=== PATIENT | male | born 1950 | race Caucasian/White ===

== ENCOUNTER → 2017-11-19 | Outpatient (CLI) | payer MEDICARE, OTHER ==
--- NOTE | 2017-11-19 08:34 | US ---
EXAMINATION TYPE: US thyroid st tissue head/neck DATE OF EXAM: 11/19/2017 COMPARISON: nuclear medicine 2013 CLINICAL HISTORY: E05 Hyperthyroidism, R94.6 Abnormal Thyroid Labs. GLAND SIZE: Right Lobe: 4.7 x 1.9 x 1.5 cm Overall Parenchyma: heterogenous Left Lobe: 5.0 x 2.3 x 2.8 cm Overall Parenchyma: heterogeneous Isthmus Thickness: 0.3 cm NODULES RIGHT: # of nodules measured on right: 1 1. 1.2 X 1.3 x 1.4 cm echogenic solid nodule at the lower pole with well-defined margins; . This n odule is round and shows no intranodular vascularity. Prior size: no prior . LEFT: # of nodules measured on left: 1 1. 2.5 X 1.8 x 2.0 cm echogenic mixed nodule at the mid pole with well-defined margins; . This nod ule is round and shows intranodular vascularity. Prior size: no prior ISTHMUS: # of nodules measured in the isthmus: 0 Bilateral neck scanned, no evidence of lymphadenopathy. IMPRESSION: Nonspecific thyroid nodularity. The need to biopsy should be made on a clinical basis.
== END | disposition home or self-care (01) ==
LOC: RADUSWWP 07:58
PROVIDERS: ATTEND Internal Medicine
DX: E04.2 Nontoxic multinodular goiter (principal)
CPT/HCPCS: 76536

== ENCOUNTER 2018-09-11 13:50 | Emergency (ER) | payer MEDICARE, OTHER ==
[2018-09-11 14:00] VITALS: TEMP 97.4
[2018-09-11 14:45] LABS: Basophils % (A) 0 %; Eosinophils # (A) 0.2 k/uL (0-0.7); Eosinophils % (A) 4 %; HCT 38.4 % (39.0-53.0); HGB 13.2 gm/dL (13.0-17.5); Lymphocytes # (A) 1.9 k/uL (1.0-4.8); Lymphocytes % (A) 31 %; MCH 30.5 pg (25.0-35.0); MCHC 34.4 g/dL (31.0-37.0); MCV 88.6 fL (80.0-100.0); Mean Platelet Volume 6.9; Monocytes # (A) 0.3 k/uL (0-1.0); Monocytes % (A) 5 %; Neutrophils # (A) 3.6 k/uL (1.3-7.7); Neutrophils % (A) 58 %; Platelet Count 167 k/uL (150-450); RBC 4.33 m/uL (4.30-5.90); RDW 14.5 % (11.5-15.5); WBC 6.2 k/uL (3.8-10.6)
[2018-09-11 15:04] LABS: INR 2.1 (<1.2); Prothrombin Time 20.2 sec (9.0-12.0)
--- NOTE | 2018-09-11 15:04 | XR ---
EXAMINATION TYPE: XR Hip RT and AP Pelvis, XR femur RT DATE OF EXAM: 09/11/2018 COMPARISON: CT abdomen pelvis 08/29/2012 HISTORY: Trauma one week prior, ecchymosis and pain TECHNIQUE: A single AP view of the pelvis is obtained. Two views of the right hip are obtained. 2 vie ws of the right femur on 4 images. FINDINGS: There is no acute fracture/dislocation evident in the pelvis. The hip and sacroiliac join ts appear symmetric and unremarkable. The overlying soft tissue appears unremarkable. Two views of right hip show no acute fracture or dislocation. No focal lytic or sclerotic lesion see n in the right femur. The overlying soft tissue is unremarkable. Degenerative disc changes noted in cidentally within the lumbar spine. There are vascular calcifications present. Arthropathy noted in t he right knee. IMPRESSION: There is no acute fracture or dislocation in the pelvis or right hip or femur.
--- NOTE | 2018-09-11 15:31 | ED ---
General Adult HPI - General Chief complaint: Extremity Injury, Lower Stated complaint: Leg pain Time Seen by Provider: 09/11/18 14:13 Source: patient, RN notes reviewed Mode of arrival: ambulatory Limitations: no limitations - History of Present Illness Initial comments: Patient 67-year-old male presented to the emergency room today with a chief complaint of a fall that occurred 1 week ago. He does admit that he was outside. He states it was dark he tripped on a tree root causing him to fall down onto the right hip. He states he had a flashlight in his pocket. Patient does admit that he's had some bruising around the right hip area. He states he was concerned as the bruising still present week later. States he wanted to make sure that it was checked. He denies any head injury or loss conscious. Patient does admit that he's been ambulating. He states that he only has pain if he palpates the area where the bruises. Patient also does admit that he is on Coumadin. He states that his Coumadin was increased recently. Patient denies any other complaints. Patient denies any recent fever, chills, shortness of breath, chest pain, back pain, numbness or tingling, headaches or visual changes, or any other complaints. - Related Data Allergies Allergy/AdvReac Type Severity Reaction Status Date / Time No Known Allergies Allergy Verified 09/11/18 14:01 Review of Systems ROS Statement: Those systems with pertinent positive or pertinent negative responses have been documented in the HPI. ROS Other: All systems not noted in ROS Statement are negative. Past Medical History Past Medical History: Atrial Fibrillation Additional Past Medical History / Comment(s): states he has been watching his blood sugar lately History of Any Multi-Drug Resistant Organisms: None Reported Past Surgical History: Joint Replacement, Orthopedic Surgery Additional Past Surgical History / Comment(s): right foot/leg surgery and madalyn placement related to crushing injury. Past Psychological History: Depression Smoking Status: Former smoker Past Alcohol Use History: None Reported Past Drug Use History: None Reported General Exam - General Exam Comments Initial Comments: General: The patient is awake and alert, in no distress, and does not appear acutely ill. Eye: There is normal conjunctiva bilaterally. No signs of icterus. Ears, nose, mouth and throat: There are moist mucous membranes and no oral lesions. Neck: The neck is supple, there is no tenderness or JVD. Cardiovascular: There is a regular rate and rhythm. No murmur, rub or gallop is appreciated. Respiratory: Lungs are clear to auscultation, respirations are non-labored, breath sounds are equal. No wheezes, stridor, rales, or rhonchi. Musculoskeletal: Normal ROM. Patient does have some bruising to the lateral aspect of the proximal femur also some bruising behind the left knee. Patient tender in these areas. Shows good range of motion. Sensations intact. Strength 5/5. Neurological: A&O x 3. CN II-XII intact, There are no obvious motor or sensory deficits. Coordination appears grossly intact. Speech is normal. Skin: Skin is warm and dry and no rashes or lesions are noted. Psychiatric: Cooperative, appropriate mood & affect, normal judgment. Limitations: no limitations Course Vital Signs 09/11/18 13:54 Temperature 97.4 F L Pulse Rate 54 L Respiratory 18 Rate Blood Pressure 173/73 O2 Sat by Pulse 98 Oximetry Medical Decision Making - Medical Decision Making X-rays reviewed are negative for any acute abnormality. Results were discussed with the patient. Patient's INR is 2.1. Patient will be discharged home. - Lab Data Result diagrams: 09/11/18 14:36 Lab Results 09/11/18 09/11/18 Range/Units 14:36 14:36 WBC 6.2 (3.8-10.6) k/uL RBC 4.33 (4.30-5.90) m/uL Hgb 13.2 (13.0-17.5) gm/dL Hct 38.4 L (39.0-53.0) % MCV 88.6 (80.0-100.0) fL MCH 30.5 (25.0-35.0) pg MCHC 34.4 (31.0-37.0) g/dL RDW 14.5 (11.5-15.5) % Plt Count 167 (150-450) k/uL Neutrophils % 58 % Lymphocytes % 31 % Monocytes % 5 % Eosinophils % 4 % Basophils % 0 % Neutrophils # 3.6 (1.3-7.7) k/uL Lymphocytes # 1.9 (1.0-4.8) k/uL Monocytes # 0.3 (0-1.0) k/uL Eosinophils # 0.2 (0-0.7) k/uL Basophils # 0.0 (0-0.2) k/uL PT 20.2 H (9.0-12.0) sec INR 2.1 H (<1.2) Disposition Clinical Impression: Contusion, hip Disposition: HOME SELF-CARE Condition: Good Instructions: Contusion in Adults (ED) Additional Instructions: Please follow up with family physician as discussed. Return to emergency room for new concerns. Is patient prescribed a controlled substance at d/c from ED?: No Referrals: Mati Gomez MD [Primary Care Provider] - 1-2 days Time of Disposition: 15:31
[2018-09-11 15:42] VITALS: BP 153/75; PULSE 67; RESP 16
== END 2018-09-11 15:41 | disposition home or self-care (01) ==
LOC: EC 13:50
DX: S70.01XA Contusion of right hip, initial encounter (principal); S80.02XA Contusion of left knee, initial encounter; I48.91 Unspecified atrial fibrillation; Z87.891 Personal history of nicotine dependence; Z79.01 Long term (current) use of anticoagulants; Z98.890 Other specified postprocedural states; W01.0XXA Fall on same level from slipping, tripping and stumbling without subsequent striking against object, initial encounter; Y93.K1 Activity, walking an animal
CPT/HCPCS: 36415; 73502; 85025; 85610; 99283

== ENCOUNTER 2019-06-30 18:41 | Emergency (ER) | payer MEDICARE, OTHER ==
[2019-06-30 18:46] VITALS: BP 161/73
--- NOTE | 2019-06-30 19:18 | ED ---
Extremity Problem HPI - General Chief complaint: Extremity Problem,Nontraumatic Stated complaint: shoulder pain with rash Time Seen by Provider: 06/30/19 18:46 Source: patient Mode of arrival: ambulatory Limitations: no limitations - History of Present Illness Initial comments: Patient is 68-year-old male presenting to emergency prompt with a chief comp laint of left shoulder pain. Patient reports he has been ongoing for about 1-2 weeks and seems to be exacerbated today. 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 Patient reports the pain is exacerbated with motion above 90. Patient reports the pain is alleviated at rest. Patient denies any trauma to the region. Patient is also concerned for a lesion in the axilla that he noticed today. His also reports that she felt a "lump" in the region with no drainage. Patient denies taking medication to alleviate the symptoms. - Related Data Home Medications Medication Instructions Recorded Confirmed Allopurinol [Zyloprim] 300 mg PO DAILY 06/30/19 06/30/19 Digoxin [Lanoxin] 125 mcg PO DAILY 06/30/19 06/30/19 HYDROcodone/APAP 10-325MG [[place] 1 tab PO QID 06/30/19 06/30/19 10-325] Lisinopril-Hctz 20-12.5 mg 1 tab PO DAILY 06/30/19 06/30/19 [Zestoretic 20-12.5] Warfarin [Coumadin] 10 mg PO HS 06/30/19 06/30/19 amLODIPine BESYLATE [Norvasc] 5 mg PO DAILY 06/30/19 06/30/19 glipiZIDE [Glucotrol] 5 mg PO AC-SUPPER 06/30/19 06/30/19 Previous Rx's Medication Instructions Recorded Triamcinolone 0.5% Cream [Kenalog 1 applic TOPICAL BID #1 bottle 06/30/19 0.5% Cream] Allergies Allergy/AdvReac Type Severity Reaction Status Date / Time No Known Allergies Allergy Verified 06/30/19 19:29 Review of Systems ROS Statement: Those systems with pertinent positive or pertinent negative responses have been documented in the HPI. ROS Other: All systems not noted in ROS Statement are negative. Past Medical History Past Medical History: Atrial Fibrillation Additional Past Medical History / Comment(s): states he has been watching his blood sugar lately History of Any Multi-Drug Resistant Organisms: None Reported Past Surgical History: Joint Replacement, Orthopedic Surgery Additional Past Surgical History / Comment(s): right foot/leg surgery and madalyn placement related to crushing injury. Past Psychological History: Depression Smoking Status: Former smoker Past Alcohol Use History: None Reported Past Drug Use History: None Reported General Exam Limitations: no limitations General appearance: alert, in no apparent distress Head exam: Present: atraumatic, normocephalic, normal inspection Eye exam: Present: normal appearance Pupils: Present: normal accommodation ENT exam: Present: normal exam, mucous membranes moist, normal external ear exam Neck exam: Present: normal inspection, full ROM Respiratory exam: Present: normal lung sounds bilaterally Cardiovascular Exam: Present: regular rate, normal rhythm, normal heart sounds Extremities exam: Present: normal inspection (No reported deformities in the left shoulder. No palpable masses appreciated in the axilla.), tenderness (Very mild tenderness along the anterior deltoid. Positive [place]. Positive empty can test.), normal capillary refill, other (+2 ulnar and radial pulses bilaterally.). Absent: full ROM (Limited range of motion with abduction above 90.), pedal edema, joint swelling Back exam: Present: normal inspection, full ROM Neurological exam: Present: alert, oriented X3 Psychiatric exam: Present: normal affect, normal mood Skin exam: Present: warm, intact, normal color, rash (Macular over lesion with excoriations noted in the left axilla with no discharge or erythema.) Course Vital Signs 06/30/19 18:44 Temperature 97.3 F L Pulse Rate 60 Respiratory 20 Rate Blood Pressure 161/73 O2 Sat by Pulse 97 Oximetry Medical Decision Making - Medical Decision Making Patient is 68-year-old male presenting to the emergency department with chief complaint of left shoulder pain. Patient only appears to have pain with abduction above 90. Physical examination does have positive empty can test and positive [place] test. There is no trauma to the region. X-rays negative. I suspect the patient to have a tendinopathy of the rotator cuff. Patient advised to alternate between Tylenol and ibuprofen for pain control. Patient advised to follow-up with orthopedics for further management. Also physical examination an macular lesion with excoriations was noted on the axilla which was non-tender. No any masses were detected. I suspect this to be dermatitis . Patient will be discharged with a steroid cream. Patient advised to follow-up with primary care regarding the lesion and if does not improve. Strict return parameters were thoroughly discussed with patient is understanding and agreeable. Case discussed with physician. Disposition Clinical Impression: Left shoulder pain, Tendinopathy of left rotator cuff Disposition: HOME SELF-CARE Condition: Stable Instructions (If sedation given, give patient instructions): Rotator Cuff Injury (ED) Additional Instructions: Please take prescribed medication as directed. Please follow up with orthopedics. Please return to emergency department if symptoms worsen. Prescriptions: Triamcinolone 0.5% Cream [Kenalog 0.5% Cream] 1 applic TOPICAL BID #1 bottle Is patient prescribed a controlled substance at d/c from ED?: No Referrals: Mati Gomez MD [Primary Care Provider] - 1-2 days Trae Reveles DO [Medical Doctor] - 1-2 days Time of Disposition: 20:37
--- NOTE | 2019-06-30 19:55 | XR ---
EXAMINATION TYPE: XR shoulder complete LT DATE OF EXAM: 06/30/2019 COMPARISON: NONE HISTORY: Shoulder pain TECHNIQUE: 3 views FINDINGS: I see no fracture nor dislocation. There is spurring at the AC joint. There are no patholog ic calcifications at the greater tuberosity. IMPRESSION: No acute abnormality of the left shoulder.
[2019-06-30 21:00] VITALS: PULSE 57; RESP 18; TEMP 98.1
== END 2019-06-30 20:55 | disposition home or self-care (01) ==
LOC: EC 18:41
DX: M67.912 Unspecified disorder of synovium and tendon, left shoulder (principal); I48.91 Unspecified atrial fibrillation; Z79.01 Long term (current) use of anticoagulants; Z79.84 Long term (current) use of oral hypoglycemic drugs; Z79.899 Other long term (current) drug therapy; Z87.891 Personal history of nicotine dependence
CPT/HCPCS: 99283

== ENCOUNTER 2021-03-05 | Day surgery (SDC) | payer MEDICARE, OTHER | END 2021-03-05 13:53 | disposition home or self-care (01) | DX: Z12.11 Encounter for screening for malignant neoplasm of colon (principal); I48.91 Unspecified atrial fibrillation; Z79.01 Long term (current) use of anticoagulants; E11.9 Type 2 diabetes mellitus without complications; M10.9 Gout, unspecified; I10 Essential (primary) hypertension; Z79.899 Other long term (current) drug therapy; Z79.84 Long term (current) use of oral hypoglycemic drugs; D12.4 Benign neoplasm of descending colon; D12.5 Benign neoplasm of sigmoid colon; D12.3 Benign neoplasm of transverse colon; Z86.010 Personal history of colon polyps; K57.90 Diverticulosis of intestine, part unspecified, without perforation or abscess without bleeding | CPT/HCPCS: 88305; 45380; 45385; J2704 ==

== ENCOUNTER → 2021-05-22 | Outpatient (CLI) | payer MEDICARE, OTHER ==
--- NOTE | 2021-05-22 19:47 | US ---
EXAM: LOWER EXTREMITY VENOUS INSUFFICIENCY DATE: 05/22/2021 CLINICAL HISTORY: E11.621 Type 2 diabetes mellitus with foot ulcer. SIDE PERFORMED: Bilateral FINDINGS: 1) Color flow is present and patency is documented in the following vessels. No DVT or SVT is noted . Common Femoral Vein Deep Femoral Vein Femoral Vein Popliteal Vein Proximal Calf Veins Greater Saph Vein Upper Small Saph Vein 2) There is venous reflux noted at the following venous levels: right mid FV, right distal popliteal vein, left EIV, left GSV, left mid FV IMPRESSION: 1. No evidence for DVT within the bilateral lower extremities imaged from the groin to the knees. 2. Bilateral lower extremity venous reflux as outlined above.
== END | disposition home or self-care (01) ==
LOC: RADUSWWP 13:45
PROVIDERS: ATTEND Thoracic Surgery (Cardiothoracic Vascular Surgery)
DX: I87.2 Venous insufficiency (chronic) (peripheral) (principal)
CPT/HCPCS: 93923; 93970

== ENCOUNTER 2022-05-23 19:03 | Inpatient (IN) | payer MEDICARE, OTHER ==
--- NOTE | 2022-05-23 20:27 | XR ---
EXAMINATION TYPE: XR foot complete RT, XR toes RT DATE OF EXAM: 05/23/2022 CLINICAL HISTORY: pain TECHNIQUE: Frontal, lateral and oblique images of the right foot are obtained. 3 views of the right s econd toe are also submitted. COMPARISON: None. FINDINGS: Tissue swelling right second toe. I do not see evidence for bony destructive process. No ev idence for fracture or dislocation. Moderate degenerative change first metatarsal phalangeal joint an d subchondral cyst formation and mild hallux valgus formation. IMPRESSION: There is no acute fracture or dislocation. Soft tissue swelling right second toe without osteomyeliti s at this time. ICD 10 NO FRACTURE, INITIAL EVALUATION
[2022-05-23 21:12] LABS: Basophils % (A) 0 %; Eosinophils # (A) 0.4 k/uL (0-0.7); Eosinophils % (A) 4 %; HCT 33.1 % (39.0-53.0); HGB 11.2 gm/dL (13.0-17.5); Lymphocytes # (A) 1.8 k/uL (1.0-4.8); Lymphocytes % (A) 20 %; MCH 31.4 pg (25.0-35.0); MCHC 33.9 g/dL (31.0-37.0); MCV 92.7 fL (80.0-100.0); Mean Platelet Volume 7.8; Monocytes # (A) 0.5 k/uL (0-1.0); Monocytes % (A) 6 %; Neutrophils # (A) 6.2 k/uL (1.3-7.7); Neutrophils % (A) 67 %; Platelet Count 174 k/uL (150-450); RBC 3.57 m/uL (4.30-5.90); RDW 13.6 % (11.5-15.5); WBC 9.2 k/uL (3.8-10.6)
[2022-05-23] MEDS ORDERED: VANCOMYCIN IV PER PHARMACY 1 EACH MISC MISCELLANE PRN (21:39)
[2022-05-23] MEDS ORDERED: VANCOMYCIN 1,750 MG in SODIUM CHLORIDE 0.9% 500 ML 500 ML IVPB STA (21:47)
[2022-05-23] MEDS ORDERED: PIPERACILLIN-TAZOBACTAM 3.375 GM in SODIUM CHLORIDE 0.9% 100 ML IVPB ONE (22:00)
--- NOTE | 2022-05-23 22:20 | ED ---
Skin/Abscess/FB HPI - General Chief complaint: Skin/Abscess/Foreign Body Stated complaint: Toe/foot problems Time Seen by Provider: 05/23/22 19:34 Source: patient Mode of arrival: ambulatory Limitations: no limitations - History of Present Illness Initial comments: Patient is a 71-year-old male presenting with chief complaint of right sided toe pain. Patient states that about a week ago he was tearing off his toenails instead of trimming them. Patient is now complaining of pain, redness, discharge from the second toe of the right foot. There is redness going up the foot and leg. Patient is noticing skin changes near the end of the toe. Patient has history of diabetes. Denies chest pain, shortness of breath, fever, chills, nausea, vomiting, abdominal pain, headache, vision or hearing changes, neck pain or stiffness. - Related Data Home Medications Medication Instructions Recorded Confirmed Digoxin [Lanoxin] 125 mcg PO DAILY 06/30/19 03/05/21 HYDROcodone/APAP 10-325MG [[place] 1 tab PO QID 06/30/19 03/05/21 10-325] Lisinopril-Hctz 20-12.5 mg 1 tab PO DAILY 06/30/19 03/05/21 [Zestoretic 20-12.5] Warfarin [Coumadin] 10 mg PO HS 06/30/19 03/05/21 allopurinoL [Zyloprim] 300 mg PO DAILY 06/30/19 03/05/21 amLODIPine BESYLATE [Norvasc] 5 mg PO DAILY 06/30/19 03/05/21 glipiZIDE [Glucotrol] 5 mg PO AC-SUPPER 06/30/19 03/05/21 Previous Rx's Medication Instructions Recorded Triamcinolone 0.5% Cream [Kenalog 1 applic TOPICAL BID #1 bottle 06/30/19 0.5% Cream] Allergies Allergy/AdvReac Type Severity Reaction Status Date / Time No Known Allergies Allergy Verified 05/23/22 19:34 Review of Systems ROS Statement: Those systems with pertinent positive or pertinent negative responses have been documented in the HPI. ROS Other: All systems not noted in ROS Statement are negative. Past Medical History Past Medical History: Atrial Fibrillation Additional Past Medical History / Comment(s): states he has been watching his blood sugar lately History of Any Multi-Drug Resistant Organisms: MRSA Date of last positivie culture/infection: 05/08/21 MDRO Source:: Right Heel Past Surgical History: Joint Replacement, Orthopedic Surgery Additional Past Surgical History / Comment(s): right foot/leg surgery and madalyn placement related to crushing injury. Past Psychological History: Depression Past Alcohol Use History: None Reported Past Drug Use History: None Reported General Exam Limitations: no limitations General appearance: alert, in no apparent distress Head exam: Present: atraumatic, normocephalic, normal inspection Eye exam: Present: normal appearance, EOMI. Absent: scleral icterus, periorbital swelling Neck exam: Present: normal inspection Respiratory exam: Present: normal lung sounds bilaterally. Absent: respiratory distress, wheezes, rales, rhonchi, stridor Cardiovascular Exam: Present: regular rate, normal rhythm, normal heart sounds. Absent: systolic murmur, diastolic murmur, rubs, gallop, clicks Right Foot/Toe exam: Present: tenderness, swelling, erythema, nail avulsion. Absent: normal inspection Neurological exam: Present: alert, oriented X3, CN II-XII intact Psychiatric exam: Present: normal affect, normal mood Skin exam: Present: other (Right foot second toe is erythematous, there is streaking up the foot and lower leg, there is pus from where the nail previously was, it is warm to the touch, distal end is concerning for some necrosis) Course Vital Signs 05/23/22 19:32 Temperature 98.5 F Pulse Rate 98 Respiratory 18 Rate Blood Pressure 102/58 O2 Sat by Pulse 96 Oximetry - Reevaluation(s) Reevaluation #1: To the waiting room to date the patient on his results, patient left AMA. I called the patient, his answered and I explained to her that he needs to return for further care. conveyed verbal understanding and stated that she would be bring him back. 05/23/22 22:33 Medical Decision Making - Medical Decision Making Patient is a 71-year-old male presenting with chief complaint of right-sided toe pain. Over the last week patient has had increasing pain, redness, discharge to the right foot second toe. Patient states he has been changing the dressings at home, today when his saw that she was concerned that the tip of the toe appeared to be darker. I brought the patient into the [facility] room for evaluation, right second toe is erythematous with red streaking up the foot and lower leg, the foot is warm, tender to the touch, discharge noted from the toe. I explained to him that he would require IV antibiotics and would be staying here in the hospital. X-ray showed no evidence of osteomyelitis. Lab work shows no leukocytosis, WBC 9.2. Evidence for acute renal failure with creatinine of 4.14 and BUN of 96. Glucose is 174. CRP 5.5. Order was placed for IV antibiotics and fluids. When staff went to retrieve patient from the waiting room, patient had left. Called the patient's and explained to her that the patient left and needed to return for IV antibiotics and further management. Patient reported back to the ER accompanied by his , IV ant ibiotics and fluids were started. Tetanus is updated. I spoke with Dr. Quezada from [facility] who agreed to admit the patient. I discussed this case with my attending Dr. Cox. - Lab Data Result diagrams: 05/23/22 20:51 05/23/22 20:51 Lab Results 05/23/22 05/23/22 Range/Units 20:51 20:51 WBC 9.2 (3.8-10.6) k/uL RBC 3.57 L (4.30-5.90) m/uL Hgb 11.2 L (13.0-17.5) gm/dL Hct 33.1 L (39.0-53.0) % MCV 92.7 (80.0-100.0) fL MCH 31.4 (25.0-35.0) pg MCHC 33.9 (31.0-37.0) g/dL RDW 13.6 (11.5-15.5) % Plt Count 174 (150-450) k/uL MPV 7.8 Neutrophils % 67 % Lymphocytes % 20 % Monocytes % 6 % Eosinophils % 4 % Basophils % 0 % Neutrophils # 6.2 (1.3-7.7) k/uL Lymphocytes # 1.8 (1.0-4.8) k/uL Monocytes # 0.5 (0-1.0) k/uL Eosinophils # 0.4 (0-0.7) k/uL Basophils # 0.0 (0-0.2) k/uL ESR Cancelled Sodium 137 (137-145) mmol/L Potassium 4.1 (3.5-5.1) mmol/L Chloride 97 L (98-107) mmol/L Carbon Dioxide 20 L (22-30) mmol/L Anion Gap 20 mmol/L BUN 96 H (9-20) mg/dL Creatinine 4.14 H (0.66-1.25) mg/dL Est GFR (CKD-EPI)AfAm 16 (>60 ml/min/1.73 sqM) Est GFR (CKD-EPI)NonAf 13 (>60 ml/min/1.73 sqM) Glucose 174 H (74-99) mg/dL Calcium 8.6 (8.4-10.2) mg/dL Total Bilirubin 1.4 H (0.2-1.3) mg/dL AST 29 (17-59) U/L ALT 17 (4-49) U/L Alkaline Phosphatase 86 (38-126) U/L C-Reactive Protein 5.5 H (<1.0) mg/dL Total Protein 6.8 (6.3-8.2) g/dL Albumin 4.3 (3.5-5.0) g/dL Disposition Clinical Impression: Diabetic foot infection, Acute renal failure Disposition: ADMITTED IP TO THIS [facility] Condition: Serious Time of Disposition: 22:20 Decision to Admit Reason: Admit from EC Decision Date: 05/23/22 Decision Time: 22:20
[2022-05-23 22:40] LABS: Albumin 4.3 g/dL (3.5-5.0); C Reactive Protein 5.5 mg/dL (<1.0); Calcium 8.6 mg/dL (8.4-10.2); Potassium 4.1 mmol/L (3.5-5.1); Total Bilirubin 1.4 mg/dL (0.2-1.3); Total Protein 6.8 g/dL (6.3-8.2)
[2022-05-23] MEDS ORDERED: SODIUM CHLORIDE 0.9% 2,000 ML IV ONE (22:54)
[2022-05-23] MEDS ORDERED: ACETAMINOPHEN TAB 325 MG TAB PO PRN (23:05)
[2022-05-23] MEDS ORDERED: NALOXONE 0.4 MG/ML 1 ML VIAL IV PRN (23:05)
[2022-05-24] MEDS ORDERED: DIPH,PERTUS(ACELL)TETVAC-LF 0.5 ML VIAL IM ONE (02:04)
[2022-05-24] MEDS: SODIUM CHLORIDE 0.9% 1,000 ML IV SCH ×4 (04:03→22:22)
[2022-05-24 10:57] LABS: Basophils % (A) 0 %; Eosinophils # (A) 0.4 k/uL (0-0.7); Eosinophils % (A) 6 %; HCT 30.7 % (39.0-53.0); HGB 10.3 gm/dL (13.0-17.5); Lymphocytes # (A) 1.5 k/uL (1.0-4.8); Lymphocytes % (A) 25 %; MCH 30.1 pg (25.0-35.0); MCHC 33.6 g/dL (31.0-37.0); MCV 89.8 fL (80.0-100.0); Mean Platelet Volume 8.1; Monocytes # (A) 0.4 k/uL (0-1.0); Monocytes % (A) 6 %; Neutrophils # (A) 3.6 k/uL (1.3-7.7); Neutrophils % (A) 60 %; Platelet Count 143 k/uL (150-450); RBC 3.42 m/uL (4.30-5.90); RDW 13.8 % (11.5-15.5); WBC 6.1 k/uL (3.8-10.6)
[2022-05-24 11:52] LABS: Albumin 4.2 g/dL (3.5-5.0); Calcium 8.2 mg/dL (8.4-10.2); Total Bilirubin 1.2 mg/dL (0.2-1.3); Total Protein 6.3 g/dL (6.3-8.2)
[2022-05-24] MEDS ORDERED: LISINOPRIL-HCTZ 20-12.5 MG 1 EACH TAB PO SCH (14:30)
--- NOTE | 2022-05-24 14:44 | P.HPIM ---
History of Present Illness H&P Date: 05/24/22 Pepe Waters, is a 71-year-old male who presented to [facility] emergency room with a chief complaint of right second toe pain and swelling and erythema, patient stated that he was trimming his toenails few days ago he has severe onychomycosis in all his toenails, he ended up tearing off the second right toenail, he developed some pain and bleeding at the time, however he started having worsening pain and erythema extending down his foot over the next few days and he decided to come to emergency room for further evaluation and treatment. He was evaluated in the emergency room vital examination on presentation revealed a temperature of 98.5 pulse 98 respiration 18 blood pressure 102/58 pulse ox 96% on room air Laboratory data revealed a white blood count of 9.2 hemoglobin 11.2 platelet count 174 BUN 96 creatinine 4.14 glucose level 174 his creatinine was normal at 1.0 one months ago Testing in the emergency room revealed right foot x-ray done in the emergency room revealed no evidence of fracture or osteomyelitis Patient was admitted to medical floor for further evaluation and treatment, he was started on IV antibiotics, infectious disease consultation and nephrology consultation were requested. Past medical history is significant for history of hypertension well-controlled on medications, history of diabetes mellitus type 2, history of chronic atrial fibrillation maintained on Coumadin, INR was elevated recently and Coumadin is on hold at this time, underlying history of gout, history of colon polyps. Past Medical History Past Medical History: Atrial Fibrillation, Diabetes Mellitus Additional Past Medical History / Comment(s): . History of Any Multi-Drug Resistant Organisms: MRSA Date of last positivie culture/infection: 05/08/21 MDRO Source:: Right Heel Past Surgical History: Joint Replacement, Orthopedic Surgery Additional Past Surgical History / Comment(s): right foot/leg surgery and madalyn placement related to crushing injury. Past Anesthesia/Blood Transfusion Reactions: No Reported Reaction Past Psychological History: Depression Smoking Status: Former smoker Past Alcohol Use History: None Reported Past Drug Use History: None Reported Medications and Allergies Home Medications Medication Instructions Recorded Confirmed Type HYDROcodone/APAP 10-325MG [[place] 1 tab PO TID PRN 06/30/19 05/24/22 History 10-325] Lisinopril-Hctz 20-12.5 mg 1 tab PO DAILY 06/30/19 05/24/22 History [Zestoretic 20-12.5] allopurinoL [Zyloprim] 300 mg PO DAILY 06/30/19 05/24/22 History amLODIPine BESYLATE [Norvasc] 5 mg PO DAILY 06/30/19 05/24/22 History Warfarin Sodium [Jantoven] 5 mg PO MO@189905/24/22 05/24/22 History Warfarin Sodium [Jantoven] 10 mg PO SUTUWETHFRSA@1900 05/24/22 05/24/22 History Allergies Allergy/AdvReac Type Severity Reaction Status Date / Time No Known Allergies Allergy Verified 05/24/22 11:31 Physical Exam Vitals: Vital Signs Temp Pulse Pulse Resp BP BP Pulse Ox 05/24/22 08:30 97.7 F 85 18 128/73 98 05/24/22 03:46 87 16 104/62 96 05/23/22 19:32 98.5 F 98 18 102/58 96 Intake and Output 05/23/22 05/24/22 05/24/22 22:59 06:59 14:59 Other: # Voids 1 Weight 113.398 kg 113.398 kg In general patient is alert and oriented ?-3 in no distress HEENT head normocephalic and atraumatic Neck is supple no JVD no goiter no lymphadenopathy no carotid bruit Chest examination is clear to auscultation no crackles no wheezing Cardiac exam reveals regular heart sounds S1 and S2 no gallops no murmurs Abdomen is soft nontender no organomegaly with normal bowel sounds Extremity exam reveals no edema no cyanosis or clubbing, the right second toe is without toenail, there is erythema and swelling in the right second 2 with extension of the erythema down the foot all the way to the ankle area, there is onychomycosis 10 Neurological examination reveals no gross focal deficits Results CBC & Chem 7: 05/24/22 08:20 05/24/22 08:20 Labs: Abnormal Lab Results - Last 24 Hours (Table) 05/23/22 05/23/22 05/24/22 Range/Units 20:51 20:51 08:20 RBC 3.57 L 3.42 L (4.30-5.90) m/uL Hgb 11.2 L 10.3 L (13.0-17.5) gm/dL Hct 33.1 L 30.7 L (39.0-53.0) % Plt Count 143 L (150-450) k/uL Chloride 97 L (98-107) mmol/L Carbon Dioxide 20 L (22-30) mmol/L BUN 96 H (9-20) mg/dL Creatinine 4.14 H (0.66-1.25) mg/dL Glucose 174 H (74-99) mg/dL Total Bilirubin 1.4 H (0.2-1.3) mg/dL C-Reactive Protein 5.5 H (<1.0) mg/dL Thrombosis Risk Factor Assmnt - Choose All That Apply Any of the Below Risk Factors Present?: Yes Each Factor Represents 1 point: Obesity (BMI >25) Other Risk Factors: Yes Each Risk Factor Represents 2 Points: Age 61-74 years Thrombosis Risk Factor Assessment Total Risk Factor Score: 3 Thrombosis Risk Factor Assessment Level: Moderate Risk Assessment and Plan Plan: Cellulitis of the right foot with ulcer on the second toe was loss of the second toenail Acute kidney injury, cause is unclear, at this time will hold lisinopril hold allopurinol, give IV fluid and monitor kidney function closely Underlying history of hypertension Underlying history of hyperlipidemia Underlying history of diabetes mellitus type 2 Underlying history of chronic atrial fibrillation maintained on Coumadin Recent coagulopathy was elevated INR patient is off his Coumadin for the last 2 days with check INR Underlying history of gout At this time patient will be admitted to medical floor Started on IV fluid and IV antibiotics Infectious disease consultation and nephrology consultations requested Will follow closely
[2022-05-24] MEDS: allopurinoL 300 MG TAB PO SCH (15:16)
[2022-05-24] MEDS: amLODIPine 5 MG TAB PO SCH (15:16)
[2022-05-24 15:24] LABS: Prothrombin Time 69.4 sec (9.0-12.0)
[2022-05-24 15:27] LABS: INR 6.8 (<1.2)
[2022-05-24] MEDS: AMPICILLIN-SULBACTAM 3 GM in SODIUM CHLORIDE 0.9% 100 ML IVPB SCH (16:56)
[2022-05-24] MEDS ORDERED: PIPERACILLIN-TAZOBACTAM 3.375 GM in SODIUM CHLORIDE 0.9% 100 ML IVPB SCH (17:00)
[2022-05-24] MEDS: HYDROcodone/APAP 10-325MG 1 EACH TAB PO PRN (17:41)
[2022-05-24] MEDS ORDERED: WARFARIN 10 MG TAB PO SCH (19:00)
[2022-05-24] MEDS ORDERED: VANCOMYCIN 1,750 MG in SODIUM CHLORIDE 0.9% 500 ML 500 ML IVPB ONE (22:00)
[2022-05-25] MEDS: AMPICILLIN-SULBACTAM 3 GM in SODIUM CHLORIDE 0.9% 100 ML IVPB SCH ×2 (04:56→16:22)
[2022-05-25 07:03] LABS: ALT 15 U/L (4-49); AST 27 U/L (17-59); African American GFR (CKD) 24 (>60 ml/min/1.73 sqM); Albumin 3.9 g/dL (3.5-5.0); Albumin/Globulin Ratio 1.8; Alkaline Phosphatase 75 U/L (38-126); Anion Gap 16 mmol/L; Blood Urea Nitrogen 77 mg/dL (9-20); Calcium 8.2 mg/dL (8.4-10.2); Carbon Dioxide 24 mmol/L (22-30); Chloride 101 mmol/L (98-107); Globulin 2.2 g/dL; Glucose 108 mg/dL (74-99); Non-African American GFR(CKD) 21 (>60 ml/min/1.73 sqM); Potassium 4.2 mmol/L (3.5-5.1); Sodium 141 mmol/L (137-145); Total Bilirubin 1.1 mg/dL (0.2-1.3); Total Protein 6.1 g/dL (6.3-8.2)
[2022-05-25 07:08] LABS: Vancomycin,Random 24.6 ug/mL
[2022-05-25] MEDS: HYDROcodone/APAP 10-325MG 1 EACH TAB PO PRN (07:17)
[2022-05-25] MEDS: amLODIPine 5 MG TAB PO SCH (08:23)
[2022-05-25] MEDS: allopurinoL 300 MG TAB PO SCH (08:23)
[2022-05-25] MEDS: SODIUM CHLORIDE 0.9% 1,000 ML IV SCH ×2 (08:24→19:23)
[2022-05-25 10:18] LABS: Basophils # (A) 0.03 X 10*3/uL (0.00-0.10); Basophils % (A) 0.5 %; Eosinophils # (A) 0.37 X 10*3/uL (0.04-0.35); Eosinophils % (A) 6.7 %; HCT 28.7 % (39.6-50.0); HGB 9.7 g/dL (13.0-17.0); Immature Grans, Automated 0.4 %; Lymphocytes # (A) 1.48 X 10*3/uL (0.90-5.00); Lymphocytes % (A) 26.6 %; MCH 30.5 pg (27.0-32.0); MCHC 33.8 g/dL (32.0-37.0); MCV 90.3 fL (80.0-97.0); Mean Platelet Volume 9.5 fL (9.5-12.2); Monocytes # (A) 0.43 X 10*3/uL (0.20-1.00); Monocytes % (A) 7.7 %; NRBC Per 100 WBC 0 /100 WBCS (0.0-0.0); Neutrophils # (A) 3.23 X 10*3/uL (1.80-7.70); Neutrophils % (A) 58.1 %; Platelet Count 133 X 10*3/uL (140-440); RBC 3.18 X 10*6/uL (4.40-5.60); RDW 13.1 % (11.5-14.5); WBC 5.56 X 10*3/uL (4.50-10.00)
--- NOTE | 2022-05-25 10:42 | P.NPCON ---
History of Present Illness - Reason for Consult acute renal failure - History of Present Illness Reason for consultation: Acute kidney injury History of present illness: Patient is a 71-year-old male seen in renal consultation for acute kidney injury. Patient's creatinine on admission was 4.14 and is down to 2.92 today. Patient presented to the hospital due to injury to his right toe. Patient states he had long toenails which then ripped off. He noticed black discoloration on his right second toe and came to the hospital. Patient has a history of diabetes. He denies chest pain or shortness of breath. Has been voiding. No hematuria or dysuria. Denies regular use of nonsteroidals. No history of coronary artery disease. He is currently receiving IV fluids. Denies vomiting or diarrhea. Oral intake has been fair. He denies family history of renal disease. He was taking lisinopril as well as thiazide diuretic at home which are currently held. Blood pressure stable. No fever or chills. Vital signs are stable. General: Awake. No acute distress. HEENT: Head exam is unremarkable. LUNGS: Breath sounds decreased. HEART: Rate and Rhythm are regular. ABDOMEN: Soft, no distention. EXTREMITITES: No edema. Right foot second toe black discoloration noted. No drainage. Past Medical History Past Medical History: Atrial Fibrillation, Diabetes Mellitus Additional Past Medical History / Comment(s): . History of Any Multi-Drug Resistant Organisms: MRSA Date of last positivie culture/infection: 05/08/21 MDRO Source:: Right Heel Past Surgical History: Joint Replacement, Orthopedic Surgery Additional Past Surgical History / Comment(s): right foot/leg surgery and madalyn placement related to crushing injury. Past Anesthesia/Blood Transfusion Reactions: No Reported Reaction Past Psychological History: Depression Smoking Status: Former smoker Past Alcohol Use History: None Reported Past Drug Use History: None Reported Medications and Allergies Home Medications Medication Instructions Recorded Confirmed Type HYDROcodone/APAP 10-325MG [[place] 1 tab PO TID PRN 06/30/19 05/24/22 History 10-325] Lisinopril-Hctz 20-12.5 mg 1 tab PO DAILY 06/30/19 05/24/22 History [Zestoretic 20-12.5] allopurinoL [Zyloprim] 300 mg PO DAILY 06/30/19 05/24/22 History amLODIPine BESYLATE [Norvasc] 5 mg PO DAILY 06/30/19 05/24/22 History Warfarin Sodium [Jantoven] 5 mg PO MO@189905/24/22 05/24/22 History Warfarin Sodium [Jantoven] 10 mg PO SUTUWETHFRSA@189905/24/22 05/24/22 History Allergies Allergy/AdvReac Type Severity Reaction Status Date / Time No Known Allergies Allergy Verified 05/24/22 11:31 Physical Exam Vitals: Vital Signs Temp Pulse Pulse Resp BP BP Pulse Ox 05/25/22 08:25 110/69 05/25/22 04:44 98.2 F 75 16 121/68 96 05/24/22 20:00 98.4 F 72 18 117/70 95 05/24/22 17:39 97.5 F L 77 18 103/63 97 05/24/22 17:04 97.6 F 95 18 109/74 98 05/24/22 15:20 75 18 121/75 99 Intake and Output 05/24/22 05/25/22 05/25/22 22:59 06:59 14:59 Intake Total 130 500 Balance 130 500 Intake: Intake, IV Titration 130 Amount Sodium Chloride 0.9% 1, 130 000 ml @ 130 mls/hr IV . Q7H42M [facility] Rx#:[id number] Oral 500 Other: Voiding Method Toilet # Voids 2 Results - Lab Results Most recent lab results Calcium 8.2 mg/dL (8.4-10.2) L 05/25/22 06:15 Magnesium 1.0 mg/dL (1.6-2.3) L 05/25/22 06:15 05/25/22 06:15 05/25/22 06:15 Assessment and Plan Plan: Assessment: 1. Acute kidney injury mostly prerenal improving with IV hydration. Creatinine 4.14 on admission and is 2.92 today. Baseline creatinine near 1. 2. Right foot cellulitis on antibiotics. ID following. 3. Benign hypertension. Controlled. 4. A. fib. 5. Diabetes mellitus. 6. Anemia. Rule out iron deficiency. 7. Hypomagnesemia from poor intake and diuretics. Plan: Maintain IV fluids. Decrease rate of normal saline to 75 mL an hour. Continue to hold lisinopril and diuretics. Hold amlodipine for systolic blood pressure less than 125. Check bladder scan to make sure no urinary retention. Check iron studies. Avoid nephrotoxins. Check renal ultrasound. Check UA. Replace magnesium. Thank you for the consultation. I will continue to follow the patient with you during his hospital stay.
--- NOTE | 2022-05-25 11:05 | P.PN ---
Subjective Progress Note Date: 05/25/22 Pepe Waters, is a 71-year-old male who presented to [facility] emergency room with a chief complaint of right second toe pain and swelling and erythema, patient stated that he was trimming his toenails few days ago he has severe onychomycosis in all his toenails, he ended up tearing off the second right toenail, he developed some pain and bleeding at the time, however he started having worsening pain and erythema extending down his foot over the next few days and he decided to come to emergency room for further evaluation and treatment. He was evaluated in the emergency room vital examination on presentation revealed a temperature of 98.5 pulse 98 respiration 18 blood pressure 102/58 pulse ox 96% on room air Laboratory data revealed a white blood count of 9.2 hemoglobin 11.2 platelet count 174 BUN 96 creatinine 4.14 glucose level 174 his creatinine was normal at 1.0 one months ago Testing in the emergency room revealed right foot x-ray done in the emergency room revealed no evidence of fracture or osteomyelitis Patient was admitted to medical floor for further evaluation and treatment, he was started on IV antibiotics, infectious disease consultation and nephrology consultation were requested. Past medical history is significant for history of hypertension well-controlled on medications, history of diabetes mellitus type 2, history of chronic atrial fibrillation maintained on Coumadin, INR was elevated recently and Coumadin is on hold at this time, underlying history of gout, history of colon polyps. On 05/25/2022 patient is alert and oriented 3. Creatinine improving to 2.92 and bun 77. Awaiting INR result. Patient remains on IV Unasyn. Infectious disease and nephrology services are following. Vital signs temp 98.2, heart rate 75, respiratory rate 16 blood pressure 121/60 with a pulse ox of 96% on room air. Patient denies chest pain or shortness breath. Patient denies nausea vomiting or diarrhea. Patient denies any urinary burning or frequency Objective - Vital Signs Vital signs: Vital Signs Temp 98.2 F 05/25/22 04:44 Pulse 75 05/25/22 04:44 Resp 16 05/25/22 04:44 BP 110/69 05/25/22 08:25 Pulse Ox 96 05/25/22 04:44 FiO2 Intake & Output 05/24/22 05/25/22 05/25/22 18:59 06:59 18:59 Intake Total 130 500 Balance 130 500 Intake: Intake, IV Titration 130 Amount Sodium Chloride 0.9% 1, 130 000 ml @ 130 mls/hr IV . Q7H42M [facility] Rx#:[id number] Oral 500 Other: Voiding Method Toilet # Voids 2 - Exam In general patient is alert and oriented ?-3 in no distress HEENT head normocephalic and atraumatic Neck is supple no JVD no goiter no lymphadenopathy no carotid bruit Chest examination is clear to auscultation no crackles no wheezing Cardiac exam reveals regular heart sounds S1 and S2 no gallops no murmurs Abdomen is soft nontender no organomegaly with normal bowel sounds Extremity exam reveals no edema no cyanosis or clubbing, the right second toe is without toenail, there is erythema and swelling in the right second 2 with ex tension of the erythema down the foot all the way to the ankle area, there is onychomycosis 10 Neurological examination reveals no gross focal deficits - Labs CBC & Chem 7: 05/25/22 06:15 05/25/22 06:15 Labs: Abnormal Lab Results - Last 24 Hours (Table) 05/24/22 05/24/22 05/25/22 Range/Units 08:20 14:28 06:15 RBC (4.40-5.60) X 10*6/uL Hgb (13.0-17.0) g/dL Hct (39.6-50.0) % Plt Count (140-440) X 10*3/uL Eosinophils # (0.04-0.35) X 10*3/uL PT 69.4 H (9.0-12.0) sec INR 6.8 H* (<1.2) Chloride 97 L (98-107) mmol/L BUN 86 H 77 H (9-20) mg/dL Creatinine 3.66 H 2.92 H (0.66-1.25) mg/dL Glucose 102 H 108 H (74-99) mg/dL Calcium 8.2 L 8.2 L (8.4-10.2) mg/dL Magnesium 1.0 L (1.6-2.3) mg/dL Total Protein 6.1 L (6.3-8.2) g/dL 05/25/22 Range/Units 06:15 RBC 3.18 L (4.40-5.60) X 10*6/uL Hgb 9.7 L (13.0-17.0) g/dL Hct 28.7 L (39.6-50.0) % Plt Count 133 L (140-440) X 10*3/uL Eosinophils # 0.37 H (0.04-0.35) X 10*3/uL PT (9.0-12.0) sec INR (<1.2) Chloride (98-107) mmol/L BUN (9-20) mg/dL Creatinine (0.66-1.25) mg/dL Glucose (74-99) mg/dL Calcium (8.4-10.2) mg/dL Magnesium (1.6-2.3) mg/dL Total Protein (6.3-8.2) g/dL Microbiology - Last 24 Hours (Table) 05/23/22 20:51 Blood Culture - Preliminary Blood No Growth after 24 hours Assessment and Plan Plan: Cellulitis of the right foot with ulcer on the second toe was loss of the second toenail Acute kidney injury, cause is unclear, at this time will hold lisinopril hold allopurinol, give IV fluid and monitor kidney function closely Underlying history of hypertension Underlying history of hyperlipidemia Underlying history of diabetes mellitus type 2 Underlying history of chronic atrial fibrillation maintained on Coumadin Recent coagulopathy was elevated INR patient is off his Coumadin for the last 2 days with check INR Underlying history of gout At this time patient will be admitted to medical floor Started on IV fluid and IV antibiotics Infectious disease consultation and nephrology consultations requested Will follow closely
[2022-05-25] MEDS: MAGNESIUM SULFATE-D5W PMX 1 GM in DEXTROSE/WATER 1 100ML.BAG IVPB SCH ×3 (11:35→13:46)
--- NOTE | 2022-05-25 12:26 | US ---
EXAMINATION TYPE: US kidneys/renal and bladder DATE OF EXAM: 05/25/2022 COMPARISON: NONE CLINICAL HISTORY: rosey. EXAM MEASUREMENTS: Right Kidney: 12.4 x 5.8 x 5.2 cm Left Kidney: 12.0 x 5.1 x 6.2 cm Right Kidney: mild hydronephrosis, Left Kidney: No hydronephrosis or masses seen Bladder: wnl No nephrolithiasis is seen. No masses are identified. The urinary bladder is anechoic. Bilateral ureteral jets are seen. IMPRESSION: Mild right-sided hydronephrosis.
[2022-05-25 12:42] LABS: INR 4.01 (0.90-1.11); Prothrombin Time 42.4 sec (9.9-11.9)
[2022-05-25 13:08] LABS: Amorphous Sediment,Urine Rare /hpf; Appearance,Urine Clear (Clear); Bacteria,Urine Occasional /hpf; Bilirubin,Urine Negative (Negative); Blood,Urine Trace (Negative); Color,Urine Colorless; Glucose,Urine (UA) Negative (Negative); Ketones,Urine Negative (Negative); Leukocyte Esterase,Urine Negative (Negative); Nitrite,Urine Negative (Negative); PH, Urine 5.5 (5.0-8.0); Protein,Urine 1+ (Negative); RBC,Urine <1 /hpf (0-5); Specific Gravity,Urine 1.009 (1.001-1.035); Urobilinogen,Urine <2.0 mg/dL (<2.0); WBC,Urine 1 /hpf (0-5)
--- NOTE | 2022-05-25 23:33 | P.CONS ---
History of Present Illness - Reason for Consult Consult date: 05/24/22 diabetic foot infection Requesting physician: Mati Gomez - Chief Complaint right 2nd toe redness and discomfort x few days - History of Present Illness History of Present Illness : Patient is 71-year male with a past medical history significant for diabetes mellitus and diabetic foot infection in this patient mention that his right second toe nail was almost coming off so he pulled it out over last Thursday into the patient noticed to have increasing swelling redness to the right second toe which has been spreading to the dorsal aspect of the right foot patient be complaining of pain to the right second toe and foot area more of a dull aching at times sharp about 6 out of 10 and no radiation with associated swelling redness but no foul-smelling drainage patient denies high-grade fever with the symptom the patient was evaluated by the ER physician on arrival to the ER the patient was afebrile patient did have x-ray of the foot which did show soft tissue swelling right second toe without osteomyelitis at this point patient did have a normal white count did have elevated BUN and creatinine patient was started on vancomycin infectious disease was consulted for further management of antibiotic therapy Review of system: CONSTITUTIONAL: Positive for weakness denies high-grade fever. EYES: No complaint. ENT: No complaint. RESPIRATORY: No complaint. CARDIOVASCULAR: No complaint. GENITOURINARY: No complaint. GASTROINTESTINAL: No complaint. MUSCULOSKELETAL: As per history of present illness. INTEGUMENTARY : As per history of present illness. PSYCHOLOGIC: No complaint. ENDOCRINE: No complaint. NEUROLOGIC: No complaint. Past medical history : Reviewed, documented below Past surgical history : Reviewed, documented below Social history: Reviewed, documented below Medications: Reviewed, as documented below EXAMINATION: Vital sigans= Reviewed and documented below GENERAL DESCRIPTION: Elderly male lying in bed, no distress. No tachypnea or accessory muscle of respiration use. HEENT: Shows Pallor , no scleral icterus. Oral mucous membrane is dry. NECK: Trachea central, no thyromegaly. LUNGS: Unlabored breathing. Clear to auscultation anteriorly. No wheeze or crackle. HEART: S1, S2, regular rate and rhythm. ABDOMEN: Soft, no tenderness , guarding or rigidity EXTREMITIES: Right second toe tip and did have some necrotic changes with swelling and redness to the right second toe and the dorsal aspect of the right foot no open wound or any drainage SKIN: No rash, no masses palpable. NEUROLOGICAL: The patient is awake, alert, oriented x3, mood and affect normal. LABS AND RADIOLOGY: Reviewed results see below Assessment : 1patient with right second toe diabetic foot infection in this patient with a necrotic right second toe tip and cellulitis involving the right second toe and the dorsal aspect of the right foot likely from gram-positive skin [place] 2renal insufficiency and high risk of nephrotoxicity from vancomycin Plan: 1-discontinue vancomycin 2-Trae area of the redness 3-Unasyn 3 g every 12 hours We will follow on clinical condition and cultures to further adjust medication if needed Thank you for this consultation we will follow the patient along with you Past Medical History Past Medical History: Atrial Fibrillation, Diabetes Mellitus Additional Past Medical History / Comment(s): . History of Any Multi-Drug Resistant Organisms: MRSA Year Discovered:: 05/08/21 MDRO Source:: Right Heel Past Surgical History: Joint Replacement, Orthopedic Surgery Additional Past Surgical History / Comment(s): right foot/leg surgery and madalyn placement related to crushing injury. Past Anesthesia/Blood Transfusion Reactions: No Reported Reaction Past Psychological History: Depression Smoking Status: Former smoker Past Alcohol Use History: None Reported Past Drug Use History: None Reported Medications and Allergies Home Medications Medication Instructions Recorded Confirmed Type HYDROcodone/APAP 10-325MG [[place] 1 tab PO TID PRN 06/30/19 05/24/22 History 10-325] Lisinopril-Hctz 20-12.5 mg 1 tab PO DAILY 06/30/19 05/24/22 History [Zestoretic 20-12.5] allopurinoL [Zyloprim] 300 mg PO DAILY 06/30/19 05/24/22 History amLODIPine BESYLATE [Norvasc] 5 mg PO DAILY 06/30/19 05/24/22 History Warfarin Sodium [Jantoven] 5 mg PO MO@189905/24/22 05/24/22 History Warfarin Sodium [Jantoven] 10 mg PO SUTUWETHFRSA@189905/24/22 05/24/22 History Allergies Allergy/AdvReac Type Severity Reaction Status Date / Time No Known Allergies Allergy Verified 05/24/22 11:31 Physical Exam Vitals: Vital Signs Temp Pulse Pulse Resp BP BP Pulse Ox 05/24/22 08:30 97.7 F 85 18 128/73 98 09/24/22 03:46 87 16 104/62 96 05/23/22 19:32 98.5 F 98 18 102/58 96 Intake and Output 05/23/22 05/24/22 05/24/22 22:59 06:59 14:59 Other: # Voids 1 Weight 113.398 kg 113.398 kg Results CBC & Chem 7: 05/25/22 06:15 05/25/22 06:15 Labs: Abnormal Lab Results - Last 24 Hours (Table) 05/23/22 05/23/22 05/24/22 Range/Units 20:51 20:51 08:20 RBC 3.57 L 3.42 L (4.30-5.90) m/uL Hgb 11.2 L 10.3 L (13.0-17.5) gm/dL Hct 33.1 L 30.7 L (39.0-53.0) % Plt Count 143 L (150-450) k/uL Chloride 97 L (98-107) mmol/L Carbon Dioxide 20 L (22-30) mmol/L BUN 96 H (9-20) mg/dL Creatinine 4.14 H (0.66-1.25) mg/dL Glucose 174 H (74-99) mg/dL Total Bilirubin 1.4 H (0.2-1.3) mg/dL C-Reactive Protein 5.5 H (<1.0) mg/dL
--- NOTE | 2022-05-25 23:36 | P.PN ---
Subjective Progress Note Date: 05/25/22 Principal diagnosis: Cellulitis Patient is a 71-year old male with a past medical he significant for diabetes mellitus in this patient with presentation to hospital with right second toe swelling redness and discomfort after the patient pulled out his toenail x-rays were negative for any bony changes On today's evaluation that is 05/25/2022, the patient denies having any fever or any chills, patient right second toe and right foot dorsum swelling redness slightly decreased currently with no drainage no chest pain shortness of breath or cough no abdominal pain no diarrhea Objective - Vital Signs Vital signs: Vital Signs Temp 97.5 F L 05/25/22 11:37 Pulse 69 05/25/22 11:37 Resp 16 05/25/22 11:37 BP 108/66 05/25/22 11:37 Pulse Ox 96 05/25/22 11:37 FiO2 Intake & Output 05/24/22 05/25/22 05/25/22 18:59 06:59 18:59 Intake Total 130 500 900 Balance 130 500 900 Intake: Intake, IV Titration 130 900 Amount Sodium Chloride 0.9% 1, 130 900 000 ml @ 75 mls/hr IV . [id number] [facility] Rx#:[id number] Oral 500 Other: Voiding Method Toilet # Voids 2 2 - Exam GENERAL DESCRIPTION: Elderly male lying in bed, no distress. No tachypnea or accessory muscle of respiration use. LUNGS: Unlabored breathing. Clear to auscultation anteriorly. No wheeze or crackle. HEART: S1, S2, regular rate and rhythm. No loud murmur ABDOMEN: Soft, no tenderness , guarding or rigidity, no organomegaly EXTREMITIES: Right second toe and dorsum of the right foot redness has decreased. Have a black eschar on the tip of second toe - Labs CBC & Chem 7: 05/25/22 06:15 05/25/22 06:15 Labs: Abnormal Lab Results - Last 24 Hours (Table) 05/25/22 05/25/22 05/25/22 Range/Units 06:15 06:15 06:15 RBC 3.18 L (4.40-5.60) X 10*6/uL Hgb 9.7 L (13.0-17.0) g/dL Hct 28.7 L (39.6-50.0) % Plt Count 133 L (140-440) X 10*3/uL Eosinophils # 0.37 H (0.04-0.35) X 10*3/uL PT 42.4 H (9.9-11.9) sec INR 4.01 H (0.90-1.11) BUN 77 H (9-20) mg/dL Creatinine 2.92 H (0.66-1.25) mg/dL Glucose 108 H (74-99) mg/dL Calcium 8.2 L (8.4-10.2) mg/dL Magnesium 1.0 L (1.6-2.3) mg/dL Total Protein 6.1 L (6.3-8.2) g/dL Urine Protein (Negative) Urine Blood (Negative) Amorphous Sediment (None) /hpf Urine Bacteria (None) /hpf 05/25/22 05/25/22 Range/Units 11:42 12:45 RBC (4.40-5.60) X 10*6/uL Hgb (13.0-17.0) g/dL Hct (39.6-50.0) % Plt Count (140-440) X 10*3/uL Eosinophils # (0.04-0.35) X 10*3/uL PT (9.9-11.9) sec INR (0.90-1.11) BUN (9-20) mg/dL Creatinine (0.66-1.25) mg/dL Glucose (74-99) mg/dL Calcium (8.4-10.2) mg/dL Magnesium 1.0 L (1.6-2.3) mg/dL Total Protein (6.3-8.2) g/dL Urine Protein 1+ H (Negative) Urine Blood Trace H (Negative) Amorphous Sediment Rare H (None) /hpf Urine Bacteria Occasional H (None) /hpf Microbiology - Last 24 Hours (Table) 05/23/22 20:51 Blood Culture - Preliminary Blood No Growth after 24 hours Assessment and Plan (1) Diabetic foot infection Current Visit: Yes Status: Acute Code(s): E11.628 - TYPE 2 DIABETES MELLITUS WITH OTHER SKIN COMPLICATIONS; L08.9 - LOCAL INFECTION OF THE SKIN AND SUBCUTANEOUS TISSUE, UNSP SNOMED Code(s): 191317310 Plan: patient with right second toe diabetic foot infection with cellulitis x-rays were negative for any bony changes patient has shown clinical improvement as far as cellulitis is concerned and will continue with Unasyn patient did have a black eschar on the tip of his right second toe and may benefit from surgical debridement.
[2022-05-26] MEDS: AMPICILLIN-SULBACTAM 3 GM in SODIUM CHLORIDE 0.9% 100 ML IVPB SCH ×3 (03:32→21:04)
[2022-05-26] MEDS: SODIUM CHLORIDE 0.9% 1,000 ML IV SCH ×2 (05:48→21:07)
[2022-05-26] MEDS: allopurinoL 300 MG TAB PO SCH (07:54)
[2022-05-26] MEDS: amLODIPine 5 MG TAB PO SCH (07:54)
[2022-05-26] MEDS: HYDROcodone/APAP 10-325MG 1 EACH TAB PO PRN ×2 (07:55→21:06)
[2022-05-26 08:39] LABS: Basophils # (A) 0.02 X 10*3/uL (0.00-0.10); Basophils % (A) 0.3 %; Eosinophils # (A) 0.35 X 10*3/uL (0.04-0.35); Eosinophils % (A) 5.9 %; HCT 30.9 % (39.6-50.0); HGB 10.4 g/dL (13.0-17.0); Immature Grans, Automated 0.2 %; Lymphocytes # (A) 1.58 X 10*3/uL (0.90-5.00); Lymphocytes % (A) 26.6 %; MCH 30.8 pg (27.0-32.0); MCHC 33.7 g/dL (32.0-37.0); MCV 91.4 fL (80.0-97.0); Mean Platelet Volume 9.6 fL (9.5-12.2); Monocytes # (A) 0.44 X 10*3/uL (0.20-1.00); Monocytes % (A) 7.4 %; NRBC Per 100 WBC 0 /100 WBCS (0.0-0.0); Neutrophils # (A) 3.53 X 10*3/uL (1.80-7.70); Neutrophils % (A) 59.6 %; Platelet Count 158 X 10*3/uL (140-440); RBC 3.38 X 10*6/uL (4.40-5.60); RDW 13.2 % (11.5-14.5); WBC 5.93 X 10*3/uL (4.50-10.00)
[2022-05-26 08:59] LABS: African American GFR (CKD) 30.1 (60.0-200.0); Albumin 4.3 g/dL (3.8-4.9); Albumin/Globulin Ratio 1.95 (1.60-3.17); Anion Gap 15.6 mmol/L (10.00-18.00); BUN/Creat Ratio 21.63 Ratio (12.00-20.00); Blood Urea Nitrogen 51.9 mg/dL (9.0-27.0); Carbon Dioxide 26.4 mmol/L (20.0-27.5); Globulin 2.2 g/dL (1.6-3.3); Total Protein 6.5 g/dL (6.2-8.2)
--- NOTE | 2022-05-26 10:07 | P.PN ---
Subjective Patient is seen in follow-up for acute kidney injury. Renal function improving with IV hydration. Blood pressure stable. Good urine output. No vomiting or diarrhea. Oral intake is good. Vital signs are stable. General: Awake. No acute distress. HEENT: Head exam is unremarkable. LUNGS: Breath sounds decreased. HEART: Rate and Rhythm are regular. ABDOMEN: Soft, no distention. EXTREMITITES: No edema. Right foot wrapped. No drainage. Objective - Vital Signs Vital signs: Vital Signs Temp 98.3 F 05/26/22 04:20 Pulse 79 05/26/22 04:20 Resp 16 05/26/22 04:20 BP 116/57 05/26/22 04:20 Pulse Ox 96 05/26/22 04:20 FiO2 Intake & Output 05/25/22 05/26/22 05/26/22 18:59 06:59 18:59 Intake Total 900 1500 Balance 900 1500 Intake: Intake, IV Titration 900 1000 Amount Ampicillin-Sulbactam 3 gm 100 In Sodium Chloride 0.9% 100 ml @ 200 mls/hr IVPB Q12H [facility] Rx#:[id number] Sodium Chloride 0.9% 1, 900 900 000 ml @ 75 mls/hr IV . [id number] [facility] Rx#:[id number] Oral 500 Other: Voiding Method Toilet Toilet # Voids 2 3 - Labs CBC & Chem 7: 05/26/22 05:36 05/26/22 05:36 Labs: Abnormal Lab Results - Last 24 Hours (Table) 05/25/22 05/25/22 05/25/22 Range/Units 06:15 06:15 11:42 RBC 3.18 L (4.40-5.60) X 10*6/uL Hgb 9.7 L (13.0-17.0) g/dL Hct 28.7 L (39.6-50.0) % Plt Count 133 L (140-440) X 10*3/uL Eosinophils # 0.37 H (0.04-0.35) X 10*3/uL PT 42.4 H (9.9-11.9) sec INR 4.01 H (0.90-1.11) BUN (9.0-27.0) mg/dL Creatinine (0.6-1.5) mg/dL Est GFR (CKD-EPI)AfAm (60.0-200.0) Est GFR (CKD-EPI)NonAf (60.0-200.0) BUN/Creatinine Ratio (12.00-20.00) Ratio Magnesium (1.6-2.3) mg/dL Transferrin 198.0 L (204.0-354.0) mg/dL Ferritin 1422.0 H (22.0-322.0) ng/mL Urine Protein (Negative) Urine Blood (Negative) Amorphous Sediment (None) /hpf Urine Bacteria (None) /hpf 05/25/22 05/25/22 05/26/22 Range/Units 11:42 12:45 05:36 RBC 3.38 L (4.40-5.60) X 10*6/uL Hgb 10.4 L (13.0-17.0) g/dL Hct 30.9 L (39.6-50.0) % Plt Count (140-440) X 10*3/uL Eosinophils # (0.04-0.35) X 10*3/uL PT (9.9-11.9) sec INR (0.90-1.11) BUN (9.0-27.0) mg/dL Creatinine (0.6-1.5) mg/dL Est GFR (CKD-EPI)AfAm (60.0-200.0) Est GFR (CKD-EPI)NonAf (60.0-200.0) BUN/Creatinine Ratio (12.00-20.00) Ratio Magnesium 1.0 L (1.6-2.3) mg/dL Transferrin (204.0-354.0) mg/dL Ferritin (22.0-322.0) ng/mL Urine Protein 1+ H (Negative) Urine Blood Trace H (Negative) Amorphous Sediment Rare H (None) /hpf Urine Bacteria Occasional H (None) /hpf 05/26/22 Range/Units 05:36 RBC (4.40-5.60) X 10*6/uL Hgb (13.0-17.0) g/dL Hct (39.6-50.0) % Plt Count (140-440) X 10*3/uL Eosinophils # (0.04-0.35) X 10*3/uL PT (9.9-11.9) sec INR (0.90-1.11) BUN 51.9 H (9.0-27.0) mg/dL Creatinine 2.4 H (0.6-1.5) mg/dL Est GFR (CKD-EPI)AfAm 30.1 L (60.0-200.0) Est GFR (CKD-EPI)NonAf 26.0 L (60.0-200.0) BUN/Creatinine Ratio 21.63 H (12.00-20.00) Ratio Magnesium (1.6-2.3) mg/dL Transferrin (204.0-354.0) mg/dL Ferritin (22.0-322.0) ng/mL Urine Protein (Negative) Urine Blood (Negative) Amorphous Sediment (None) /hpf Urine Bacteria (None) /hpf Microbiology - Last 24 Hours (Table) 05/23/22 20:51 Blood Culture - Preliminary Blood No Growth after 48 hours Assessment and Plan Plan: Assessment: 1. Acute kidney injury mostly prerenal improving with IV hydration. Creatinine 4.14 on admission and is 2.4 today. Baseline creatinine near 1. Mild right-sided hydronephrosis noted on kidney ultrasound. 2. Right foot cellulitis on antibiotics. ID following. 3. Benign hypertension. Controlled. 4. A. fib. 5. Diabetes mellitus. 6. Anemia. High ferritin noted. 7. Hypomagnesemia from poor intake and diuretics. Replace. Plan: Maintain IV fluids. Continue to hold lisinopril and diuretics. Hold amlodipine for systolic blood pressure less than 125. Avoid nephrotoxins. Check magnesium level today.
[2022-05-26 12:02] LABS: African American GFR (CKD) 34 (>60 ml/min/1.73 sqM); Anion Gap 13 mmol/L; Blood Urea Nitrogen 52 mg/dL (9-20); Calcium 8.3 mg/dL (8.4-10.2); Carbon Dioxide 27 mmol/L (22-30); Chloride 100 mmol/L (98-107); Glucose 178 mg/dL (74-99); Magnesium 1.3 mg/dL (1.6-2.3); Non-African American GFR(CKD) 29 (>60 ml/min/1.73 sqM); Potassium 3.8 mmol/L (3.5-5.1); Sodium 140 mmol/L (137-145)
--- NOTE | 2022-05-26 17:08 | P.PN ---
Subjective Progress Note Date: 05/26/22 Pepe Waters, is a 71-year-old male who presented to [facility] emergency room with a chief complaint of right second toe pain and swelling and erythema, patient stated that he was trimming his toenails few days ago he has severe onychomycosis in all his toenails, he ended up tearing off the second right toenail, he developed some pain and bleeding at the time, however he started having worsening pain and erythema extending down his foot over the next few days and he decided to come to emergency room for further evaluation and treatment. He was evaluated in the emergency room vital examination on presentation revealed a temperature of 98.5 pulse 98 respiration 18 blood pressure 102/58 pulse ox 96% on room air Laboratory data revealed a white blood count of 9.2 hemoglobin 11.2 platelet count 174 BUN 96 creatinine 4.14 glucose level 174 his creatinine was normal at 1.0 one months ago Testing in the emergency room revealed right foot x-ray done in the emergency room revealed no evidence of fracture or osteomyelitis Patient was admitted to medical floor for further evaluation and treatment, he was started on IV antibiotics, infectious disease consultation and nephrology consultation were requested. Past medical history is significant for history of hypertension well-controlled on medications, history of diabetes mellitus type 2, history of chronic atrial fibrillation maintained on Coumadin, INR was elevated recently and Coumadin is on hold at this time, underlying history of gout, history of colon polyps. On 05/25/2022 patient is alert and oriented 3. Creatinine improving to 2.92 and bun 77. Awaiting INR result. Patient remains on IV Unasyn. Infectious disease and nephrology services are following. Vital signs temp 98.2, heart rate 75, respiratory rate 16 blood pressure 121/60 with a pulse ox of 96% on room air. Patient denies chest pain or shortness breath. Patient denies nausea vomiting or diarrhea. Patient denies any urinary burning or frequency On 05/26/2022 patient was seen and examined on the medical floor he is alert and oriented 3 in no apparent distress there is improvement in his lower extremity erythema and swelling, there is improvement in his kidney function, he is followed by infectious disease and nephrology will continue with IV fluid and IV antibiotic possible discharge to home in the next 1-2 drinks Objective - Vital Signs Vital signs: Vital Signs Temp 98.0 F 05/26/22 11:53 Pulse 62 05/26/22 11:53 Resp 17 05/26/22 11:53 BP 107/63 05/26/22 11:53 Pulse Ox 96 05/26/22 11:53 FiO2 Intake & Output 05/25/22 05/26/22 05/26/22 18:59 06:59 18:59 Intake Total 900 1500 Balance 900 1500 Intake: Intake, IV Titration 900 1000 Amount Ampicillin-Sulbactam 3 gm 100 In Sodium Chloride 0.9% 100 ml @ 200 mls/hr IVPB Q12H [facility] Rx#:[id number] Sodium Chloride 0.9% 1, 900 900 000 ml @ 75 mls/hr IV . [id number] [facility] Rx#:[id number] Oral 500 Other: Voiding Method Toilet Toilet Toilet # Voids 2 3 - Exam In general patient is alert and oriented ?-3 in no distress HEENT head normocephalic and atraumatic Neck is supple no JVD no goiter no lymphadenopathy no carotid bruit Chest examination is clear to auscultation no crackles no wheezing Cardiac exam reveals regular heart sounds S1 and S2 no gallops no murmurs Abdomen is soft nontender no organomegaly with normal bowel sounds Extremity exam reveals no edema no cyanosis or clubbing, the right second toe is without toenail, there is erythema and swelling in the right second 2 with extension of the erythema down the foot all the way to the ankle area, there is onychomycosis 10 Neurological examination reveals no gross focal deficits - Labs CBC & Chem 7: 05/26/22 05:36 05/26/22 11:03 Labs: Abnormal Lab Results - Last 24 Hours (Table) 05/25/22 05/26/22 05/26/22 Range/Units 11:42 05:36 05:36 RBC 3.38 L (4.40-5.60) X 10*6/uL Hgb 10.4 L (13.0-17.0) g/dL Hct 30.9 L (39.6-50.0) % BUN 51.9 H (9.0-27.0) mg/dL Creatinine 2.4 H (0.6-1.5) mg/dL Est GFR (CKD-EPI)AfAm 30.1 L (60.0-200.0) Est GFR (CKD-EPI)NonAf 26.0 L (60.0-200.0) BUN/Creatinine Ratio 21.63 H (12.00-20.00) Ratio Glucose (74-99) mg/dL Calcium (8.4-10.2) mg/dL Magnesium (1.6-2.3) mg/dL Transferrin 198.0 L (204.0-354.0) mg/dL Ferritin 1422.0 H (22.0-322.0) ng/mL 05/26/22 Range/Units 11:03 RBC (4.40-5.60) X 10*6/uL Hgb (13.0-17.0) g/dL Hct (39.6-50.0) % BUN 52 H (9.0-27.0) mg/dL Creatinine 2.19 H (0.6-1.5) mg/dL Est GFR (CKD-EPI)AfAm (60.0-200.0) Est GFR (CKD-EPI)NonAf (60.0-200.0) BUN/Creatinine Ratio (12.00-20.00) Ratio Glucose 178 H (74-99) mg/dL Calcium 8.3 L (8.4-10.2) mg/dL Magnesium 1.3 L (1.6-2.3) mg/dL Transferrin (204.0-354.0) mg/dL Ferritin (22.0-322.0) ng/mL Microbiology - Last 24 Hours (Table) 05/23/22 20:51 Blood Culture - Preliminary Blood No Growth after 48 hours Assessment and Plan Plan: Cellulitis of the right foot with ulcer on the second toe was loss of the second toenail Acute kidney injury, cause is unclear, at this time will hold lisinopril hold allopurinol, give IV fluid and monitor kidney function closely Underlying history of hypertension Underlying history of hyperlipidemia Underlying history of diabetes mellitus type 2 Underlying history of chronic atrial fibrillation maintained on Coumadin Recent coagulopathy was elevated INR patient is off his Coumadin for the last 2 days with check INR Underlying history of gout At this time patient will be admitted to medical floor Started on IV fluid and IV antibiotics Infectious disease consultation and nephrology consultations requested Will follow closely
[2022-05-26 18:01] LABS: INR 2.1 (<1.2); Prothrombin Time 20.8 sec (9.0-12.0)
[2022-05-26] MEDS ORDERED: WARFARIN 10 MG TAB PO SCH (19:00)
--- NOTE | 2022-05-26 23:30 | P.PN ---
Subjective Progress Note Date: 05/26/22 Principal diagnosis: Cellulitis Patient is a 71-year old male with a past medical he significant for diabetes mellitus in this patient with presentation to hospital with right second toe swelling redness and discomfort after the patient pulled out his toenail x-rays were negative for any bony changes On today's evaluation that is 05/26/2022, the patient remains to be afebrile, patient right second toe and right foot dorsum swelling redness has decreased in intensity, no drainage no chest pain shortness of breath or cough no abdominal pain no diarrhea Objective - Vital Signs Vital signs: Vital Signs Temp 98.0 F 05/26/22 11:53 Pulse 62 05/26/22 11:53 Resp 17 05/26/22 11:53 BP 107/63 05/26/22 11:53 Pulse Ox 96 05/26/22 11:53 FiO2 Intake & Output 05/25/22 05/26/22 05/26/22 18:59 06:59 18:59 Intake Total 900 1500 Balance 900 1500 Intake: Intake, IV Titration 900 1000 Amount Ampicillin-Sulbactam 3 gm 100 In Sodium Chloride 0.9% 100 ml @ 200 mls/hr IVPB Q12H [facility] Rx#:[id number] Sodium Chloride 0.9% 1, 900 900 000 ml @ 75 mls/hr IV . [id number] [facility] Rx#:[id number] Oral 500 Other: Voiding Method Toilet Toilet Toilet # Voids 2 3 - Exam GENERAL DESCRIPTION: Elderly male lying in bed, no distress. No tachypnea or accessory muscle of respiration use. LUNGS: Unlabored breathing. Clear to auscultation anteriorly. No wheeze or crackle. HEART: S1, S2, regular rate and rhythm. No loud murmur ABDOMEN: Soft, no tenderness , guarding or rigidity, no organomegaly EXTREMITIES: Right second toe and dorsum of the right foot redness has d ecreased. Have a black eschar on the tip of second toe - Labs CBC & Chem 7: 05/26/22 05:36 05/26/22 11:03 Labs: Abnormal Lab Results - Last 24 Hours (Table) 05/25/22 05/25/22 05/26/22 Range/Units 11:42 12:45 05:36 RBC 3.38 L (4.40-5.60) X 10*6/uL Hgb 10.4 L (13.0-17.0) g/dL Hct 30.9 L (39.6-50.0) % BUN (9.0-27.0) mg/dL Creatinine (0.6-1.5) mg/dL Est GFR (CKD-EPI)AfAm (60.0-200.0) Est GFR (CKD-EPI)NonAf (60.0-200.0) BUN/Creatinine Ratio (12.00-20.00) Ratio Glucose (74-99) mg/dL Calcium (8.4-10.2) mg/dL Magnesium (1.6-2.3) mg/dL Transferrin 198.0 L (204.0-354.0) mg/dL Ferritin 1422.0 H (22.0-322.0) ng/mL Urine Protein 1+ H (Negative) Urine Blood Trace H (Negative) Amorphous Sediment Rare H (None) /hpf Urine Bacteria Occasional H (None) /hpf 05/26/22 05/26/22 Range/Units 05:36 11:03 RBC (4.40-5.60) X 10*6/uL Hgb (13.0-17.0) g/dL Hct (39.6-50.0) % BUN 51.9 H 52 H (9.0-27.0) mg/dL Creatinine 2.4 H 2.19 H (0.6-1.5) mg/dL Est GFR (CKD-EPI)AfAm 30.1 L (60.0-200.0) Est GFR (CKD-EPI)NonAf 26.0 L (60.0-200.0) BUN/Creatinine Ratio 21.63 H (12.00-20.00) Ratio Glucose 178 H (74-99) mg/dL Calcium 8.3 L (8.4-10.2) mg/dL Magnesium 1.3 L (1.6-2.3) mg/dL Transferrin (204.0-354.0) mg/dL Ferritin (22.0-322.0) ng/mL Urine Protein (Negative) Urine Blood (Negative) Amorphous Sediment (None) /hpf Urine Bacteria (None) /hpf Microbiology - Last 24 Hours (Table) 05/23/22 20:51 Blood Culture - Preliminary Blood No Growth after 48 hours Assessment and Plan (1) Diabetic foot infection Current Visit: Yes Status: Acute Code(s): E11.628 - TYPE 2 DIABETES MELLITUS WITH OTHER SKIN COMPLICATIONS; L08.9 - LOCAL INFECTION OF THE SKIN AND S UBCUTANEOUS TISSUE, UNSP SNOMED Code(s): 803389740 Plan: patient with right second toe diabetic foot infection with cellulitis x-rays were negative for any bony changes patient has shown clinical improvement as far as cellulitis is concerned and will continue with Unasyn patient did have a black eschar on the tip of his right second toe and may benefit from surgical debridement versus outpatient follow-up in the wound care center and plan to finish therapy with oral Augmentin. Time with Patient: Less than 30
[2022-05-27] MEDS: SODIUM CHLORIDE 0.9% 1,000 ML IV SCH (04:19)
[2022-05-27] MEDS: AMPICILLIN-SULBACTAM 3 GM in SODIUM CHLORIDE 0.9% 100 ML IVPB SCH ×2 (05:22→15:18)
[2022-05-27] MEDS: HYDROcodone/APAP 10-325MG 1 EACH TAB PO PRN (07:24)
[2022-05-27] MEDS: allopurinoL 300 MG TAB PO SCH (08:45)
[2022-05-27] MEDS: amLODIPine 5 MG TAB PO SCH (08:45)
[2022-05-27 09:33] LABS: Basophils # (A) 0.02 X 10*3/uL (0.00-0.10); Basophils % (A) 0.5 %; Eosinophils # (A) 0.27 X 10*3/uL (0.04-0.35); Eosinophils % (A) 6.5 %; HCT 28.1 % (39.6-50.0); HGB 9.6 g/dL (13.0-17.0); Immature Grans, Automated 0.2 %; Lymphocytes # (A) 1.44 X 10*3/uL (0.90-5.00); Lymphocytes % (A) 34.5 %; MCH 31.4 pg (27.0-32.0); MCHC 34.2 g/dL (32.0-37.0); MCV 91.8 fL (80.0-97.0); Mean Platelet Volume 9.8 fL (9.5-12.2); Monocytes # (A) 0.36 X 10*3/uL (0.20-1.00); Monocytes % (A) 8.6 %; NRBC Per 100 WBC 0 /100 WBCS (0.0-0.0); Neutrophils # (A) 2.07 X 10*3/uL (1.80-7.70); Neutrophils % (A) 49.7 %; Platelet Count 119 X 10*3/uL (140-440); RBC 3.06 X 10*6/uL (4.40-5.60); RDW 13.3 % (11.5-14.5); WBC 4.17 X 10*3/uL (4.50-10.00)
[2022-05-27 09:59] LABS: African American GFR (CKD) 37.5 (60.0-200.0); Albumin 3.9 g/dL (3.8-4.9); Albumin/Globulin Ratio 1.95 (1.60-3.17); Anion Gap 13.2 mmol/L (10.00-18.00); BUN/Creat Ratio 18.5 Ratio (12.00-20.00); Calcium 8.7 mg/dL (8.7-10.3); Carbon Dioxide 27.8 mmol/L (20.0-27.5); Non-African American GFR(CKD) 32.4 (60.0-200.0); Potassium 3.8 mmol/L (3.5-5.5); Total Bilirubin 0.8 mg/dL (0.30-1.20); Total Protein 5.9 g/dL (6.2-8.2)
--- NOTE | 2022-05-27 10:25 | P.PN ---
Subjective Patient is seen in follow-up for acute kidney injury. Renal function better. Blood pressure stable. Good urine output. No vomiting or diarrhea. Oral intake is good. No active complaints. Vital signs are stable. General: Awake. No acute distress. HEENT: Head exam is unremarkable. LUNGS: Breath sounds decreased. HEART: Rate and Rhythm are regular. ABDOMEN: Soft, no distention. EXTREMITITES: No edema. Right foot wrapped. No drainage. Objective - Vital Signs Vital signs: Vital Signs Temp 98.1 F 05/27/22 07:11 Pulse 75 05/27/22 07:11 Resp 16 05/27/22 07:11 BP 113/66 05/27/22 07:11 Pulse Ox 95 05/27/22 04:17 FiO2 Intake & Output 05/26/22 05/27/22 05/27/22 18:59 06:59 18:59 Intake Total 900 1540 Balance 900 1540 Intake: Intake, IV Titration 900 1000 Amount Ampicillin-Sulbactam 3 gm 100 In Sodium Chloride 0.9% 100 ml @ 200 mls/hr IVPB Q12H [facility] Rx#:[id number] Sodium Chloride 0.9% 1, 900 900 000 ml @ 75 mls/hr IV . [id number] [facility] Rx#:[id number] Oral 540 Other: Voiding Method Toilet Toilet # Voids 3 - Labs CBC & Chem 7: 05/27/22 06:07 05/27/22 06:07 Labs: Abnormal Lab Results - Last 24 Hours (Table) 05/26/22 05/26/22 05/27/22 Range/Units 11:03 17:23 06:07 WBC (4.50-10.00) X 10*3/uL RBC (4.40-5.60) X 10*6/uL Hgb (13.0-17.0) g/dL Hct (39.6-50.0) % Plt Count (140-440) X 10*3/uL PT 20.8 H (9.0-12.0) sec INR 2.1 H (<1.2) Carbon Dioxide (20.0-27.5) mmol/L BUN 52 H (9-20) mg/dL Creatinine 2.19 H (0.66-1.25) mg/dL Est GFR (CKD-EPI)AfAm (60.0-200.0) Est GFR (CKD-EPI)NonAf (60.0-200.0) Glucose 178 H (74-99) mg/dL Calcium 8.3 L (8.4-10.2) mg/dL Magnesium 1.3 L 1.0 L (1.6-2.3) mg/dL Total Protein (6.2-8.2) g/dL 05/27/22 05/27/22 Range/Units 06:07 06:07 WBC 4.17 L (4.50-10.00) X 10*3/uL RBC 3.06 L (4.40-5.60) X 10*6/uL Hgb 9.6 L (13.0-17.0) g/dL Hct 28.1 L (39.6-50.0) % Plt Count 119 L (140-440) X 10*3/uL PT (9.0-12.0) sec INR (<1.2) Carbon Dioxide 27.8 H (20.0-27.5) mmol/L BUN 37.0 H (9-20) mg/dL Creatinine 2.0 H (0.66-1.25) mg/dL Est GFR (CKD-EPI)AfAm 37.5 L (60.0-200.0) Est GFR (CKD-EPI)NonAf 32.4 L (60.0-200.0) Glucose (74-99) mg/dL Calcium (8.4-10.2) mg/dL Magnesium (1.6-2.3) mg/dL Total Protein 5.9 L (6.2-8.2) g/dL Microbiology - Last 24 Hours (Table) 05/23/22 20:51 Blood Culture - Preliminary Blood No Growth after 72 hours Assessment and Plan Plan: Assessment: 1. Acute kidney injury mostly prerenal improving with IV hydration. Creatinine 4.14 on admission and is 2.0 today. Baseline creatinine near 1. Mild right- sided hydronephrosis noted on kidney ultrasound. 2. Right foot cellulitis on antibiotics. ID following. 3. Benign hypertension. Controlled. 4. A. fib. 5. Diabetes mellitus. 6. Anemia. High ferritin noted. 7. Hypomagnesemia from poor intake and diuretics. Plan: Maintain IV fluids - decrease rate to 50 mL an hour. Continue to hold lisinopril and diuretics. Hold amlodipine for systolic blood pressure less than 125. Avoid nephrotoxins. Replace magnesium.
[2022-05-27 10:47] LABS: INR 1.96 (0.90-1.11); Prothrombin Time 20.9 sec (9.9-11.9)
[2022-05-27] MEDS: MAGNESIUM SULFATE-D5W PMX 1 GM in DEXTROSE/WATER 1 100ML.BAG IVPB SCH ×3 (10:51→12:53)
[2022-05-27 12:11] VITALS: BP 110/69; PULSE 78; RESP 17; TEMP 97.6
--- NOTE | 2022-05-27 17:48 | P.DS ---
Providers Date of admission: 05/24/22 00:53 Expected date of discharge: 05/27/22 Attending physician: Mati Gomez Consults: 05/24/22 07:31 Consult Physician Routine Consulting Provider: Emily Lawler Consult Reason/Comments: Cullulitis Do you want consulting provider notified?: Yes, Notify in am 05/24/22 14:12 Consult Physician Routine Consulting Provider: Rama West Consult Reason/Comments: acute renal failure Do you want consulting provider notified?: Yes Primary care physician: Mati Gomez [place] [facility] Course: Diagnosis on discharge: Cellulitis of the right foot with ulcer on the second toe was loss of the second toenail Acute kidney injury, cause is unclear, at this time will hold lisinopril hold allopurinol, give IV fluid and monitor kidney function closely Underlying history of hypertension Underlying history of hyperlipidemia Underlying history of diabetes mellitus type 2 Underlying history of chronic atrial fibrillation maintained on Coumadin Recent coagulopathy was elevated INR patient is off his Coumadin for the last 2 days with check INR Underlying history of gout Hospital course: Pepe Waters, is a 71-year-old male who presented to [facility] emergency room with a chief complaint of right second toe pain and swelling and erythema, patient stated that he was trimming his toenails few days ago he has severe onychomycosis in all his toenails, he ended up tearing off the second right toenail, he developed some pain and bleeding at the time, however he star gerardo having worsening pain and erythema extending down his foot over the next few days and he decided to come to emergency room for further evaluation and treatment. He was evaluated in the emergency room vital examination on presentation revealed a temperature of 98.5 pulse 98 respiration 18 blood pressure 102/58 pulse ox 96% on room air Laboratory data revealed a white blood count of 9.2 hemoglobin 11.2 platelet count 174 BUN 96 creatinine 4.14 glucose level 174 his creatinine was normal at 1.0 one months ago Testing in the emergency room revealed right foot x-ray done in the emergency room revealed no evidence of fracture or osteomyelitis Patient was admitted to medical floor for further evaluation and treatment, he was started on IV antibiotics, infectious disease consultation and nephrology consultation were requested. Past medical history is significant for history of hypertension well-controlled on medications, history of diabetes mellitus type 2, history of chronic atrial fibrillation maintained on Coumadin, INR was elevated recently and Coumadin is on hold at this time, underlying history of gout, history of colon polyps. On 05/25/2022 patient is alert and oriented 3. Creatinine improving to 2.92 and bun 77. Awaiting INR result. Patient remains on IV Unasyn. Infectious disease and nephrology services are following. Vital signs temp 98.2, heart rate 75, respiratory rate 16 blood pressure 121/60 with a pulse ox of 96% on room air. Patient denies chest pain or shortness breath. Patient denies nausea vomiting or diarrhea. Patient denies any urinary burning or frequency On 05/26/2022 patient was seen and examined on the medical floor he is alert and oriented 3 in no apparent distress there is improvement in his lower extremity erythema and swelling, there is improvement in his kidney function, he is followed by infectious disease and nephrology will continue with IV fluid and IV antibiotic possible discharge to home in the next 1-2 drinks On 05/27/2022 patient was seen and examined on the medical floor he is alert and oriented 3 in no apparent distress there is no fever or chills no headache or dizziness no chest pain no shortness of breath no cough no nausea or vomiting no abdominal pain no diarrhea and no urinary symptoms there is significant improvement in foot cellulitis, patient was evaluated by Dr. Lawler infectious disease, he was switched to oral Augmentin, he can be discharged to home today and will be followed by Dr. Lawler at the wound care center, coagulopathy improved INR is below 2 today he will be restarted on Coumadin 7.5 mg once daily he was given prescription for Coumadin. Kidney function has improved but is not back to baseline yet, patient will be discharged home today he was told not to take lisinopril with hydrochlorothiazide, will monitor blood pressure as outpatient, was also told to avoid NSAIDs, follow-up in our office on Thursday Patient Condition at Discharge: Serious Plan - Discharge Summary Discharge Rx Participant: No New Discharge Prescriptions: New Warfarin [Coumadin] 7.5 mg PO DAILY 30 Days #30 tab Amoxic-Pot Clav 875-125Mg [Augmentin 875-125] 1 tab PO BID 10 Days #20 tab Continue amLODIPine BESYLATE [Norvasc] 5 mg PO DAILY HYDROcodone/APAP 10-325MG [[place] 10-325] 1 tab PO TID PRN PRN Reason: Pain allopurinoL [Zyloprim] 300 mg PO DAILY Discontinued Lisinopril-Hctz 20-12.5 mg [Zestoretic 20-12.5] 1 tab PO DAILY Warfarin Sodium [Jantoven] 5 mg PO MO@1900 Warfarin Sodium [Jantoven] 10 mg PO SUTUWETHFRSA@1900 Discharge Medication List HYDROcodone/APAP 10-325MG [[place] 10-325] 1 tab PO TID PRN 06/30/19 [History] allopurinoL [Zyloprim] 300 mg PO DAILY 06/30/19 [History] amLODIPine BESYLATE [Norvasc] 5 mg PO DAILY 06/30/19 [History] Amoxic-Pot Clav 875-125Mg [Augmentin 875-125] 1 tab PO BID 10 Days #20 tab 05/27/22 [Rx] Warfarin [Coumadin] 7.5 mg PO DAILY 30 Days #30 tab 05/27/22 [Rx] Follow up Appointment(s)/Referral(s): Mati Gomez MD [Primary Care Provider] - 06/02/22 1:30 pm Patient Instructions/Handouts: Amoxicillin/Clavulanate Potassium (By mouth) Activity/Diet/Wound Care/Special Instructions: Keep the left second toe dry and no need for any moisturizing cream Follow-up with Dr. Lawler in the wound care center next week, call [phone] to make an appointment
== END 2022-05-27 18:15 | disposition home or self-care (01) | DRG 638 ==
LOC: EC 19:03 → 4SSUR 05-24 00:53 → 5NMEDONC 05-24 15:52
PROVIDERS: ADMIT Internal Medicine; ATTEND Internal Medicine
DX: E11.628 Type 2 diabetes mellitus with other skin complications (principal); E11.52 Type 2 diabetes mellitus with diabetic peripheral angiopathy with gangrene; L03.115 Cellulitis of right lower limb; I48.20 Chronic atrial fibrillation, unspecified; N13.30 Unspecified hydronephrosis; I96 Gangrene, not elsewhere classified; N17.9 Acute kidney failure, unspecified; E11.621 Type 2 diabetes mellitus with foot ulcer; L97.519 Non-pressure chronic ulcer of other part of right foot with unspecified severity; T45.515A Adverse effect of anticoagulants, initial encounter; R79.1 Abnormal coagulation profile; I10 Essential (primary) hypertension; E78.5 Hyperlipidemia, unspecified; B96.89 Other specified bacterial agents as the cause of diseases classified elsewhere; E83.42 Hypomagnesemia; D64.9 Anemia, unspecified; B35.1 Tinea unguium; M10.9 Gout, unspecified; F32.A Depression, unspecified; Z96.60 Presence of unspecified orthopedic joint implant; Z79.84 Long term (current) use of oral hypoglycemic drugs; Z79.01 Long term (current) use of anticoagulants; Z87.891 Personal history of nicotine dependence; Z79.899 Other long term (current) drug therapy; Z86.14 Personal history of Methicillin resistant Staphylococcus aureus infection
CPT/HCPCS: 36415; 76770; 80048; 80053; 80202; 81001; 82728; 83540; 83550; 83735; 85025; 85610; 86140; 87040; 96365; 96366; 99285

== ENCOUNTER → 2022-06-20 | Outpatient (CLI) | payer MEDICARE, OTHER ==
--- NOTE | 2022-06-20 17:34 | XR ---
EXAMINATION TYPE: XR foot complete RT DATE OF EXAM: 06/20/2022 COMPARISON: 05/23/2022 HISTORY: 71-year-old male right toe wounds, R42, H93.3X9, H93.19, H91.90 TECHNIQUE: 3 views FINDINGS: Interval osseous destruction involving most of the second distal phalanx. Severe degenerative change first MTP joint with bunion. Scattered osteoarthritic changes present throughout the midfoot. There i s plate and screw fixation of the distal tibia. Vascular calcifications suggest underlying diabetes a nd/or chronic kidney disease. Small plantar heel spur. IMPRESSION: Interval destruction of most of the second distal phalanx in keeping with osteomyelitis. Moderate to advanced osteoarthritic change throughout.
== END | disposition home or self-care (01) ==
LOC: RADXRMAIN 15:32
PROVIDERS: ATTEND Podiatrist
DX: Z00.01 Encounter for general adult medical examination with abnormal findings (principal); M19.071 Primary osteoarthritis, right ankle and foot; M86.8X7 Other osteomyelitis, ankle and foot

== ENCOUNTER → 2022-06-21 | Outpatient (CLI) | payer MEDICARE, OTHER ==
[2022-06-21 12:53] LABS: Basophils # (A) 0.02 X 10*3/uL (0.00-0.10); Basophils % (A) 0.3 %; Eosinophils # (A) 0.18 X 10*3/uL (0.04-0.35); HCT 26.7 % (39.6-50.0); HGB 8.7 g/dL (13.0-17.0); Immature Grans, Automated 0.3 %; Lymphocytes # (A) 1.98 X 10*3/uL (0.90-5.00); Lymphocytes % (A) 33.2 %; MCHC 32.6 g/dL (32.0-37.0); Mean Platelet Volume 9.5 fL (9.5-12.2); Monocytes # (A) 0.39 X 10*3/uL (0.20-1.00); Monocytes % (A) 6.5 %; NRBC Per 100 WBC 0 /100 WBCS (0.0-0.0); Neutrophils # (A) 3.37 X 10*3/uL (1.80-7.70); Neutrophils % (A) 56.7 %; Platelet Count 134 X 10*3/uL (140-440); RBC 2.81 X 10*6/uL (4.40-5.60); RDW 16.9 % (11.5-14.5); WBC 5.96 X 10*3/uL (4.50-10.00)
[2022-06-21 13:51] LABS: African American GFR (CKD) 49.2 (60.0-200.0); Albumin 4.5 g/dL (3.8-4.9); Albumin/Globulin Ratio 2.5 (1.60-3.17); Anion Gap 13.6 mmol/L (10.00-18.00); BUN/Creat Ratio 8.38 Ratio (12.00-20.00); Blood Urea Nitrogen 13.4 mg/dL (9.0-27.0); Calcium 8.3 mg/dL (8.7-10.3); Carbon Dioxide 24.4 mmol/L (20.0-27.5); Globulin 1.8 g/dL (1.6-3.3); Non-African American GFR(CKD) 42.4 (60.0-200.0); Potassium 3.5 mmol/L (3.5-5.5); Prealbumin 17.7 mg/dL (18.0-42.0); Total Bilirubin 0.9 mg/dL (0.30-1.20); Total Protein 6.3 g/dL (6.2-8.2)
== END | disposition home or self-care (01) ==
LOC: LABWHC1 08:02
PROVIDERS: ATTEND Podiatrist
DX: E11.622 Type 2 diabetes mellitus with other skin ulcer (principal)
CPT/HCPCS: 36415; 80053; 83036; 84134; 85025

== ENCOUNTER 2022-06-26 14:33 | Inpatient (IN) | payer MEDICARE, OTHER ==
[2022-06-26] MEDS ORDERED: VANCOMYCIN IV PER PHARMACY 1 EACH MISC MISCELLANE PRN (15:30)
--- NOTE | 2022-06-26 15:42 | ED ---
Extremity Problem HPI - General Chief complaint: Extremity Problem,Nontraumatic Stated complaint: R foot issue Time Seen by Provider: 06/26/22 14:58 Source: patient Mode of arrival: ambulatory Limitations: no limitations - History of Present Illness Initial comments: 's patient is a 71-year-old man who was sent here from the podiatry clinic. He had been seen area related to right second toe infection. The patient currently being treated for that. He had follow-up today and was noted to be worse. Patient was directed here to have admission to treat the toe ulcer with vancomycin and also to have infectious disease consultation. Patient denies s ystemic symptoms he has not noted fever or chills, palpitations or tachycardia, chest pain, dyspnea or other symptoms. MD Complaint: other -: days(s) Location: right (Second toe), toe Quality: dull Consistency: constant Improves with: nothing Worsens with: nothing - Related Data Home Medications Medication Instructions Recorded Confirmed HYDROcodone/APAP 10-325MG [[place] 1 tab PO TID PRN 06/30/19 06/26/22 10-325] allopurinoL [Zyloprim] 300 mg PO DAILY 06/30/19 06/26/22 amLODIPine BESYLATE [Norvasc] 5 mg PO DAILY 06/30/19 06/26/22 Warfarin [Coumadin] 7.5 mg PO DAILY@1900 06/26/22 06/26/22 Allergies Allergy/AdvReac Type Severity Reaction Status Date / Time No Known Allergies Allergy Verified 06/26/22 16:36 Review of Systems ROS Statement: Those systems with pertinent positive or pertinent negative responses have been documented in the HPI. ROS Other: All systems not noted in ROS Statement are negative. Constitutional: Denies: fever, chills Respiratory: Denies: cough, dyspnea Cardiovascular: Reports: edema. Denies: chest pain, palpitations Gastrointestinal: Denies: abdominal pain, vomiting, diarrhea Genitourinary: Denies: dysuria Skin: Denies: rash Neurological: Denies: headache, weakness, numbness Past Medical History Past Medical History: Atrial Fibrillation, Diabetes Mellitus Additional Past Medical History / Comment(s): . History of Any Multi-Drug Resistant Organisms: MRSA Date of last positivie culture/infection: 05/08/21 MDRO Source:: Right Heel Past Surgical History: Joint Replacement, Orthopedic Surgery Additional Past Surgical History / Comment(s): right foot/leg surgery and madalyn placement related to crushing injury. Past Anesthesia/Blood Transfusion Reactions: No Reported Reaction Past Psychological History: Depression Smoking Status: Former smoker Past Alcohol Use History: None Reported Past Drug Use History: None Reported General Exam Limitations: no limitations General appearance: alert, in no apparent distress Head exam: Present: atraumatic, normocephalic Eye exam: Present: normal appearance. Absent: scleral icterus, conjunctival injection ENT exam: Present: normal oropharynx Neck exam: Present: normal inspection Respiratory exam: Present: normal lung sounds bilaterally. Absent: respiratory distress, wheezes, rales, rhonchi, stridor Cardiovascular Exam: Present: regular rate, normal rhythm, normal heart sounds. Absent: systolic murmur, diastolic murmur, rubs, gallop GI/Abdominal exam: Present: soft. Absent: tenderness Extremities exam: Present: normal capillary refill, other (The right second toe has ulceration to the distal tip. There is purulent drainage and surrounding erythema.). Absent: pedal edema Neurological exam: Present: alert Skin exam: Present: warm, dry, normal color, erythema, other (Toe ulceration, see above.) Course Vital Signs 06/26/22 06/26/22 14:45 19:00 Temperature 98 F 98.4 F Pulse Rate 107 H 83 Respiratory 20 17 Rate Blood Pressure 140/63 145/98 O2 Sat by Pulse 97 98 Oximetry Medical Decision Making - Lab Data Result diagrams: 06/27/22 10:42 06/27/22 10:42 Lab Results 06/26/22 06/26/22 Range/Units 15:36 15:36 WBC 4.2 (3.8-10.6) k/uL RBC 2.62 L (4.30-5.90) m/uL Hgb 8.5 L D (13.0-17.5) gm/dL Hct 24.3 L (39.0-53.0) % MCV 92.9 (80.0-100.0) fL MCH 32.6 (25.0-35.0) pg MCHC 35.1 (31.0-37.0) g/dL RDW 17.0 H (11.5-15.5) % Plt Count 133 L (150-450) k/uL MPV 9.0 Neutrophils % 66 % Lymphocytes % 23 % Monocytes % 6 % Eosinophils % 3 % Basophils % 1 % Neutrophils # 2.8 (1.3-7.7) k/uL Lymphocytes # 1.0 (1.0-4.8) k/uL Monocytes # 0.2 (0-1.0) k/uL Eosinophils # 0.1 (0-0.7) k/uL Basophils # 0.0 (0-0.2) k/uL Poikilocytosis Slight Anisocytosis Slight Sodium 142 (137-145) mmol/L Potassium 3.5 (3.5-5.1) mmol/L Chloride 103 (98-107) mmol/L Carbon Dioxide 26 (22-30) mmol/L Anion Gap 13 mmol/L BUN 17 (9-20) mg/dL Creatinine 1.84 H (0.66-1.25) mg/dL Est GFR (CKD-EPI)AfAm 42 (>60 ml/min/1.73 sqM) Est GFR (CKD-EPI)NonAf 36 (>60 ml/min/1.73 sqM) Glucose 130 H (74-99) mg/dL Calcium 8.1 L (8.4-10.2) mg/dL Disposition Clinical Impression: Diabetic foot infection Disposition: ADMITTED IP TO THIS HOSP Condition: Stable Is patient prescribed a controlled substance at d/c from ED?: No
[2022-06-26] MEDS ORDERED: VANCOMYCIN 2,000 MG in SODIUM CHLORIDE 0.9% 500 ML 500 ML IVPB ONE (16:00)
[2022-06-26 16:02] LABS: Anisocytosis Slight; Basophils % (A) 1 %; Eosinophils # (A) 0.1 k/uL (0-0.7); Eosinophils % (A) 3 %; HCT 24.3 % (39.0-53.0); Lymphocytes % (A) 23 %; MCH 32.6 pg (25.0-35.0); MCHC 35.1 g/dL (31.0-37.0); MCV 92.9 fL (80.0-100.0); Monocytes # (A) 0.2 k/uL (0-1.0); Monocytes % (A) 6 %; Neutrophils # (A) 2.8 k/uL (1.3-7.7); Neutrophils % (A) 66 %; Platelet Count 133 k/uL (150-450); Poikilocytosis Slight; RBC 2.62 m/uL (4.30-5.90); WBC 4.2 k/uL (3.8-10.6)
[2022-06-26 16:21] LABS: Calcium 8.1 mg/dL (8.4-10.2); Potassium 3.5 mmol/L (3.5-5.1)
[2022-06-26 16:23] LABS: HGB 8.5 gm/dL (13.0-17.5)
[2022-06-26] MEDS ORDERED: SODIUM CHLORIDE 0.9% 1,000 ML IV ONE (16:26)
--- NOTE | 2022-06-26 18:02 | P.HPIM ---
History of Present Illness H&P Date: 06/26/22 Pepe Waters, is a 71-year-old male who presented to [facility] emergency room with a chief complaint of He was evaluated in the emergency room vital examination on presentation revea led Laboratory data reveals Testing in the emergency room revealed Patient was admitted to medical floor for further evaluation and treatment Past medical history is significant for On review of systems Past Medical History Past Medical History: Atrial Fibrillation, Diabetes Mellitus Additional Past Medical History / Comment(s): . History of Any Multi-Drug Resistant Organisms: MRSA Date of last positivie culture/infection: 05/08/21 MDRO Source:: Right Heel Past Surgical History: Joint Replacement, Orthopedic Surgery Additional Past Surgical History / Comment(s): right foot/leg surgery and madalyn placement related to crushing injury. Past Anesthesia/Blood Transfusion Reactions: No Reported Reaction Past Psychological History: Depression Smoking Status: Former smoker Past Alcohol Use History: None Reported Past Drug Use History: None Reported Medications and Allergies Home Medications Medication Instructions Recorded Confirmed Type HYDROcodone/APAP 10-325MG [[place] 1 tab PO TID PRN 06/30/19 06/26/22 History 10-325] allopurinoL [Zyloprim] 300 mg PO DAILY 06/30/19 06/26/22 History amLODIPine BESYLATE [Norvasc] 5 mg PO DAILY 06/30/19 06/26/22 History Warfarin [Coumadin] 7.5 mg PO DAILY@1900 06/26/22 06/26/22 History Allergies Allergy/AdvReac Type Severity Reaction Status Date / Time No Known Allergies Allergy Verified 06/26/22 16:36 Physical Exam Vitals: Vital Signs Temp Pulse Resp BP Pulse Ox 06/26/22 14:45 98 F 107 H 20 140/63 97 Intake and Output 06/26/22 06/26/22 06/26/22 06:59 14:59 22:59 Other: Weight 111.13 kg In general patient is alert and oriented x 3 in no distress HEENT head normocephalic and atraumatic Neck is supple no JVD no goiter no lymphadenopathy no carotid bruit Chest examination is clear to auscultation no crackles no wheezing Cardiac exam reveals regular heart sounds S1 and S2 no gallops no murmurs Abdomen is soft nontender no organomegaly with normal bowel sounds Extremity exam reveals no edema no cyanosis or clubbing, pulses are palpable in the dorsalis pedis and posterior tibialis bilaterally, there is onychomycosis x 9, on the right the second 2 has no toe nail, there is a large ulcer with purulent discharge on the top of the second right toe, there is swelling and erythema in the right second toe. Neurological examination reveals no gross focal deficits Results CBC & Chem 7: 06/26/22 15:36 06/26/22 15:36 Labs: Abnormal Lab Results - Last 24 Hours (Table) 06/26/22 06/26/22 Range/Units 15:36 15:36 RBC 2.62 L (4.30-5.90) m/uL Hgb 8.5 L D (13.0-17.5) gm/dL Hct 24.3 L (39.0-53.0) % RDW 17.0 H (11.5-15.5) % Plt Count 133 L (150-450) k/uL Creatinine 1.84 H (0.66-1.25) mg/dL Glucose 130 H (74-99) mg/dL Calcium 8.1 L (8.4-10.2) mg/dL Assessment and Plan Plan: Right second toe infection, worsening despite outpatient treatment with oral antibiotic and podiatry care, patient sent in from the podiatry office to emergency room for admission and infectious disease consultation Underlying history of diabetes mellitus Underlying history of atrial fibrillation Underlying history of hypertension Underlying history of gout Underlying history of chronic back pain At this time patient is admitted to medical floor He was started on IV vancomycin in the emergency room Infectious disease consultation was requested Home medications reviewed and reordered For DVT prophylaxis patient is on Coumadin Will recheck labs and follow-up in a.m.
[2022-06-26 19:28] LABS: INR 1.9 (<1.2); Prothrombin Time 18.9 sec (9.0-12.0)
[2022-06-26] MEDS: WARFARIN 7.5 MG TAB PO SCH (20:38)
[2022-06-26] MEDS: HYDROcodone/APAP 10-325MG 1 EACH TAB PO PRN (22:19)
[2022-06-27] MEDS: HYDROcodone/APAP 10-325MG 1 EACH TAB PO PRN ×2 (08:29→18:47)
[2022-06-27] MEDS: amLODIPine 5 MG TAB PO SCH (08:29)
[2022-06-27] MEDS: allopurinoL 300 MG TAB PO SCH (08:29)
--- NOTE | 2022-06-27 09:12 | P.CONS ---
History of Present Illness - Reason for Consult Consult date: 06/26/22 Right second toe infection Requesting physician: Adam Alvarez - Chief Complaint Right second toe nonhealing wound x weeks - History of Present Illness Patient is a 71-year-old male with a past medical he significant for diabetes mellitus atrial fibrillation patient apparently did have a problem with his right second toe with ulcer after treatment of his nail and has been treated by his vitritis in the outpatient setting apparently patient was seen in the pod iatry clinic this morning patient was seen by the nurse pictures were sent to the industrial mechanic who recommended the patient to go to the ER patient be complaining of some pain to the right second toe which is more of a dull aching at times sharp 5-6 or 10 no radiation patient did have swelling redness and some necrotic changes to the tip of his right second toe and drainage culture has been obtained by the ER physician patient on presentation to the hospital was afebrile and no fever have been recorded subsequently patient did have a normal white count creatinine is mildly elevated patient was started on vancomycin infectious disease was consulted for further management of antibiotic therapy Review of Systems Positive point has been mentioned in the HPI rest of the systems are negative Past Medical History Past Medical History: Atrial Fibrillation, Diabetes Mellitus Additional Past Medical History / Comment(s): . History of Any Multi-Drug Resistant Organisms: MRSA Year Discovered:: 05/08/21 MDRO Source:: Right Heel Past Surgical History: Joint Replacement, Orthopedic Surgery Additional Past Surgical History / Comment(s): right foot/leg surgery and madalyn placement related to crushing injury. Past Anesthesia/Blood Transfusion Reactions: No Reported Reaction Past Psychological History: Depression Smoking Status: Former smoker Past Alcohol Use History: None Reported Past Drug Use History: None Reported Medications and Allergies Home Medications Medication Instructions Recorded Confirmed Type HYDROcodone/APAP 10-325MG [[place] 1 tab PO TID PRN 06/30/19 06/26/22 History 10-325] allopurinoL [Zyloprim] 300 mg PO DAILY 06/30/19 06/26/22 History amLODIPine BESYLATE [Norvasc] 5 mg PO DAILY 06/30/19 06/26/22 History Warfarin [Coumadin] 7.5 mg PO DAILY@1900 06/26/22 06/26/22 History Allergies Allergy/AdvReac Type Severity Reaction Status Date / Time No Known Allergies Allergy Verified 06/26/22 16:36 Physical Exam Vitals: Vital Signs Temp Pulse Resp BP Pulse Ox 06/26/22 14:45 98 F 107 H 20 140/63 97 Intake and Output 06/26/22 06/26/22 06/26/22 06:59 14:59 22:59 Other: Weight 111.13 kg GENERAL DESCRIPTION: Elderly male lying in bed, no distress. No tachypnea or accessory muscle of respiration use. HEENT: Shows Pallor , no scleral icterus. Oral mucous membrane is dry. No pharyngeal erythema or thrush NECK: Trachea central, no thyromegaly. LUNGS: Unlabored breathing. Clear to auscultation anteriorly. No wheeze or crackle. HEART: S1, S2, regular rate and rhythm. No loud murmur ABDOMEN: Soft, no tenderness , guarding or rigidity, no organomegaly EXTREMITIES: Right second toe with swelling and redness did have wound on the tip of the right second toe with some black esher SKIN: No rash, no masses palpable. NEUROLOGICAL: The patient is awake, alert, oriented x3, mood and affect normal. Results CBC & Chem 7: 06/27/22 10:42 06/27/22 10:42 Labs: Abnormal Lab Results - Last 24 Hours (Table) 06/26/22 06/26/22 Range/Units 15:36 15:36 RBC 2.62 L (4.30-5.90) m/uL Hgb 8.5 L D (13.0-17.5) gm/dL Hct 24.3 L (39.0-53.0) % RDW 17.0 H (11.5-15.5) % Plt Count 133 L (150-450) k/uL Creatinine 1.84 H (0.66-1.25) mg/dL Glucose 130 H (74-99) mg/dL Calcium 8.1 L (8.4-10.2) mg/dL Assessment and Plan (1) Diabetic foot infection Current Visit: Yes Status: Acute Code(s): E11.628 - TYPE 2 DIABETES MELLITUS WITH OTHER SKIN COMPLICATIONS; L08.9 - LOCAL INFECTION OF THE SKIN AND SUBCUTANEOUS TISSUE, UNSP SNOMED Code(s): 013913735 Plan: 1patient with right diabetic foot infection involving his second toe tip started after nail trimming and concerning for possible underlying osteomyelitis as the patient has been dealing with for more than a month and the wound looks deep with some necrotic changes. 2we will obtain x-rays of the right foot between evidence of any osteomyelitis. 3we will obtain inflammatory markers and wait for the culture to be finalized. 4patient benefit from surgical debridement and deep cultures. 5vancomycin pharmacy to dose target trough of 15 while watching kidney function and vancomycin trough closely. We will follow on clinical condition and cultures to further adjust medication if needed Thank you for this consultation will follow this patient along with you Time with Patient: Greater than 30
--- NOTE | 2022-06-27 09:57 | P.PN ---
Subjective Progress Note Date: 06/27/22 Pepe Waters, is a 71-year-old male who presented to [facility] emergency room with a chief complaint of nonhealing ulcer right foot. Patient was sent to ER from his podiatry office. Patient had in getting treated outpatient with minimum improvement. Patient has has medical history of diabetes mellitus atrial fibrillation and depression. Patient is maintained on Coumadin for atrial fibrillation. Current vital signs temp 98.4, pulse rate 83, respiratory rate 17 with blood pressure of 09/24/1997 with a pulse ox 98% on room air at this time patient will be admitted infectious disease service is consulted patient started on IV vancomycin cultures obtained On 06/27/2022 patient is alert and oriented 3. Patient maintained on IV vancomycin. Lab work currently pending. X-ray of foot has been ordered per infectious disease. At this time patient denies chest pain or shortness breath. Patient denies nausea vomiting or diarrhea. Patient denies any urinary burning or frequency Objective - Vital Signs Vital signs: Vital Signs Temp 98.3 F 06/27/22 05:00 Pulse 79 06/27/22 05:00 Resp 16 06/27/22 05:00 BP 156/71 06/27/22 05:00 Pulse Ox 95 06/27/22 05:00 FiO2 Intake & Output 06/26/22 06/27/22 06/27/22 18:59 06:59 18:59 Intake Total 590 Balance 590 Weight 111.13 kg 111.13 kg Intake: Oral 590 Other: Voiding Method Toilet # Voids 2 - Exam In general patient is alert and oriented x 3 in no distress HEENT head normocephalic and atraumatic Neck is supple no JVD no goiter no lymphadenopathy no carotid bruit Chest examination is clear to auscultation no crackles no wheezing Cardiac exam reveals regular heart sounds S1 and S2 no gallops no murmurs Abdomen is soft nontender no organomegaly with normal bowel sounds Extremity exam reveals no edema no cyanosis or clubbing, pulses are palpable in the dorsalis pedis and posterior tibialis bilaterally, there is onychomycosis x 9, on the right the second 2 has no toe nail, there is a large ulcer with purulent discharge on the top of the second right toe, there is swelling and erythema in the right second toe. Neurological examination reveals no gross focal deficits - Labs CBC & Chem 7: 06/26/22 15:36 06/26/22 15:36 Labs: Abnormal Lab Results - Last 24 Hours (Table) 06/26/22 06/26/22 06/26/22 Range/Units 15:36 15:36 18:49 RBC 2.62 L (4.30-5.90) m/uL Hgb 8.5 L D (13.0-17.5) gm/dL Hct 24.3 L (39.0-53.0) % RDW 17.0 H (11.5-15.5) % Plt Count 133 L (150-450) k/uL PT 18.9 H (9.0-12.0) sec INR 1.9 H (<1.2) Creatinine 1.84 H (0.66-1.25) mg/dL Glucose 130 H (74-99) mg/dL Calcium 8.1 L (8.4-10.2) mg/dL 06/27/22 Range/Units 06:24 RBC (4.30-5.90) m/uL Hgb (13.0-17.5) gm/dL Hct (39.0-53.0) % RDW (11.5-15.5) % Plt Count (150-450) k/uL PT 20.0 H (9.0-12.0) sec INR 2.0 H (<1.2) Creatinine (0.66-1.25) mg/dL Glucose (74-99) mg/dL Calcium (8.4-10.2) mg/dL Microbiology - Last 24 Hours (Table) 06/26/22 15:20 Gram Stain - Preliminary Toe - Right Second Wound Culture - Preliminary Assessment and Plan Plan: Right second toe infection, worsening despite outpatient treatment with oral antibiotic and podiatry care, patient sent in from the podiatry office to emergency room for admission and infectious disease consultation Underlying history of diabetes mellitus Underlying history of atrial fibrillation Underlying history of hypertension Underlying history of gout Underlying history of chronic back pain At this time patient is admitted to medical floor He was started on IV vancomycin in the emergency room Infectious disease consultation was requested Home medications reviewed and reordered For DVT prophylaxis patient is on Coumadin Will recheck labs and follow-up in a.m.
--- NOTE | 2022-06-27 10:28 | XR ---
EXAMINATION TYPE: XR foot limited RT DATE OF EXAM: 06/27/2022 10:05 AM INDICATION: Patient age:Male; 71 years old; Reason for study: R 2nd toe tip ulcer r/o osteo; PHH. COMPARISON: 05/20/2022. 06/20/2022 TECHNIQUE: The right foot was examined in the AP, oblique, and lateral projections. FINDINGS: Skin defect involving the second digit distal aspect with nonvisualization of the distal phalanx. Ban dage is present. No evidence of osseous erosion of the distal aspect of the second digit middle phala nx. The distal phalanx of the second digit seen on 06/20/2022 is not visualized. No evidence for acut e fracture. There is moderate to severe degeneration changes throughout the joints of the foot most p ronounced in the first digit metatarsophalangeal joint. Fixation hardware seen in distal leg. IMPRESSION: Skin defect involving the distal aspect of the second digit without visualization of the distal phala nx of the second digit. The cortex of the second digit middle phalanx appears intact. Consider MRI if there remains concern.
[2022-06-27 10:56] LABS: Anisocytosis Slight; Basophils % (A) 0 %; Eosinophils # (A) 0.1 k/uL (0-0.7); Eosinophils % (A) 3 %; HCT 24.5 % (39.0-53.0); HGB 8.3 gm/dL (13.0-17.5); Lymphocytes % (A) 21 %; MCH 30.9 pg (25.0-35.0); MCHC 33.7 g/dL (31.0-37.0); MCV 91.7 fL (80.0-100.0); Mean Platelet Volume 9.5; Monocytes # (A) 0.3 k/uL (0-1.0); Monocytes % (A) 6 %; Neutrophils # (A) 3.4 k/uL (1.3-7.7); Neutrophils % (A) 68 %; Platelet Count 117 k/uL (150-450); Poikilocytosis Slight; RBC 2.67 m/uL (4.30-5.90); RDW 17.1 % (11.5-15.5)
[2022-06-27 11:20] LABS: ALT 15 U/L (4-49); AST 24 U/L (17-59); African American GFR (CKD) 49 (>60 ml/min/1.73 sqM); Alkaline Phosphatase 86 U/L (38-126); Anion Gap 12 mmol/L; Blood Urea Nitrogen 15 mg/dL (9-20); Carbon Dioxide 28 mmol/L (22-30); Chloride 99 mmol/L (98-107); Glucose 133 mg/dL (74-99); Non-African American GFR(CKD) 43 (>60 ml/min/1.73 sqM); Potassium 3.4 mmol/L (3.5-5.1); Sodium 139 mmol/L (137-145); Total Bilirubin 1.8 mg/dL (0.2-1.3)
[2022-06-27] MEDS: VANCOMYCIN 2,000 MG in SODIUM CHLORIDE 0.9% 500 ML 500 ML IVPB SCH (12:52)
[2022-06-27] MEDS ORDERED: MIDAZOLAM 2 MG/2 ML VIAL ONE (14:56)
[2022-06-27] MEDS ORDERED: PROPOFOL 10 MG/ML 20 ML VIAL IV ONE (14:56)
[2022-06-27] MEDS ORDERED: KETAMINE 10 MG/ML 20 ML VIAL ONE (14:56)
[2022-06-27] MEDS ORDERED: fentaNYL (PF) 50 MCG/ML 2 ML AMP ONE (14:56)
--- NOTE | 2022-06-27 15:57 | P.PN ---
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 On today's evaluation that is 06/27/2022, the patient denies having any fever or any chills the patient is breathing comfortably, the patient denies having any chest pain or shortness of breath or cough no abdominal pain or any w orsening pain to his right second toe Objective - Vital Signs Vital signs: Vital Signs Temp 98.3 F 06/27/22 05:00 Pulse 79 06/27/22 05:00 Resp 16 06/27/22 05:00 BP 156/71 06/27/22 05:00 Pulse Ox 95 06/27/22 05:00 FiO2 Intake & Output 06/26/22 06/27/22 06/27/22 18:59 06:59 18:59 Intake Total 590 Balance 590 Weight 111.13 kg 111.13 kg Intake: Oral 590 Other: Voiding Method Toilet # Voids 2 - Exam GENERAL DESCRIPTION: An elderly male lying in bed in no distress RESPIRATORY SYSTEM: Unlabored breathing , decreased breath sounds at bases HEART: S1 S2 regular rate and rhythm , ABDOMEN: Soft , no tenderness EXTREMITIES: Right second toe is currently dressed no drainage of the dressing - Labs CBC & Chem 7: 06/27/22 10:42 06/27/22 10:42 Labs: Abnormal Lab Results - Last 24 Hours (Table) 06/26/22 06/26/22 06/26/22 Range/Units 15:36 15:36 18:49 RBC 2.62 L (4.30-5.90) m/uL Hgb 8.5 L D (13.0-17.5) gm/dL Hct 24.3 L (39.0-53.0) % RDW 17.0 H (11.5-15.5) % Plt Count 133 L (150-450) k/uL PT 18.9 H (9.0-12.0) sec INR 1.9 H (<1.2) Potassium (3.5-5.1) mmol/L Creatinine 1.84 H (0.66-1.25) mg/dL Glucose 130 H (74-99) mg/dL Calcium 8.1 L (8.4-10.2) mg/dL Total Bilirubin (0.2-1.3) mg/dL Total Protein (6.3-8.2) g/dL 06/27/22 06/27/22 06/27/22 Range/Units 06:24 10:42 10:42 RBC 2.67 L (4.30-5.90) m/uL Hgb 8.3 L (13.0-17.5) gm/dL Hct 24.5 L (39.0-53.0) % RDW 17.1 H (11.5-15.5) % Plt Count 117 L (150-450) k/uL PT 20.0 H (9.0-12.0) sec INR 2.0 H (<1.2) Potassium 3.4 L (3.5-5.1) mmol/L Creatinine 1.60 H (0.66-1.25) mg/dL Glucose 133 H (74-99) mg/dL Calcium 8.0 L (8.4-10.2) mg/dL Total Bilirubin 1.8 H (0.2-1.3) mg/dL Total Protein 6.0 L (6.3-8.2) g/dL Microbiology - Last 24 Hours (Table) 06/26/22 15:15 Blood Culture Gram Stain - Preliminary Blood 06/26/22 15:20 Gram Stain - Preliminary Toe - Right Second Wound Culture - Preliminary 06/26/22 15:30 Blood Culture - Final Blood Assessment and Plan (1) Bacteremia Current Visit: Yes Status: Acute Code(s): R78.81 - BACTEREMIA SNOMED Code(s): 5917263 (2) Diabetic foot infection Current Visit: Yes Status: Acute Code(s): E11.628 - TYPE 2 DIABETES MELLITUS WITH OTHER SKIN COMPLICATIONS; L08.9 - LOCAL INFECTION OF THE SKIN AND SUBCUTANEOUS TISSUE, UNSP SNOMED Code(s): 926899190 Plan: 1patient with right diabetic foot infection involving his second toe tip sta rted after nail trimming and concerning for possible underlying osteomyelitis as the patient has been dealing with for more than a month and the wound looks deep with some necrotic changes. 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
[2022-06-27] MEDS ORDERED: Potassium Replacement Protocol 1 EACH MISC MISCELLANE PRN (16:58)
[2022-06-27] MEDS: POTASSIUM CHLORIDE ER 20 MEQ TAB.ER PO SCH ×2 (17:23→18:31)
[2022-06-27] MEDS: WARFARIN 7.5 MG TAB PO SCH (18:46)
[2022-06-28 06:19] LABS: Anisocytosis Slight; Basophils % (A) 0 %; Eosinophils # (A) 0.1 k/uL (0-0.7); Eosinophils % (A) 3 %; HCT 24.4 % (39.0-53.0); HGB 8.4 gm/dL (13.0-17.5); Lymphocytes # (A) 1.1 k/uL (1.0-4.8); Lymphocytes % (A) 31 %; MCHC 34.6 g/dL (31.0-37.0); MCV 92.5 fL (80.0-100.0); Mean Platelet Volume 8.3; Monocytes # (A) 0.2 k/uL (0-1.0); Monocytes % (A) 6 %; Neutrophils # (A) 2.1 k/uL (1.3-7.7); Neutrophils % (A) 57 %; Platelet Count 138 k/uL (150-450); Poikilocytosis Slight; RBC 2.64 m/uL (4.30-5.90); RDW 17.1 % (11.5-15.5); WBC 3.7 k/uL (3.8-10.6)
[2022-06-28 06:22] LABS: INR 2.1 (<1.2); Prothrombin Time 20.9 sec (9.0-12.0)
[2022-06-28 06:42] LABS: ALT 13 U/L (4-49); AST 23 U/L (17-59); African American GFR (CKD) 47 (>60 ml/min/1.73 sqM); Albumin 3.9 g/dL (3.5-5.0); Alkaline Phosphatase 86 U/L (38-126); Anion Gap 11 mmol/L; Blood Urea Nitrogen 16 mg/dL (9-20); C Reactive Protein 5.2 mg/dL (<1.0); Calcium 8.2 mg/dL (8.4-10.2); Carbon Dioxide 28 mmol/L (22-30); Chloride 99 mmol/L (98-107); Glucose 87 mg/dL (74-99); Non-African American GFR(CKD) 41 (>60 ml/min/1.73 sqM); Potassium 3.3 mmol/L (3.5-5.1); Sodium 138 mmol/L (137-145); Total Bilirubin 1.5 mg/dL (0.2-1.3); Total Protein 5.9 g/dL (6.3-8.2)
[2022-06-28] MEDS: HYDROcodone/APAP 10-325MG 1 EACH TAB PO PRN ×2 (08:48→17:17)
[2022-06-28] MEDS: amLODIPine 5 MG TAB PO SCH (08:48)
[2022-06-28] MEDS: allopurinoL 300 MG TAB PO SCH (08:48)
[2022-06-28] MEDS ORDERED: PHYTONADIONE ORAL 5 MG/5 ML ORAL.SYRG PO STA (09:26)
[2022-06-28] MEDS: WARFARIN 7.5 MG TAB PO SCH (09:27)
--- NOTE | 2022-06-28 10:00 | P.GSHP ---
History of Present Illness 71-year-old gentleman today I was consulted for right foot big toe chronic wound for the past 1 month under care of Dr. Lieberman the bone is exposed of the distal phalanx with marked redness of the second toe. Patient has a x-ray of the foot there is some destructive changes noted of the distal phalanx with exposed bone patient has history of at fibrillation on Coumadin PT is 20.9 INR is 2.1 patient is an IV antibiotic. Blood cultures came positive for gram-positive "cocci Neck examination neck is supple no bruit appreciated Chest is clear good entry both lungs Abdomen is soft nontender femoral are 1+ second toe distal phalanx bone is exposed plan is Eschen will need second toe ray amputation to give vitamin K 10 By mouth today we'll repeat the PT INR for second toe ray amputation risk and complication discussed Past Medical History Past Medical History: Atrial Fibrillation, Diabetes Mellitus Additional Past Medical History / Comment(s): . History of Any Multi-Drug Resistant Organisms: MRSA Date of last positivie culture/infection: 05/08/21 MDRO Source:: Right Heel Past Surgical History: Joint Replacement, Orthopedic Surgery Additional Past Surgical History / Comment(s): right foot/leg surgery and madalyn placement related to crushing injury. Past Anesthesia/Blood Transfusion Reactions: No Reported Reaction Past Psychological History: Depression Smoking Status: Former smoker Past Alcohol Use History: None Reported Past Drug Use History: None Reported Medications and Allergies Home Medications Medication Instructions Recorded Confirmed Type HYDROcodone/APAP 10-325MG [[place] 1 tab PO TID PRN 06/30/19 06/26/22 History 10-325] allopurinoL [Zyloprim] 300 mg PO DAILY 06/30/19 06/26/22 History amLODIPine BESYLATE [Norvasc] 5 mg PO DAILY 06/30/19 06/26/22 History Warfarin [Coumadin] 7.5 mg PO DAILY@1900 06/26/22 06/26/22 History Allergies Allergy/AdvReac Type Severity Reaction Status Date / Time No Known Allergies Allergy Verified 06/26/22 16:36 Surgical - Exam Vital Signs Temp Pulse Resp BP Pulse Ox 98 F 107 H 20 140/63 97 06/26/22 14:45 06/26/22 14:45 06/26/22 14:45 06/26/22 14:45 06/26/22 14:45 Results - Labs 06/28/22 05:41 06/28/22 05:41 Abnormal Lab Results - Last 24 Hours (Table) 06/27/22 06/27/22 06/28/22 Range/Units 10:42 10:42 05:41 WBC (3.8-10.6) k/uL RBC 2.67 L (4.30-5.90) m/uL Hgb 8.3 L (13.0-17.5) gm/dL Hct 24.5 L (39.0-53.0) % RDW 17.1 H (11.5-15.5) % Plt Count 117 L (150-450) k/uL PT (9.0-12.0) sec INR (<1.2) Potassium 3.4 L 3.3 L (3.5-5.1) mmol/L Creatinine 1.60 H 1.66 H (0.66-1.25) mg/dL Glucose 133 H (74-99) mg/dL Calcium 8.0 L 8.2 L (8.4-10.2) mg/dL Total Bilirubin 1.8 H 1.5 H (0.2-1.3) mg/dL C-Reactive Protein 5.2 H (<1.0) mg/dL Total Protein 6.0 L 5.9 L (6.3-8.2) g/dL 06/28/22 06/28/22 Range/Units 05:41 05:41 WBC 3.7 L (3.8-10.6) k/uL RBC 2.64 L (4.30-5.90) m/uL Hgb 8.4 L (13.0-17.5) gm/dL Hct 24.4 L (39.0-53.0) % RDW 17.1 H (11.5-15.5) % Plt Count 138 L (150-450) k/uL PT 20.9 H (9.0-12.0) sec INR 2.1 H (<1.2) Potassium (3.5-5.1) mmol/L Creatinine (0.66-1.25) mg/dL Glucose (74-99) mg/dL Calcium (8.4-10.2) mg/dL Total Bilirubin (0.2-1.3) mg/dL C-Reactive Protein (<1.0) mg/dL Total Protein (6.3-8.2) g/dL Microbiology - Last 24 Hours (Table) 06/26/22 15:20 Gram Stain - Preliminary Toe - Right Second Wound Culture - Preliminary Strep agalactiae - (group b) Presumptive MRSA 06/26/22 15:15 Blood Culture Gram Stain - Preliminary Blood Blood Culture - Preliminary Staphylococcus epidermidis 06/26/22 15:45 Blood Culture - Preliminary Blood No Growth after 24 hours 06/26/22 15:30 Blood Culture - Final Blood Diabetes panel 06/27/22 06/28/22 Range/Units 10:42 05:41 Sodium 139 138 (137-145) mmol/L Potassium 3.4 L 3.3 L (3.5-5.1) mmol/L Chloride 99 99 (98-107) mmol/L Carbon Dioxide 28 28 (22-30) mmol/L BUN 15 16 (9-20) mg/dL Creatinine 1.60 H 1.66 H (0.66-1.25) mg/dL Glucose 133 H 87 (74-99) mg/dL Calcium 8.0 L 8.2 L (8.4-10.2) mg/dL AST 24 23 (17-59) U/L ALT 15 13 (4-49) U/L Alkaline Phosphatase 86 86 (38-126) U/L Total Protein 6.0 L 5.9 L (6.3-8.2) g/dL Albumin 4.0 3.9 (3.5-5.0) g/dL Calcium panel 06/27/22 06/28/22 Range/Units 10:42 05:41 Calcium 8.0 L 8.2 L (8.4-10.2) mg/dL Albumin 4.0 3.9 (3.5-5.0) g/dL Pituitary panel 06/27/22 06/28/22 Range/Units 10:42 05:41 Sodium 139 138 (137-145) mmol/L Potassium 3.4 L 3.3 L (3.5-5.1) mmol/L Chloride 99 99 (98-107) mmol/L Carbon Dioxide 28 28 (22-30) mmol/L BUN 15 16 (9-20) mg/dL Creatinine 1.60 H 1.66 H (0.66-1.25) mg/dL Glucose 133 H 87 (74-99) mg/dL Calcium 8.0 L 8.2 L (8.4-10.2) mg/dL Adrenal panel 06/27/22 06/28/22 Range/Units 10:42 05:41 Sodium 139 138 (137-145) mmol/L Potassium 3.4 L 3.3 L (3.5-5.1) mmol/L Chloride 99 99 (98-107) mmol/L Carbon Dioxide 28 28 (22-30) mmol/L BUN 15 16 (9-20) mg/dL Creatinine 1.60 H 1.66 H (0.66-1.25) mg/dL Glucose 133 H 87 (74-99) mg/dL Calcium 8.0 L 8.2 L (8.4-10.2) mg/dL Total Bilirubin 1.8 H 1.5 H (0.2-1.3) mg/dL AST 24 23 (17-59) U/L ALT 15 13 (4-49) U/L Alkaline Phosphatase 86 86 (38-126) U/L Total Protein 6.0 L 5.9 L (6.3-8.2) g/dL Albumin 4.0 3.9 (3.5-5.0) g/dL
[2022-06-28 10:40] LABS: Erythrocyte Sedimentation Rate 92 mm/hr (0-15)
[2022-06-28] MEDS: VANCOMYCIN 2,000 MG in SODIUM CHLORIDE 0.9% 500 ML 500 ML IVPB SCH (12:17)
--- NOTE | 2022-06-28 14:37 | P.PN ---
Subjective Progress Note Date: 06/28/22 Pepe Waters, is a 71-year-old male who presented to [facility] emergency room with a chief complaint of nonhealing ulcer right foot. Patient was sent to ER from his podiatry office. Patient had in getting treated outpatient with minimum improvement. Patient has has medical history of diabetes mellitus atrial fibrillation and depression. Patient is maintained on Coumadin for atrial fibrillation. Current vital signs temp 98.4, pulse rate 83, respiratory rate 17 with blood pressure of 09/24/1997 with a pulse ox 98% on room air at this time patient will be admitted infectious disease service is consulted patient started on IV vancomycin cultures obtained On 06/27/2022 patient is alert and oriented 3. Patient maintained on IV vancomycin. Lab work currently pending. X-ray of foot has been ordered per infectious disease. At this time patient denies chest pain or shortness breath. Patient denies nausea vomiting or diarrhea. Patient denies any urinary burning or frequency. On 06/28/2022 patient was seen and examined on the medical floor, he is alert and oriented in no distress, he is complaining of mild pain otherwise he denies any complaints there is no fever or chills no headache or dizziness no chest pain no shortness of breath no cough no nausea or vomiting no abdominal pain no diarrhea no blood in the stools no burning with urination no frequency or urgenc y and no hematuria. Patient is maintained on IV antibiotics, he was seen by Dr Bey and decision was made to proceed with second toe amputation in am. Objective - Vital Signs Vital signs: Vital Signs Temp 98.4 F 06/28/22 12:08 Pulse 69 06/28/22 12:08 Resp 18 06/28/22 12:08 BP 136/68 06/28/22 12:08 Pulse Ox 95 06/28/22 12:08 FiO2 Intake & Output 06/27/22 06/28/22 06/28/22 18:59 06:59 18:59 Intake Total 590 Balance 590 Intake: Oral 590 Other: Voiding Method Toilet Toilet # Voids 3 2 - Exam In general patient is alert and oriented x 3 in no distress HEENT head normocephalic and atraumatic Neck is supple no JVD no goiter no lymphadenopathy no carotid bruit Chest examination is clear to auscultation no crackles no wheezing Cardiac exam reveals regular heart sounds S1 and S2 no gallops no murmurs Abdomen is soft nontender no organomegaly with normal bowel sounds Extremity exam reveals no edema no cyanosis or clubbing, pulses are palpable in the dorsalis pedis and posterior tibialis bilaterally, there is onychomycosis x 9, on the right the second 2 has no toe nail, there is a large ulcer with purulent discharge on the top of the second right toe, there is swelling and erythema in the right second toe. Neurological examination reveals no gross focal deficits - Labs CBC & Chem 7: 06/28/22 05:41 06/28/22 05:41 Labs: Abnormal Lab Results - Last 24 Hours (Table) 06/28/22 06/28/22 06/28/22 Range/Units 05:41 05:41 05:41 WBC 3.7 L (3.8-10.6) k/uL RBC 2.64 L (4.30-5.90) m/uL Hgb 8.4 L (13.0-17.5) gm/dL Hct 24.4 L (39.0-53.0) % RDW 17.1 H (11.5-15.5) % Plt Count 138 L (150-450) k/uL ESR 92 H (0-15) mm/hr PT 20.9 H (9.0-12.0) sec INR 2.1 H (<1.2) Potassium 3.3 L (3.5-5.1) mmol/L Creatinine 1.66 H (0.66-1.25) mg/dL Calcium 8.2 L (8.4-10.2) mg/dL Total Bilirubin 1.5 H (0.2-1.3) mg/dL C-Reactive Protein 5.2 H (<1.0) mg/dL Total Protein 5.9 L (6.3-8.2) g/dL Microbiology - Last 24 Hours (Table) 06/26/22 15:20 Gram Stain - Preliminary Toe - Right Second Wound Culture - Preliminary Strep agalactiae - (group b) Presumptive MRSA 06/26/22 15:15 Blood Culture Gram Stain - Preliminary Blood Blood Culture - Preliminary Staphylococcus epidermidis 06/26/22 15:45 Blood Culture - Preliminary Blood No Growth after 24 hours 06/26/22 15:30 Blood Culture - Final Blood Assessment and Plan Plan: Right second toe infection, worsening despite outpatient treatment with oral antibiotic and podiatry care, patient sent in from the podiatry office to emergency room for admission and infectious disease consultation Underlying history of diabetes mellitus Underlying history of atrial fibrillation Underlying history of hypertension Underlying history of gout Underlying history of chronic back pain At this time patient is admitted to medical floor He was started on IV vancomycin in the emergency room Infectious disease consultation was requested Home medications reviewed and reordered For DVT prophylaxis patient is on Coumadin Will recheck labs and follow-up in a.m.
[2022-06-28] MEDS: POTASSIUM CHLORIDE ER 20 MEQ TAB.ER PO SCH (17:14)
[2022-06-29 07:41] LABS: INR 1.3 (<1.2); Prothrombin Time 13.6 sec (9.0-12.0)
[2022-06-29 07:47] LABS: Magnesium 1.2 mg/dL (1.6-2.3); Potassium 3.5 mmol/L (3.5-5.1)
[2022-06-29] MEDS: HYDROcodone/APAP 10-325MG 1 EACH TAB PO PRN ×2 (08:26→20:50)
[2022-06-29] MEDS: allopurinoL 300 MG TAB PO SCH (08:26)
[2022-06-29] MEDS: amLODIPine 5 MG TAB PO SCH (08:26)
[2022-06-29] MEDS ORDERED: Magnesium Replacement Protocol 1 EACH MISC MISCELLANE PRN (09:10)
[2022-06-29] MEDS: MAGNESIUM SULFATE-D5W PMX 1 GM in DEXTROSE/WATER 1 100ML.BAG IVPB SCH ×3 (09:21→11:42)
[2022-06-29] MEDS: POTASSIUM CHLORIDE 10 MEQ in WATER FOR INJECTION 1 100ML.BAG IVPB SCH ×4 (09:21→12:43)
--- NOTE | 2022-06-29 09:38 | P.PN ---
Subjective Progress Note Date: 06/29/22 Pepe Waters, is a 71-year-old male who presented to [facility] emergency room with a chief complaint of nonhealing ulcer right foot. Patient was sent to ER from his podiatry office. Patient had in getting treated outpatient with minimum improvement. Patient has has medical history of diabetes mellitus atrial fibrillation and depression. Patient is maintained on Coumadin for atrial fibrillation. Current vital signs temp 98.4, pulse rate 83, respiratory rate 17 with blood pressure of 09/24/1997 with a pulse ox 98% on room air at this time patient will be admitted infectious disease service is consulted patient started on IV vancomycin cultures obtained On 06/27/2022 patient is alert and oriented 3. Patient maintained on IV vancomycin. Lab work currently pending. X-ray of foot has been ordered per infectious disease. At this time patient denies chest pain or shortness breath. Patient denies nausea vomiting or diarrhea. Patient denies any urinary burning or frequency. On 06/28/2022 patient was seen and examined on the medical floor, he is alert and oriented in no distress, he is complaining of mild pain otherwise he denies any complaints there is no fever or chills no headache or dizziness no chest pain no shortness of breath no cough no nausea or vomiting no abdominal pain no diarrhea no blood in the stools no burning with urination no frequency or urgenc y and no hematuria. Patient is maintained on IV antibiotics, he was seen by Dr Bey and decision was made to proceed with second toe amputation in am. On 06/29/2022 patient alert and oriented to 3. Plans for toe amputation today per nursing staff. INR 1.3. Magnesium and potassium. Replace per protocol. Patient remains on IV vancomycin. At this time patient denies chest pain or shortness breath. Patient denies nausea vomiting or diarrhea. Patient denies any Objective - Vital Signs Vital signs: Vital Signs Temp 97.4 F L 06/29/22 04:44 Pulse 93 06/29/22 04:44 Resp 16 06/29/22 04:44 BP 154/72 06/29/22 04:44 Pulse Ox 95 06/29/22 04:44 FiO2 Intake & Output 06/28/22 06/29/22 06/29/22 18:59 06:59 18:59 Intake Total 1350 360 Balance 1350 360 Intake: Oral 1350 360 Other: Voiding Method Toilet Toilet Toilet # Voids 2 - Exam In general patient is alert and oriented x 3 in no distress HEENT head normocephalic and atraumatic Neck is supple no JVD no goiter no lymphadenopathy no carotid bruit Chest examination is clear to auscultation no crackles no wheezing Cardiac exam reveals regular heart sounds S1 and S2 no gallops no murmurs Abdomen is soft nontender no organomegaly with normal bowel sounds Extremity exam reveals no edema no cyanosis or clubbing, pulses are palpable in the dorsalis pedis and posterior tibialis bilaterally, there is onychomycosis x 9, on the right the second 2 has no toe nail, there is a large ulcer with purulent discharge on the top of the second right toe, there is swelling and e rythema in the right second toe. Neurological examination reveals no gross focal deficits - Labs CBC & Chem 7: 06/28/22 05:41 06/29/22 07:19 Labs: Abnormal Lab Results - Last 24 Hours (Table) 06/28/22 06/29/22 06/29/22 Range/Units 05:41 07:19 07:19 ESR 92 H (0-15) mm/hr PT 13.6 H (9.0-12.0) sec INR 1.3 H (<1.2) Creatinine 1.66 H (0.66-1.25) mg/dL Magnesium 1.2 L (1.6-2.3) mg/dL Microbiology - Last 24 Hours (Table) 06/28/22 05:41 Blood Culture - Preliminary Blood No Growth after 24 hours 06/26/22 15:20 Gram Stain - Final Toe - Right Second Wound Culture - Final Strep agalactiae - (group b) Methicillin resist S. aureus 06/26/22 15:45 Blood Culture - Preliminary Blood No Growth after 48 hours Assessment and Plan Plan: Right second toe infection, worsening despite outpatient treatment with oral antibiotic and podiatry care, patient sent in from the podiatry office to e mergency room for admission and infectious disease consultation Underlying history of diabetes mellitus Underlying history of atrial fibrillation Underlying history of hypertension Underlying history of gout Underlying history of chronic back pain Positive blood culture. At this time patient is admitted to medical floor Patient remains on vancomycin Plans for surgical amputation on 06/29/2022 Dr. Barton Repeat labs ordered for a.m.
[2022-06-29] MEDS: VANCOMYCIN 2,000 MG in SODIUM CHLORIDE 0.9% 500 ML 500 ML IVPB SCH (12:43)
[2022-06-29] MEDS ORDERED: SODIUM CHLORIDE 0.9% 1,000 ML IV ONE (13:10)
[2022-06-29 14:29] LABS: Glucose,Whole Blood 95 mg/dL (70-110)
[2022-06-29] MEDS ORDERED: BUPIVACAINE (PF) 0.25% 30 ML VIAL INTRAARTIC ONE (15:06)
[2022-06-30] MEDS: HYDROmorphone 0.5 MG/0.5 ML SYRINGE IVP PRN ×3 (00:26→12:28)
[2022-06-30] MEDS: HYDROcodone/APAP 10-325MG 1 EACH TAB PO PRN ×3 (04:00→20:16)
--- NOTE | 2022-06-30 04:32 | OP ---
OPERATIVE REPORT PREOPERATIVE DIAGNOSIS: Chronic wound, right foot big toe with exposed bone under local IV sedation. PROCEDURE: Amputation of the right foot second toe. DESCRIPTION OF PROCEDURE: This patient was brought to the operating room. Right foot was prepped and draped in appropriate sterile manner. Under local IV sedation, incision was made on the dorsal aspect of the foot, went circumferentially around the second toe. Incision was extended to the plantar aspect, deepened through skin fat and fascia. Tendons were divided on the dorsal aspect of the foot until we reached the metatarsophalangeal joint. Ligaments were divided, and then the tendon on the dorsum and plantar aspect were divided. There were some bleeding points, which were electrocoagulated and suture ligated. Specimen was removed, sent for deep culture. Wound was irrigated with hydrogen peroxide and saline. Hemostasis was well controlled. Incision was closed in 2 layers using 2-0 Vicryl, and skin was closed with 3-0 nylon with interrupted sutures. Dressing applied. The patient tolerated the procedure well, transferred to the recovery room in satisfactory condition. MMODL / IJN: [id number] /
[2022-06-30 06:47] LABS: INR 1.1 (<1.2)
[2022-06-30 06:48] LABS: Prothrombin Time 11.7 sec (9.0-12.0)
[2022-06-30 06:57] LABS: ALT 15 U/L (4-49); AST 26 U/L (17-59); African American GFR (CKD) 44 (>60 ml/min/1.73 sqM); Albumin 4.3 g/dL (3.5-5.0); Albumin/Globulin Ratio 1.9; Alkaline Phosphatase 91 U/L (38-126); Anion Gap 10 mmol/L; Blood Urea Nitrogen 16 mg/dL (9-20); Calcium 8.9 mg/dL (8.4-10.2); Carbon Dioxide 29 mmol/L (22-30); Chloride 98 mmol/L (98-107); Globulin 2.3 g/dL; Glucose 90 mg/dL (74-99); Magnesium 1.6 mg/dL (1.6-2.3); Non-African American GFR(CKD) 38 (>60 ml/min/1.73 sqM); Potassium 3.8 mmol/L (3.5-5.1); Sodium 137 mmol/L (137-145); Total Bilirubin 1.7 mg/dL (0.2-1.3); Total Protein 6.6 g/dL (6.3-8.2)
[2022-06-30] MEDS: allopurinoL 300 MG TAB PO SCH (08:10)
[2022-06-30] MEDS: amLODIPine 5 MG TAB PO SCH (08:10)
[2022-06-30 09:38] LABS: Basophils # (A) 0.02 X 10*3/uL (0.00-0.10); Basophils % (A) 0.4 %; Eosinophils # (A) 0.18 X 10*3/uL (0.04-0.35); Eosinophils % (A) 3.5 %; HCT 26.6 % (39.6-50.0); HGB 8.9 g/dL (13.0-17.0); Immature Grans, Automated 0.4 %; Lymphocytes # (A) 1.81 X 10*3/uL (0.90-5.00); Lymphocytes % (A) 35.3 %; MCH 31.6 pg (27.0-32.0); MCHC 33.5 g/dL (32.0-37.0); MCV 94.3 fL (80.0-97.0); Mean Platelet Volume 9.3 fL (9.5-12.2); Monocytes # (A) 0.44 X 10*3/uL (0.20-1.00); Monocytes % (A) 8.6 %; NRBC Per 100 WBC 0 /100 WBCS (0.0-0.0); Neutrophils # (A) 2.66 X 10*3/uL (1.80-7.70); Neutrophils % (A) 51.8 %; Platelet Count 153 X 10*3/uL (140-440); RBC 2.82 X 10*6/uL (4.40-5.60); RDW 17.1 % (11.5-14.5); WBC 5.13 X 10*3/uL (4.50-10.00)
--- NOTE | 2022-06-30 12:42 | P.PN ---
Subjective Progress Note Date: 06/30/22 Pepe Waters, is a 71-year-old male who presented to [facility] emergency room with a chief complaint of nonhealing ulcer right foot. Patient was sent to ER from his podiatry office. Patient had in getting treated outpatient with minimum improvement. Patient has has medical history of diabetes mellitus atrial fibrillation and depression. Patient is maintained on Coumadin for atrial fibrillation. Current vital signs temp 98.4, pulse rate 83, respiratory rate 17 with blood pressure of 09/24/1997 with a pulse ox 98% on room air at this time patient will be admitted infectious disease service is consulted patient started on IV vancomycin cultures obtained On 06/27/2022 patient is alert and oriented 3. Patient maintained on IV vancomycin. Lab work currently pending. X-ray of foot has been ordered per infectious disease. At this time patient denies chest pain or shortness breath. Patient denies nausea vomiting or diarrhea. Patient denies any urinary burning or frequency. On 06/28/2022 patient was seen and examined on the medical floor, he is alert and oriented in no distress, he is complaining of mild pain otherwise he denies any complaints there is no fever or chills no headache or dizziness no chest pain no shortness of breath no cough no nausea or vomiting no abdominal pain no diarrhea no blood in the stools no burning with urination no frequency or urgenc y and no hematuria. Patient is maintained on IV antibiotics, he was seen by Dr Bey and decision was made to proceed with second toe amputation in am. On 06/29/2022 patient alert and oriented to 3. Plans for toe amputation today per nursing staff. INR 1.3. Magnesium and potassium. Replace per protocol. Patient remains on IV vancomycin. At this time patient denies chest pain or shortness breath. Patient denies nausea vomiting or diarrhea. On 06/30/2022 patient was seen and examined on the medical floor he is alert and oriented 3 in no apparent distress there is no fever or chills no headache or dizziness no chest pain no shortness of breath no cough no nausea or vomiting no abdominal pain no diarrhea and no urinary symptoms. Patient underwent amputation of the right second toe yesterday. He was complaining of severe pain last night and Dilaudid 0.5 mg IV every 3 hours was added to his regimen. Patient is still having severe pain and dose of Dilaudid will be increased to 1 mg every 4 hours when necessary There is slight worsening in kidney function and worsening in anemia, will check iron, vitamin B12 and folate level, will consult nephrology Objective - Vital Signs Vital signs: Vital Signs Temp 97.7 F 06/30/22 11:42 Pulse 72 06/30/22 11:42 Resp 17 06/30/22 11:42 BP 136/68 06/30/22 11:42 Pulse Ox 97 06/30/22 11:42 FiO2 Intake & Output 06/29/22 06/30/22 06/30/22 18:59 06:59 18:59 Intake Total 200 590 Output Total 10 Balance 190 590 Intake: IV 200 Oral 590 Output: Estimated Blood Loss 10 Other: Voiding Method Toilet Toilet # Voids 1 2 - Exam In general patient is alert and oriented x 3 in no distress HEENT head normocephalic and atraumatic Neck is supple no JVD no goiter no lymphadenopathy no carotid bruit Chest examination is clear to auscultation no crackles no wheezing Cardiac exam reveals regular heart sounds S1 and S2 no gallops no murmurs Abdomen is soft nontender no organomegaly with normal bowel sounds Extremity exam reveals no edema no cyanosis or clubbing, pulses are palpable in the dorsalis pedis and posterior tibialis bilaterally, there is onychomycosis x 9, on the right the second 2 has no toe nail, there is a large ulcer with purulent discharge on the top of the second right toe, there is swelling and erythema in the right second toe. Neurological examination reveals no gross focal deficits - Labs CBC & Chem 7: 06/30/22 06:20 06/30/22 06:20 Labs: Abnormal Lab Results - Last 24 Hours (Table) 06/30/22 06/30/22 Range/Units 06:20 06:20 RBC 2.82 L (4.40-5.60) X 10*6/uL Hgb 8.9 L (13.0-17.0) g/dL Hct 26.6 L (39.6-50.0) % RDW 17.1 H (11.5-14.5) % MPV 9.3 L (9.5-12.2) fL Creatinine 1.76 H (0.66-1.25) mg/dL Total Bilirubin 1.7 H (0.2-1.3) mg/dL Microbiology - Last 24 Hours (Table) 06/28/22 05:41 Blood Culture - Preliminary Blood No Growth after 48 hours 06/29/22 15:15 Gram Stain - Preliminary Toe - Right Second Tissue Culture - Preliminary 06/29/22 15:15 Anaerobic Culture - Preliminary Toe - Right Second 06/26/22 15:45 Blood Culture - Preliminary Blood No Growth after 72 hours 06/26/22 15:15 Blood Culture Gram Stain - Final Blood Blood Culture - Final Staphylococcus epidermidis Assessment and Plan Plan: Right second toe infection, worsening despite outpatient treatment with oral antibiotic and podiatry care, patient sent in from the podiatry office to emergency room for admission and infectious disease consultation Underlying history of diabetes mellitus Underlying history of atrial fibrillation Underlying history of hypertension Underlying history of gout Underlying history of chronic back pain Positive blood culture. At this time patient is admitted to medical floor Patient remains on vancomycin Plans for surgical amputation on 06/29/2022 Dr. Barton Repeat labs ordered for a.m.
[2022-06-30] MEDS: VANCOMYCIN 2,000 MG in SODIUM CHLORIDE 0.9% 500 ML 500 ML IVPB SCH (13:46)
[2022-06-30] MEDS: HYDROmorphone 1 MG/ML 1 ML SYRINGE IVP PRN (16:12)
[2022-06-30 19:43] LABS: % Iron Saturation 22.41 (15.00-50.00)
[2022-06-30] MEDS: WARFARIN 7.5 MG TAB PO SCH (20:18)
--- NOTE | 2022-07-01 02:37 | PN ---
PROGRESS NOTE SUBJECTIVE: This is a 71-year-old gentleman who came with open wound right foot 2nd toe, patient went for amputation of the right foot 2nd toe. Today we have changed the dressing. Slight redness noted. Stitches are intact. No drainage noted. Continue with IV antibiotic, nonweightbearing. MMODL / IJN: [id number] /
--- NOTE | 2022-07-01 07:49 | P.PN ---
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 On today's evaluation that is 06/28/2022 the patient remains to be afebrile the patient denies having any chest pain or shortness with or cough no nausea vomiting no abdominal pain pain to the right second toe is currently controlled Objective - Vital Signs Vital signs: Vital Signs Temp 98.4 F 06/28/22 12:08 Pulse 69 06/28/22 12:08 Resp 18 06/28/22 12:08 BP 136/68 06/28/22 12:08 Pulse Ox 95 06/28/22 12:08 FiO2 Intake & Output 06/27/22 06/28/22 06/28/22 18:59 06:59 18:59 Intake Total 590 Balance 590 Intake: Oral 590 Other: Voiding Method Toilet Toilet # Voids 3 2 - Exam GENERAL DESCRIPTION: An elderly male lying in bed in no distress RESPIRATORY SYSTEM: Unlabored breathing , decreased breath sounds at bases HEART: S1 S2 regular rate and rhythm , ABDOMEN: Soft , no tenderness EXTREMITIES: Right second toe is currently dressed no drainage of the dressing - Labs CBC & Chem 7: 06/30/22 06:20 06/30/22 06:20 Labs: Abnormal Lab Results - Last 24 Hours (Table) 06/28/22 06/28/22 06/28/22 Range/Units 05:41 05:41 05:41 WBC 3.7 L (3.8-10.6) k/uL RBC 2.64 L (4.30-5.90) m/uL Hgb 8.4 L (13.0-17.5) gm/dL Hct 24.4 L (39.0-53.0) % RDW 17.1 H (11.5-15.5) % Plt Count 138 L (150-450) k/uL ESR 92 H (0-15) mm/hr PT 20.9 H (9.0-12.0) sec INR 2.1 H (<1.2) Potassium 3.3 L (3.5-5.1) mmol/L Creatinine 1.66 H (0.66-1.25) mg/dL Calcium 8.2 L (8.4-10.2) mg/dL Total Bilirubin 1.5 H (0.2-1.3) mg/dL C-Reactive Protein 5.2 H (<1.0) mg/dL Total Protein 5.9 L (6.3-8.2) g/dL Microbiology - Last 24 Hours (Table) 06/26/22 15:20 Gram Stain - Preliminary Toe - Right Second Wound Culture - Preliminary Strep agalactiae - (group b) Presumptive MRSA 06/26/22 15:15 Blood Culture Gram Stain - Preliminary Blood Blood Culture - Preliminary Staphylococcus epidermidis 06/26/22 15:45 Blood Culture - Preliminary Blood No Growth after 24 hours 06/26/22 15:30 Blood Culture - Final Blood Assessment and Plan (1) Bacteremia Current Visit: Yes Status: Acute Code(s): R78.81 - BACTEREMIA SNOMED Code( s): 4350301 (2) Diabetic foot infection Current Visit: Yes Status: Acute Code(s): E11.628 - TYPE 2 DIABETES MELLITUS WITH OTHER SKIN COMPLICATIONS; L08.9 - LOCAL INFECTION OF THE SKIN AND SUB CUTANEOUS TISSUE, UNSP SNOMED Code(s): 656129392 Plan: 1patient with right diabetic foot infection involving his second toe tip started after nail trimming and concerning for possible underlying osteomyelitis as the patient has been dealing with for more than a month and the wound looks deep with some necrotic changes. 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 4blood culture repeat so far pending. 5patient to continue vancomycin waiting for possible surgical debridement versus amputation of the right second toe per vascular surgery
--- NOTE | 2022-07-01 07:52 | P.PN ---
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 On today's evaluation that is 06/29/2022 the patient denies having any fever or any chills the patient pain to the right second amputation and is currently controlled no chest pain shortness of breath or cough no abdominal pain no diarrhea Objective - Vital Signs Vital signs: Vital Signs Temp 97.4 F L 06/29/22 18:01 Pulse 78 06/29/22 18:01 Resp 16 06/29/22 18:01 BP 163/77 06/29/22 18:01 Pulse Ox 96 06/29/22 18:01 FiO2 Intake & Output 06/29/22 06/29/22 06/30/22 06:59 18:59 06:59 Intake Total 360 200 Output Total 10 Balance 360 190 Intake: IV 200 Oral 360 Output: Estimated Blood Loss 10 Other: Voiding Method Toilet Toilet # Voids 1 - Exam GENERAL DESCRIPTION: An elderly male lying in bed in no distress RESPIRATORY SYSTEM: Unlabored breathing , decreased breath sounds at bases HEART: S1 S2 regular rate and rhythm , ABDOMEN: Soft , no tenderness EXTREMITIES: Right second toe amputation site is currently dressed no drainage on the dressing - Labs CBC & Chem 7: 06/30/22 06:20 06/30/22 06:20 Labs: Abnormal Lab Results - Last 24 Hours (Table) 06/29/22 06/29/22 Range/Units 07:19 07:19 PT 13.6 H (9.0-12.0) sec INR 1.3 H (<1.2) Creatinine 1.66 H (0.66-1.25) mg/dL Magnesium 1.2 L (1.6-2.3) mg/dL Microbiology - Last 24 Hours (Table) 06/26/22 15:45 Blood Culture - Preliminary Blood No Growth after 72 hours 06/26/22 15:15 Blood Culture Gram Stain - Final Blood Blood Culture - Final Staphylococcus epidermidis 06/28/22 05:41 Blood Culture - Preliminary Blood No Growth after 24 hours 06/26/22 15:20 Gram Stain - Final Toe - Right Second Wound Culture - Final Strep agalactiae - (group b) Methicillin resist S. aureus Assessment and Plan (1) Bacteremia Current Visit: Yes Status: Acute Code(s): R78.81 - BACTEREMIA SNOMED Code(s): 0848334 (2) Diabetic foot infection Current Visit: Yes Status: Acute Code(s): E11.628 - TYPE 2 DIABETES MELLITUS WITH OTHER SKIN COMPLICATIONS; L08.9 - LOCAL INFECTION OF THE SKIN AND SUBCUTANEOUS TISSUE, UNSP SNOMED Code(s): 164869088 Plan: 1patient with right diabetic foot infection involving his second toe tip started after nail trimming and concerning for possible underlying osteomyelitis as the patient has been dealing with for more than a month and the wound looks deep with some necrotic changes. 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 4blood culture repeat so far pending. 5Patient is status post amputation of the right second toe we will continue vancomycin perioperatively while watching his kidney function closely discharge antibiotic on the basis of his clinical response post amputation Time with Patient: Less than 30
--- NOTE | 2022-07-01 07:54 | P.PN ---
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 On today's evaluation that is 06/30/2022 the patient remains to be afebrile, the patient is feeling better breathing comfortably patient denies having any chest pain shortness of the cough no nausea vomiting no abdominal pain pain to the right second diabetes that is currently controlled Objective - Vital Signs Vital signs: Vital Signs Temp 97.7 F 06/30/22 11:42 Pulse 72 06/30/22 11:42 Resp 17 06/30/22 11:42 BP 136/68 06/30/22 11:42 Pulse Ox 97 06/30/22 11:42 FiO2 Intake & Output 06/29/22 06/30/22 06/30/22 18:59 06:59 18:59 Intake Total 200 590 Output Total 10 Balance 190 590 Intake: IV 200 Oral 590 Output: Estimated Blood Loss 10 Other: Voiding Method Toilet Toilet # Voids 1 2 - Exam GENERAL DESCRIPTION: An elderly male lying in bed in no distress RESPIRATORY SYSTEM: Unlabored breathing , decreased breath sounds at bases HEART: S1 S2 regular rate and rhythm , ABDOMEN: Soft , no tenderness EXTREMITIES: Right second toe amputation site wound base looks clean no significant swelling or foul-smelling drainage - Labs CBC & Chem 7: 06/30/22 06:20 06/30/22 06:20 Labs: Abnormal Lab Results - Last 24 Hours (Table) 06/30/22 06/30/22 Range/Units 06:20 06:20 RBC 2.82 L (4.40-5.60) X 10*6/uL Hgb 8.9 L (13.0-17.0) g/dL Hct 26.6 L (39.6-50.0) % RDW 17.1 H (11.5-14.5) % MPV 9.3 L (9.5-12.2) fL Creatinine 1.76 H (0.66-1.25) mg/dL Total Bilirubin 1.7 H (0.2-1.3) mg/dL Microbiology - Last 24 Hours (Table) 06/28/22 05:41 Blood Culture - Preliminary Blood No Growth after 48 hours 06/29/22 15:15 Gram Stain - Preliminary Toe - Right Second Tissue Culture - Preliminary 06/29/22 15:15 Anaerobic Culture - Preliminary Toe - Right Second 06/26/22 15:45 Blood Culture - Preliminary Blood No Growth after 72 hours 06/26/22 15:15 Blood Culture Gram Stain - Final Blood Blood Culture - Final Staphylococcus epidermidis Assessment and Plan (1) Bacteremia Current Visit: Yes Status: Acute Code(s): R78.81 - BACTEREMIA SNOMED Code(s): 5613398 (2) Diabetic foot infection Current Visit: Yes Status: Acute Code(s): E11.628 - TYPE 2 DIABETES MELLITUS WITH OTHER SKIN COMPLICATIONS; L08.9 - LOCAL INFECTION OF THE SKIN AND SUBCUTANEOUS TISSUE, UNSP SNOMED Code(s): 316152570 Plan: 1patient with right diabetic foot infection involving his second toe tip started after nail trimming and concerning for possible underlying osteomyelitis as the patient has been dealing with for more than a month and the wound looks deep with some necrotic changes. 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 4Repeat blood cultures has been negative so far. 5the patient is status post amputation of the infected part and not bacteremic, patient right second amputation site wound base looks clean, we recommend oral biotic on discharge keeping in mind his renal insufficiency and high risk of nephrotoxicity from Bactrim DS we will suggest doxycycline on discharge and close outpatient follow-up Time with Patient: Less than 30
[2022-07-01] MEDS: HYDROcodone/APAP 10-325MG 1 EACH TAB PO PRN ×2 (09:39→16:44)
[2022-07-01] MEDS: amLODIPine 5 MG TAB PO SCH (10:22)
[2022-07-01] MEDS: allopurinoL 300 MG TAB PO SCH (10:23)
[2022-07-01] MEDS ORDERED: VANCOMYCIN TROUGH DUE 1 EACH MISC MISCELLANE ONE (11:00)
[2022-07-01 12:24] LABS: INR 1.1 (<1.2); Prothrombin Time 11.6 sec (9.0-12.0)
--- NOTE | 2022-07-01 12:49 | P.NPCON ---
History of Present Illness - Reason for Consult acute renal failure - History of Present Illness Patient is a 71-year-old male with history of type 2 diabetes and chronic A. fib. He was admitted to the hospital with history of nonhealing ulcer on the right foot. This has progressively worsened. Patient needed IV antibiotics and eventually had amputation of the second toe on the right foot. Serum creatinine was 1.8 on admission and decreased to 1.6. Currently at 1.76 mg/dL. History of acute kidney injury in May with serum creatinine peaking at 4.1 on 05/23/2022 and decreased to 2.0 on 05/27/2022. Currently maintained on vancomycin. Level was 18.7 today. Patient states she has had good urine output. Blood pressure has not been low. No other nephrotoxic agents noted. Review of Systems As per HPI, other systems negative Past Medical History Past Medical History: Atrial Fibrillation, Diabetes Mellitus Additional Past Medical History / Comment(s): . History of Any Multi-Drug Resistant Organisms: MRSA Date of last positivie culture/infection: 06/26/22 MDRO Source:: Toe Right Second Past Surgical History: Joint Replacement, Orthopedic Surgery Additional Past Surgical History / Comment(s): right foot/leg surgery and madalyn placement related to crushing injury. Past Anesthesia/Blood Transfusion Reactions: No Reported Reaction Past Psychological History: Depression Smoking Status: Former smoker Past Alcohol Use History: None Reported Past Drug Use History: None Reported Medications and Allergies Home Medications Medication Instructions Recorded Confirmed Type HYDROcodone/APAP 10-325MG [[place] 1 tab PO TID PRN 06/30/19 06/26/22 History 10-325] allopurinoL [Zyloprim] 300 mg PO DAILY 06/30/19 06/26/22 History amLODIPine BESYLATE [Norvasc] 5 mg PO DAILY 06/30/19 06/26/22 History Warfarin [Coumadin] 7.5 mg PO DAILY@1900 06/26/22 06/26/22 History Doxycycline Hyclate 100 mg PO BID 10 Days #20 tab 07/01/22 Rx Allergies Allergy/AdvReac Type Severity Reaction Status Date / Time No Known Allergies Allergy Verified 06/26/22 16:36 Physical Exam Vitals: Vital Signs Temp Pulse Pulse Pulse Resp BP Pulse Ox 07/01/22 09:46 98.6 F 83 18 158/72 95 07/01/22 05:00 98.1 F 76 16 145/79 96 06/30/22 20:00 78 71 64 16 06/30/22 19:17 98.3 F 64 16 157/73 97 Intake and Output 06/30/22 07/01/22 07/01/22 22:59 06:59 14:59 Intake Total 1500 Balance 1500 Intake: IV 500 Vancomycin 2,000 mg In 500 Sodium Chloride 0.9% 500 ml 500 ml @ 167 mls/hr IVPB Q24H [facility] Rx#: [id number] Oral 1000 Other: Voiding Method Toilet Toilet # Voids 4 2 Awake, comfortable, no acute distress Alert oriented 3 Examination of the heart S1 and S2 Examination of the lungs bilateral breath sounds are heard abdomen is soft nontender Examination of the lower extremities shows right foot is currently wrapped Results - Lab Results Most recent lab results Calcium 8.9 mg/dL (8.4-10.2) 06/30/22 06:20 Magnesium 1.6 mg/dL (1.6-2.3) 06/30/22 06:20 06/30/22 06:20 06/30/22 06:20 Assessment and Plan Assessment: 1. Acute kidney injury last month most likely ATN which had improved with creatinine down from around 4 mg/dL to 2.0 on 05/27/2022. Serum creatinine currently staying at 1.6-1.7 mg/dL. Patient is nonoliguric. Ultrasound last admission shows mild right hydronephrosis. Check bladder scan and rule out urine retention 2. Right second toe infection/gangrene status post amputation 3. Chronic A. fib, rate is controlled 4. Type 2 diabetes 5. Hypokalemia status post replacement 6. Anemia, iron replete. No active bleeding noted. Add Aranesp for anemia of chronic disease Plan: Add Aranesp monitor vancomycin levels closely Repeat labs in a.m. Avoid hypotension Repeat bladder scan postvoid. Thank you for the consultation. We'll continue to follow the patient with you during his hospitalization.
[2022-07-01] MEDS: VANCOMYCIN 2,000 MG in SODIUM CHLORIDE 0.9% 500 ML 500 ML IVPB SCH (13:12)
--- NOTE | 2022-07-01 13:17 | P.PN ---
Progress Note - Text 71-year-old gentleman patient had a right foot second toe amputation today we've changed the dressing stitches are intact mild redness noted no drainage noted patient is an IV antibiotic continue with IV antibiotic nonweightbearing patient goes home follow-up office on
[2022-07-01] MEDS: HYDROmorphone 1 MG/ML 1 ML SYRINGE IVP PRN (14:07)
[2022-07-01 15:27] VITALS: BP 124/60; PULSE 64; RESP 17; TEMP 97.3
--- NOTE | 2022-07-01 15:43 | P.DS ---
Providers Date of admission: 06/26/22 16:26 Expected date of discharge: 07/01/22 Attending physician: Mati Gomez Consults: 06/26/22 16:26 Consult Physician Routine Consulting Provider: Emily Lawler Consult Reason/Comments: Right second toe infection Do you want consulting provider notified?: Yes 06/28/22 09:23 Consult Physician Routine Consulting Provider: Haroldo Barton Consult Reason/Comments: infected right second toe Do you want consulting provider notified?: Already Contacted 06/30/22 12:28 Consult Physician Routine Consulting Provider: Rama West Consult Reason/Comments: CKD, anemia Do you want consulting provider notified?: Yes Primary care physician: Maticlement Gomez [facility] Course: Diagnosis on discharge: Right second toe infection, worsening despite outpatient treatment with oral antibiotic and podiatry care, patient sent in from the podiatry office to emergency room for admission and infectious disease consultation. Patient was maintained on IV vancomycin throughout this admission, he was seen by vascular surgery and underwent amputation of the right second toe Underlying history of diabetes mellitus Underlying history of atrial fibrillation Underlying history of hypertension Underlying history of gout Underlying history of chronic back pain Positive blood culture. Hospital course: Pepe Waters, is a 71-year-old male who presented to [facility] emergency room with a chief complaint of nonhealing ulcer right foot. Patient was sent to ER from his podiatry office. Patient had in getting treated outpatient with minimum improvement. Patient has has medical history of diabetes mellitus atrial fibrillation and depression. Patient is maintained on Coumadin for atrial fibrillation. Current vital signs temp 98.4, pulse rate 83, respiratory rate 17 with blood pressure of 09/24/1997 with a pulse ox 98% on room air at this time patient will be admitted infectious disease service is consulted patient started on IV vancomycin cultures obtained On 06/27/2022 patient is alert and oriented 3. Patient maintained on IV vancomycin. Lab work currently pending. X-ray of foot has been ordered per infectious disease. At this time patient denies chest pain or shortness breath. Patient denies nausea vomiting or diarrhea. Patient denies any urinary burning or frequency. On 06/28/2022 patient was seen and examined on the medical floor, he is alert and oriented in no distress, he is complaining of mild pain otherwise he denies any complaints there is no fever or chills no headache or dizziness no chest pain no shortness of breath no cough no nausea or vomiting no abdominal pain no diarrhea no blood in the stools no burning with urination no frequency or urgency and no hematuria. Patient is maintained on IV antibiotics, he was seen by Dr Bey and decision was made to proceed with second toe amputation in am. On 06/29/2022 patient alert and oriented to 3. Plans for toe amputation today per nursing staff. INR 1.3. Magnesium and potassium. Replace per protocol. Patient remains on IV vancomycin. At this time patient denies chest pain or shortness breath. Patient denies nausea vomiting or diarrhea. On 06/30/2022 patient was seen and examined on the medical floor he is alert and oriented 3 in no apparent distress there is no fever or chills no headache or dizziness no chest pain no shortness of breath no cough no nausea or vomiting no abdominal pain no diarrhea and no urinary symptoms. Patient underwent amputation of the right second toe yesterday. He was complaining of severe pain last night and Dilaudid 0.5 mg IV every 3 hours was added to his regimen. Patient is still having severe pain and dose of Dilaudid will be increased to 1 mg every 4 hours when necessary There is slight worsening in kidney function and worsening in anemia, will check iron, vitamin B12 and folate level, will consult nephrology On 07/01/2022 patient was seen and examined on the medical floor he is alert and oriented 3 in no apparent distress there is no fever or chills no headache or dizziness no chest pain no shortness of breath no cough no nausea or vomiting no abdominal pain no diarrhea and no urinary symptoms. He was cleared by vascular surgery and infectious disease to go home on oral course of doxycycline. Patient is still complaining of severe pain in his right foot however he wanted to go home he will be followed in our office within 1 week, a prescription for doxycycline was given to the patient Patient Condition at Discharge: Stable Plan - Discharge Summary Discharge Rx Participant: Yes New Discharge Prescriptions: New Doxycycline Hyclate 100 mg PO BID 10 Days #20 tab Continue amLODIPine BESYLATE [Norvasc] 5 mg PO DAILY HYDROcodone/APAP 10-325MG [[place] 10-325] 1 tab PO TID PRN PRN Reason: Pain allopurinoL [Zyloprim] 300 mg PO DAILY Warfarin [Coumadin] 7.5 mg PO DAILY@1900 Discharge Medication List HYDROcodone/APAP 10-325MG [[place] 10-325] 1 tab PO TID PRN 06/30/19 [History] allopurinoL [Zyloprim] 300 mg PO DAILY 06/30/19 [History] amLODIPine BESYLATE [Norvasc] 5 mg PO DAILY 06/30/19 [History] Warfarin [Coumadin] 7.5 mg PO DAILY@1900 06/26/22 [History] Doxycycline Hyclate 100 mg PO BID 10 Days #20 tab 07/01/22 [Rx] Follow up Appointment(s)/Referral(s): Mati Gomez MD [Primary Care Provider] - 1-2 days Emily Lawler MD [STAFF PHYSICIAN] - 1 Week
[2022-07-01 18:20] LABS: Basophils # (A) 0.01 X 10*3/uL (0.00-0.10); Basophils % (A) 0.2 %; Eosinophils % (A) 3.4 %; HCT 24.6 % (39.6-50.0); HGB 8.2 g/dL (13.0-17.0); Immature Grans, Automated 0.5 %; Lymphocytes # (A) 1.62 X 10*3/uL (0.90-5.00); Lymphocytes % (A) 27.2 %; MCH 31.7 pg (27.0-32.0); MCHC 33.3 g/dL (32.0-37.0); Mean Platelet Volume 9.7 fL (9.5-12.2); Monocytes # (A) 0.43 X 10*3/uL (0.20-1.00); Monocytes % (A) 7.2 %; NRBC Per 100 WBC 0 /100 WBCS (0.0-0.0); Neutrophils # (A) 3.67 X 10*3/uL (1.80-7.70); Neutrophils % (A) 61.5 %; Platelet Count 149 X 10*3/uL (140-440); RBC 2.59 X 10*6/uL (4.40-5.60); RDW 17.2 % (11.5-14.5); WBC 5.96 X 10*3/uL (4.50-10.00)
[2022-07-01 23:48] LABS: African American GFR (CKD) 49.2 (60.0-200.0); Albumin 4.1 g/dL (3.8-4.9); Albumin/Globulin Ratio 2.17 (1.60-3.17); Anion Gap 11.5 mmol/L (10.00-18.00); BUN/Creat Ratio 9.94 Ratio (12.00-20.00); Blood Urea Nitrogen 15.9 mg/dL (9.0-27.0); Calcium 8.8 mg/dL (8.7-10.3); Carbon Dioxide 26.5 mmol/L (20.0-27.5); Globulin 1.9 g/dL (1.6-3.3); Non-African American GFR(CKD) 42.4 (60.0-200.0); Potassium 4.1 mmol/L (3.5-5.5); Total Bilirubin 1.4 mg/dL (0.30-1.20)
== END 2022-07-01 17:19 | disposition home or self-care (01) | DRG 617 ==
LOC: EC 14:33 → 5NMEDONC 16:26
PROVIDERS: ADMIT Internal Medicine; ATTEND Internal Medicine
PROC: 0Y6R0Z0 Detachment at Right 2nd Toe, Complete, Open Approach (ICD-10-PCS; principal; 2022-06-29 14:56)
DX: E11.69 Type 2 diabetes mellitus with other specified complication (principal); E11.52 Type 2 diabetes mellitus with diabetic peripheral angiopathy with gangrene; R78.81 Bacteremia; I48.20 Chronic atrial fibrillation, unspecified; N13.30 Unspecified hydronephrosis; M86.8X7 Other osteomyelitis, ankle and foot; M06.9 Rheumatoid arthritis, unspecified; E11.621 Type 2 diabetes mellitus with foot ulcer; L08.9 Local infection of the skin and subcutaneous tissue, unspecified; E11.628 Type 2 diabetes mellitus with other skin complications; L97.519 Non-pressure chronic ulcer of other part of right foot with unspecified severity; I48.91 Unspecified atrial fibrillation; B95.62 Methicillin resistant Staphylococcus aureus infection as the cause of diseases classified elsewhere; B95.1 Streptococcus, group B, as the cause of diseases classified elsewhere; M10.9 Gout, unspecified; G89.29 Other chronic pain; M54.9 Dorsalgia, unspecified; D63.8 Anemia in other chronic diseases classified elsewhere; E11.22 Type 2 diabetes mellitus with diabetic chronic kidney disease; E87.6 Hypokalemia; I12.9 Hypertensive chronic kidney disease with stage 1 through stage 4 chronic kidney disease, or unspecified chronic kidney disease; N17.9 Acute kidney failure, unspecified; N18.9 Chronic kidney disease, unspecified; I10 Essential (primary) hypertension; F32.A Depression, unspecified; Z79.899 Other long term (current) drug therapy; Z79.01 Long term (current) use of anticoagulants; Z87.891 Personal history of nicotine dependence; Z86.14 Personal history of Methicillin resistant Staphylococcus aureus infection
CPT/HCPCS: 36415; 80048; 80053; 80202; 82043; 82565; 82570; 82607; 82746; 83540; 83550; 83735; 84132; 85025; 85610; 85652; 86140; 87040; 87070; 87075; 87077; 87186; 87205; 96365; 99284

== ENCOUNTER 2022-08-12 15:43 | Inpatient (IN) | payer MEDICARE, OTHER ==
[2022-08-12] MEDS ORDERED: CLINDAMYCIN 600 MG in DEXTROSE 5% IN WATER 50 ML IVPB STA ×2 (18:47)
[2022-08-12 19:11] LABS: Basophils % (A) 0 %; Eosinophils # (A) 0.2 k/uL (0-0.7); Eosinophils % (A) 3 %; HCT 21.4 % (39.0-53.0); HGB 7.2 gm/dL (13.0-17.5); Lymphocytes % (A) 14 %; MCH 33.3 pg (25.0-35.0); MCHC 33.7 g/dL (31.0-37.0); Mean Platelet Volume 8.8; Monocytes # (A) 0.5 k/uL (0-1.0); Monocytes % (A) 7 %; Neutrophils # (A) 5.4 k/uL (1.3-7.7); Neutrophils % (A) 74 %; Platelet Count 151 k/uL (150-450); RBC 2.17 m/uL (4.30-5.90); RDW 14.8 % (11.5-15.5); WBC 7.3 k/uL (3.8-10.6)
[2022-08-12 19:16] LABS: MCV 98.7 fL (80.0-100.0)
[2022-08-12 19:34] LABS: Appearance,Urine Clear (Clear); Bacteria,Urine Rare /hpf; Bilirubin,Urine Negative (Negative); Blood,Urine Small (Negative); Color,Urine Light Yellow; Glucose,Urine (UA) Negative (Negative); Ketones,Urine Negative (Negative); Leukocyte Esterase,Urine Negative (Negative); Nitrite,Urine Negative (Negative); Protein,Urine 2+ (Negative); RBC,Urine 1 /hpf (0-5); Specific Gravity,Urine 1.013 (1.001-1.035); Urobilinogen,Urine <2.0 mg/dL (<2.0); WBC,Urine 2 /hpf (0-5)
[2022-08-12 19:53] LABS: Calcium 8.4 mg/dL (8.4-10.2); Potassium 4.5 mmol/L (3.5-5.1); Total Bilirubin 1.2 mg/dL (0.2-1.3); Total Protein 6.7 g/dL (6.3-8.2)
[2022-08-12] MEDS ORDERED: SODIUM CHLORIDE 0.9% 1,000 ML IV STA (21:15)
--- NOTE | 2022-08-12 21:49 | CT ---
EXAMINATION TYPE: CT abdomen pelvis wo con CT DLP: 1056.4 mGycm, Automated exposure control for dose reduction was used. DATE OF EXAM: 08/12/2022 8:57 PM COMPARISON: CT abdomen pelvis most recent from 08/29/2012 CLINICAL INDICATION:Male, 71 years old with history of renal failure; Renal Failure TECHNIQUE: Axial CT of the abdomen and pelvis. Sagittal and coronal reformats were created on a [employer] workstation. Contrast used: none Oral contrast used: without Oral Contrast FINDINGS: LOWER CHEST: Trace bilateral pleural effusions. Coronary artery atherosclerosis and aortic valve calc ifications. Calcifications are seen in the left lower lobe which are new from 2012. Mild intralobular septal thickening. ABDOMEN LIVER: Somewhat nodular contour to liver. GALLBLADDER AND BILE DUCTS: Gallstone in the gallbladder neck.. PANCREAS: Unremarkable. SPLEEN: Unremarkable. ADRENAL GLANDS: Unremarkable. KIDNEYS AND URETERS: Bilateral nonobstructing renal calculi versus medullary calcifications. Left ind eterminate renal lesion measuring up to 4.5 cm. Bilateral renal peripheral fat stranding changes. PELVIS BLADDER: Nondistended with Graham catheter in place. REPRODUCTIVE: Unremarkable. ABDOMEN & PELVIS STOMACH AND BOWEL: No evidence of bowel obstruction. Second portion duodenal diverticulum. PERITONEUM: No evidence of pneumoperitoneum or free fluid. No specific fat stranding changes are seen within the fe hepatis. VASCULATURE: No evidence of aortic aneurysm. Atherosclerosis of the arterial vasculature. MUSCULOSKELETAL: No acute osseous abnormalities, multilevel disc degeneration changes throughout the spine. LYMPH NODES: No gross evidence for lymphadenopathy. SOFT TISSUE/ABDOMINAL WALL: Unremarkable IMPRESSION: 1. No evidence of obstructive uropathy. There our bilateral nonobstructing renal calculi versus medul kenneth calcifications present. 2. Graham catheter in appropriate position. 3. Indeterminate left renal lesion. 4. Nodular contour to liver correlate for cirrhosis. 5. Cholelithiasis. 6. Cardiomegaly with bilateral trace pleural effusions and interlobular septal thickening. Correlate for volume overload with serum BNP.
[2022-08-12] MEDS ORDERED: NALOXONE 0.4 MG/ML 1 ML VIAL IV PRN (22:16)
[2022-08-12] MEDS ORDERED: HYDROcodone/APAP 7.5-325MG 1 EACH TAB PO STA (22:33)
--- NOTE | 2022-08-12 22:36 | ED ---
Recheck HPI - General Chief Complaint: Recheck/Abnormal Lab/Rx Stated Complaint: Dr scherer blood test Time Seen by Provider: 08/12/22 18:07 Source: patient Mode of arrival: wheelchair Limitations: no limitations - History of Present Illness Initial Comments: Patient is a 71-year-old who presents to the emergency department valuation of renal failure. Patient was sent by his primary care provider Dr. Gomez who according to patient maria l routine labs yesterday. Patient is a poor historian. He does not have any concerns currently. He does mention right second toe amputation 6 weeks ago which he sees wound care for. Patient is diabetic. He denies fever, chills, nausea, vomiting. Denies chest pain, shortness of breath, abdominal pain, constipation, diarrhea, burning with urination, blood in the urine, trouble urinating. - Related Data Home Medications Medication Instructions Recorded Confirmed HYDROcodone/APAP 10-325MG [[place] 1 tab PO Q6H PRN 06/30/19 08/12/22 10-325] allopurinoL [Zyloprim] 300 mg PO DAILY 06/30/19 08/12/22 amLODIPine BESYLATE [Norvasc] 5 mg PO DAILY 06/30/19 08/12/22 Warfarin [Coumadin] 7.5 mg PO DAILY 06/26/22 08/12/22 Collagenase [Santyl Ointment] 1 applic TOPICAL DAILY 08/12/22 08/12/22 Allergies Allergy/AdvReac Type Severity Reaction Status Date / Time No Known Allergies Allergy Verified 08/12/22 21:40 Review of Systems ROS Statement: Those systems with pertinent positive or pertinent negative responses have been documented in the HPI. ROS Other: All systems not noted in ROS Statement are negative. Past Medical History Past Medical History: Atrial Fibrillation, Diabetes Mellitus Additional Past Medical History / Comment(s): . History of Any Multi-Drug Resistant Organisms: MRSA Date of last positivie culture/infection: 06/29/22 MDRO Source:: Toe Right Second Past Surgical History: Joint Replacement, Orthopedic Surgery Additional Past Surgical History / Comment(s): right foot/leg surgery and madalyn placement related to crushing injury. Past Anesthesia/Blood Transfusion Reactions: No Reported Reaction Past Psychological History: Depression Smoking Status: Former smoker Past Alcohol Use History: None Reported Past Drug Use History: None Reported General Exam Limitations: no limitations General appearance: alert, in no apparent distress Head exam: Present: atraumatic, normocephalic, normal inspection Eye exam: Present: normal appearance, PERRL, EOMI. Absent: scleral icterus, conjunctival injection, periorbital swelling Respiratory exam: Present: normal lung sounds bilaterally. Absent: respiratory distress, wheezes, rales, rhonchi, stridor Cardiovascular Exam: Present: regular rate, normal rhythm, normal heart sounds. Absent: systolic murmur, diastolic murmur, rubs, gallop, clicks GI/Abdominal exam: Present: soft, normal bowel sounds. Absent: distended, tenderness, guarding, rebound, rigid Extremities exam: Present: other (amputation of right great toe. Infected wound with erythema and warmth of the dorsal foot) Neurological exam: Present: alert, oriented X3, CN II-XII intact Psychiatric exam: Present: normal affect, normal mood Skin exam: Present: warm, dry, intact, normal color. Absent: rash Course Vital Signs 08/12/22 08/12/22 17:04 22:00 Temperature 97.7 F Pulse Rate 100 95 Respiratory 20 18 Rate Blood Pressure 123/72 144/74 O2 Sat by Pulse 98 98 Oximetry Medical Decision Making - Medical Decision Making This is a 71-year-old male presenting from his primary care office for acute renal failure. Laboratory studies obtained. Hemoglobin is 7.2, trending downward consistently since May, likely related to kidney injury. Creatinine minimally elevated at 7.55, BUN elevated at 73. This is a drastic change from 1.6 and 15.9 on 07/01. Other laboratory studies were relatively unremarkable. Graham catheter placed with 800 mL of urine output. CT of abdomen and pelvis without contrast was obtained which shows no evidence of obstructive uropathy. Right foot wound infection is noted on physical exam. Culture reviewed and clindamycin given. Patient received fluid bolus. Case discussed with Dr. Gomez. Patient will be admitted for acute on chronic renal failure. Nephrology on consult. Dr. Brantley is my attending. - Lab Data Result diagrams: 08/12/22 18:31 08/12/22 18:31 Lab Results 08/12/22 08/12/22 08/12/22 Range/Units 18:31 18:31 18:31 WBC 7.3 (3.8-10.6) k/uL RBC 2.17 L (4.30-5.90) m/uL Hgb 7.2 L (13.0-17.5) gm/dL Hct 21.4 L (39.0-53.0) % MCV 98.7 D (80.0-100.0) fL MCH 33.3 (25.0-35.0) pg MCHC 33.7 (31.0-37.0) g/dL RDW 14.8 (11.5-15.5) % Plt Count 151 (150-450) k/uL MPV 8.8 Neutrophils % 74 % Lymphocytes % 14 % Monocytes % 7 % Eosinophils % 3 % Basophils % 0 % Neutrophils # 5.4 (1.3-7.7) k/uL Lymphocytes # 1.0 (1.0-4.8) k/uL Monocytes # 0.5 (0-1.0) k/uL Eosinophils # 0.2 (0-0.7) k/uL Basophils # 0.0 (0-0.2) k/uL Sodium 137 (137-145) mmol/L Potassium 4.5 (3.5-5.1) mmol/L Chloride 103 (98-107) mmol/L Carbon Dioxide 22 (22-30) mmol/L Anion Gap 12 mmol/L BUN 73 H (9-20) mg/dL Creatinine 7.55 H* (0.66-1.25) mg/dL Est GFR (CKD-EPI)AfAm 8 (>60 ml/min/1.73 sqM) Est GFR (CKD-EPI)NonAf 7 (>60 ml/min/1.73 sqM) Glucose 115 H (74-99) mg/dL Plasma Lactic Acid Saeid (0.7-2.0) mmol/L Calcium 8.4 (8.4-10.2) mg/dL Total Bilirubin 1.2 (0.2-1.3) mg/dL AST 34 (17-59) U/L ALT 19 (4-49) U/L Alkaline Phosphatase 138 H (38-126) U/L Total Protein 6.7 (6.3-8.2) g/dL Albumin 4.0 (3.5-5.0) g/dL Urine Color Light Yellow Urine Appearance Clear (Clear) Urine pH 6.0 (5.0-8.0) Ur Specific [place] 1.013 (1.001-1.035) Urine Protein 2+ H (Negative) Urine Glucose (UA) Negative (Negative) Urine Ketones Negative (Negative) Urine Blood Small H (Negative) Urine Nitrite Negative (Negative) Urine Bilirubin Negative (Negative) Urine Urobilinogen <2.0 (<2.0) mg/dL Ur Leukocyte Esterase Negative (Negative) Urine RBC 1 (0-5) /hpf Urine WBC 2 (0-5) /hpf Urine Bacteria Rare H (None) /hpf 08/12/22 Range/Units 18:31 WBC (3.8-10.6) k/uL RBC (4.30-5.90) m/uL Hgb (13.0-17.5) gm/dL Hct (39.0-53.0) % MCV (80.0-100.0) fL MCH (25.0-35.0) pg MCHC (31.0-37.0) g/dL RDW (11.5-15.5) % Plt Count (150-450) k/uL MPV Neutrophils % % Lymphocytes % % Monocytes % % Eosinophils % % Basophils % % Neutrophils # (1.3-7.7) k/uL Lymphocytes # (1.0-4.8) k/uL Monocytes # (0-1.0) k/uL Eosinophils # (0-0.7) k/uL Basophils # (0-0.2) k/uL Sodium (137-145) mmol/L Potassium (3.5-5.1) mmol/L Chloride (98-107) mmol/L Carbon Dioxide (22-30) mmol/L Anion Gap mmol/L BUN (9-20) mg/dL Creatinine (0.66-1.25) mg/dL Est GFR (CKD-EPI)AfAm (>60 ml/min/1.73 sqM) Est GFR (CKD-EPI)NonAf (>60 ml/min/1.73 sqM) Glucose (74-99) mg/dL Plasma Lactic Acid Saeid 0.8 (0.7-2.0) mmol/L Calcium (8.4-10.2) mg/dL Total Bilirubin (0.2-1.3) mg/dL AST (17-59) U/L ALT (4-49) U/L Alkaline Phosphatase (38-126) U/L Total Protein (6.3-8.2) g/dL Albumin (3.5-5.0) g/dL Urine Color Urine Appearance (Clear) Urine pH (5.0-8.0) Ur Specific [place] (1.001-1.035) Urine Protein (Negative) Urine Glucose (UA) (Negative) Urine Ketones (Negative) Urine Blood (Negative) Urine Nitrite (Negative) Urine Bilirubin (Negative) Urine Urobilinogen (<2.0) mg/dL Ur Leukocyte Esterase (Negative) Urine RBC (0-5) /hpf Urine WBC (0-5) /hpf Urine Bacteria (None) /hpf Disposition Clinical Impression: Diabetic foot infection, Acute on chronic kidney failure Disposition: ADMITTED IP TO THIS HOSP Condition: Fair Referrals: Mati Gomez MD [Primary Care Provider] - 1-2 days
[2022-08-12 23:24] LABS: Calcium 8.4 mg/dL (8.4-10.2); Potassium 4.4 mmol/L (3.5-5.1)
[2022-08-12] MEDS: SODIUM CHLORIDE 0.9% 1,000 ML IV SCH (23:50)
--- NOTE | 2022-08-13 11:52 | P.NPCON ---
History of Present Illness - Reason for Consult acute renal failure - History of Present Illness Patient is a 71-year-old male with history of type 2 diabetes and chronic A. fib. Patient had a nonhealing ulcer of the right foot and is currently status post amputation of the second toe on the right foot. Patient has had episodes of acute kidney injury in May 2022 as well as May. Serum creatinine had improved and was at 1.6 mg/dL on 07/01/2022. Previous creatinine 0.9 on 01/13/2022 and 1.0 on 04/15/2022. Patient is admitted to the hospital with complaints of increased weakness and abnormal labs done as outpatient. He is noted to have a serum creatinine of 7.9 mg/dL. A Graham catheter was placed in the ER and 800 mL of urine was obtained. CAT scan of the abdomen does not show gross hydronephrosis. Patient is currently maintained on IV fluids. Blood pressure is not low Patient has had urine output of 1300 mL so far. No new medications per patient. No history of use of NSAIDs recently. Review of Systems As per HPI Past Medical History Past Medical History: Atrial Fibrillation, Diabetes Mellitus Additional Past Medical History / Comment(s): . History of Any Multi-Drug Resistant Organisms: MRSA Date of last positivie culture/infection: 06/29/22 MDRO Source:: Toe Right Second Past Surgical History: Joint Replacement, Orthopedic Surgery Additional Past Surgical History / Comment(s): right foot/leg surgery and madalyn placement related to crushing injury. Past Anesthesia/Blood Transfusion Reactions: No Reported Reaction Past Psychological History: Depression Smoking Status: Former smoker Past Alcohol Use History: None Reported Past Drug Use History: None Reported Medications and Allergies Home Medications Medication Instructions Recorded Confirmed Type HYDROcodone/APAP 10-325MG [[place] 1 tab PO Q6H PRN 06/30/19 08/12/22 History 10-325] allopurinoL [Zyloprim] 300 mg PO DAILY 06/30/19 08/12/22 History amLODIPine BESYLATE [Norvasc] 5 mg PO DAILY 06/30/19 08/12/22 History Warfarin [Coumadin] 7.5 mg PO DAILY 06/26/22 08/12/22 History Collagenase [Santyl Ointment] 1 applic TOPICAL DAILY 08/12/22 08/12/22 History Allergies Allergy/AdvReac Type Severity Reaction Status Date / Time No Known Allergies Allergy Verified 08/12/22 21:40 Physical Exam Vitals: Vital Signs Temp Pulse Resp BP Pulse Ox 08/13/22 06:55 89 16 146/77 98 08/13/22 04:15 86 16 134/50 98 08/12/22 23:56 98 F 88 16 107/64 97 08/12/22 22:00 95 18 144/74 98 08/12/22 17:04 97.7 F 100 20 123/72 98 Intake and Output 08/12/22 08/13/22 08/13/22 22:59 06:59 14:59 Output Total 1300 Balance -1300 Output: Urine 1300 Other: Weight 105.233 kg Patient is awake, comfortable, in no acute distress Examination of the heart S1 and S2 Examination of the lungs bilateral breath sounds are heard Abdomen is soft nontender Examination of lower extremities shows 1+ edema bilaterally [employer]IENT [employer] exam grossly intact Results - Lab Results Most recent lab results Calcium 8.4 mg/dL (8.4-10.2) 08/12/22 22:26 08/12/22 18:31 08/12/22 22:26 Assessment and Plan Assessment: 1. Acute kidney injury obstructive uropathy and possible component of ATN as well. Currently nonoliguric and with indwelling Graham catheter. 800 mL of urine was obtained when Graham catheter was first placed. CT of the abdomen and pelvis does not show gross hydronephrosis. UA shows 2+ protein and small blood 2. Chronic kidney disease with serum creatinine staying at about 1.6 mg/dL since the episode of acute kidney injury in May 2022. At that time serum creatinine had peaked at 4.1 mg/dL. Patient had been on vancomycin at that time. 3. Metabolic acidosis secondary to acute kidney injury and obstructive uropathy 4. Anemia rule out iron deficiency 5. Chronic A. fib with controlled ventricular response Plan: Continue with Graham catheter Repeat labs in a.m. Continue with IV fluids Check iron profile Avoid any nephrotoxic agents. Next Thank you for the consultation. We will continue to follow the patient with you during his hospitalization.
[2022-08-13] MEDS ORDERED: DEXTROSE 50% SYRINGE 50 ML IVP PRN ×2 (12:03)
--- NOTE | 2022-08-13 12:05 | P.HPIM ---
History of Present Illness H&P Date: 08/13/22 Chief Complaint: Acute on chronic kidney disease This is a 71-year-old male patient who presented he ER with concerns of acute on kidney disease with worsening kidney status. Patient has a history of recent second toe amputation approximately 6 weeks ago. Additional medical history includes atrial fibrillation, diabetes mellitus, MRSA, depression and joint replacement. CT of abdomen and pelvis completed showing no evidence of obstructive uropathy there are bilateral nonobstructing renal calculi versus medullary calcifications present. And determinate left renal lesion, not nodule contour to liver correlate for cirrhosis, correlate lithiasis, cardiomegaly with bilateral trace pleural effusions correlate for volume overload with serum BNP. Creatinine elevated at 7.50 and bun 72. Hemoglobin is low at 7.2. At this time nephrology and urology service is consulted. Dr. Dia consulted for infectious disease chronic lower extremity wound. Iron studies ordered. Home meds resumed pharmacy to dose Coumadin for atrial fibrillation. Graham catheter remains in pl [place]. This time patient denies chest pain or shortness breath. Patient denies nausea vomiting or diarrhea. Patient denies any urinary burning or frequency. Review of Systems Please refer to HPI otherwise unremarkable Past Medical History Past Medical History: Atrial Fibrillation, Diabetes Mellitus Additional Past Medical History / Comment(s): . History of Any Multi-Drug Resistant Organisms: MRSA Date of last positivie culture/infection: 06/29/22 MDRO Source:: Toe Right Second Past Surgical History: Joint Replacement, Orthopedic Surgery Additional Past Surgical History / Comment(s): right foot/leg surgery and madalyn placement related to crushing injury. Past Anesthesia/Blood Transfusion Reactions: No Reported Reaction Past Psychological History: Depression Smoking Status: Former smoker Past Alcohol Use History: None Reported Past Drug Use History: None Reported Medications and Allergies Home Medications Medication Instructions Recorded Confirmed Type HYDROcodone/APAP 10-325MG [[place] 1 tab PO Q6H PRN 06/30/19 08/12/22 History 10-325] allopurinoL [Zyloprim] 300 mg PO DAILY 06/30/19 08/12/22 History amLODIPine BESYLATE [Norvasc] 5 mg PO DAILY 06/30/19 08/12/22 History Warfarin [Coumadin] 7.5 mg PO DAILY 06/26/22 08/12/22 History Collagenase [Santyl Ointment] 1 applic TOPICAL DAILY 08/12/22 08/12/22 History Allergies Allergy/AdvReac Type Severity Reaction Status Date / Time No Known Allergies Allergy Verified 08/12/22 21:40 Physical Exam Vitals: Vital Signs Temp Pulse Resp BP Pulse Ox 08/13/22 11:50 80 16 127/74 92 L 08/13/22 06:55 89 16 146/77 98 08/13/22 04:15 86 16 134/50 98 08/12/22 23:56 98 F 88 16 107/64 97 08/12/22 22:00 95 18 144/74 98 08/12/22 17:04 97.7 F 100 20 123/72 98 Intake and Output 08/12/22 08/13/22 08/13/22 22:59 06:59 14:59 Output Total 1300 Balance -1300 Output: Urine 1300 Other: Weight 105.233 kg Head normocephalic Neck supple Lungs clear to auscultation bilaterally no wheezing or crackles Heart regular rate and rhythm S1-S2, no rub or gallop Abdomen is soft nontender nondistended positive bowel sounds no hepatosplenomegaly Extremities no edema Neuro alert and orientated to 3 Results CBC & Chem 7: 08/12/22 18:31 08/12/22 22:26 Labs: Abnormal Lab Results - Last 24 Hours (Table) 08/12/22 08/12/22 08/12/22 Range/Units 18:31 18:31 18:31 RBC 2.17 L (4.30-5.90) m/uL Hgb 7.2 L (13.0-17.5) gm/dL Hct 21.4 L (39.0-53.0) % Carbon Dioxide (22-30) mmol/L BUN 73 H (9-20) mg/dL Creatinine 7.55 H* (0.66-1.25) mg/dL Glucose 115 H (74-99) mg/dL Alkaline Phosphatase 138 H (38-126) U/L Urine Protein 2+ H (Negative) Urine Blood Small H (Negative) Urine Bacteria Rare H (None) /hpf 08/12/22 Range/Units 22:26 RBC (4.30-5.90) m/uL Hgb (13.0-17.5) gm/dL Hct (39.0-53.0) % Carbon Dioxide 20 L (22-30) mmol/L BUN 72 H (9-20) mg/dL Creatinine 7.50 H* (0.66-1.25) mg/dL Glucose 109 H (74-99) mg/dL Alkaline Phosphatase (38-126) U/L Urine Protein (Negative) Urine Blood (Negative) Urine Bacteria (None) /hpf Microbiology - Last 24 Hours (Table) 08/12/22 18:31 Wound Culture - Preliminary Foot - Right Assessment and Plan Assessment: 1. Acute on chronic kidney disease. Nephrology services consulted 2. Recent right toe amputation 3. History of diabetes mellitus 4. History of atrial fibrillation maintained on Coumadin 5. History of essential hypertension 6. History of gout 7. History of chronic back pain 8. Anemia iron studies ordered DVT prophylaxis Coumadin. GI prophylaxis Protonix Nephrology, urology and infectious disease service consulted Repeat labs ordered Time with Patient: Greater than 30 (Greater than 60% of the total time spent in counseling and coordination of care)
[2022-08-13 14:03] LABS: Prothrombin Time 99.8 sec (9.0-12.0)
[2022-08-13 14:07] LABS: INR 9.7 (<1.2)
[2022-08-13] MEDS: INSULIN ASPART (NovoLOG) 100 UNIT/ML VIAL SQ SCH ×3 (15:00→20:50)
[2022-08-13] MEDS: SODIUM CHLORIDE 0.9% 1,000 ML IV SCH (15:14)
[2022-08-13 15:20] LABS: Glucose,Whole Blood 296 mg/dL (70-110)
[2022-08-13 17:09] LABS: Glucose,Whole Blood 120 mg/dL (70-110)
[2022-08-13] MEDS ORDERED: WARFARIN 0.5 MG TAB PO ONE (18:00)
[2022-08-13 20:51] LABS: Glucose,Whole Blood 170 mg/dL (70-110)
[2022-08-13] MEDS: HYDROcodone/APAP 10-325MG 1 EACH TAB PO PRN (22:06)
[2022-08-13] MEDS ORDERED: CEFEPIME 2 GM in SODIUM CHLORIDE 0.9% 100 ML IVPB STA (23:49)
--- NOTE | 2022-08-13 23:49 | P.CONS ---
History of Present Illness - Reason for Consult Consult date: 08/13/22 Right second toe amputation site Requesting physician: Mati Gomez - Chief Complaint Worsening kidney function x few days - History of Present Illness Patient is a 71-year-old male was recently admitted to this facility and the patient did have a right second toe diabetic foot infection in this patient was status post amputation of his right second toe on 06/29/2022 and cultures are positive for MRSA patient was treated with IV antibiotic therapy and subsequently charged home on doxycycline and apparently the patient has been following with Dr. Barton in the wound care center patient is now presenting to the hospital last night from the PCP office after apparently the patient was noticed to have a renal failure patient denies having any fever or any chills patient denies having any chest pain or shortness of breath or cough no abdominal pain has been complaining of some pain to the right second toe amputation site which seem to be more of a dull aching especially with touching patient did have a CT abdominal pelvis on admission no evidence of obstructive uropathy cholelithiasis cardiomegaly patient was admitted to the hospital infectious was consulted for further management of antibiotic therapy patient noticed to be in acute renal failure he did have a creatinine of 7.5 potassium is normal though the INR is 9.7 Review of Systems Positive point has been mentioned in the HPI rest of the systems are negative Past Medical History Past Medical History: Atrial Fibrillation, Diabetes Mellitus Additional Past Medical History / Comment(s): . History of Any Multi-Drug Resistant Organisms: MRSA Year Discovered:: 06/29/22 MDRO Source:: Toe Right Second Past Surgical History: Joint Replacement, Orthopedic Surgery Additional Past Surgical History / Comment(s): right foot/leg surgery and madalyn placement related to crushing injury. Past Anesthesia/Blood Transfusion Reactions: No Reported Reaction Past Psychological History: Depression Smoking Status: Former smoker Past Alcohol Use History: None Reported Past Drug Use History: None Reported Medications and Allergies Home Medications Medication Instructions Recorded Confirmed Type HYDROcodone/APAP 10-325MG [[facility] 1 tab PO Q6H PRN 06/30/19 08/12/22 History 10-325] allopurinoL [Zyloprim] 300 mg PO DAILY 06/30/19 08/12/22 History amLODIPine BESYLATE [Norvasc] 5 mg PO DAILY 06/30/19 08/12/22 History Warfarin [Coumadin] 7.5 mg PO DAILY 06/26/22 08/12/22 History Collagenase [Santyl Ointment] 1 applic TOPICAL DAILY 08/12/22 08/12/22 History Allergies Allergy/AdvReac Type Severity Reaction Status Date / Time No Known Allergies Allergy Verified 08/26/22 14:03 Physical Exam Vitals: Vital Signs Temp Pulse Resp BP Pulse Ox 08/13/22 11:50 80 16 127/74 92 L 08/13/22 06:55 89 16 146/77 98 08/13/22 04:15 86 16 134/50 98 08/12/22 23:56 98 F 88 16 107/64 97 08/12/22 22:00 95 18 144/74 98 08/12/22 17:04 97.7 F 100 20 123/72 98 Intake and Output 08/12/22 08/13/22 08/13/22 22:59 06:59 14:59 Output Total 1300 Balance -1300 Output: Urine 1300 Other: Weight 105.233 kg GENERAL DESCRIPTION: Elderly male lying in bed, no distress. No tachypnea or accessory muscle of respiration use. HEENT: Shows Pallor , no scleral icterus. Oral mucous membrane is dry. No pharyngeal erythema or thrush NECK: Trachea central, no thyromegaly. LUNGS: Unlabored breathing. Clear to auscultation anteriorly. No wheeze or crackle. HEART: S1, S2, regular rate and rhythm. No loud murmur ABDOMEN: Soft, no tenderness , guarding or rigidity, no organomegaly EXTREMITIES: Right second toe amputation site wound did have some purulent drainage was cultured SKIN: No rash, no masses palpable. NEUROLOGICAL: The patient is awake, alert, oriented x3, mood and affect normal. Results CBC & Chem 7: 08/29/22 07:05 08/29/22 07:05 Labs: Abnormal Lab Results - Last 24 Hours (Table) 08/12/22 08/12/22 08/12/22 Range/Units 18:31 18:31 18:31 RBC 2.17 L (4.30-5.90) m/uL Hgb 7.2 L (13.0-17.5) gm/dL Hct 21.4 L (39.0-53.0) % PT (9.0-12.0) sec INR (<1.2) Carbon Dioxide (22-30) mmol/L BUN 73 H (9-20) mg/dL Creatinine 7.55 H* (0.66-1.25) mg/dL Glucose 115 H (74-99) mg/dL Alkaline Phosphatase 138 H (38-126) U/L Urine Protein 2+ H (Negative) Urine Blood Small H (Negative) Urine Bacteria Rare H (None) /hpf 08/12/22 08/13/22 Range/Units 22:26 12:10 RBC (4.30-5.90) m/uL Hgb (13.0-17.5) gm/dL Hct (39.0-53.0) % PT 99.8 H (9.0-12.0) sec INR 9.7 H* (<1.2) Carbon Dioxide 20 L (22-30) mmol/L BUN 72 H (9-20) mg/dL Creatinine 7.50 H* (0.66-1.25) mg/dL Glucose 109 H (74-99) mg/dL Alkaline Phosphatase (38-126) U/L Urine Protein (Negative) Urine Blood (Negative) Urine Bacteria (None) /hpf Microbiology - Last 24 Hours (Table) 08/12/22 18:31 Wound Culture - Preliminary Foot - Right Assessment and Plan (1) Diabetic foot infection Current Visit: Yes Status: Acute Code(s): E11.628 - TYPE 2 DIABETES MELLITUS WITH OTHER SKIN COMPLICATIONS; L08.9 - LOCAL INFECTION OF THE SKIN AND SUBCUTANEOUS TISSUE, UNSP SNOMED Code(s): 416561977 Plan: 1patient with right second toe diabetic foot infection in this patient who is status post amputation of the right second toe culture that time was positive for MRSA patient did present to the hospital with acute renal failure patient did have purulent drainage to the right second toe amputation site and some surrounding cellulitis. 2local culture has been obtained to guide further antibiotic therapy however patient recently did have a cultures obtained which is growing gram-negative bacilli as group B strep. 3patient with renal insufficiency and there would limit the number of antibiotics safe to use. 4we will start the patient on cefepime and Flagyl. 5local wound care with a dry Aquacel silver dressing change daily. we will follow on clinical condition and cultures to further adjust medication if needed Thank you for this consultation will follow this patient along with you Time with Patient: Greater than 30
[2022-08-14] MEDS: metroNIDAZOLE 500 MG TAB PO SCH ×4 (00:56→23:10)
[2022-08-14] MEDS: SODIUM CHLORIDE 0.9% 1,000 ML IV SCH ×2 (00:57→20:09)
[2022-08-14 06:18] LABS: Glucose,Whole Blood 103 mg/dL (70-110)
[2022-08-14] MEDS: INSULIN ASPART (NovoLOG) 100 UNIT/ML VIAL SQ SCH ×4 (06:23→20:37)
[2022-08-14] MEDS: PANTOPRAZOLE 40 MG TABLET PO SCH (06:24)
[2022-08-14] MEDS: allopurinoL 300 MG TAB PO SCH (08:50)
[2022-08-14] MEDS: amLODIPine 5 MG TAB PO SCH (08:51)
[2022-08-14] MEDS: HYDROcodone/APAP 10-325MG 1 EACH TAB PO PRN ×2 (08:51→16:36)
[2022-08-14] MEDS: COLLAGENASE 250 UNIT/GM OINTMENT 30 GM TUBE TOPICAL SCH (08:54)
[2022-08-14 08:55] LABS: Basophils % (A) 0 %; Eosinophils # (A) 0.2 k/uL (0-0.7); Eosinophils % (A) 3 %; HCT 20.3 % (39.0-53.0); Hypochromasia Slight; Lymphocytes % (A) 12 %; MCH 33.3 pg (25.0-35.0); MCHC 33.3 g/dL (31.0-37.0); MCV 99.8 fL (80.0-100.0); Macrocytosis Slight; Mean Platelet Volume 8.2; Monocytes # (A) 0.4 k/uL (0-1.0); Monocytes % (A) 5 %; Neutrophils # (A) 6.2 k/uL (1.3-7.7); Neutrophils % (A) 78 %; Platelet Count 162 k/uL (150-450); RBC 2.04 m/uL (4.30-5.90)
--- NOTE | 2022-08-14 08:55 | XR ---
EXAMINATION TYPE: XR foot complete RT DATE OF EXAM: 08/14/2022 8:38 AM INDICATION: Patient age:Male; 71 years old; Reason for study: r 2nd toe amputation site wound; [facility]. COMPARISON: 06/27/2022 TECHNIQUE: The right foot was examined in the AP, oblique, and lateral projections. FINDINGS: Degeneration changes most pronounced at the first digit metatarsal phalangeal joint. There is second digit amputation at the metatarsophalangeal joint. No evidence of osseous erosion. There is subcutaneous gas between the first and second digit. No evidence of osseous erosion. No evidence of any acute osseous pathology. IMPRESSION: 1. Subcutaneous gas between the first second digit. Correlate with recent surgery. No obvious osteom alacia changes at this time. 2. Severe degeneration changes of the first digit metatarsophalangeal joint.
[2022-08-14 09:04] LABS: Prothrombin Time 103.8 sec (9.0-12.0)
[2022-08-14 09:08] LABS: INR >10.0 (<1.2)
[2022-08-14 09:10] LABS: HGB 6.8 gm/dL (13.0-17.5)
[2022-08-14 09:22] LABS: Albumin 3.5 g/dL (3.5-5.0); Calcium 8.3 mg/dL (8.4-10.2); Potassium 4.3 mmol/L (3.5-5.1); Total Bilirubin 0.9 mg/dL (0.2-1.3); Total Protein 5.9 g/dL (6.3-8.2)
[2022-08-14] MEDS ORDERED: PHYTONADIONE ORAL 5 MG/5 ML ORAL.SYRG PO STA (09:34)
[2022-08-14 09:35] LABS: C Reactive Protein 13.5 mg/dL (<1.0)
[2022-08-14 10:38] LABS: Erythrocyte Sedimentation Rate >140 mm/hr (0-15)
[2022-08-14 11:46] LABS: Glucose,Whole Blood 164 mg/dL (70-110)
--- NOTE | 2022-08-14 11:50 | P.PN ---
Subjective Patient is seen for follow-up for acute kidney injury mostly obstructive uropathy. He is maintained on IV fluids and has an indwelling Graham catheter. Serum creatinine has improved to 6.9 from 7.5 on initial admission. One would have expected much more improvement with relief of obstruction and Graham catheter placement. Patient's hemoglobin dropped to 6.8 g/dL and he is receiving packed RBCs. This has definitely contribute to to the acute kidney injury as well. No significant complaints today. Good urine output and Graham bag Objective - Vital Signs Vital signs: Vital Signs Temp 98.1 F 08/14/22 11:42 Pulse 94 08/14/22 11:42 Resp 16 08/14/22 11:42 BP 120/64 08/14/22 11:42 Pulse Ox 91 L 08/14/22 11:42 FiO2 Intake & Output 08/13/22 08/14/22 08/14/22 18:59 06:59 18:59 Intake Total 585 222 Output Total 2500 175 Balance -2500 410 222 Weight 105.233 kg Intake: Intake, IV Titration 100 Amount Cefepime 2 gm In Sodium 100 Chloride 0.9% 100 ml @ 200 mls/hr IVPB ONCE STA Rx#:[id number] Oral 485 222 Output: Urine 2500 175 Other: Voiding Method Indwelling Catheter Indwelling Catheter - Exam Patient is awake, comfortable, no acute distress Examination of the heart S1 and S2 Examination of the lungs bilateral breath sounds are heard Abdomen is soft nontender Examination of lower extremities shows no significant edema [employer] exam grossly intact - Labs CBC & Chem 7: 08/14/22 07:56 08/14/22 07:56 Labs: Abnormal Lab Results - Last 24 Hours (Table) 08/13/22 08/13/22 08/13/22 Range/Units 12:10 12:10 12:10 RBC (4.30-5.90) m/uL Hgb (13.0-17.5) gm/dL Hct (39.0-53.0) % ESR (0-15) mm/hr PT 99.8 H (9.0-12.0) sec INR 9.7 H* (<1.2) Carbon Dioxide (22-30) mmol/L BUN (9-20) mg/dL Creatinine (0.66-1.25) mg/dL Glucose (74-99) mg/dL POC Glucose (mg/dL) (70-110) mg/dL Hemoglobin A1c 6.2 H (0.0-6.0) % Calcium (8.4-10.2) mg/dL Iron 28 L (65-175) ug/dL Transferrin 155.0 L (204.0-354.0) mg/dL C-Reactive Protein (<1.0) mg/dL Total Protein (6.3-8.2) g/dL Crossmatch 08/13/22 08/13/22 08/13/22 Range/Units 15:18 17:07 20:49 RBC (4.30-5.90) m/uL Hgb (13.0-17.5) gm/dL Hct (39.0-53.0) % ESR (0-15) mm/hr PT (9.0-12.0) sec INR (<1.2) Carbon Dioxide (22-30) mmol/L BUN (9-20) mg/dL Creatinine (0.66-1.25) mg/dL Glucose (74-99) mg/dL POC Glucose (mg/dL) 296 H 120 H 170 H (70-110) mg/dL Hemoglobin A1c (0.0-6.0) % Calcium (8.4-10.2) mg/dL Iron (65-175) ug/dL Transferrin (204.0-354.0) mg/dL C-Reactive Protein (<1.0) mg/dL Total Protein (6.3-8.2) g/dL Crossmatch 08/14/22 08/14/22 08/14/22 Range/Units 07:56 07:56 07:56 RBC 2.04 L (4.30-5.90) m/uL Hgb 6.8 L* (13.0-17.5) gm/dL Hct 20.3 L (39.0-53.0) % ESR >140 H (0-15) mm/hr PT 103.8 H (9.0-12.0) sec INR >10.0 H* (<1.2) Carbon Dioxide 20 L (22-30) mmol/L BUN 69 H (9-20) mg/dL Creatinine 6.99 H (0.66-1.25) mg/dL Glucose 114 H (74-99) mg/dL POC Glucose (mg/dL) (70-110) mg/dL Hemoglobin A1c (0.0-6.0) % Calcium 8.3 L (8.4-10.2) mg/dL Iron (65-175) ug/dL Transferrin (204.0-354.0) mg/dL C-Reactive Protein 13.5 H (<1.0) mg/dL Total Protein 5.9 L (6.3-8.2) g/dL Crossmatch 08/14/22 Range/Units 10:33 RBC (4.30-5.90) m/uL Hgb (13.0-17.5) gm/dL Hct (39.0-53.0) % ESR (0-15) mm/hr PT (9.0-12.0) sec INR (<1.2) Carbon Dioxide (22-30) mmol/L BUN (9-20) mg/dL Creatinine (0.66-1.25) mg/dL Glucose (74-99) mg/dL POC Glucose (mg/dL) (70-110) mg/dL Hemoglobin A1c (0.0-6.0) % Calcium (8.4-10.2) mg/dL Iron (65-175) ug/dL Transferrin (204.0-354.0) mg/dL C-Reactive Protein (<1.0) mg/dL Total Protein (6.3-8.2) g/dL Crossmatch See Detail Microbiology - Last 24 Hours (Table) 08/13/22 15:00 Gram Stain - Preliminary Foot - Right Wound Culture - Preliminary 08/12/22 18:31 Gram Stain - Preliminary Foot - Right Wound Culture - Preliminary Gram Neg Bacilli Strep agalactiae - (group b) 08/12/22 18:35 Blood Culture - Preliminary Blood No Growth after 24 hours 08/12/22 18:50 Blood Culture - Preliminary Blood No Growth after 24 hours Assessment and Plan Assessment: 1. Acute kidney injury obstructive uropathy and possible component of ATN as well. Currently nonoliguric and with indwelling Graham catheter. 800 mL of urine was obtained when Graham catheter was first placed. CT of the abdomen and pelvis does not show gross hydronephrosis. UA shows 2+ protein and small blood 2. Chronic kidney disease with serum creatinine staying at about 1.6 mg/dL since the episode of acute kidney injury in May 2022. At that time serum creatinine had peaked at 4.1 mg/dL. Patient had been on vancomycin at that time. 3. Metabolic acidosis secondary to acute kidney injury and obstructive uropathy 4. Anemia rule out iron deficiency 5. Chronic A. fib with controlled ventricular response Plan: Continue with Graham catheter Repeat labs in a.m. Continue with IV fluids IV iron Avoid any nephrotoxic agents.
--- NOTE | 2022-08-14 15:00 | P.PN ---
Subjective Progress Note Date: 08/14/22 Pepe Waters, is a 71-year-old male patient who presented he ER with concerns of acute on kidney disease with worsening kidney status. Patient has a history of recent second toe amputation approximately 6 weeks ago. Additional medical history includes atrial fibrillation, diabetes mellitus, MRSA, depression and joint replacement. CT of abdomen and pelvis completed showing no evidence of obstructive uropathy there are bilateral nonobstructing renal calculi versus medullary calcifications present. And determinate left renal lesion, not nodule contour to liver correlate for cirrhosis, correlate lithiasis, cardiomegaly with bilateral trace pleural effusions correlate for volume overload with serum BNP. Creatinine elevated at 7.50 and bun 72. Hemoglobin is low at 7.2. At this time nephrology and urology service is consulted. Dr. Dia consulted for infectious disease chronic lower extremity wound. Iron studies ordered. Home meds resumed pharmacy to dose Coumadin for atrial fibrillation. Graham catheter remains in place. This time patient denies chest pain or shortness breath. Patient denies nausea vomiting or diarrhea. Patient denies any urinary burning or frequency. On 08/14/2022 patient was seen and examined on the medical floor he is alert and oriented 3 in no apparent distress he is complaining of pain in his right foot otherwise he denies any complaints there is no fever or chills no headache or dizziness no chest pain no shortness of breath no cough no nausea or vomiting no abdominal pain no diarrhea and no urinary symptoms. At this time patient is maintained on IV antibiotics, infectious disease are following, nephrology are following in regard to acute renal failure, today's INR was more than 10, patient received vitamin K 5 mg by mouth, his hemoglobin was down to 6.4 he is receiving 1 unit of red blood cell transfusion, will continue to follow closely. Objective - Vital Signs Vital signs: Vital Signs Temp 98.1 F 08/14/22 08:15 Pulse 96 08/14/22 08:15 Resp 14 08/14/22 08:15 BP 108/53 08/14/22 08:15 Pulse Ox 92 L 08/14/22 08:15 FiO2 Intake & Output 08/13/22 08/14/22 08/14/22 18:59 06:59 18:59 Intake Total 585 222 Output Total 2500 175 Balance -2500 410 222 Weight 105.233 kg Intake: Intake, IV Titration 100 Amount Cefepime 2 gm In Sodium 100 Chloride 0.9% 100 ml @ 200 mls/hr IVPB ONCE STA Rx#:[id number] Oral 485 222 Output: Urine 2500 175 Other: Voiding Method Indwelling Catheter - Exam Head normocephalic Neck supple Lungs clear to auscultation bilaterally no wheezing or crackles Heart regular rate and rhythm S1-S2, no rub or gallop Abdomen is soft nontender nondistended positive bowel sounds no hepatosplenomegaly Extremities no edema Neuro alert and orientated to 3 - Labs CBC & Chem 7: 08/14/22 07:56 08/14/22 07:56 Labs: Abnormal Lab Results - Last 24 Hours (Table) 08/13/22 08/13/22 08/13/22 Range/Units 12:10 12:10 12:10 RBC (4.30-5.90) m/uL Hgb (13.0-17.5) gm/dL Hct (39.0-53.0) % PT 99.8 H (9.0-12.0) sec INR 9.7 H* (<1.2) Carbon Dioxide (22-30) mmol/L BUN (9-20) mg/dL Creatinine (0.66-1.25) mg/dL Glucose (74-99) mg/dL POC Glucose (mg/dL) (70-110) mg/dL Hemoglobin A1c 6.2 H (0.0-6.0) % Calcium (8.4-10.2) mg/dL Iron 28 L (65-175) ug/dL Transferrin 155.0 L (204.0-354.0) mg/dL C-Reactive Protein (<1.0) mg/dL Total Protein (6.3-8.2) g/dL 08/13/22 08/13/22 08/13/22 Range/Units 15:18 17:07 20:49 RBC (4.30-5.90) m/uL Hgb (13.0-17.5) gm/dL Hct (39.0-53.0) % PT (9.0-12.0) sec INR (<1.2) Carbon Dioxide (22-30) mmol/L BUN (9-20) mg/dL Creatinine (0.66-1.25) mg/dL Glucose (74-99) mg/dL POC Glucose (mg/dL) 296 H 120 H 170 H (70-110) mg/dL Hemoglobin A1c (0.0-6.0) % Calcium (8.4-10.2) mg/dL Iron (65-175) ug/dL Transferrin (204.0-354.0) mg/dL C-Reactive Protein (<1.0) mg/dL Total Protein (6.3-8.2) g/dL 08/14/22 08/14/22 08/14/22 Range/Units 07:56 07:56 07:56 RBC 2.04 L (4.30-5.90) m/uL Hgb 6.8 L* (13.0-17.5) gm/dL Hct 20.3 L (39.0-53.0) % PT 103.8 H (9.0-12.0) sec INR >10.0 H* (<1.2) Carbon Dioxide 20 L (22-30) mmol/L BUN 69 H (9-20) mg/dL Creatinine 6.99 H (0.66-1.25) mg/dL Glucose 114 H (74-99) mg/dL POC Glucose (mg/dL) (70-110) mg/dL Hemoglobin A1c (0.0-6.0) % Calcium 8.3 L (8.4-10.2) mg/dL Iron (65-175) ug/dL Transferrin (204.0-354.0) mg/dL C-Reactive Protein 13.5 H (<1.0) mg/dL Total Protein 5.9 L (6.3-8.2) g/dL Microbiology - Last 24 Hours (Table) 08/13/22 15:00 Gram Stain - Preliminary Foot - Right Wound Culture - Preliminary 08/12/22 18:31 Gram Stain - Preliminary Foot - Right Wound Culture - Preliminary Gram Neg Bacilli Strep agalactiae - (group b) 08/12/22 18:35 Blood Culture - Preliminary Blood No Growth after 24 hours 08/12/22 18:50 Blood Culture - Preliminary Blood No Growth after 24 hours Assessment and Plan Assessment: 1. Acute on chronic kidney disease. Nephrology services consulted 2. Recent right toe amputation 3. History of diabetes mellitus 4. History of atrial fibrillation maintained on Coumadin 5. History of essential hypertension 6. History of gout 7. History of chronic back pain 8. Anemia iron studies ordered DVT prophylaxis Coumadin. GI prophylaxis Protonix Nephrology, urology and infectious disease service consulted Repeat labs ordered
--- NOTE | 2022-08-14 16:19 | P.PN ---
Subjective Progress Note Date: 08/14/22 Principal diagnosis: Right second toe amputation site wound infection Patient is a 71-year-old male was recently admitted to this facility and the patient did have a right second toe diabetic foot infection in this patient was status post amputation of his right second toe on 06/29/2022 , patient presented to the hospital with worsening renal failure and the patient w as noticed to have some purulent drainage from his right second toe amputation site wound which is currently not healed On today's evaluation that is 08/14/2022, the patient denies having any fever or any chills, the patient is breathing comfortably no chest pain shortness of breath or cough no abdominal pain or any worsening pain to the right second toe amputation site wound Objective - Vital Signs Vital signs: Vital Signs Temp 98.1 F 08/14/22 08:15 Pulse 96 08/14/22 08:15 Resp 14 08/14/22 08:15 BP 108/53 08/14/22 08:15 Pulse Ox 92 L 08/14/22 08:15 FiO2 Intake & Output 08/13/22 08/14/22 08/14/22 18:59 06:59 18:59 Intake Total 585 222 Output Total 2500 175 Balance -2500 410 222 Weight 105.233 kg Intake: Intake, IV Titration 100 Amount Cefepime 2 gm In Sodium 100 Chloride 0.9% 100 ml @ 200 mls/hr IVPB ONCE STA Rx#:[id number] Oral 485 222 Output: Urine 2500 175 Other: Voiding Method Indwelling Catheter - Exam GENERAL DESCRIPTION: An elderly male lying in bed in no distress RESPIRATORY SYSTEM: Unlabored breathing , decreased breath sounds at bases HEART: S1 S2 regular rate and rhythm , ABDOMEN: Soft , no tenderness EXTREMITIES: Right foot wound is currently dressed no drainage on the dressing - Labs CBC & Chem 7: 08/14/22 07:56 08/14/22 07:56 Labs: Abnormal Lab Results - Last 24 Hours (Table) 08/13/22 08/13/22 08/13/22 Range/Units 12:10 12:10 12:10 RBC (4.30-5.90) m/uL Hgb (13.0-17.5) gm/dL Hct (39.0-53.0) % PT 99.8 H (9.0-12.0) sec INR 9.7 H* (<1.2) Carbon Dioxide (22-30) mmol/L BUN (9-20) mg/dL Creatinine (0.66-1.25) mg/dL Glucose (74-99) mg/dL POC Glucose (mg/dL) (70-110) mg/dL Hemoglobin A1c 6.2 H (0.0-6.0) % Calcium (8.4-10.2) mg/dL Iron 28 L (65-175) ug/dL Transferrin 155.0 L (204.0-354.0) mg/dL C-Reactive Protein (<1.0) mg/dL Total Protein (6.3-8.2) g/dL 08/13/22 08/13/22 08/13/22 Range/Units 15:18 17:07 20:49 RBC (4.30-5.90) m/uL Hgb (13.0-17.5) gm/dL Hct (39.0-53.0) % PT (9.0-12.0) sec INR (<1.2) Carbon Dioxide (22-30) mmol/L BUN (9-20) mg/dL Creatinine (0.66-1.25) mg/dL Glucose (74-99) mg/dL POC Glucose (mg/dL) 296 H 120 H 170 H (70-110) mg/dL Hemoglobin A1c (0.0-6.0) % Calcium (8.4-10.2) mg/dL Iron (65-175) ug/dL Transferrin (204.0-354.0) mg/dL C-Reactive Protein (<1.0) mg/dL Total Protein (6.3-8.2) g/dL 08/14/22 08/14/22 08/14/22 Range/Units 07:56 07:56 07:56 RBC 2.04 L (4.30-5.90) m/uL Hgb 6.8 L* (13.0-17.5) gm/dL Hct 20.3 L (39.0-53.0) % PT 103.8 H (9.0-12.0) sec INR >10.0 H* (<1.2) Carbon Dioxide 20 L (22-30) mmol/L BUN 69 H (9-20) mg/dL Creatinine 6.99 H (0.66-1.25) mg/dL Glucose 114 H (74-99) mg/dL POC Glucose (mg/dL) (70-110) mg/dL Hemoglobin A1c (0.0-6.0) % Calcium 8.3 L (8.4-10.2) mg/dL Iron (65-175) ug/dL Transferrin (204.0-354.0) mg/dL C-Reactive Protein 13.5 H (<1.0) mg/dL Total Protein 5.9 L (6.3-8.2) g/dL Microbiology - Last 24 Hours (Table) 08/13/22 15:00 Gram Stain - Preliminary Foot - Right Wound Culture - Preliminary 08/12/22 18:31 Gram Stain - Preliminary Foot - Right Wound Culture - Preliminary Gram Neg Bacilli Strep agalactiae - (group b) 08/12/22 18:35 Blood Culture - Preliminary Blood No Growth after 24 hours 08/12/22 18:50 Blood Culture - Preliminary Blood No Growth after 24 hours Assessment and Plan (1) Diabetic foot infection Current Visit: Yes Status: Acute Code(s): E11.628 - TYPE 2 DIABETES MELLITUS WITH OTHER SKIN COMPLICATIONS; L08.9 - LOCAL INFECTION OF THE SKIN AND SUBCUTANEOUS TISSUE, UNSP SNOMED Code(s): 448498325 Plan: 1patient with right second toe diabetic foot infection in this patient who is status post amputation of the right second toe culture that time was positive for MRSA patient did present to the hospital with acute renal failure patient did have purulent drainage to the right second toe amputation site and some surrounding cellulitis. 2local culture growing gram-negative bacilli as group B strep. 3patient with renal insufficiency and there would limit the number of antib iotics safe to use. 4patient to continue with cefepime and Flagyl. 5local wound care with a dry Aquacel silver dressing change daily. This was discussed with the RN on the floor Time with Patient: Less than 30
[2022-08-14] MEDS: SODIUM FERRIC GLUCONAT-SUCROSE 125 MG in SODIUM CHLORIDE 0.9% 100 ML IVPB SCH (16:36)
[2022-08-14 17:00] LABS: Glucose,Whole Blood 125 mg/dL (70-110)
[2022-08-14 20:30] LABS: Glucose,Whole Blood 141 mg/dL (70-110)
[2022-08-14] MEDS: CEFEPIME 1 GM in SODIUM CHLORIDE 0.9% 50 ML IVPB SCH (23:10)
[2022-08-14] MEDS: HYDROmorphone 0.5 MG/0.5 ML SYRINGE IVP PRN (23:13)
[2022-08-15] MEDS: SODIUM CHLORIDE 0.9% 1,000 ML IV SCH ×2 (05:10→17:17)
[2022-08-15 05:52] LABS: Glucose,Whole Blood 116 mg/dL (70-110)
[2022-08-15] MEDS: INSULIN ASPART (NovoLOG) 100 UNIT/ML VIAL SQ SCH ×4 (06:15→21:27)
[2022-08-15] MEDS: HYDROmorphone 0.5 MG/0.5 ML SYRINGE IVP PRN ×3 (06:45→17:15)
[2022-08-15] MEDS: PANTOPRAZOLE 40 MG TABLET PO SCH (06:45)
[2022-08-15 08:47] LABS: INR 1.8 (<1.2); Prothrombin Time 17.7 sec (9.0-12.0)
[2022-08-15 08:52] LABS: Albumin 3.4 g/dL (3.5-5.0); Anisocytosis Slight; Basophils % (A) 0 %; Eosinophils # (A) 0.3 k/uL (0-0.7); Eosinophils % (A) 3 %; HCT 21.8 % (39.0-53.0); Lymphocytes % (A) 13 %; MCH 31.3 pg (25.0-35.0); MCHC 32.3 g/dL (31.0-37.0); MCV 97.1 fL (80.0-100.0); Macrocytosis Slight; Mean Platelet Volume 8.7; Monocytes # (A) 0.4 k/uL (0-1.0); Monocytes % (A) 5 %; Neutrophils # (A) 5.7 k/uL (1.3-7.7); Neutrophils % (A) 76 %; Platelet Count 160 k/uL (150-450); Potassium 4.1 mmol/L (3.5-5.1); RBC 2.25 m/uL (4.30-5.90); RDW 16.9 % (11.5-15.5); Total Bilirubin 1.3 mg/dL (0.2-1.3); Total Protein 5.8 g/dL (6.3-8.2); WBC 7.5 k/uL (3.8-10.6)
[2022-08-15] MEDS: SODIUM FERRIC GLUCONAT-SUCROSE 125 MG in SODIUM CHLORIDE 0.9% 100 ML IVPB SCH (10:05)
[2022-08-15] MEDS: HYDROcodone/APAP 10-325MG 1 EACH TAB PO PRN ×2 (10:05→15:45)
[2022-08-15] MEDS: metroNIDAZOLE 500 MG TAB PO SCH ×3 (10:05→21:31)
[2022-08-15] MEDS: allopurinoL 300 MG TAB PO SCH (10:05)
[2022-08-15] MEDS: amLODIPine 5 MG TAB PO SCH (10:05)
--- NOTE | 2022-08-15 10:54 | P.PN ---
Subjective Progress Note Date: 08/15/22 Pepe Waters, is a 71-year-old male patient who presented he ER with concerns of acute on kidney disease with worsening kidney status. Patient has a history of recent second toe amputation approximately 6 weeks ago. Additional medical history includes atrial fibrillation, diabetes mellitus, MRSA, depression and joint replacement. CT of abdomen and pelvis completed showing no evidence of obstructive uropathy there are bilateral nonobstructing renal calculi versus medullary calcifications present. And determinate left renal lesion, not nodule contour to liver correlate for cirrhosis, correlate lithiasis, cardiomegaly with bilateral trace pleural effusions correlate for volume overload with serum BNP. Creatinine elevated at 7.50 and bun 72. Hemoglobin is low at 7.2. At this time nephrology and urology service is consulted. Dr. Dia consulted for infectious disease chronic lower extremity wound. Iron studies ordered. Home meds resumed pharmacy to dose Coumadin for atrial fibrillation. Graham catheter remains in place. This time patient denies chest pain or shortness breath. Patient denies nausea vomiting or diarrhea. Patient denies any urinary burning or frequency. On 08/14/2022 patient was seen and examined on the medical floor he is alert and oriented 3 in no apparent distress he is complaining of pain in his right foot otherwise he denies any complaints there is no fever or chills no headache or dizziness no chest pain no shortness of breath no cough no nausea or vomiting no abdominal pain no diarrhea and no urinary symptoms. At this time patient is maintained on IV antibiotics, infectious disease are following, nephrology are following in regard to acute renal failure, today's INR was more than 10, patient received vitamin K 5 mg by mouth, his hemoglobin was down to 6.4 he is receiving 1 unit of red blood cell transfusion, will continue to follow closely. On 08/15/2022 patient is alert and oriented 3. INR today 1.8. Creatinine 6.7 and bun 65. Pharmacy to dose Coumadin. Patient remains on IV antibiotics per ID. Nephrology services are following. Patient still producing urine. Patient denies chest pain or shortness of breath. Patient denies nausea vomiting or diarrhea. Patient denies any urinary burning or frequency Objective - Vital Signs Vital signs: Vital Signs Temp 98.5 F 08/15/22 08:00 Pulse 96 08/15/22 08:00 Resp 18 08/15/22 08:00 BP 119/59 12/16/22 08:00 Pulse Ox 92 L 08/15/22 08:00 FiO2 Intake & Output 08/14/22 08/15/22 08/15/22 18:59 06:59 18:59 Intake Total 1462 444 Output Total 1200 1550 Balance 262 -1550 444 Intake: Intake, IV Titration 450 Amount Sodium Chloride 0.9% 1, 450 000 ml @ 75 mls/hr IV . [id number] [facility] Rx#:[id number] Oral 702 444 Blood Product 310 Rc As-1 Unit 310 [id number] Output: Urine 1200 1550 Other: Voiding Method Indwelling Catheter Indwelling Catheter # Voids 1 - Exam Head normocephalic Neck supple Lungs clear to auscultation bilaterally no wheezing or crackles Heart regular rate and rhythm S1-S2, no rub or gallop Abdomen is soft nontender nondistended positive bowel sounds no hepatosplenomegaly Extremities no edema Neuro alert and orientated to 3 - Labs CBC & Chem 7: 08/15/22 07:30 08/15/22 07:30 Labs: Abnormal Lab Results - Last 24 Hours (Table) 08/14/22 08/14/22 08/14/22 Range/Units 10:33 11:38 16:52 RBC (4.30-5.90) m/uL Hgb (13.0-17.5) gm/dL Hct (39.0-53.0) % RDW (11.5-15.5) % PT (9.0-12.0) sec INR (<1.2) Sodium (137-145) mmol/L Carbon Dioxide (22-30) mmol/L BUN (9-20) mg/dL Creatinine (0.66-1.25) mg/dL POC Glucose (mg/dL) 164 H 125 H (70-110) mg/dL Calcium (8.4-10.2) mg/dL Total Protein (6.3-8.2) g/dL Albumin (3.5-5.0) g/dL Crossmatch See Detail 08/14/22 08/15/22 08/15/22 Range/Units 20:28 05:50 07:30 RBC (4.30-5.90) m/uL Hgb (13.0-17.5) gm/dL Hct (39.0-53.0) % RDW (11.5-15.5) % PT 17.7 H (9.0-12.0) sec INR 1.8 H (<1.2) Sodium (137-145) mmol/L Carbon Dioxide (22-30) mmol/L BUN (9-20) mg/dL Creatinine (0.66-1.25) mg/dL POC Glucose (mg/dL) 141 H 116 H (70-110) mg/dL Calcium (8.4-10.2) mg/dL Total Protein (6.3-8.2) g/dL Albumin (3.5-5.0) g/dL Crossmatch 08/15/22 08/15/22 Range/Units 07:30 07:30 RBC 2.25 L (4.30-5.90) m/uL Hgb 7.0 L (13.0-17.5) gm/dL Hct 21.8 L (39.0-53.0) % RDW 16.9 H (11.5-15.5) % PT (9.0-12.0) sec INR (<1.2) Sodium 135 L (137-145) mmol/L Carbon Dioxide 18 L (22-30) mmol/L BUN 65 H (9-20) mg/dL Creatinine 6.87 H (0.66-1.25) mg/dL POC Glucose (mg/dL) (70-110) mg/dL Calcium 8.0 L (8.4-10.2) mg/dL Total Protein 5.8 L (6.3-8.2) g/dL Albumin 3.4 L (3.5-5.0) g/dL Crossmatch Microbiology - Last 24 Hours (Table) 08/13/22 15:00 Gram Stain - Preliminary Foot - Right Wound Culture - Preliminary Gram Neg Bacilli Strep agalactiae - (group b) 08/12/22 18:35 Blood Culture - Preliminary Blood No Growth after 48 hours 08/12/22 18:50 Blood Culture - Preliminary Blood No Growth after 48 hours 08/12/22 18:31 Gram Stain - Final Foot - Right Wound Culture - Final Proteus vulgaris Strep agalactiae - (group b) Assessment and Plan Assessment: 1. Acute on chronic kidney disease. Nephrology services consulted 2. Recent right toe amputation 3. History of diabetes mellitus 4. History of atrial fibrillation maintained on Coumadin 5. History of essential hypertension 6. History of gout 7. History of chronic back pain 8. Anemia iron studies ordered 9. Subtherapeutic INR. Corrected. Pharmacy to dose Coumadin 10. Cellulitis. Infectious disease service is following DVT prophylaxis Coumadin. GI prophylaxis Protonix Nephrology, urology and infectious disease service consulted Repeat labs ordered
--- NOTE | 2022-08-15 10:57 | P.PN ---
Subjective Patient is seen for follow-up for acute kidney injury mostly obstructive uropathy. He is maintained on IV fluids and has an indwelling Graham catheter. Serum creatinine has improved to 6.9 from 7.5 on initial admission. One would have expected much more improvement with relief of obstruction and Graham catheter placement. Patient's hemoglobin dropped to 6.8 g/dL and he is receiving packed RBCs. This has definitely contributed to to the acute kidney injury as well. No significant complaints today. Good urine output and Graham bag No new complaints today Creatinine down to 6.87 today which is not much different from yesterday at 6.9 No active bleeding noted Objective - Vital Signs Vital signs: Vital Signs Temp 98.5 F 08/15/22 08:00 Pulse 96 08/15/22 08:00 Resp 18 08/15/22 08:00 BP 119/59 08/15/22 08:00 Pulse Ox 92 L 08/15/22 08:00 FiO2 Intake & Output 08/14/22 08/15/22 08/15/22 18:59 06:59 18:59 Intake Total 1462 444 Output Total 1200 1550 Balance 262 -1550 444 Intake: Intake, IV Titration 450 Amount Sodium Chloride 0.9% 1, 450 000 ml @ 75 mls/hr IV . [id number] [facility] Rx#:[id number] Oral 702 444 Blood Product 310 Rc As-1 Unit 310 [id number] Output: Urine 1200 1550 Other: Voiding Method Indwelling Catheter Indwelling Catheter # Voids 1 - Exam Patient is awake, comfortable, no acute distress Examination of the heart S1 and S2 Examination of the lungs bilateral breath sounds are heard Abdomen is soft nontender Examination of lower extremities shows no significant edema [employer] exam grossly intact - Labs CBC & Chem 7: 08/15/22 07:30 08/15/22 07:30 Labs: Abnormal Lab Results - Last 24 Hours (Table) 08/14/22 08/14/22 08/14/22 Range/Units 10:33 11:38 16:52 RBC (4.30-5.90) m/uL Hgb (13.0-17.5) gm/dL Hct (39.0-53.0) % RDW (11.5-15.5) % PT (9.0-12.0) sec INR (<1.2) Sodium (137-145) mmol/L Carbon Dioxide (22-30) mmol/L BUN (9-20) mg/dL Creatinine (0.66-1.25) mg/dL POC Glucose (mg/dL) 164 H 125 H (70-110) mg/dL Calcium (8.4-10.2) mg/dL Total Protein (6.3-8.2) g/dL Albumin (3.5-5.0) g/dL Crossmatch See Detail 08/14/22 08/15/22 08/15/22 Range/Units 20:28 05:50 07:30 RBC (4.30-5.90) m/uL Hgb (13.0-17.5) gm/dL Hct (39.0-53.0) % RDW (11.5-15.5) % PT 17.7 H (9.0-12.0) sec INR 1.8 H (<1.2) Sodium (137-145) mmol/L Carbon Dioxide (22-30) mmol/L BUN (9-20) mg/dL Creatinine (0.66-1.25) mg/dL POC Glucose (mg/dL) 141 H 116 H (70-110) mg/dL Calcium (8.4-10.2) mg/dL Total Protein (6.3-8.2) g/dL Albumin (3.5-5.0) g/dL Crossmatch 08/15/22 08/15/22 Range/Units 07:30 07:30 RBC 2.25 L (4.30-5.90) m/uL Hgb 7.0 L (13.0-17.5) gm/dL Hct 21.8 L (39.0-53.0) % RDW 16.9 H (11.5-15.5) % PT (9.0-12.0) sec INR (<1.2) Sodium 135 L (137-145) mmol/L Carbon Dioxide 18 L (22-30) mmol/L BUN 65 H (9-20) mg/dL Creatinine 6.87 H (0.66-1.25) mg/dL POC Glucose (mg/dL) (70-110) mg/dL Calcium 8.0 L (8.4-10.2) mg/dL Total Protein 5.8 L (6.3-8.2) g/dL Albumin 3.4 L (3.5-5.0) g/dL Crossmatch Microbiology - Last 24 Hours (Table) 08/13/22 15:00 Gram Stain - Preliminary Foot - Right Wound Culture - Preliminary Gram Neg Bacilli Strep agalactiae - (group b) 08/12/22 18:35 Blood Culture - Preliminary Blood No Growth after 48 hours 08/12/22 18:50 Blood Culture - Preliminary Blood No Growth after 48 hours 08/12/22 18:31 Gram Stain - Final Foot - Right Wound Culture - Final Proteus vulgaris Strep agalactiae - (group b) Assessment and Plan Assessment: 1. Acute kidney injury obstructive uropathy and possible component of ATN as well. Currently nonoliguric and with indwelling Graham catheter. 800 mL of urine was obtained when Graham catheter was first placed. CT of the abdomen and pelvis does not show gross hydronephrosis. UA shows 2+ protein and small blood. Check all serologies for completion of workup. Renal function not improving much. 2. Chronic kidney disease with serum creatinine staying at about 1.6 mg/dL since the episode of acute kidney injury in May 2022. At that time serum creatinine had peaked at 4.1 mg/dL. Patient had been on vancomycin at that time. 3. Metabolic acidosis secondary to acute kidney injury and obstructive uropathy 4. Anemia rule out iron deficiency 5. Chronic A. fib with controlled ventricular response Plan: Continue with Graham catheter Repeat labs in a.m. Continue with IV fluids IV iron Avoid any nephrotoxic agents. Check serologies to complete workup for acute kidney injury as renal function has not improved as expected if due to obstructive uropathy
[2022-08-15 11:50] LABS: Glucose,Whole Blood 110 mg/dL (70-110)
[2022-08-15] MEDS: COLLAGENASE 250 UNIT/GM OINTMENT 30 GM TUBE TOPICAL SCH (14:32)
[2022-08-15 15:30] LABS: Hepatitis B Surface AB- Quant 3.5 mIU/mL; Hepatitis B Surface Antibody Nonreactive (Nonreactive); Hepatitis B Surface Antigen Nonreactive (Nonreactive); Hepatitis C IgG Antibody Nonreactive (Nonreactive)
[2022-08-15 16:55] LABS: Glucose,Whole Blood 126 mg/dL (70-110)
[2022-08-15 17:08] LABS: Anti-DNA, DS unit <1.0 IU/mL; DNA Double-Stranded NEGATIVE (NEGATIVE)
[2022-08-15] MEDS ORDERED: WARFARIN 5 MG TAB PO ONE (18:00)
--- NOTE | 2022-08-15 19:11 | P.GSCN ---
History of Present Illness Consult date: 08/15/22 Reason for Consult: Left renal lesion Requesting physician: Mati Gomez History of present illness: The patient is a 71-year-old male patient who underwent right second toe amputation approximately 6 weeks ago. His medical history is significant for atrial fibrillation, diabetes mellitus, MRSA, and depression. He has developed acute on chronic renal failure. CT scan of the abdomen and pelvis showed no evidence of hydronephrosis. However, medullary renal calcifications were seen, though it is unclear whether these represent calculi. The CT scan also revealed a 2.7 cm left renal mid pole lesion, measuring 10-30 Hounsfield units. He has been found to be in urinary retention, and a Graham catheter was placed in the ER with return of 800 mL. His serum creatinine level has improved only slightly since the Graham catheter was placed. The patient has an unremarkable urologic history. He states that he was not experiencing voiding difficulties prior to admission. He denies any prior history of UTIs or urolithiasis. Review of Systems - Cardiovascular Denies chest pain - Respiratory Denies dyspnea - Gastrointestinal Denies nausea, Denies vomiting - Genitourinary Denies dysuria, Denies hematuria Past Medical History Past Medical History: Atrial Fibrillation, Diabetes Mellitus Additional Past Medical History / Comment(s): . History of Any Multi-Drug Resistant Organisms: MRSA Year Discovered:: 06/29/22 MDRO Source:: Toe Right Second Past Surgical History: Joint Replacement, Orthopedic Surgery Additional Past Surgical History / Comment(s): right foot/leg surgery and madalyn placement related to crushing injury. Past Anesthesia/Blood Transfusion Reactions: No Reported Reaction Past Psychological History: Depression Smoking Status: Former smoker Past Alcohol Use History: None Reported Past Drug Use History: None Reported Medications and Allergies Home Medications Medication Instructions Recorded Confirmed Type HYDROcodone/APAP 10-325MG [Kopperl 1 tab PO Q6H PRN 06/30/19 08/12/22 History 10-325] allopurinoL [Zyloprim] 300 mg PO DAILY 06/30/19 08/12/22 History amLODIPine BESYLATE [Norvasc] 5 mg PO DAILY 06/30/19 08/12/22 History Warfarin [Coumadin] 7.5 mg PO DAILY 06/26/22 08/12/22 History Collagenase [Santyl Ointment] 1 applic TOPICAL DAILY 08/12/22 08/12/22 History Allergies Allergy/AdvReac Type Severity Reaction Status Date / Time No Known Allergies Allergy Verified 08/12/22 21:40 Surgical - Exam Vital Signs Temp Pulse Resp BP Pulse Ox 97.7 F 100 20 123/72 98 08/12/22 17:04 08/12/22 17:04 08/12/22 17:04 08/12/22 17:04 08/12/22 17:04 - General well developed, well nourished, no distress - Neck no masses, trachea midline - Respiratory normal respiratory effort - Abdomen Abdomen: soft, non tender, no guarding, no rigid, no rebound - Genitourinary normal penis with no external lesions, testicles non-tender - Rectum Rectum: normal sphincter tone, no masses, other (Prostate moderately enlarged but smooth) - Psychiatric oriented to time, oriented to person, oriented to place, speech is normal, memory intact Results - Labs 08/15/22 07:30 08/15/22 07:30 Abnormal Lab Results - Last 24 Hours (Table) 08/13/22 08/13/22 08/13/22 Range/Units 12:10 12:10 12:10 PT 99.8 H (9.0-12.0) sec INR 9.7 H* (<1.2) POC Glucose (mg/dL) (70-110) mg/dL Hemoglobin A1c 6.2 H (0.0-6.0) % Iron 28 L (65-175) ug/dL Transferrin 155.0 L (204.0-354.0) mg/dL 08/13/22 08/13/22 08/13/22 Range/Units 15:18 17:07 20:49 PT (9.0-12.0) sec INR (<1.2) POC Glucose (mg/dL) 296 H 120 H 170 H (70-110) mg/dL Hemoglobin A1c (0.0-6.0) % Iron (65-175) ug/dL Transferrin (204.0-354.0) mg/dL Microbiology - Last 24 Hours (Table) 08/13/22 15:00 Wound Culture - Preliminary Foot - Right 08/12/22 18:31 Gram Stain - Preliminary Foot - Right Wound Culture - Preliminary Gram Neg Bacilli Strep agalactiae - (group b) 08/12/22 18:35 Blood Culture - Preliminary Blood No Growth after 24 hours 08/12/22 18:50 Blood Culture - Preliminary Blood No Growth after 24 hours Diabetes panel 08/13/22 Range/Units 12:10 Hemoglobin A1c 6.2 H (0.0-6.0) % - Imaging CT scan - abdomen: report reviewed, image reviewed Assessment and Plan (1) Neoplasm of uncertain behavior of left kidney Current Visit: Yes Status: Acute Code(s): D41.02 - NEOPLASM OF UNCERTAIN BEHAVIOR OF LEFT KIDNEY SNOMED Code(s): 056059462941577 (2) Retention of urine, unspecified Current Visit: Yes Status: Acute Code(s): R33.9 - RETENTION OF URINE, UNSPECIFIED SNOMED Code(s): 016410083 Plan: I would suggested the Graham catheter remain in place, and that the patient's renal function continued to be monitored. I explained to the patient that evaluation of the left renal lesion is incomplete. Unfortunately, a contrast-enhanced study would be optimal but this is contraindicated in the face of renal failure. A renal ultrasound will be obtained to determine whether the lesion is cystic or solid. However, ultrasound earlier this year failed to demonstrate the lesion. Thank you for allowing me to participate in Mr. Waters's care. I will continue to follow him with you. Time with Patient: Greater than 30
--- NOTE | 2022-08-15 19:54 | P.PN ---
Subjective Progress Note Date: 08/15/22 Principal diagnosis: Right second toe amputation site wound infection Patient is a 71-year-old male was recently admitted to this facility and the patient did have a right second toe diabetic foot infection in this patient was status post amputation of his right second toe on 06/29/2022 , patient presented to the hospital with worsening renal failure and the patient w as noticed to have some purulent drainage from his right second toe amputation site wound which is currently not healed On today's evaluation that is 08/15/2022, the patient remains to be afebrile, th e patient is breathing comfortably on room air, the patient denies chest pain shortness of breath or cough no abdominal pain or any worsening pain to the right second toe amputation site wound Objective - Vital Signs Vital signs: Vital Signs Temp 98.5 F 08/15/22 08:00 Pulse 96 08/15/22 08:00 Resp 18 08/15/22 08:00 BP 119/59 08/15/22 08:00 Pulse Ox 92 L 08/15/22 08:00 FiO2 Intake & Output 08/14/22 08/15/22 08/15/22 18:59 06:59 18:59 Intake Total 1462 444 Output Total 1200 1550 Balance 262 -1550 444 Intake: Intake, IV Titration 450 Amount Sodium Chloride 0.9% 1, 450 000 ml @ 75 mls/hr IV . [id number] [facility] Rx#:[id number] Oral 702 444 Blood Product 310 Rc As-1 Unit 310 [id number] Output: Urine 1200 1550 Other: Voiding Method Indwelling Catheter Indwelling Catheter # Voids 1 - Exam GENERAL DESCRIPTION: An elderly male lying in bed in no distress RESPIRATORY SYSTEM: Unlabored breathing , decreased breath sounds at bases HEART: S1 S2 regular rate and rhythm , ABDOMEN: Soft , no tenderness EXTREMITIES: Right foot wound is currently dressed no drainage on the dressing - Labs CBC & Chem 7: 08/15/22 07:30 08/15/22 07:30 Labs: Abnormal Lab Results - Last 24 Hours (Table) 08/14/22 08/14/22 08/14/22 Range/Units 10:33 11:38 16:52 RBC (4.30-5.90) m/uL Hgb (13.0-17.5) gm/dL Hct (39.0-53.0) % RDW (11.5-15.5) % PT (9.0-12.0) sec INR (<1.2) Sodium (137-145) mmol/L Carbon Dioxide (22-30) mmol/L BUN (9-20) mg/dL Creatinine (0.66-1.25) mg/dL POC Glucose (mg/dL) 164 H 125 H (70-110) mg/dL Calcium (8.4-10.2) mg/dL Total Protein (6.3-8.2) g/dL Albumin (3.5-5.0) g/dL Crossmatch See Detail 08/14/22 08/15/22 08/15/22 Range/Units 20:28 05:50 07:30 RBC (4.30-5.90) m/uL Hgb (13.0-17.5) gm/dL Hct (39.0-53.0) % RDW (11.5-15.5) % PT 17.7 H (9.0-12.0) sec INR 1.8 H (<1.2) Sodium (137-145) mmol/L Carbon Dioxide (22-30) mmol/L BUN (9-20) mg/dL Creatinine (0.66-1.25) mg/dL POC Glucose (mg/dL) 141 H 116 H (70-110) mg/dL Calcium (8.4-10.2) mg/dL Total Protein (6.3-8.2) g/dL Albumin (3.5-5.0) g/dL Crossmatch 08/15/22 08/15/22 Range/Units 07:30 07:30 RBC 2.25 L (4.30-5.90) m/uL Hgb 7.0 L (13.0-17.5) gm/dL Hct 21.8 L (39.0-53.0) % RDW 16.9 H (11.5-15.5) % PT (9.0-12.0) sec INR (<1.2) Sodium 135 L (137-145) mmol/L Carbon Dioxide 18 L (22-30) mmol/L BUN 65 H (9-20) mg/dL Creatinine 6.87 H (0.66-1.25) mg/dL POC Glucose (mg/dL) (70-110) mg/dL Calcium 8.0 L (8.4-10.2) mg/dL Total Protein 5.8 L (6.3-8.2) g/dL Albumin 3.4 L (3.5-5.0) g/dL Crossmatch Microbiology - Last 24 Hours (Table) 08/13/22 15:00 Gram Stain - Preliminary Foot - Right Wound Culture - Preliminary Gram Neg Bacilli Strep agalactiae - (group b) 08/12/22 18:35 Blood Culture - Preliminary Blood No Growth after 48 hours 08/12/22 18:50 Blood Culture - Preliminary Blood No Growth after 48 hours 08/12/22 18:31 Gram Stain - Final Foot - Right Wound Culture - Final Proteus vulgaris Strep agalactiae - (group b) Assessment and Plan (1) Diabetic foot infection Current Visit: Yes Status: Acute Code(s): E11.628 - TYPE 2 DIABETES MELLITUS WITH OTHER SKIN COMPLICATIONS; L08.9 - LOCAL INFECTION OF THE SKIN AND S UBCUTANEOUS TISSUE, UNSP SNOMED Code(s): 377578936 Plan: 1patient with right second toe diabetic foot infection in this patient who is status post amputation of the right second toe culture that time was positive for MRSA patient did present to the hospital with acute renal failure patient did have purulent drainage to the right second toe amputation site and some surrounding cellulitis. 2local culture growing gram-negative bacilli as well as group B strep. 3local wound care with a dry Aquacel silver dressing change daily 4patient to continue with cefepime and Flagyl. And monitor clinical course closely Time with Patient: Less than 30
[2022-08-15 20:48] LABS: Glucose,Whole Blood 136 mg/dL (70-110)
[2022-08-15] MEDS: CEFEPIME 1 GM in SODIUM CHLORIDE 0.9% 50 ML IVPB SCH (21:30)
--- NOTE | 2022-08-15 21:46 | US ---
EXAMINATION TYPE: US kidneys/renal and bladder DATE OF EXAM: 08/15/2022 COMPARISON: ULS 05/25/2022, CT 08/12/2022 CLINICAL HISTORY: Left renal mass. EXAM MEASUREMENTS: Right Kidney: 12.1 x 6.3 x 6.8 cm Left Kidney: 13.9 x 6.6 x 6.8 cm Right Kidney: Scattered tiny echogenic foci, largest without shadowing 0.81cm Left Kidney: Hypoechoic solid mass upper lateral pole, 3.2 x 2.3 x 3.3 cm. Scattered tiny echogenic foci, largest with shadowing inferior pole 0.55cm Bladder: Non-distended with catheter visualized Bilateral Jets seen: No Graham catheter in appropriate fashion. IMPRESSION: 1. Left renal lesion as seen on prior CT. Consider dedicated MRI or CT renal mass protocol with IV c ontrast further evaluation. Findings favor a solid lesion on ultrasound. 2. Bilateral nonobstructing calculi versus vascular calcifications as seen on CT.
[2022-08-16 06:12] LABS: Glucose,Whole Blood 106 mg/dL (70-110)
[2022-08-16] MEDS: INSULIN ASPART (NovoLOG) 100 UNIT/ML VIAL SQ SCH ×4 (06:43→20:25)
[2022-08-16] MEDS: SODIUM CHLORIDE 0.9% 1,000 ML IV SCH ×2 (06:44→17:45)
[2022-08-16] MEDS: PANTOPRAZOLE 40 MG TABLET PO SCH (06:44)
[2022-08-16] MEDS: HYDROcodone/APAP 10-325MG 1 EACH TAB PO PRN ×3 (06:49→18:15)
[2022-08-16] MEDS: COLLAGENASE 250 UNIT/GM OINTMENT 30 GM TUBE TOPICAL SCH (09:11)
[2022-08-16] MEDS: allopurinoL 300 MG TAB PO SCH (09:19)
[2022-08-16] MEDS: HYDROmorphone 0.5 MG/0.5 ML SYRINGE IVP PRN ×2 (09:19→20:10)
[2022-08-16] MEDS: amLODIPine 5 MG TAB PO SCH (09:19)
[2022-08-16] MEDS: metroNIDAZOLE 500 MG TAB PO SCH ×3 (09:19→20:10)
[2022-08-16 10:51] LABS: Anisocytosis Slight; Basophils % (A) 0 %; Eosinophils # (A) 0.2 k/uL (0-0.7); Eosinophils % (A) 3 %; HCT 21.4 % (39.0-53.0); Hypochromasia Slight; Lymphocytes # (A) 1.1 k/uL (1.0-4.8); Lymphocytes % (A) 15 %; MCH 31.9 pg (25.0-35.0); MCHC 32.6 g/dL (31.0-37.0); MCV 97.7 fL (80.0-100.0); Macrocytosis Slight; Mean Platelet Volume 8.6; Monocytes # (A) 0.4 k/uL (0-1.0); Monocytes % (A) 5 %; Neutrophils # (A) 5.1 k/uL (1.3-7.7); Neutrophils % (A) 73 %; Platelet Count 162 k/uL (150-450); RBC 2.19 m/uL (4.30-5.90); RDW 16.5 % (11.5-15.5); WBC 7.1 k/uL (3.8-10.6)
--- NOTE | 2022-08-16 11:01 | P.PN ---
Subjective Patient is seen for follow-up for acute kidney injury mostly obstructive uropathy. He is maintained on IV fluids and has an indwelling Graham catheter. Serum creatinine has improved to 6.9 from 7.5 on initial admission. One would have expected much more improvement with relief of obstruction and Graham catheter placement. Patient's hemoglobin dropped to 6.8 g/dL and he is receiving packed RBCs. This has definitely contributed to to the acute kidney injury as well. No significant complaints today. Good urine output and Graham bag No new complaints today Creatinine down to 6.87 yesterday . Labs pending from today No active bleeding noted Complaining of pain in the right foot Objective - Vital Signs Vital signs: Vital Signs Temp 98.5 F 08/16/22 09:14 Pulse 102 H 08/16/22 09:14 Resp 18 08/16/22 09:14 BP 111/55 08/16/22 09:14 Pulse Ox 92 L 08/16/22 09:14 FiO2 Intake & Output 08/15/22 08/16/22 08/16/22 18:59 06:59 18:59 Intake Total 1592 180 Output Total 1200 1000 Balance 392 -1000 180 Intake: Intake, IV Titration 550 Amount Sodium Chloride 0.9% 1, 450 000 ml @ 75 mls/hr IV . [id number] [facility] Rx#:[id number] Sodium Ferric Gluconat- 100 Sucrose 125 mg In Sodium Chloride 0.9% 100 ml @ 100 mls/hr IVPB DAILY [facility] Rx#:[id number] Oral 1042 180 Output: Urine 1200 1000 Other: Voiding Method Indwelling Catheter Indwelling Catheter Indwelling Catheter - Exam Patient is awake, comfortable, no acute distress Examination of the heart S1 and S2 Examination of the lungs bilateral breath sounds are heard Abdomen is soft nontender Examination of lower extremities shows no significant edema. Right foot is currently dressed some drainage noted in the dressing. RATE INSERTER exam grossly intact - Labs CBC & Chem 7: 08/16/22 10:26 08/15/22 07:30 Labs: Abnormal Lab Results - Last 24 Hours (Table) 08/15/22 08/15/22 08/16/22 Range/Units 16:44 20:46 10:26 RBC 2.19 L (4.30-5.90) m/uL Hgb 7.0 L (13.0-17.5) gm/dL Hct 21.4 L (39.0-53.0) % RDW 16.5 H (11.5-15.5) % POC Glucose (mg/dL) 126 H 136 H (70-110) mg/dL Microbiology - Last 24 Hours (Table) 08/13/22 15:00 Gram Stain - Preliminary Foot - Right Wound Culture - Preliminary Proteus penneri Strep agalactiae - (group b) Presumptive Staph aureus 08/12/22 18:35 Blood Culture - Preliminary Blood No Growth after 72 hours 08/12/22 18:50 Blood Culture - Preliminary Blood No Growth after 72 hours Assessment and Plan Assessment: 1. Acute kidney injury obstructive uropathy and possible component of ATN as well. Currently nonoliguric and with indwelling Graham catheter. 800 mL of urine was obtained when Graham catheter was first placed. CT of the abdomen and pelvis does not show gross hydronephrosis. UA shows 2+ protein and small blood. Renal function not improving much. Serologies negative for any other underlying GN. 2. Chronic kidney disease with serum creatinine staying at about 1.6 mg/dL since the episode of acute kidney injury in May 2022. At that time serum creatinine had peaked at 4.1 mg/dL. Patient had been on vancomycin at that time. 3. Metabolic acidosis secondary to acute kidney injury and obstructive uropathy 4. Anemia rule out iron deficiency 5. Chronic A. fib with controlled ventricular response 6. Right foot wound currently dressed, being followed by ID Plan: Continue with Graham catheter Repeat labs in a.m. Continue with IV fluids IV iron Avoid any nephrotoxic agents. Serologies negative for any other underlying GN
[2022-08-16 11:10] LABS: INR 1.4 (<1.2); Prothrombin Time 14.5 sec (9.0-12.0)
--- NOTE | 2022-08-16 11:12 | P.PN ---
Subjective Progress Note Date: 08/16/22 Principal diagnosis: Right second toe amputation site wound infection Patient is a 71-year-old male was recently admitted to this facility and the patient did have a right second toe diabetic foot infection in this patient was status post amputation of his right second toe on 06/29/2022 , patient presented to the hospital with worsening renal failure and the patient w as noticed to have some purulent drainage from his right second toe amputation site wound which is currently not healed On today's evaluation that is 08/16/2022, the patient continues to be afebrile, the patient is breathing comfortably on room air, the patient denies chest pain shortness of breath or cough no abdominal pain, patient did complain of worsening pain to the right second toe amputation site wound and noticed to have slight discoloration of his right big toe Objective - Vital Signs Vital signs: Vital Signs Temp 98.5 F 08/16/22 09:14 Pulse 102 H 08/16/22 09:14 Resp 18 08/16/22 09:14 BP 111/55 08/16/22 09:14 Pulse Ox 92 L 08/16/22 09:14 FiO2 Intake & Output 08/15/22 08/16/22 08/16/22 18:59 06:59 18:59 Intake Total 1592 180 Output Total 1200 1000 Balance 392 -1000 180 Intake: Intake, IV Titration 550 Amount Sodium Chloride 0.9% 1, 450 000 ml @ 75 mls/hr IV . [id number] [facility] Rx#:[id number] Sodium Ferric Gluconat- 100 Sucrose 125 mg In Sodium Chloride 0.9% 100 ml @ 100 mls/hr IVPB DAILY [facility] Rx#:[id number] Oral 1042 180 Output: Urine 1200 1000 Other: Voiding Method Indwelling Catheter Indwelling Catheter Indwelling Catheter - Exam GENERAL DESCRIPTION: An elderly male lying in bed in no distress RESPIRATORY SYSTEM: Unlabored breathing , decreased breath sounds at bases HEART: S1 S2 regular rate and rhythm , ABDOMEN: Soft , no tenderness EXTREMITIES: Right second toe amputation site wound base with minimal drainage she did have slight discoloration of his right big toe - Labs CBC & Chem 7: 08/16/22 10:26 08/15/22 07:30 Labs: Abnormal Lab Results - Last 24 Hours (Table) 08/15/22 08/15/22 08/16/22 Range/Units 16:44 20:46 10:26 RBC 2.19 L (4.30-5.90) m/uL Hgb 7.0 L (13.0-17.5) gm/dL Hct 21.4 L (39.0-53.0) % RDW 16.5 H (11.5-15.5) % POC Glucose (mg/dL) 126 H 136 H (70-110) mg/dL Microbiology - Last 24 Hours (Table) 08/13/22 15:00 Gram Stain - Preliminary Foot - Right Wound Culture - Preliminary Proteus penneri Strep agalactiae - (group b) Presumptive Staph aureus 08/12/22 18:35 Blood Culture - Preliminary Blood No Growth after 72 hours 08/12/22 18:50 Blood Culture - Preliminary Blood No Growth after 72 hours Assessment and Plan (1) Diabetic foot infection Current Visit: Yes Status: Acute Code(s): E11.628 - TYPE 2 DIABETES MELLITUS WITH OTHER SKIN COMPLICATIONS; L08.9 - LOCAL INFECTION OF THE SKIN AND SUBCUTANEOUS TISSUE, UNSP SNOMED Code(s): 761434127 Plan: 1patient with right second toe diabetic foot infection in this patient who is status post amputation of the right second toe culture that time was positive for MRSA patient did present to the hospital with acute renal failure patient did have purulent drainage to the right second toe amputation site and some surrounding cellulitis. 2local culture growing Proteus, group B strep and is also showing presumptive staph aureus question of MRSA. 3local wound care with a dry Aquacel silver dressing change daily 4patient to continue with cefepime and Flagyl, however will add daptomycin to cover for the presumptive MRSA while waiting for the ID sensitivity 5consult vascular surgery for discoloration of his right big toe Time with Patient: Less than 30
[2022-08-16 11:15] LABS: Albumin 3.2 g/dL (3.5-5.0); Potassium 3.9 mmol/L (3.5-5.1); Total Bilirubin 0.9 mg/dL (0.2-1.3); Total Protein 5.5 g/dL (6.3-8.2)
[2022-08-16 11:34] LABS: Glucose,Whole Blood 219 mg/dL (70-110)
--- NOTE | 2022-08-16 12:33 | P.PN ---
Subjective Progress Note Date: 08/16/22 Pepe Waters, is a 71-year-old male patient who presented he ER with concerns of acute on kidney disease with worsening kidney status. Patient has a history of recent second toe amputation approximately 6 weeks ago. Additional medical history includes atrial fibrillation, diabetes mellitus, MRSA, depression and joint replacement. CT of abdomen and pelvis completed showing no evidence of obstructive uropathy there are bilateral nonobstructing renal calculi versus medullary calcifications present. And determinate left renal lesion, not nodule contour to liver correlate for cirrhosis, correlate lithiasis, cardiomegaly with bilateral trace pleural effusions correlate for volume overload with serum BNP. Creatinine elevated at 7.50 and bun 72. Hemoglobin is low at 7.2. At this time nephrology and urology service is consulted. Dr. Dia consulted for infectious disease chronic lower extremity wound. Iron studies ordered. Home meds resumed pharmacy to dose Coumadin for atrial fibrillation. Graham catheter remains in place. This time patient denies chest pain or shortness breath. Patient denies nausea vomiting or diarrhea. Patient denies any urinary burning or frequency. On 08/14/2022 patient was seen and examined on the medical floor he is alert and oriented 3 in no apparent distress he is complaining of pain in his right foot otherwise he denies any complaints there is no fever or chills no headache or dizziness no chest pain no shortness of breath no cough no nausea or vomiting no abdominal pain no diarrhea and no urinary symptoms. At this time patient is maintained on IV antibiotics, infectious disease are following, nephrology are following in regard to acute renal failure, today's INR was more than 10, patient received vitamin K 5 mg by mouth, his hemoglobin was down to 6.4 he is receiving 1 unit of red blood cell transfusion, will continue to follow closely. On 08/15/2022 patient is alert and oriented 3. INR today 1.8. Creatinine 6.7 and bun 65. Pharmacy to dose Coumadin. Patient remains on IV antibiotics per ID. Nephrology services are following. Patient still producing urine. Patient denies chest pain or shortness of breath. Patient denies nausea vomiting or diarrhea. Patient denies any urinary burning or frequency. On 08/16/2022 patient was seen and examined on the medical floor he is alert and oriented 3 in no apparent distress he is complaining of pain in his right foot otherwise he denies any complaints there is no fever or chills no headache or dizziness no chest pain no shortness of breath no cough no nausea or vomiting no abdominal pain no diarrhea and no urinary symptoms. Cr today 6.6 Objective - Vital Signs Vital signs: Vital Signs Temp 98.5 F 08/16/22 09:14 Pulse 102 H 08/16/22 09:14 Resp 18 08/16/22 09:14 BP 111/55 08/16/22 09:14 Pulse Ox 92 L 08/16/22 09:14 FiO2 Intake & Output 08/15/22 08/16/22 08/16/22 18:59 06:59 18:59 Intake Total 1592 180 Output Total 1200 1000 Balance 392 -1000 180 Intake: Intake, IV Titration 550 Amount Sodium Chloride 0.9% 1, 450 000 ml @ 75 mls/hr IV . [id number] [facility] Rx#:[id number] Sodium Ferric Gluconat- 100 Sucrose 125 mg In Sodium Chloride 0.9% 100 ml @ 100 mls/hr IVPB DAILY [facility] Rx#:[id number] Oral 1042 180 Output: Urine 1200 1000 Other: Voiding Method Indwelling Catheter Indwelling Catheter Indwelling Catheter - Exam Head normocephalic Neck supple Lungs clear to auscultation bilaterally no wheezing or crackles Heart regular rate and rhythm S1-S2, no rub or gallop Abdomen is soft nontender nondistended positive bowel sounds no hepatosplenomegaly Extremities no edema Neuro alert and orientated to 3 - Labs CBC & Chem 7: 08/16/22 10:26 08/16/22 10:26 Labs: Abnormal Lab Results - Last 24 Hours (Table) 08/15/22 08/15/22 08/16/22 Range/Units 16:44 20:46 10:26 RBC (4.30-5.90) m/uL Hgb (13.0-17.5) gm/dL Hct (39.0-53.0) % RDW (11.5-15.5) % PT 14.5 H (9.0-12.0) sec INR 1.4 H (<1.2) Sodium (137-145) mmol/L Carbon Dioxide (22-30) mmol/L BUN (9-20) mg/dL Creatinine (0.66-1.25) mg/dL Glucose (74-99) mg/dL POC Glucose (mg/dL) 126 H 136 H (70-110) mg/dL Calcium (8.4-10.2) mg/dL Total Protein (6.3-8.2) g/dL Albumin (3.5-5.0) g/dL 08/16/22 08/16/22 Range/Units 10:26 10:26 RBC 2.19 L (4.30-5.90) m/uL Hgb 7.0 L (13.0-17.5) gm/dL Hct 21.4 L (39.0-53.0) % RDW 16.5 H (11.5-15.5) % PT (9.0-12.0) sec INR (<1.2) Sodium 136 L (137-145) mmol/L Carbon Dioxide 17 L (22-30) mmol/L BUN 67 H (9-20) mg/dL Creatinine 6.60 H (0.66-1.25) mg/dL Glucose 165 H (74-99) mg/dL POC Glucose (mg/dL) (70-110) mg/dL Calcium 8.0 L (8.4-10.2) mg/dL Total Protein 5.5 L (6.3-8.2) g/dL Albumin 3.2 L (3.5-5.0) g/dL Microbiology - Last 24 Hours (Table) 08/13/22 15:00 Gram Stain - Preliminary Foot - Right Wound Culture - Preliminary Proteus penneri Strep agalactiae - (group b) Presumptive Staph aureus 08/12/22 18:35 Blood Culture - Preliminary Blood No Growth after 72 hours 08/12/22 18:50 Blood Culture - Preliminary Blood No Growth after 72 hours Assessment and Plan Assessment: 1. Acute on chronic kidney disease. Nephrology services consulted 2. Recent right toe amputation 3. History of diabetes mellitus 4. History of atrial fibrillation maintained on Coumadin 5. History of essential hypertension 6. History of gout 7. History of chronic back pain 8. Anemia iron studies ordered 9. Subtherapeutic INR. Corrected. Pharmacy to dose Coumadin 10. Cellulitis. Infectious disease service is following DVT prophylaxis Coumadin. GI prophylaxis Protonix Nephrology, urology and infectious disease service consulted Repeat labs ordered
[2022-08-16] MEDS ORDERED: DAPTOmycin 500 MG in SODIUM CHLORIDE 0.9% 50 ML IVPB SCH (13:00)
--- NOTE | 2022-08-16 13:19 | P.GSCN ---
History of Present Illness History of present illness: 71-year-old diabetic male Aimee known to me from the past patient came with the right foot wet gangrene we did that amputation right foot second toe he was following in the wound clinic patient has been admitted and renal failure his creatinine is 6.87 and a care of for nephrology. I was consulted his a right foot big toe plantar aspect has a gangrene changes the right big toe is cold and cyanotic cyanotic the wound of the stump has very minimal drainage we been using treating with Aquacel silver. This patient has a history of trauma to the right lower extremity in the past he he has fracture of the tibia-fibula with around the endplates placed in the past Patient was seen in his room is oriented time and place neck is supple no bruit appreciated Chest is clear good and both lungs first and second sound present Abdomen soft nontender Vascular femorals are 2+ bilateral right foot ulcer pedis has a biphasic signal and posterior tibial has a monophasic signal right big toe is cyanotic and cold and ischemic changes noted on the plantar aspect Plan is continue with the local wound care using silver right big toe ischemic changes we will discuss for nephrology week and do a right leg angiogram to evaluate further we'll follow with you prognosis is guarded dressing change today with Aquacel silver and this should be changed every 48 hours Past Medical History Past Medical History: Atrial Fibrillation, Diabetes Mellitus Additional Past Medical History / Comment(s): . History of Any Multi-Drug Resistant Organisms: MRSA Year Discovered:: 06/29/22 MDRO Source:: Toe Right Second Past Surgical History: Joint Replacement, Orthopedic Surgery Additional Past Surgical History / Comment(s): right foot/leg surgery and madalyn placement related to crushing injury. Past Anesthesia/Blood Transfusion Reactions: No Reported Reaction Past Psychological History: Depression Smoking Status: Former smoker Past Alcohol Use History: None Reported Past Drug Use History: None Reported Medications and Allergies Home Medications Medication Instructions Recorded Confirmed Type HYDROcodone/APAP 10-325MG [[place] 1 tab PO Q6H PRN 06/30/19 08/12/22 History 10-325] allopurinoL [Zyloprim] 300 mg PO DAILY 06/30/19 08/12/22 History amLODIPine BESYLATE [Norvasc] 5 mg PO DAILY 06/30/19 08/12/22 History Warfarin [Coumadin] 7.5 mg PO DAILY 06/26/22 08/12/22 History Collagenase [Santyl Ointment] 1 applic TOPICAL DAILY 08/12/22 08/12/22 History Allergies Allergy/AdvReac Type Severity Reaction Status Date / Time No Known Allergies Allergy Verified 08/12/22 21:40 Surgical - Exam Vital Signs Temp Pulse Resp BP Pulse Ox 97.7 F 100 20 123/72 98 08/12/22 17:04 08/12/22 17:04 08/12/22 17:04 08/12/22 17:04 08/12/22 17:04 Results - Labs 08/16/22 10:26 08/16/22 10:26 Abnormal Lab Results - Last 24 Hours (Table) 08/15/22 08/15/22 08/16/22 Range/Units 16:44 20:46 10:26 RBC (4.30-5.90) m/uL Hgb (13.0-17.5) gm/dL Hct (39.0-53.0) % RDW (11.5-15.5) % PT 14.5 H (9.0-12.0) sec INR 1.4 H (<1.2) Sodium (137-145) mmol/L Carbon Dioxide (22-30) mmol/L BUN (9-20) mg/dL Creatinine (0.66-1.25) mg/dL Glucose (74-99) mg/dL POC Glucose (mg/dL) 126 H 136 H (70-110) mg/dL Calcium (8.4-10.2) mg/dL Total Protein (6.3-8.2) g/dL Albumin (3.5-5.0) g/dL 08/16/22 08/16/22 08/16/22 Range/Units 10:26 10:26 11:33 RBC 2.19 L (4.30-5.90) m/uL Hgb 7.0 L (13.0-17.5) gm/dL Hct 21.4 L (39.0-53.0) % RDW 16.5 H (11.5-15.5) % PT (9.0-12.0) sec INR (<1.2) Sodium 136 L (137-145) mmol/L Carbon Dioxide 17 L (22-30) mmol/L BUN 67 H (9-20) mg/dL Creatinine 6.60 H (0.66-1.25) mg/dL Glucose 165 H (74-99) mg/dL POC Glucose (mg/dL) 219 H (70-110) mg/dL Calcium 8.0 L (8.4-10.2) mg/dL Total Protein 5.5 L (6.3-8.2) g/dL Albumin 3.2 L (3.5-5.0) g/dL Microbiology - Last 24 Hours (Table) 08/13/22 15:00 Gram Stain - Preliminary Foot - Right Wound Culture - Preliminary Proteus penneri Strep agalactiae - (group b) Presumptive Staph aureus 08/12/22 18:35 Blood Culture - Preliminary Blood No Growth after 72 hours 08/12/22 18:50 Blood Culture - Preliminary Blood No Growth after 72 hours Diabetes panel 08/16/22 Range/Units 10:26 Sodium 136 L (137-145) mmol/L Potassium 3.9 (3.5-5.1) mmol/L Chloride 106 (98-107) mmol/L Carbon Dioxide 17 L (22-30) mmol/L BUN 67 H (9-20) mg/dL Creatinine 6.60 H (0.66-1.25) mg/dL Glucose 165 H (74-99) mg/dL Calcium 8.0 L (8.4-10.2) mg/dL AST 23 (17-59) U/L ALT 14 (4-49) U/L Alkaline Phosphatase 92 (38-126) U/L Total Protein 5.5 L (6.3-8.2) g/dL Albumin 3.2 L (3.5-5.0) g/dL Calcium panel 08/16/22 Range/Units 10:26 Calcium 8.0 L (8.4-10.2) mg/dL Albumin 3.2 L (3.5-5.0) g/dL Pituitary panel 08/16/22 Range/Units 10:26 Sodium 136 L (137-145) mmol/L Potassium 3.9 (3.5-5.1) mmol/L Chloride 106 (98-107) mmol/L Carbon Dioxide 17 L (22-30) mmol/L BUN 67 H (9-20) mg/dL Creatinine 6.60 H (0.66-1.25) mg/dL Glucose 165 H (74-99) mg/dL Calcium 8.0 L (8.4-10.2) mg/dL Adrenal panel 08/16/22 Range/Units 10:26 Sodium 136 L (137-145) mmol/L Potassium 3.9 (3.5-5.1) mmol/L Chloride 106 (98-107) mmol/L Carbon Dioxide 17 L (22-30) mmol/L BUN 67 H (9-20) mg/dL Creatinine 6.60 H (0.66-1.25) mg/dL Glucose 165 H (74-99) mg/dL Calcium 8.0 L (8.4-10.2) mg/dL Total Bilirubin 0.9 (0.2-1.3) mg/dL AST 23 (17-59) U/L ALT 14 (4-49) U/L Alkaline Phosphatase 92 (38-126) U/L Total Protein 5.5 L (6.3-8.2) g/dL Albumin 3.2 L (3.5-5.0) g/dL
[2022-08-16 16:35] LABS: Glucose,Whole Blood 123 mg/dL (70-110)
[2022-08-16] MEDS ORDERED: WARFARIN 5 MG TAB PO ONE (18:00)
[2022-08-16 20:03] LABS: Glucose,Whole Blood 112 mg/dL (70-110)
[2022-08-16] MEDS: CEFEPIME 1 GM in SODIUM CHLORIDE 0.9% 50 ML IVPB SCH (20:11)
[2022-08-17 06:06] LABS: Glucose,Whole Blood 101 mg/dL (70-110)
[2022-08-17] MEDS: INSULIN ASPART (NovoLOG) 100 UNIT/ML VIAL SQ SCH ×4 (06:18→21:30)
[2022-08-17] MEDS: PANTOPRAZOLE 40 MG TABLET PO SCH (06:19)
[2022-08-17] MEDS: COLLAGENASE 250 UNIT/GM OINTMENT 30 GM TUBE TOPICAL SCH (08:20)
[2022-08-17] MEDS: metroNIDAZOLE 500 MG TAB PO SCH ×3 (08:31→21:30)
[2022-08-17] MEDS: amLODIPine 5 MG TAB PO SCH (08:31)
[2022-08-17] MEDS: allopurinoL 300 MG TAB PO SCH (08:31)
[2022-08-17] MEDS: HYDROcodone/APAP 10-325MG 1 EACH TAB PO PRN ×2 (08:31→17:58)
--- NOTE | 2022-08-17 09:54 | P.PN ---
Subjective Progress Note Date: 08/17/22 Pepe Waters, is a 71-year-old male patient who presented he ER with concerns of acute on kidney disease with worsening kidney status. Patient has a history of recent second toe amputation approximately 6 weeks ago. Additional medical history includes atrial fibrillation, diabetes mellitus, MRSA, depression and joint replacement. CT of abdomen and pelvis completed showing no evidence of obstructive uropathy there are bilateral nonobstructing renal calculi versus medullary calcifications present. And determinate left renal lesion, not nodule contour to liver correlate for cirrhosis, correlate lithiasis, cardiomegaly with bilateral trace pleural effusions correlate for volume overload with serum BNP. Creatinine elevated at 7.50 and bun 72. Hemoglobin is low at 7.2. At this time nephrology and urology service is consulted. Dr. Dia consulted for infectious disease chronic lower extremity wound. Iron studies ordered. Home meds resumed pharmacy to dose Coumadin for atrial fibrillation. Graham catheter remains in place. This time patient denies chest pain or shortness breath. Patient denies nausea vomiting or diarrhea. Patient denies any urinary burning or frequency. On 08/14/2022 patient was seen and examined on the medical floor he is alert and oriented 3 in no apparent distress he is complaining of pain in his right foot otherwise he denies any complaints there is no fever or chills no headache or dizziness no chest pain no shortness of breath no cough no nausea or vomiting no abdominal pain no diarrhea and no urinary symptoms. At this time patient is maintained on IV antibiotics, infectious disease are following, nephrology are following in regard to acute renal failure, today's INR was more than 10, patient received vitamin K 5 mg by mouth, his hemoglobin was down to 6.4 he is receiving 1 unit of red blood cell transfusion, will continue to follow closely. On 08/15/2022 patient is alert and oriented 3. INR today 1.8. Creatinine 6.7 and bun 65. Pharmacy to dose Coumadin. Patient remains on IV antibiotics per ID. Nephrology services are following. Patient still producing urine. Patient denies chest pain or shortness of breath. Patient denies nausea vomiting or diarrhea. Patient denies any urinary burning or frequency. On 08/16/2022 patient was seen and examined on the medical floor he is alert and oriented 3 in no apparent distress he is complaining of pain in his right foot otherwise he denies any complaints there is no fever or chills no headache or dizziness no chest pain no shortness of breath no cough no nausea or vomiting no abdominal pain no diarrhea and no urinary symptoms. Cr today 6.6 On 08/17/2022 patient is alert and oriented times patient denies any chest pain or shortness breath. Patient denies nausea vomiting or diarrhea. Patient denies any urinary burning or frequency. Awaiting lab work for today. Dr. Barton consulted and recommendations made for wound care to feet. Current vitals signs temp 98.4, heart rate 74, respiratory rate 18, blood pressure 1949 with a pulse ox 95% on room air Objective - Vital Signs Vital signs: Vital Signs Temp 98.4 F 08/17/22 08:26 Pulse 74 08/17/22 08:26 Resp 18 08/17/22 08:26 BP 124/58 08/17/22 08:26 Pulse Ox 95 08/17/22 08:26 FiO2 Intake & Output 08/16/22 08/17/22 08/17/22 18:59 06:59 18:59 Intake Total 850 590 Output Total 1600 1875 450 Balance -750 -1875 140 Intake: IV 20 Invasive Line 1 10 Invasive Line 2 10 Oral 850 570 Output: Urine 1600 1875 450 Uretheral (Graham) 425 425 450 Other: Voiding Method Indwelling Catheter Indwelling Catheter Indwelling Catheter - Exam Head normocephalic Neck supple Lungs clear to auscultation bilaterally no wheezing or crackles Heart regular rate and rhythm S1-S2, no rub or gallop Abdomen is soft nontender nondistended positive bowel sounds no hepatosplenomegaly Extremities no edema Neuro alert and orientated to 3 - Labs CBC & Chem 7: 08/16/22 10:26 08/16/22 10:26 Labs: Abnormal Lab Results - Last 24 Hours (Table) 08/16/22 08/16/22 08/16/22 Range/Units 10:26 10:26 10:26 RBC 2.19 L (4.30-5.90) m/uL Hgb 7.0 L (13.0-17.5) gm/dL Hct 21.4 L (39.0-53.0) % RDW 16.5 H (11.5-15.5) % PT 14.5 H (9.0-12.0) sec INR 1.4 H (<1.2) Sodium 136 L (137-145) mmol/L Carbon Dioxide 17 L (22-30) mmol/L BUN 67 H (9-20) mg/dL Creatinine 6.60 H (0.66-1.25) mg/dL Glucose 165 H (74-99) mg/dL POC Glucose (mg/dL) (70-110) mg/dL Calcium 8.0 L (8.4-10.2) mg/dL Total Protein 5.5 L (6.3-8.2) g/dL Albumin 3.2 L (3.5-5.0) g/dL 08/16/22 08/16/22 08/16/22 Range/Units 11:33 16:34 20:02 RBC (4.30-5.90) m/uL Hgb (13.0-17.5) gm/dL Hct (39.0-53.0) % RDW (11.5-15.5) % PT (9.0-12.0) sec INR (<1.2) Sodium (137-145) mmol/L Carbon Dioxide (22-30) mmol/L BUN (9-20) mg/dL Creatinine (0.66-1.25) mg/dL Glucose (74-99) mg/dL POC Glucose (mg/dL) 219 H 123 H 112 H (70-110) mg/dL Calcium (8.4-10.2) mg/dL Total Protein (6.3-8.2) g/dL Albumin (3.5-5.0) g/dL Microbiology - Last 24 Hours (Table) 08/13/22 15:00 Gram Stain - Final Foot - Right Wound Culture - Final Proteus penneri Strep agalactiae - (group b) Staphylococcus aureus 08/12/22 18:35 Blood Culture - Preliminary Blood No Growth after 96 hours 08/12/22 18:50 Blood Culture - Preliminary Blood No Growth after 96 hours Assessment and Plan Assessment: 1. Acute on chronic kidney disease. Nephrology services consulted 2. Recent right toe amputation 3. History of diabetes mellitus 4. History of atrial fibrillation maintained on Coumadin 5. History of essential hypertension 6. History of gout 7. History of chronic back pain 8. Anemia iron studies ordered 9. Subtherapeutic INR. Corrected. Pharmacy to dose Coumadin 10. Cellulitis. Infectious disease service is following DVT prophylaxis Coumadin. GI prophylaxis Protonix Nephrology, urology and infectious disease service consulted Repeat labs ordered
[2022-08-17 11:35] LABS: Glucose,Whole Blood 157 mg/dL (70-110)
[2022-08-17] MEDS: SODIUM CHLORIDE 0.9% 1,000 ML IV SCH (11:48)
[2022-08-17 11:56] LABS: Anisocytosis Slight; Basophils % (A) 0 %; Eosinophils # (A) 0.3 k/uL (0-0.7); Eosinophils % (A) 5 %; HCT 21.9 % (39.0-53.0); HGB 7.1 gm/dL (13.0-17.5); Lymphocytes # (A) 1.1 k/uL (1.0-4.8); Lymphocytes % (A) 17 %; MCH 31.7 pg (25.0-35.0); MCHC 32.3 g/dL (31.0-37.0); Macrocytosis Slight; Mean Platelet Volume 8.7; Monocytes # (A) 0.4 k/uL (0-1.0); Monocytes % (A) 6 %; Neutrophils # (A) 4.4 k/uL (1.3-7.7); Neutrophils % (A) 69 %; Platelet Count 156 k/uL (150-450); RBC 2.23 m/uL (4.30-5.90); RDW 16.3 % (11.5-15.5); WBC 6.4 k/uL (3.8-10.6)
[2022-08-17 12:01] LABS: INR 1.5 (<1.2); Prothrombin Time 15.4 sec (9.0-12.0)
[2022-08-17 12:09] LABS: Albumin 3.2 g/dL (3.5-5.0); Calcium 7.8 mg/dL (8.4-10.2); Potassium 3.7 mmol/L (3.5-5.1); Total Bilirubin 0.8 mg/dL (0.2-1.3); Total Protein 5.4 g/dL (6.3-8.2)
[2022-08-17 16:45] LABS: Glucose,Whole Blood 125 mg/dL (70-110)
[2022-08-17] MEDS ORDERED: WARFARIN 5 MG TAB PO ONE (18:00)
[2022-08-17 20:10] LABS: Glucose,Whole Blood 193 mg/dL (70-110)
--- NOTE | 2022-08-17 21:20 | P.PN ---
Subjective Progress Note Date: 08/17/22 Principal diagnosis: Right second toe amputation site wound infection Patient is a 71-year-old male was recently admitted to this facility and the patient did have a right second toe diabetic foot infection in this patient was status post amputation of his right second toe on 06/29/2022 , patient presented to the hospital with worsening renal failure and the patient w as noticed to have some purulent drainage from his right second toe amputation site wound which is currently not healed On today's evaluation that is 08/17/2022, the patient remains to be afebrile, th e patient is breathing comfortably on room air, the patient denies chest pain shortness of breath or cough no abdominal pain, patient pain to the right second toe amputation site wound has slightly decreased in intensity Objective - Vital Signs Vital signs: Vital Signs Temp 98.3 F 08/17/22 11:46 Pulse 85 08/17/22 11:46 Resp 18 08/17/22 11:46 BP 112/59 08/17/22 11:46 Pulse Ox 93 L 08/17/22 11:46 FiO2 Intake & Output 08/16/22 08/17/22 08/17/22 18:59 06:59 18:59 Intake Total 850 708 Output Total 1600 1875 725 Balance -750 -1875 -17 Intake: IV 20 Invasive Line 1 10 Invasive Line 2 10 Oral 850 688 Output: Urine 1600 1875 725 Uretheral (Graham) 425 425 725 Other: Voiding Method Indwelling Catheter Indwelling Catheter Indwelling Catheter - Exam GENERAL DESCRIPTION: An elderly male lying in bed in no distress RESPIRATORY SYSTEM: Unlabored breathing , decreased breath sounds at bases HEART: S1 S2 regular rate and rhythm , ABDOMEN: Soft , no tenderness EXTREMITIES: Right second toe amputation site wound base with minimal drainage , did have minimal discoloration of his right big toe - Labs CBC & Chem 7: 08/17/22 11:09 08/17/22 11:09 Labs: Abnormal Lab Results - Last 24 Hours (Table) 08/16/22 08/16/22 08/17/22 Range/Units 16:34 20:02 11:09 RBC (4.30-5.90) m/uL Hgb (13.0-17.5) gm/dL Hct (39.0-53.0) % RDW (11.5-15.5) % PT 15.4 H (9.0-12.0) sec INR 1.5 H (<1.2) Sodium (137-145) mmol/L Carbon Dioxide (22-30) mmol/L BUN (9-20) mg/dL Creatinine (0.66-1.25) mg/dL Glucose (74-99) mg/dL POC Glucose (mg/dL) 123 H 112 H (70-110) mg/dL Calcium (8.4-10.2) mg/dL Total Protein (6.3-8.2) g/dL Albumin (3.5-5.0) g/dL 08/17/22 08/17/22 08/17/22 Range/Units 11:09 11:09 11:34 RBC 2.23 L (4.30-5.90) m/uL Hgb 7.1 L (13.0-17.5) gm/dL Hct 21.9 L (39.0-53.0) % RDW 16.3 H (11.5-15.5) % PT (9.0-12.0) sec INR (<1.2) Sodium 134 L (137-145) mmol/L Carbon Dioxide 17 L (22-30) mmol/L BUN 65 H (9-20) mg/dL Creatinine 6.51 H (0.66-1.25) mg/dL Glucose 144 H (74-99) mg/dL POC Glucose (mg/dL) 157 H (70-110) mg/dL Calcium 7.8 L (8.4-10.2) mg/dL Total Protein 5.4 L (6.3-8.2) g/dL Albumin 3.2 L (3.5-5.0) g/dL Microbiology - Last 24 Hours (Table) 08/13/22 15:00 Gram Stain - Final Foot - Right Wound Culture - Final Proteus penneri Strep agalactiae - (group b) Staphylococcus aureus 08/12/22 18:35 Blood Culture - Preliminary Blood No Growth after 96 hours 08/12/22 18:50 Blood Culture - Preliminary Blood No Growth after 96 hours Assessment and Plan (1) Diabetic foot infection Current Visit: Yes Status: Acute Code(s): E11.628 - TYPE 2 DIABETES MELLITUS WITH OTHER SKIN COMPLICATIONS; L08.9 - LOCAL INFECTION OF THE SKIN AND SUBCUTA NEOUS TISSUE, UNSP SNOMED Code(s): 837780383 Plan: 1patient with right second toe diabetic foot infection in this patient who is status post amputation of the right second toe culture that time was positive for MRSA patient did present to the hospital with acute renal failure patient did have purulent drainage to the right second toe amputation site and some surrounding cellulitis. 2local culture growing Proteus, group B strep and is also showing presumptive staph aureus question of MRSA. 3local wound care with a dry Aquacel silver dressing change daily 4patient to continue with cefepime and Flagyl, we will discontinue daptomycin a s culture finalized with MSSA and not MRSA 5patient has been evaluated by vascular surgery for discoloration of his right big toe and planning for angiogram Time with Patient: Less than 30
[2022-08-17] MEDS: CEFEPIME 1 GM in SODIUM CHLORIDE 0.9% 50 ML IVPB SCH (21:30)
[2022-08-18] MEDS: SODIUM CHLORIDE 0.9% 1,000 ML IV SCH ×2 (05:49→06:44)
[2022-08-18 06:20] LABS: Glucose,Whole Blood 106 mg/dL (70-110)
[2022-08-18] MEDS: INSULIN ASPART (NovoLOG) 100 UNIT/ML VIAL SQ SCH ×4 (06:43→22:12)
[2022-08-18] MEDS: HYDROcodone/APAP 10-325MG 1 EACH TAB PO PRN ×2 (06:46→20:03)
[2022-08-18] MEDS: PANTOPRAZOLE 40 MG TABLET PO SCH (06:46)
[2022-08-18 07:51] LABS: Basophils % (A) 0 %; Eosinophils # (A) 0.3 k/uL (0-0.7); Eosinophils % (A) 5 %; HCT 21.9 % (39.0-53.0); HGB 7.3 gm/dL (13.0-17.5); Hypochromasia Slight; Lymphocytes % (A) 16 %; MCH 32.7 pg (25.0-35.0); MCHC 33.4 g/dL (31.0-37.0); Macrocytosis Slight; Mean Platelet Volume 8.1; Monocytes # (A) 0.3 k/uL (0-1.0); Monocytes % (A) 5 %; Neutrophils # (A) 4.3 k/uL (1.3-7.7); Neutrophils % (A) 71 %; Platelet Count 184 k/uL (150-450); RBC 2.24 m/uL (4.30-5.90); RDW 15.8 % (11.5-15.5); WBC 6.1 k/uL (3.8-10.6)
[2022-08-18 07:59] LABS: INR 1.6 (<1.2); Prothrombin Time 15.6 sec (9.0-12.0)
[2022-08-18 08:05] LABS: Albumin 3.2 g/dL (3.5-5.0); Potassium 3.8 mmol/L (3.5-5.1); Total Bilirubin 0.8 mg/dL (0.2-1.3); Total Protein 5.5 g/dL (6.3-8.2)
[2022-08-18] MEDS: allopurinoL 300 MG TAB PO SCH (08:44)
[2022-08-18] MEDS: metroNIDAZOLE 500 MG TAB PO SCH ×3 (08:44→20:04)
[2022-08-18] MEDS: amLODIPine 5 MG TAB PO SCH (08:44)
[2022-08-18] MEDS: COLLAGENASE 250 UNIT/GM OINTMENT 30 GM TUBE TOPICAL SCH (08:46)
--- NOTE | 2022-08-18 11:28 | P.PN ---
Progress Note - Text Progress Note Date: 08/18/22 Mr. Waters is serum creatinine level remains stable at 6.30. Ultrasound suggests that the 3.3 cm left renal posterolateral midupper pole lesion is solid. I explained to him that most solid renal lesions are malignant in nature. I do not recommend any intervention at this time, as his renal failure is of primary importance. Ultimately, treatment options include a robotic-assisted laparoscopic partial nephrectomy versus percutaneous biopsy and cryosurgery. I would favor the latter as it is less invasive. I would suggest that the Graham catheter remain in place until his renal function improves, at which time he may be given a voiding trial.
--- NOTE | 2022-08-18 11:50 | P.PN ---
Subjective Patient is seen for follow-up for acute kidney injury mostly obstructive uropathy. He is maintained on IV fluids and has an indwelling Graham catheter. Serum creatinine has not improved much and still staying at about 6.3 today. All serologies are negative. No evidence of hydronephrosis noted on CT abdomen and pelvis. Patient is being followed by urology for left renal lesion about 3.3 cm which will need further evaluation as outpatient. Patient remains with Graham catheter with urine output documented at 3.5 L for 24 hours. No active bleeding noted Hemoglobin at 7.3 g/dL today. Seen by vascular surgery regarding right foot wound at the site of previous right second toe amputation which was performed on 06/29/2022. Maintained on cefepime. Objective - Vital Signs Vital signs: Vital Signs Temp 99.1 F 08/18/22 08:00 Pulse 99 08/18/22 08:00 Resp 16 08/18/22 08:00 BP 115/55 08/18/22 08:00 Pulse Ox 94 L 08/18/22 08:00 FiO2 Intake & Output 08/17/22 08/18/22 08/18/22 18:59 06:59 18:59 Intake Total 1398 118 Output Total 2075 1500 Balance -677 -1500 118 Intake: IV 40 Invasive Line 1 10 Invasive Line 2 20 Invasive Line 3 10 Oral 1358 118 Output: Urine 2075 1500 Uretheral (Graham) 1400 Other: Voiding Method Indwelling Catheter Indwelling Catheter Indwelling Catheter - Exam Patient is awake, comfortable, no acute distress Examination of the heart S1 and S2 Examination of the lungs bilateral breath sounds are heard Abdomen is soft nontender Examination of lower extremities shows no significant edema. Right foot is currently dressed some drainage noted in the dressing. 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 - Labs CBC & Chem 7: 08/18/22 06:13 08/18/22 06:13 Labs: Abnormal Lab Results - Last 24 Hours (Table) 08/17/22 08/17/22 08/17/22 Range/Units 11:09 11:09 11:09 RBC 2.23 L (4.30-5.90) m/uL Hgb 7.1 L (13.0-17.5) gm/dL Hct 21.9 L (39.0-53.0) % RDW 16.3 H (11.5-15.5) % PT 15.4 H (9.0-12.0) sec INR 1.5 H (<1.2) Sodium 134 L (137-145) mmol/L Carbon Dioxide 17 L (22-30) mmol/L BUN 65 H (9-20) mg/dL Creatinine 6.51 H (0.66-1.25) mg/dL Glucose 144 H (74-99) mg/dL POC Glucose (mg/dL) (70-110) mg/dL Calcium 7.8 L (8.4-10.2) mg/dL Total Protein 5.4 L (6.3-8.2) g/dL Albumin 3.2 L (3.5-5.0) g/dL 08/17/22 08/17/22 08/18/22 Range/Units 16:44 20:09 06:13 RBC (4.30-5.90) m/uL Hgb (13.0-17.5) gm/dL Hct (39.0-53.0) % RDW (11.5-15.5) % PT 15.6 H (9.0-12.0) sec INR 1.6 H (<1.2) Sodium (137-145) mmol/L Carbon Dioxide (22-30) mmol/L BUN (9-20) mg/dL Creatinine (0.66-1.25) mg/dL Glucose (74-99) mg/dL POC Glucose (mg/dL) 125 H 193 H (70-110) mg/dL Calcium (8.4-10.2) mg/dL Total Protein (6.3-8.2) g/dL Albumin (3.5-5.0) g/dL 08/18/22 08/18/22 Range/Units 06:13 06:13 RBC 2.24 L (4.30-5.90) m/uL Hgb 7.3 L (13.0-17.5) gm/dL Hct 21.9 L (39.0-53.0) % RDW 15.8 H (11.5-15.5) % PT (9.0-12.0) sec INR (<1.2) Sodium 135 L (137-145) mmol/L Carbon Dioxide 20 L (22-30) mmol/L BUN 62 H (9-20) mg/dL Creatinine 6.30 H (0.66-1.25) mg/dL Glucose (74-99) mg/dL POC Glucose (mg/dL) (70-110) mg/dL Calcium 8.0 L (8.4-10.2) mg/dL Total Protein 5.5 L (6.3-8.2) g/dL Albumin 3.2 L (3.5-5.0) g/dL Microbiology - Last 24 Hours (Table) 08/12/22 18:35 Blood Culture - Preliminary Blood No Growth after 120 hours 08/12/22 18:50 Blood Culture - Preliminary Blood No Growth after 120 hours 08/13/22 15:00 Gram Stain - Final Foot - Right Wound Culture - Final Proteus penneri Strep agalactiae - (group b) Staphylococcus aureus Assessment and Plan Assessment: 1. Acute kidney injury obstructive uropathy and possible component of ATN as well. Currently nonoliguric and with indwelling Graham catheter. 800 mL of urine was obtained when Graham catheter was first placed. CT of the abdomen and pelvis does not show gross hydronephrosis. UA shows 2+ protein and small blood. Renal function not improving much. Serologies negative for any other un derlying GN. Consider kidney biopsy. 2. Chronic kidney disease with serum creatinine staying at about 1.6 mg/dL since the episode of acute kidney injury in May 2022. At that time serum creatinine had peaked at 4.1 mg/dL. Patient had been on vancomycin at that time. 3. Metabolic acidosis secondary to acute kidney injury and obstructive uropathy 4. Anemia rule out iron deficiency 5. Chronic A. fib with controlled ventricular response 6. Right foot wound currently dressed, being followed by ID 7. Left renal lesion about 3.3 cm, for further evaluation down the road as outpatient. Patient has been evaluated by urology. Plan: Continue with Graham catheter Repeat labs in a.m. Continue with IV fluids Will try to obtain kidney biopsy
[2022-08-18] MEDS ORDERED: SODIUM CHLORIDE 0.9% IV ONE (12:00)
[2022-08-18] MEDS ORDERED: DESMOPRESSIN ACETATE IV ONE (12:00)
[2022-08-18 12:06] LABS: Glucose,Whole Blood 125 mg/dL (70-110)
--- NOTE | 2022-08-18 12:55 | P.PN ---
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 Carri vivas partial nephrectomy today we have changed the dressing the stump site is clean and no discharge noted the big toe color is improving there is a scab at the plantar aspect at base of the big toe no fluctuation noted we will continue with Aquacel silver he which change every 48 hours we will watch changes to the big toe at this point color has improving is a should be changed every 48 hours
[2022-08-18] MEDS ORDERED: DAPTOmycin 500 MG in SODIUM CHLORIDE 0.9% 50 ML IVPB SCH (13:00)
[2022-08-18 13:01] LABS: Anti-Glomerular Basement Memb 2 UNITS (0-20)
[2022-08-18 14:25] LABS: C-ANCA <1:20 Titer (<1:20)
[2022-08-18 16:50] LABS: Glucose,Whole Blood 128 mg/dL (70-110)
[2022-08-18] MEDS ORDERED: DESMOPRESSIN ACETATE IV PRN (17:02)
[2022-08-18] MEDS ORDERED: SODIUM CHLORIDE 0.9% IV PRN (17:02)
[2022-08-18] MEDS ORDERED: WARFARIN 3 MG TAB PO ONE (18:00)
--- NOTE | 2022-08-18 18:03 | P.PN ---
Subjective Progress Note Date: 08/18/22 Pepe Waters, is a 71-year-old male patient who presented he ER with concerns of acute on kidney disease with worsening kidney status. Patient has a history of recent second toe amputation approximately 6 weeks ago. Additional medical history includes atrial fibrillation, diabetes mellitus, MRSA, depression and joint replacement. CT of abdomen and pelvis completed showing no evidence of obstructive uropathy there are bilateral nonobstructing renal calculi versus medullary calcifications present. And determinate left renal lesion, not nodule contour to liver correlate for cirrhosis, correlate lithiasis, cardiomegaly with bilateral trace pleural effusions correlate for volume overload with serum BNP. Creatinine elevated at 7.50 and bun 72. Hemoglobin is low at 7.2. At this time nephrology and urology service is consulted. Dr. Dia consulted for infectious disease chronic lower extremity wound. Iron studies ordered. Home meds resumed pharmacy to dose Coumadin for atrial fibrillation. Graham catheter remains in place. This time patient denies chest pain or shortness breath. Patient denies nausea vomiting or diarrhea. Patient denies any urinary burning or frequency. On 08/14/2022 patient was seen and examined on the medical floor he is alert and oriented 3 in no apparent distress he is complaining of pain in his right foot otherwise he denies any complaints there is no fever or chills no headache or dizziness no chest pain no shortness of breath no cough no nausea or vomiting no abdominal pain no diarrhea and no urinary symptoms. At this time patient is maintained on IV antibiotics, infectious disease are following, nephrology are following in regard to acute renal failure, today's INR was more than 10, patient received vitamin K 5 mg by mouth, his hemoglobin was down to 6.4 he is receiving 1 unit of red blood cell transfusion, will continue to follow closely. On 08/15/2022 patient is alert and oriented 3. INR today 1.8. Creatinine 6.7 and bun 65. Pharmacy to dose Coumadin. Patient remains on IV antibiotics per ID. Nephrology services are following. Patient still producing urine. Patient denies chest pain or shortness of breath. Patient denies nausea vomiting or diarrhea. Patient denies any urinary burning or frequency. On 08/16/2022 patient was seen and examined on the medical floor he is alert and oriented 3 in no apparent distress he is complaining of pain in his right foot otherwise he denies any complaints there is no fever or chills no headache or dizziness no chest pain no shortness of breath no cough no nausea or vomiting no abdominal pain no diarrhea and no urinary symptoms. Cr today 6.6 On 08/17/2022 patient is alert and oriented times patient denies any chest pain or shortness breath. Patient denies nausea vomiting or diarrhea. Patient denies any urinary burning or frequency. Awaiting lab work for today. Dr. Barton consulted and recommendations made for wound care to feet. Current vitals signs temp 98.4, heart rate 74, respiratory rate 18, blood pressure 1949 with a pulse ox 95% on room air On 08/18/2022 patient was seen and examined on the medical floor he is alert and oriented 3 in no apparent distress he is complaining of pain in his right foot otherwise he denies any complaints there is no fever or chills no headache or dizziness no chest pain no shortness of breath no cough no nausea or vomiting no abdominal pain no diarrhea and no urinary symptoms. At this time patient is maintained on IV antibiotics, infectious disease are following, nephrology are following in regard to acute renal failure, Dr West is recommending kidney biopsy, at this time will hold coumadin and cover with Lovenox until biopsy is done then will resume coumadin Objective - Vital Signs Vital signs: Vital Signs Temp 99.1 F 08/18/22 08:00 Pulse 89 08/18/22 12:00 Resp 16 08/18/22 12:00 BP 115/58 08/18/22 12:00 Pulse Ox 94 L 08/18/22 12:00 FiO2 Intake & Output 08/17/22 08/18/22 08/18/22 18:59 06:59 18:59 Intake Total 1398 118 Output Total 2074 1500 Balance -677 -1500 118 Intake: IV 40 Invasive Line 1 10 Invasive Line 2 20 Invasive Line 3 10 Oral 1358 118 Output: Urine 2074 1500 Uretheral (Graham) 1400 Other: Voiding Method Indwelling Catheter Indwelling Catheter Indwelling Catheter - Exam Head normocephalic Neck supple Lungs clear to auscultation bilaterally no wheezing or crackles Heart regular rate and rhythm S1-S2, no rub or gallop Abdomen is soft nontender nondistended positive bowel sounds no hepatosplenomegaly Extremities no edema Neuro alert and orientated to 3 - Labs CBC & Chem 7: 08/18/22 06:13 08/18/22 06:13 Labs: Abnormal Lab Results - Last 24 Hours (Table) 08/17/22 08/17/22 08/18/22 Range/Units 16:44 20:09 06:13 RBC (4.30-5.90) m/uL Hgb (13.0-17.5) gm/dL Hct (39.0-53.0) % RDW (11.5-15.5) % PT 15.6 H (9.0-12.0) sec INR 1.6 H (<1.2) Sodium (137-145) mmol/L Carbon Dioxide (22-30) mmol/L BUN (9-20) mg/dL Creatinine (0.66-1.25) mg/dL POC Glucose (mg/dL) 125 H 193 H (70-110) mg/dL Calcium (8.4-10.2) mg/dL Total Protein (6.3-8.2) g/dL Albumin (3.5-5.0) g/dL 08/18/22 08/18/22 08/18/22 Range/Units 06:13 06:13 11:49 RBC 2.24 L (4.30-5.90) m/uL Hgb 7.3 L (13.0-17.5) gm/dL Hct 21.9 L (39.0-53.0) % RDW 15.8 H (11.5-15.5) % PT (9.0-12.0) sec INR (<1.2) Sodium 135 L (137-145) mmol/L Carbon Dioxide 20 L (22-30) mmol/L BUN 62 H (9-20) mg/dL Creatinine 6.30 H (0.66-1.25) mg/dL POC Glucose (mg/dL) 125 H (70-110) mg/dL Calcium 8.0 L (8.4-10.2) mg/dL Total Protein 5.5 L (6.3-8.2) g/dL Albumin 3.2 L (3.5-5.0) g/dL Microbiology - Last 24 Hours (Table) 08/12/22 18:35 Blood Culture - Preliminary Blood No Growth after 120 hours 08/12/22 18:50 Blood Culture - Preliminary Blood No Growth after 120 hours 08/13/22 15:00 Gram Stain - Final Foot - Right Wound Culture - Final Proteus penneri Strep agalactiae - (group b) Staphylococcus aureus Assessment and Plan Assessment: 1. Acute on chronic kidney disease. Nephrology services consulted 2. Recent right toe amputation 3. History of diabetes mellitus 4. History of atrial fibrillation maintained on Coumadin 5. History of essential hypertension 6. History of gout 7. History of chronic back pain 8. Anemia iron studies ordered 9. Subtherapeutic INR. Corrected. Pharmacy to dose Coumadin 10. Cellulitis. Infectious disease service is following DVT prophylaxis Coumadin. GI prophylaxis Protonix Nephrology, urology and infectious disease service consulted Repeat labs ordered
[2022-08-18 20:35] LABS: Glucose,Whole Blood 149 mg/dL (70-110)
[2022-08-18] MEDS: CEFEPIME 1 GM in SODIUM CHLORIDE 0.9% 50 ML IVPB SCH (22:29)
--- NOTE | 2022-08-18 22:42 | P.PN ---
Subjective Progress Note Date: 08/18/22 Principal diagnosis: Right second toe amputation site wound infection Patient is a 71-year-old male was recently admitted to this facility and the patient did have a right second toe diabetic foot infection in this patient was status post amputation of his right second toe on 06/29/2022 , patient presented to the hospital with worsening renal failure and the patient w as noticed to have some purulent drainage from his right second toe amputation site wound which is currently not healed On today's evaluation that is 08/18/2022, the patient continues to be afebrile, the patient is breathing comfortably on room air, the patient denies chest pain shortness of breath or cough no abdominal pain, patient pain to the right second toe amputation site wound has decreased in intensity and overall drainage has decreased as well Objective - Vital Signs Vital signs: Vital Signs Temp 99.1 F 08/18/22 08:00 Pulse 99 08/18/22 08:00 Resp 16 08/18/22 08:00 BP 115/55 08/18/22 08:00 Pulse Ox 94 L 08/18/22 08:00 FiO2 Intake & Output 08/17/22 08/18/22 08/18/22 18:59 06:59 18:59 Intake Total 1398 118 Output Total 2075 1500 Balance -677 -1500 118 Intake: IV 40 Invasive Line 1 10 Invasive Line 2 20 Invasive Line 3 10 Oral 1358 118 Output: Urine 2074 1500 Uretheral (Graham) 1400 Other: Voiding Method Indwelling Catheter Indwelling Catheter Indwelling Catheter - Exam GENERAL DESCRIPTION: An elderly male lying in bed in no distress RESPIRATORY SYSTEM: Unlabored breathing , decreased breath sounds at bases HEART: S1 S2 regular rate and rhythm , ABDOMEN: Soft , no tenderness EXTREMITIES: Right second toe amputation site wound base with minimal drainage , right big toe discoloration has decreased in intensity - Labs CBC & Chem 7: 08/18/22 06:13 08/18/22 06:13 Labs: Abnormal Lab Results - Last 24 Hours (Table) 08/17/22 08/17/22 08/18/22 Range/Units 16:44 20:09 06:13 RBC (4.30-5.90) m/uL Hgb (13.0-17.5) gm/dL Hct (39.0-53.0) % RDW (11.5-15.5) % PT 15.6 H (9.0-12.0) sec INR 1.6 H (<1.2) Sodium (137-145) mmol/L Carbon Dioxide (22-30) mmol/L BUN (9-20) mg/dL Creatinine (0.66-1.25) mg/dL POC Glucose (mg/dL) 125 H 193 H (70-110) mg/dL Calcium (8.4-10.2) mg/dL Total Protein (6.3-8.2) g/dL Albumin (3.5-5.0) g/dL 08/18/22 08/18/22 08/18/22 Range/Units 06:13 06:13 11:49 RBC 2.24 L (4.30-5.90) m/uL Hgb 7.3 L (13.0-17.5) gm/dL Hct 21.9 L (39.0-53.0) % RDW 15.8 H (11.5-15.5) % PT (9.0-12.0) sec INR (<1.2) Sodium 135 L (137-145) mmol/L Carbon Dioxide 20 L (22-30) mmol/L BUN 62 H (9-20) mg/dL Creatinine 6.30 H (0.66-1.25) mg/dL POC Glucose (mg/dL) 125 H (70-110) mg/dL Calcium 8.0 L (8.4-10.2) mg/dL Total Protein 5.5 L (6.3-8.2) g/dL Albumin 3.2 L (3.5-5.0) g/dL Microbiology - Last 24 Hours (Table) 08/12/22 18:35 Blood Culture - Preliminary Blood No Growth after 120 hours 08/12/22 18:50 Blood Culture - Preliminary Blood No Growth after 120 hours 08/13/22 15:00 Gram Stain - Final Foot - Right Wound Culture - Final Proteus penneri Strep agalactiae - (group b) Staphylococcus aureus Assessment and Plan (1) Diabetic foot infection Current Visit: Yes Status: Acute Code(s): E11.628 - TYPE 2 DIABETES MELLITUS WITH OTHER SKIN COMPLICATIONS; L08.9 - LOCAL INFECTION OF THE SKIN AND SUBCUTANEOUS TISSUE, UNSP SNOMED Code(s): 186067193 Plan: 1patient with right second toe diabetic foot infection in this patient who is status post amputation of the right second toe culture that time was positive for MRSA patient did present to the hospital with acute renal failure patient did have purulent drainage to the right second toe amputation site and some surrounding cellulitis. 2local culture growing Proteus, group B strep and is also showing presumptive staph aureus question of MRSA. 3local wound care with a dry Aquacel silver dressing change daily 4patient seemed to have some clinical improvement and will continue with cefepime and Flagyl, and monitor clinical course closely Time with Patient: Less than 30
[2022-08-19 06:05] LABS: Glucose,Whole Blood 107 mg/dL (70-110)
[2022-08-19] MEDS: PANTOPRAZOLE 40 MG TABLET PO SCH (07:00)
[2022-08-19] MEDS: INSULIN ASPART (NovoLOG) 100 UNIT/ML VIAL SQ SCH ×3 (07:01→17:06)
[2022-08-19 08:28] LABS: Anisocytosis Slight; Basophils % (A) 0 %; Eosinophils # (A) 0.3 k/uL (0-0.7); Eosinophils % (A) 4 %; HCT 22.8 % (39.0-53.0); HGB 7.3 gm/dL (13.0-17.5); Hypochromasia Slight; Lymphocytes % (A) 16 %; MCH 31.7 pg (25.0-35.0); MCHC 32.1 g/dL (31.0-37.0); MCV 98.5 fL (80.0-100.0); Macrocytosis Slight; Mean Platelet Volume 8.5; Monocytes # (A) 0.3 k/uL (0-1.0); Monocytes % (A) 5 %; Neutrophils # (A) 4.4 k/uL (1.3-7.7); Neutrophils % (A) 71 %; Platelet Count 186 k/uL (150-450); RBC 2.32 m/uL (4.30-5.90); RDW 16.2 % (11.5-15.5); WBC 6.3 k/uL (3.8-10.6)
[2022-08-19 08:30] LABS: INR 1.8 (<1.2); Prothrombin Time 18.1 sec (9.0-12.0)
[2022-08-19 08:41] LABS: Albumin 3.3 g/dL (3.5-5.0); Calcium 8.3 mg/dL (8.4-10.2); Potassium 3.7 mmol/L (3.5-5.1); Total Bilirubin 0.7 mg/dL (0.2-1.3); Total Protein 5.6 g/dL (6.3-8.2)
[2022-08-19] MEDS: ENOXAPARIN 30 MG/0.3 ML SYRINGE SQ SCH (08:54)
[2022-08-19] MEDS: amLODIPine 5 MG TAB PO SCH (08:54)
[2022-08-19] MEDS: allopurinoL 300 MG TAB PO SCH (08:54)
[2022-08-19] MEDS: metroNIDAZOLE 500 MG TAB PO SCH ×3 (08:54→21:59)
[2022-08-19] MEDS: SODIUM CHLORIDE 0.9% 1,000 ML IV SCH (08:54)
[2022-08-19] MEDS: COLLAGENASE 250 UNIT/GM OINTMENT 30 GM TUBE TOPICAL SCH (08:56)
--- NOTE | 2022-08-19 10:14 | P.PN ---
Subjective Patient is seen for follow-up for acute kidney injury mostly obstructive uropathy. He is maintained on IV fluids and has an indwelling Graham catheter. Serum creatinine had not improved much and still staying at about 6.3 yesterday. All serologies are negative. No evidence of hydronephrosis noted on CT abdomen and pelvis. Patient is being followed by urology for left renal lesion about 3.3 cm which will need further evaluation as outpatient. Patient remains with Graham catheter with urine output documented at 3.5 L for 24 hours. No active bleeding noted Hemoglobin at 7.3 g/dL today. Seen by vascular surgery regarding right foot wound at the site of previous right second toe amputation which was performed on 06/29/2022. Maintained on cefepime. Serum creatinine improved to 5.4 today. Kidney biopsy postponed given the hemoglobin of 7.3 and patient received Coumadin on 08/17/2022. However renal function seems to have improved in the meantime. Objective - Vital Signs Vital signs: Vital Signs Temp 97.9 F 08/19/22 08:00 Pulse 85 08/19/22 08:00 Resp 16 08/19/22 08:00 BP 137/66 08/19/22 08:00 Pulse Ox 95 08/19/22 08:00 FiO2 Intake & Output 08/18/22 08/19/22 08/19/22 18:59 06:59 18:59 Intake Total 1316 120 Output Total 1300 2500 Balance 16 -2500 120 Weight 105.5 kg Intake: Intake, IV Titration 600 Amount Sodium Chloride 0.9% 1, 600 000 ml @ 75 mls/hr IV . [id number] [facility] Rx#:[id number] Oral 716 120 Output: Urine 1300 2500 Other: Voiding Method Indwelling Catheter Indwelling Catheter # Voids 1 - Exam Patient is awake, comfortable, no acute distress Examination of the heart S1 and S2 Examination of the lungs bilateral breath sounds are heard Abdomen is soft nontender Examination of lower extremities shows no significant edema. Right foot is currently dressed some drainage noted in the dressing. [employer]S ADJUSTOR exam grossly intact - Labs CBC & Chem 7: 08/19/22 07:13 08/19/22 07:13 Labs: Abnormal Lab Results - Last 24 Hours (Table) 08/18/22 08/18/22 08/18/22 Range/Units 11:49 16:38 20:34 RBC (4.30-5.90) m/uL Hgb (13.0-17.5) gm/dL Hct (39.0-53.0) % RDW (11.5-15.5) % PT (9.0-12.0) sec INR (<1.2) Sodium (137-145) mmol/L Carbon Dioxide (22-30) mmol/L BUN (9-20) mg/dL Creatinine (0.66-1.25) mg/dL POC Glucose (mg/dL) 125 H 128 H 149 H (70-110) mg/dL Calcium (8.4-10.2) mg/dL Total Protein (6.3-8.2) g/dL Albumin (3.5-5.0) g/dL 08/19/22 08/19/22 08/19/22 Range/Units 07:13 07:13 07:13 RBC 2.32 L (4.30-5.90) m/uL Hgb 7.3 L (13.0-17.5) gm/dL Hct 22.8 L (39.0-53.0) % RDW 16.2 H (11.5-15.5) % PT 18.1 H (9.0-12.0) sec INR 1.8 H (<1.2) Sodium 136 L (137-145) mmol/L Carbon Dioxide 18 L (22-30) mmol/L BUN 59 H (9-20) mg/dL Creatinine 5.46 H (0.66-1.25) mg/dL POC Glucose (mg/dL) (70-110) mg/dL Calcium 8.3 L (8.4-10.2) mg/dL Total Protein 5.6 L (6.3-8.2) g/dL Albumin 3.3 L (3.5-5.0) g/dL Microbiology - Last 24 Hours (Table) 08/12/22 18:35 Blood Culture - Final Blood No Growth after 144 hours 08/12/22 18:50 Blood Culture - Final Blood No Growth after 144 hours Assessment and Plan Assessment: 1. Acute kidney injury obstructive uropathy and possible component of ATN as well. Currently nonoliguric and with indwelling Graham catheter. 800 mL of urine was obtained when Graham catheter was first placed. CT of the abdomen and pelvis does not show gross hydronephrosis. UA shows 2+ protein and small blood. Renal function not improving much. Serologies negative for any other underlying GN. Consider kidney biopsy. Kidney biopsy cannot be done for and that the 4-5 days as patient received Coumadin on 08/17/2022 and hemoglobin was 7.3. However in the meantime the creatinine has improved to 5.4 today. So hopefully patient will not need the biopsy and renal function will continue to improve. 2. Chronic kidney disease with serum creatinine staying at about 1.6 mg/dL since the episode of acute kidney injury in May 2022. At that time serum creatinine had peaked at 4.1 mg/dL. Patient had been on vancomycin at that time. 3. Metabolic acidosis secondary to acute kidney injury and obstructive uropathy 4. Anemia rule out iron deficiency 5. Chronic A. fib with controlled ventricular response 6. Right foot wound currently dressed, being followed by ID 7. Left renal lesion about 3.3 cm, for further evaluation down the road as outpatient. Patient has been evaluated by urology. Plan: Continue with Graham catheter Repeat labs in a.m. Continue with IV fluids Hopefully patient will not need kidney biopsy and renal function will continue to improve
[2022-08-19 11:34] LABS: Glucose,Whole Blood 147 mg/dL (70-110)
[2022-08-19 11:49] VITALS: BMI 33.3
[2022-08-19] MEDS: LACTATED RINGERS 1,000 ML IV SCH (13:35)
[2022-08-19 16:19] LABS: Glucose,Whole Blood 136 mg/dL (70-110)
--- NOTE | 2022-08-19 16:41 | P.PN ---
Subjective Progress Note Date: 08/19/22 Principal diagnosis: Right second toe amputation site wound infection Patient is a 71-year-old male was recently admitted to this facility and the patient did have a right second toe diabetic foot infection in this patient was status post amputation of his right second toe on 06/29/2022 , patient presented to the hospital with worsening renal failure and the patient w as noticed to have some purulent drainage from his right second toe amputation site wound which is currently not healed On today's evaluation that is 08/19/2022, the patient remains to be afebrile, th e patient is breathing comfortably on room air, the patient denies chest pain shortness of breath or cough , no nausea no vomiting no abdominal pain no diarrhea, pain to the right second toe amputation site is controlled Objective - Vital Signs Vital signs: Vital Signs Temp 97.9 F 08/19/22 08:00 Pulse 85 08/19/22 08:00 Resp 16 08/19/22 08:00 BP 137/66 08/19/22 08:00 Pulse Ox 95 08/19/22 08:00 FiO2 Intake & Output 08/18/22 08/19/22 08/19/22 18:59 06:59 18:59 Intake Total 1316 120 Output Total 1300 2500 Balance 16 -2500 120 Weight 105.5 kg Intake: Intake, IV Titration 600 Amount Sodium Chloride 0.9% 1, 600 000 ml @ 75 mls/hr IV . [id number] [facility] Rx#:[id number] Oral 716 120 Output: Urine 1300 2500 Other: Voiding Method Indwelling Catheter Indwelling Catheter Indwelling Catheter # Voids 1 - Exam GENERAL DESCRIPTION: An elderly male lying in bed in no distress RESPIRATORY SYSTEM: Unlabored breathing , decreased breath sounds at bases HEART: S1 S2 regular rate and rhythm , ABDOMEN: Soft , no tenderness EXTREMITIES: Right second toe amputation site wound base with minimal drainage , right big toe discoloration has decreased in intensity - Labs CBC & Chem 7: 08/19/22 07:13 08/19/22 07:13 Labs: Abnormal Lab Results - Last 24 Hours (Table) 08/18/22 08/18/22 08/18/22 Range/Units 11:49 16:38 20:34 RBC (4.30-5.90) m/uL Hgb (13.0-17.5) gm/dL Hct (39.0-53.0) % RDW (11.5-15.5) % PT (9.0-12.0) sec INR (<1.2) Sodium (137-145) mmol/L Carbon Dioxide (22-30) mmol/L BUN (9-20) mg/dL Creatinine (0.66-1.25) mg/dL POC Glucose (mg/dL) 125 H 128 H 149 H (70-110) mg/dL Calcium (8.4-10.2) mg/dL Total Protein (6.3-8.2) g/dL Albumin (3.5-5.0) g/dL 08/19/22 08/19/22 08/19/22 Range/Units 07:13 07:13 07:13 RBC 2.32 L (4.30-5.90) m/uL Hgb 7.3 L (13.0-17.5) gm/dL Hct 22.8 L (39.0-53.0) % RDW 16.2 H (11.5-15.5) % PT 18.1 H (9.0-12.0) sec INR 1.8 H (<1.2) Sodium 136 L (137-145) mmol/L Carbon Dioxide 18 L (22-30) mmol/L BUN 59 H (9-20) mg/dL Creatinine 5.46 H (0.66-1.25) mg/dL POC Glucose (mg/dL) (70-110) mg/dL Calcium 8.3 L (8.4-10.2) mg/dL Total Protein 5.6 L (6.3-8.2) g/dL Albumin 3.3 L (3.5-5.0) g/dL Microbiology - Last 24 Hours (Table) 08/12/22 18:35 Blood Culture - Final Blood No Growth after 144 hours 08/12/22 18:50 Blood Culture - Final Blood No Growth after 144 hours Assessment and Plan (1) Diabetic foot infection Current Visit: Yes Status: Acute Code(s): E11.628 - TYPE 2 DIABETES MELLITUS WITH OTHER SKIN COMPLICATIONS; L08.9 - LOCAL INFECTION OF THE SKIN AND SUBCUTANEOUS TISSUE, UNSP SNOMED Code(s): 151747456 Plan: 1patient with right second toe diabetic foot infection in this patient who is status post amputation of the right second toe culture that time was positive for MRSA patient did present to the hospital with acute renal failure patient did have purulent drainage to the right second toe amputation site and some surrounding cellulitis. 2local culture growing Proteus, group B strep and is also showing presumptive staph aureus which has been finalized his MSSA. 3local wound care with a dry Aquacel silver dressing change daily 4patient continued to show slow clinical improvement and the patient will continue with cefepime and Flagyl, and continue supportive care Time with Patient: Less than 30
[2022-08-19] MEDS: HYDROcodone/APAP 10-325MG 1 EACH TAB PO PRN ×2 (17:12→23:02)
[2022-08-19 20:24] LABS: Glucose,Whole Blood 150 mg/dL (70-110)
[2022-08-19] MEDS: CEFEPIME 1 GM in SODIUM CHLORIDE 0.9% 50 ML IVPB SCH (22:00)
[2022-08-20 06:13] LABS: Glucose,Whole Blood 107 mg/dL (70-110)
[2022-08-20 06:47] LABS: Basophils % (A) 1 %; Eosinophils # (A) 0.3 k/uL (0-0.7); Eosinophils % (A) 5 %; HCT 22.7 % (39.0-53.0); HGB 7.5 gm/dL (13.0-17.5); Hypochromasia Slight; Lymphocytes # (A) 1.2 k/uL (1.0-4.8); Lymphocytes % (A) 20 %; MCH 32.5 pg (25.0-35.0); MCV 98.6 fL (80.0-100.0); Macrocytosis Slight; Mean Platelet Volume 8.1; Monocytes # (A) 0.4 k/uL (0-1.0); Monocytes % (A) 7 %; Neutrophils # (A) 3.9 k/uL (1.3-7.7); Neutrophils % (A) 65 %; Platelet Count 163 k/uL (150-450); RBC 2.31 m/uL (4.30-5.90); RDW 15.7 % (11.5-15.5); WBC 6.1 k/uL (3.8-10.6)
[2022-08-20] MEDS: PANTOPRAZOLE 40 MG TABLET PO SCH ×2 (06:59→08:47)
[2022-08-20] MEDS: INSULIN ASPART (NovoLOG) 100 UNIT/ML VIAL SQ SCH ×5 (07:00→20:20)
[2022-08-20] MEDS: HYDROcodone/APAP 10-325MG 1 EACH TAB PO PRN ×3 (07:02→18:15)
[2022-08-20 07:03] LABS: Prothrombin Time 20.1 sec (9.0-12.0)
[2022-08-20] MEDS: LACTATED RINGERS 1,000 ML IV SCH ×2 (07:04→16:42)
[2022-08-20 07:07] LABS: Albumin 3.2 g/dL (3.5-5.0); Calcium 8.2 mg/dL (8.4-10.2); Potassium 3.6 mmol/L (3.5-5.1); Total Bilirubin 0.7 mg/dL (0.2-1.3); Total Protein 5.4 g/dL (6.3-8.2)
[2022-08-20] MEDS: allopurinoL 300 MG TAB PO SCH (08:47)
[2022-08-20] MEDS: metroNIDAZOLE 500 MG TAB PO SCH ×3 (08:47→20:19)
[2022-08-20] MEDS: amLODIPine 5 MG TAB PO SCH (08:47)
[2022-08-20] MEDS: ENOXAPARIN 30 MG/0.3 ML SYRINGE SQ SCH (08:48)
--- NOTE | 2022-08-20 10:18 | P.PN ---
Subjective Progress Note Date: 08/19/22 Pepe Waters, is a 71-year-old male patient who presented he ER with concerns of acute on kidney disease with worsening kidney status. Patient has a history of recent second toe amputation approximately 6 weeks ago. Additional medical history includes atrial fibrillation, diabetes mellitus, MRSA, depression and joint replacement. CT of abdomen and pelvis completed showing no evidence of obstructive uropathy there are bilateral nonobstructing renal calculi versus medullary calcifications present. And determinate left renal lesion, not nodule contour to liver correlate for cirrhosis, correlate lithiasis, cardiomegaly with bilateral trace pleural effusions correlate for volume overload with serum BNP. Creatinine elevated at 7.50 and bun 72. Hemoglobin is low at 7.2. At this time nephrology and urology service is consulted. Dr. Dia consulted for infectious disease chronic lower extremity wound. Iron studies ordered. Home meds resumed pharmacy to dose Coumadin for atrial fibrillation. Graham catheter remains in place. This time patient denies chest pain or shortness breath. Patient denies nausea vomiting or diarrhea. Patient denies any urinary burning or frequency. On 08/14/2022 patient was seen and examined on the medical floor he is alert and oriented 3 in no apparent distress he is complaining of pain in his right foot otherwise he denies any complaints there is no fever or chills no headache or dizziness no chest pain no shortness of breath no cough no nausea or vomiting no abdominal pain no diarrhea and no urinary symptoms. At this time patient is maintained on IV antibiotics, infectious disease are following, nephrology are following in regard to acute renal failure, today's INR was more than 10, patient received vitamin K 5 mg by mouth, his hemoglobin was down to 6.4 he is receiving 1 unit of red blood cell transfusion, will continue to follow closely. On 08/15/2022 patient is alert and oriented 3. INR today 1.8. Creatinine 6.7 and bun 65. Pharmacy to dose Coumadin. Patient remains on IV antibiotics per ID. Nephrology services are following. Patient still producing urine. Patient denies chest pain or shortness of breath. Patient denies nausea vomiting or diarrhea. Patient denies any urinary burning or frequency. On 08/16/2022 patient was seen and examined on the medical floor he is alert and oriented 3 in no apparent distress he is complaining of pain in his right foot otherwise he denies any complaints there is no fever or chills no headache or dizziness no chest pain no shortness of breath no cough no nausea or vomiting no abdominal pain no diarrhea and no urinary symptoms. Cr today 6.6 On 08/17/2022 patient is alert and oriented times patient denies any chest pain or shortness breath. Patient denies nausea vomiting or diarrhea. Patient denies any urinary burning or frequency. Awaiting lab work for today. Dr. Barton consulted and recommendations made for wound care to feet. Current vitals signs temp 98.4, heart rate 74, respiratory rate 18, blood pressure 1949 with a pulse ox 95% on room air On 08/18/2022 patient was seen and examined on the medical floor he is alert and oriented 3 in no apparent distress he is complaining of pain in his right foot otherwise he denies any complaints there is no fever or chills no headache or dizziness no chest pain no shortness of breath no cough no nausea or vomiting no abdominal pain no diarrhea and no urinary symptoms. At this time patient is maintained on IV antibiotics, infectious disease are following, nephrology are following in regard to acute renal failure, Dr West is recommending kidney biopsy, at this time will hold coumadin and cover with Lovenox until biopsy is done then will resume coumadin On 08/19/2022 patient was seen and examined on the medical floor he is alert and oriented 3 in no apparent distress he is complaining of pain in his right foot otherwise he denies any complaints there is no fever or chills no headache or dizziness no chest pain no shortness of breath no cough no nausea or vomiting no abdominal pain no diarrhea and no urinary symptoms. At this time patient is maintained on IV antibiotics, infectious disease are following, nephrology are following. Patient is off Coumadin in anticipation of kidney biopsy he was started yesterday on subcu Lovenox Objective - Vital Signs Vital signs: Vital Signs Temp 98.1 F 08/19/22 15:47 Pulse 94 08/19/22 15:47 Resp 16 08/19/22 15:47 BP 121/65 08/19/22 15:47 Pulse Ox 94 L 08/19/22 15:47 FiO2 Intake & Output 08/18/22 08/19/22 08/19/22 18:59 06:59 18:59 Intake Total 1316 120 Output Total 1300 2500 1000 Balance 0 Weight 105.5 kg 105.5 kg Intake: Intake, IV Titration 600 Amount Sodium Chloride 0.9% 1, 600 000 ml @ 75 mls/hr IV . [id number] [facility] Rx#:[id number] Oral 716 120 Output: Urine 1300 2500 1000 Other: Voiding Method Indwelling Catheter Indwelling Catheter Indwelling Catheter # Voids 1 - Exam Head normocephalic Neck supple Lungs clear to auscultation bilaterally no wheezing or crackles Heart regular rate and rhythm S1-S2, no rub or gallop Abdomen is soft nontender nondistended positive bowel sounds no hepatosplenomegaly Extremities no edema Neuro alert and orientated to 3 - Labs CBC & Chem 7: 08/19/22 07:13 08/19/22 07:13 Labs: Abnormal Lab Results - Last 24 Hours (Table) 08/18/22 08/18/22 08/19/22 Range/Units 16:38 20:34 07:13 RBC (4.30-5.90) m/uL Hgb (13.0-17.5) gm/dL Hct (39.0-53.0) % RDW (11.5-15.5) % PT 18.1 H (9.0-12.0) sec INR 1.8 H (<1.2) Sodium (137-145) mmol/L Carbon Dioxide (22-30) mmol/L BUN (9-20) mg/dL Creatinine (0.66-1.25) mg/dL POC Glucose (mg/dL) 128 H 149 H (70-110) mg/dL Calcium (8.4-10.2) mg/dL Total Protein (6.3-8.2) g/dL Albumin (3.5-5.0) g/dL 08/19/22 08/19/22 08/19/22 Range/Units 07:13 07:13 11:32 RBC 2.32 L (4.30-5.90) m/uL Hgb 7.3 L (13.0-17.5) gm/dL Hct 22.8 L (39.0-53.0) % RDW 16.2 H (11.5-15.5) % PT (9.0-12.0) sec INR (<1.2) Sodium 136 L (137-145) mmol/L Carbon Dioxide 18 L (22-30) mmol/L BUN 59 H (9-20) mg/dL Creatinine 5.46 H (0.66-1.25) mg/dL POC Glucose (mg/dL) 147 H (70-110) mg/dL Calcium 8.3 L (8.4-10.2) mg/dL Total Protein 5.6 L (6.3-8.2) g/dL Albumin 3.3 L (3.5-5.0) g/dL 08/19/22 Range/Units 16:17 RBC (4.30-5.90) m/uL Hgb (13.0-17.5) gm/dL Hct (39.0-53.0) % RDW (11.5-15.5) % PT (9.0-12.0) sec INR (<1.2) Sodium (137-145) mmol/L Carbon Dioxide (22-30) mmol/L BUN (9-20) mg/dL Creatinine (0.66-1.25) mg/dL POC Glucose (mg/dL) 136 H (70-110) mg/dL Calcium (8.4-10.2) mg/dL Total Protein (6.3-8.2) g/dL Albumin (3.5-5.0) g/dL Microbiology - Last 24 Hours (Table) 08/12/22 18:35 Blood Culture - Final Blood No Growth after 144 hours 08/12/22 18:50 Blood Culture - Final Blood No Growth after 144 hours Assessment and Plan Assessment: 1. Acute on chronic kidney disease. Nephrology services consulted 2. Recent right toe amputation 3. History of diabetes mellitus 4. History of atrial fibrillation maintained on Coumadin 5. History of essential hypertension 6. History of gout 7. History of chronic back pain 8. Anemia iron studies ordered 9. Subtherapeutic INR. Corrected. Pharmacy to dose Coumadin 10. Cellulitis. Infectious disease service is following DVT prophylaxis Coumadin. GI prophylaxis Protonix Nephrology, urology and infectious disease service consulted Repeat labs ordered
--- NOTE | 2022-08-20 10:20 | P.PN ---
Subjective Progress Note Date: 08/20/22 Pepe Waters, is a 71-year-old male patient who presented he ER with concerns of acute on kidney disease with worsening kidney status. Patient has a history of recent second toe amputation approximately 6 weeks ago. Additional medical history includes atrial fibrillation, diabetes mellitus, MRSA, depression and joint replacement. CT of abdomen and pelvis completed showing no evidence of obstructive uropathy there are bilateral nonobstructing renal calculi versus medullary calcifications present. And determinate left renal lesion, not nodule contour to liver correlate for cirrhosis, correlate lithiasis, cardiomegaly with bilateral trace pleural effusions correlate for volume overload with serum BNP. Creatinine elevated at 7.50 and bun 72. Hemoglobin is low at 7.2. At this time nephrology and urology service is consulted. Dr. Dia consulted for infectious disease chronic lower extremity wound. Iron studies ordered. Home meds resumed pharmacy to dose Coumadin for atrial fibrillation. Graham catheter remains in place. This time patient denies chest pain or shortness breath. Patient denies nausea vomiting or diarrhea. Patient denies any urinary burning or frequency. On 08/14/2022 patient was seen and examined on the medical floor he is alert and oriented 3 in no apparent distress he is complaining of pain in his right foot otherwise he denies any complaints there is no fever or chills no headache or dizziness no chest pain no shortness of breath no cough no nausea or vomiting no abdominal pain no diarrhea and no urinary symptoms. At this time patient is maintained on IV antibiotics, infectious disease are following, nephrology are following in regard to acute renal failure, today's INR was more than 10, patient received vitamin K 5 mg by mouth, his hemoglobin was down to 6.4 he is receiving 1 unit of red blood cell transfusion, will continue to follow closely. On 08/15/2022 patient is alert and oriented 3. INR today 1.8. Creatinine 6.7 and bun 65. Pharmacy to dose Coumadin. Patient remains on IV antibiotics per ID. Nephrology services are following. Patient still producing urine. Patient denies chest pain or shortness of breath. Patient denies nausea vomiting or diarrhea. Patient denies any urinary burning or frequency. On 08/16/2022 patient was seen and examined on the medical floor he is alert and oriented 3 in no apparent distress he is complaining of pain in his right foot otherwise he denies any complaints there is no fever or chills no headache or dizziness no chest pain no shortness of breath no cough no nausea or vomiting no abdominal pain no diarrhea and no urinary symptoms. Cr today 6.6 On 08/17/2022 patient is alert and oriented times patient denies any chest pain or shortness breath. Patient denies nausea vomiting or diarrhea. Patient denies any urinary burning or frequency. Awaiting lab work for today. Dr. Barton consulted and recommendations made for wound care to feet. Current vitals signs temp 98.4, heart rate 74, respiratory rate 18, blood pressure 1949 with a pulse ox 95% on room air On 08/18/2022 patient was seen and examined on the medical floor he is alert and oriented 3 in no apparent distress he is complaining of pain in his right foot otherwise he denies any complaints there is no fever or chills no headache or dizziness no chest pain no shortness of breath no cough no nausea or vomiting no abdominal pain no diarrhea and no urinary symptoms. At this time patient is maintained on IV antibiotics, infectious disease are following, nephrology are following in regard to acute renal failure, Dr West is recommending kidney biopsy, at this time will hold coumadin and cover with Lovenox until biopsy is done then will resume coumadin On 08/19/2022 patient was seen and examined on the medical floor he is alert and oriented 3 in no apparent distress he is complaining of pain in his right foot otherwise he denies any complaints there is no fever or chills no headache or dizziness no chest pain no shortness of breath no cough no nausea or vomiting no abdominal pain no diarrhea and no urinary symptoms. At this time patient is maintained on IV antibiotics, infectious disease are following, nephrology are following. Patient is off Coumadin in anticipation of kidney biopsy he was started yesterday on subcu Lovenox On 08/20/2022 patient is alert and oriented 3. Creatinine 5.23 bun 54. INR 2.0 Coumadin on hold for possible kidney biopsy patient maintained on Lovenox. Temp 98.4, heart rate 99, respiratory rate 18, blood pressure 129/66 4 with pulse ox 95% on room air. Infectious disease and nephrology services are following Objective - Vital Signs Vital signs: Vital Signs Temp 98.4 F 08/20/22 08:00 Pulse 99 08/20/22 08:00 Resp 18 08/20/22 08:00 BP 129/64 08/20/22 08:00 Pulse Ox 95 08/20/22 08:00 FiO2 Intake & Output 08/19/22 08/20/22 08/20/22 18:59 06:59 18:59 Intake Total 120 118 Output Total 1000 2100 Balance -880 -2100 118 Weight 105.5 kg Intake: Oral 120 118 Output: Urine 1000 2100 Other: Voiding Method Indwelling Catheter Indwelling Catheter Indwelling Catheter - Exam Head normocephalic Neck supple Lungs clear to auscultation bilaterally no wheezing or crackles Heart regular rate and rhythm S1-S2, no rub or gallop Abdomen is soft nontender nondistended positive bowel sounds no hepatosplenomegaly Extremities no edema Neuro alert and orientated to 3 - Labs CBC & Chem 7: 08/20/22 06:06 08/20/22 06:06 Labs: Abnormal Lab Results - Last 24 Hours (Table) 08/19/22 08/19/22 08/19/22 Range/Units 11:32 16:17 20:23 RBC (4.30-5.90) m/uL Hgb (13.0-17.5) gm/dL Hct (39.0-53.0) % RDW (11.5-15.5) % PT (9.0-12.0) sec INR (<1.2) Sodium (137-145) mmol/L Carbon Dioxide (22-30) mmol/L BUN (9-20) mg/dL Creatinine (0.66-1.25) mg/dL POC Glucose (mg/dL) 147 H 136 H 150 H (70-110) mg/dL Calcium (8.4-10.2) mg/dL Total Protein (6.3-8.2) g/dL Albumin (3.5-5.0) g/dL 08/20/22 08/20/22 08/20/22 Range/Units 06:06 06:06 06:06 RBC 2.31 L (4.30-5.90) m/uL Hgb 7.5 L (13.0-17.5) gm/dL Hct 22.7 L (39.0-53.0) % RDW 15.7 H (11.5-15.5) % PT 20.1 H (9.0-12.0) sec INR 2.0 H (<1.2) Sodium 135 L (137-145) mmol/L Carbon Dioxide 20 L (22-30) mmol/L BUN 54 H (9-20) mg/dL Creatinine 5.33 H (0.66-1.25) mg/dL POC Glucose (mg/dL) (70-110) mg/dL Calcium 8.2 L (8.4-10.2) mg/dL Total Protein 5.4 L (6.3-8.2) g/dL Albumin 3.2 L (3.5-5.0) g/dL Assessment and Plan Assessment: 1. Acute on chronic kidney disease. Nephrology services consulted 2. Recent right toe amputation 3. History of diabetes mellitus 4. History of atrial fibrillation maintained on Coumadin 5. History of essential hypertension 6. History of gout 7. History of chronic back pain 8. Anemia iron studies ordered 9. Subtherapeutic INR. Corrected. Pharmacy to dose Coumadin 10. Cellulitis. Infectious disease service is following DVT prophylaxis Lovenox. Coumadin currently on hold for biopsy. GI prophylaxis Protonix Nephrology, urology and infectious disease service consulted Plans for kidney biopsy per nephrology Repeat labs ordered
--- NOTE | 2022-08-20 11:37 | P.PN ---
Subjective Patient is seen for follow-up for acute kidney injury mostly obstructive uropathy. He is maintained on IV fluids and has an indwelling Graham catheter. Serum creatinine had not improved much and still staying at about 6.3 yesterday. All serologies are negative. No evidence of hydronephrosis noted on CT abdomen and pelvis. Patient is being followed by urology for left renal lesion about 3.3 cm which will need further evaluation as outpatient. Patient remains with Graham catheter with urine output documented at 3.1 L for 24 hours. No active bleeding noted Hemoglobin at 7.5 g/dL today. Seen by vascular surgery regarding right foot wound at the site of previous right second toe amputation which was performed on 06/29/2022. Maintained on cefepime. Serum creatinine improved to 5.3 today. Kidney biopsy postponed given the low hemoglobin and patient received Coumadin on 08/17/2022. However renal function seems to have improved in the meantime. No complaints today Objective - Vital Signs Vital signs: Vital Signs Temp 98.4 F 08/20/22 08:00 Pulse 99 08/20/22 08:00 Resp 18 08/20/22 08:00 BP 129/64 08/20/22 08:00 Pulse Ox 95 08/20/22 08:00 FiO2 Intake & Output 08/19/22 08/20/22 08/20/22 18:59 06:59 18:59 Intake Total 120 118 Output Total 1000 2100 Balance -880 -2100 118 Weight 105.5 kg Intake: Oral 120 118 Output: Urine 1000 2100 Other: Voiding Method Indwelling Catheter Indwelling Catheter Indwelling Catheter - Exam Patient is awake, comfortable, no acute distress Examination of the heart S1 and S2 Examination of the lungs bilateral breath sounds are heard Abdomen is soft nontender Examination of lower extremities shows no significant edema. Right foot is currently dressed some drainage noted in the dressing. [employer] exam grossly intact - Labs CBC & Chem 7: 08/20/22 06:06 08/20/22 06:06 Labs: Abnormal Lab Results - Last 24 Hours (Table) 08/19/22 08/19/22 08/19/22 Range/Units 11:32 16:17 20:23 RBC (4.30-5.90) m/uL Hgb (13.0-17.5) gm/dL Hct (39.0-53.0) % RDW (11.5-15.5) % PT (9.0-12.0) sec INR (<1.2) Sodium (137-145) mmol/L Carbon Dioxide (22-30) mmol/L BUN (9-20) mg/dL Creatinine (0.66-1.25) mg/dL POC Glucose (mg/dL) 147 H 136 H 150 H (70-110) mg/dL Calcium (8.4-10.2) mg/dL Total Protein (6.3-8.2) g/dL Albumin (3.5-5.0) g/dL 08/20/22 08/20/22 08/20/22 Range/Units 06:06 06:06 06:06 RBC 2.31 L (4.30-5.90) m/uL Hgb 7.5 L (13.0-17.5) gm/dL Hct 22.7 L (39.0-53.0) % RDW 15.7 H (11.5-15.5) % PT 20.1 H (9.0-12.0) sec INR 2.0 H (<1.2) Sodium 135 L (137-145) mmol/L Carbon Dioxide 20 L (22-30) mmol/L BUN 54 H (9-20) mg/dL Creatinine 5.33 H (0.66-1.25) mg/dL POC Glucose (mg/dL) (70-110) mg/dL Calcium 8.2 L (8.4-10.2) mg/dL Total Protein 5.4 L (6.3-8.2) g/dL Albumin 3.2 L (3.5-5.0) g/dL Assessment and Plan Assessment: 1. Acute kidney injury obstructive uropathy and possible component of ATN as well. Currently nonoliguric and with indwelling Graham catheter. 800 mL of urine was obtained when Graham catheter was first placed. CT of the abdomen and pelvis does not show gross hydronephrosis. UA shows 2+ protein and small blood. Renal function not improving much. Serologies negative for any other underlying GN. Kidney biopsy cannot be done for about 4-5 days as patient received Coumadin on 08/17/2022 and hemoglobin was 7.3. However, in the meantime the creatinine has improved to 5.3 today. So hopefully patient will not need the biopsy and renal function will continue to improve. 2. Chronic kidney disease with serum creatinine staying at about 1.6 mg/dL since the episode of acute kidney injury in May 2022. At that time serum creatinine had peaked at 4.1 mg/dL. Patient had been on vancomycin at that time. 3. Metabolic acidosis secondary to acute kidney injury and obstructive uropathy 4. Anemia rule out iron deficiency 5. Chronic A. fib with controlled ventricular response 6. Right foot wound currently dressed, being followed by ID 7. Left renal lesion about 3.3 cm, for further evaluation down the road as outpatient. Patient has been evaluated by urology. Plan: Continue with Graham catheter Repeat labs in a.m. Continue with IV fluids Hopefully patient will not need kidney biopsy and renal function will continue to improve
[2022-08-20 12:00] LABS: Glucose,Whole Blood 149 mg/dL (70-110)
[2022-08-20] MEDS: COLLAGENASE 250 UNIT/GM OINTMENT 30 GM TUBE TOPICAL SCH (12:09)
--- NOTE | 2022-08-20 14:10 | P.PN ---
Progress Note - Text 71-year-old gentleman he had a right foot second toe amputation in the past patient has been admitted with the kidney failure and at the same time found to have a mass in the left kidney the right big toe has a discoloration and also there is a ulcer on the plantar aspect today we have changed the dressing Aquacel was applied most likely he will need a right big toe amputation we will arrange continue with IV antibiotic
[2022-08-20] MEDS: HYDROmorphone 0.5 MG/0.5 ML SYRINGE IVP PRN (16:42)
[2022-08-20 17:10] LABS: Glucose,Whole Blood 138 mg/dL (70-110)
[2022-08-20 20:08] LABS: Glucose,Whole Blood 135 mg/dL (70-110)
[2022-08-20] MEDS: CEFEPIME 1 GM in SODIUM CHLORIDE 0.9% 50 ML IVPB SCH (20:19)
--- NOTE | 2022-08-20 22:31 | P.PN ---
Subjective Progress Note Date: 08/20/22 Principal diagnosis: Right second toe amputation site wound infection Patient is a 71-year-old male was recently admitted to this facility and the patient did have a right second toe diabetic foot infection in this patient was status post amputation of his right second toe on 06/29/2022 , patient presented to the hospital with worsening renal failure and the patient w as noticed to have some purulent drainage from his right second toe amputation site wound which is currently not healed On today's evaluation that is 08/20/2022, the patient continues to be afebrile, the patient is breathing comfortably on room air, the patient denies chest pain shortness of breath or cough , the patient denies nausea no vomiting no abdominal pain no diarrhea, the patient pain to the right second toe amputation site is controlled Objective - Vital Signs Vital signs: Vital Signs Temp 98.0 F 08/20/22 11:48 Pulse 77 08/20/22 11:48 Resp 18 08/20/22 11:48 BP 112/58 08/20/22 11:48 Pulse Ox 96 08/20/22 11:48 FiO2 Intake & Output 08/19/22 08/20/22 08/20/22 18:59 06:59 18:59 Intake Total 120 118 Output Total 1000 2100 Balance -880 -2100 118 Weight 105.5 kg Intake: Oral 120 118 Output: Urine 1000 2100 Other: Voiding Method Indwelling Catheter Indwelling Catheter Indwelling Catheter - Exam GENERAL DESCRIPTION: An elderly male lying in bed in no distress RESPIRATORY SYSTEM: Unlabored breathing , decreased breath sounds at bases HEART: S1 S2 regular rate and rhythm , ABDOMEN: Soft , no tenderness EXTREMITIES: Right second toe amputation site wound base with minimal drainage , right big toe discoloration has decreased in intensity - Labs CBC & Chem 7: 08/20/22 06:06 08/20/22 06:06 Labs: Abnormal Lab Results - Last 24 Hours (Table) 08/19/22 08/19/22 08/20/22 Range/Units 16:17 20:23 06:06 RBC (4.30-5.90) m/uL Hgb (13.0-17.5) gm/dL Hct (39.0-53.0) % RDW (11.5-15.5) % PT 20.1 H (9.0-12.0) sec INR 2.0 H (<1.2) Sodium (137-145) mmol/L Carbon Dioxide (22-30) mmol/L BUN (9-20) mg/dL Creatinine (0.66-1.25) mg/dL POC Glucose (mg/dL) 136 H 150 H (70-110) mg/dL Calcium (8.4-10.2) mg/dL Total Protein (6.3-8.2) g/dL Albumin (3.5-5.0) g/dL 08/20/22 08/20/22 08/20/22 Range/Units 06:06 06:06 11:58 RBC 2.31 L (4.30-5.90) m/uL Hgb 7.5 L (13.0-17.5) gm/dL Hct 22.7 L (39.0-53.0) % RDW 15.7 H (11.5-15.5) % PT (9.0-12.0) sec INR (<1.2) Sodium 135 L (137-145) mmol/L Carbon Dioxide 20 L (22-30) mmol/L BUN 54 H (9-20) mg/dL Creatinine 5.33 H (0.66-1.25) mg/dL POC Glucose (mg/dL) 149 H (70-110) mg/dL Calcium 8.2 L (8.4-10.2) mg/dL Total Protein 5.4 L (6.3-8.2) g/dL Albumin 3.2 L (3.5-5.0) g/dL Assessment and Plan (1) Diabetic foot infection Current Visit: Yes Status: Acute Code(s): E11.628 - TYPE 2 DIABETES MELLITUS WITH OTHER SKIN COMPLICATIONS; L08.9 - LOCAL INFECTION OF THE SKIN AND SUBCUTANEOUS TISSUE, UNSP SNOMED Code(s): 374599527 Plan: 1patient with right second toe diabetic foot infection in this patient who is status post amputation of the right second toe culture that time was positive for MRSA patient did present to the hospital with acute renal failure patient did have purulent drainage to the right second toe amputation site and some surrounding cellulitis. 2local culture growing Proteus, group B strep and is also showing presumptive staph aureus which has been finalized his MSSA. 3local wound care with a dry Aquacel silver dressing change daily and vascular surgery is following the patient closely 4patient did have some clinical improvement as far as the right foot ulcer is concerned and the patient will continue with cefepime and Flagyl, and monitor clinical course closely Time with Patient: Less than 30
[2022-08-21] MEDS: HYDROcodone/APAP 10-325MG 1 EACH TAB PO PRN ×4 (00:03→20:57)
[2022-08-21 06:12] LABS: Glucose,Whole Blood 100 mg/dL (70-110)
[2022-08-21] MEDS: LACTATED RINGERS 1,000 ML IV SCH ×2 (06:22→21:04)
[2022-08-21] MEDS: ENOXAPARIN 30 MG/0.3 ML SYRINGE SQ SCH ×2 (06:23→08:14)
[2022-08-21] MEDS: INSULIN ASPART (NovoLOG) 100 UNIT/ML VIAL SQ SCH ×4 (06:23→20:59)
[2022-08-21] MEDS: metroNIDAZOLE 500 MG TAB PO SCH ×3 (08:12→20:58)
--- NOTE | 2022-08-21 08:12 | P.PN ---
Subjective Patient is seen for follow-up for acute kidney injury mostly obstructive uropathy. He is maintained on IV fluids and has an indwelling Graham catheter. Serum creatinine had not improved much and still staying at about 6.3 yesterday. All serologies are negative. No evidence of hydronephrosis noted on CT abdomen and pelvis. Patient is being followed by urology for left renal lesion about 3.3 cm which will need further evaluation as outpatient. Patient remains with Graham catheter with urine output documented at 3.1 L for 24 hours. No active bleeding noted Hemoglobin at 7.5 g/dL today. Seen by vascular surgery regarding right foot wound at the site of previous right second toe amputation which was performed on 06/29/2022. Maintained on cefepime. Serum creatinine improved to 5.3 today. Kidney biopsy postponed given the low hemoglobin and patient received Coumadin on 08/17/2022. However renal function seems to have improved in the meantime. No complaints today Objective - Vital Signs Vital signs: Vital Signs Temp 98.1 F 08/21/22 04:00 Pulse 86 08/21/22 04:00 Resp 18 08/21/22 04:00 BP 103/58 08/21/22 04:00 Pulse Ox 97 08/21/22 07:58 FiO2 Intake & Output 08/20/22 08/21/22 08/21/22 18:59 06:59 18:59 Intake Total 2156 Output Total 1000 1200 Balance 1156 -1200 Intake: Intake, IV Titration 600 Amount Lactated Ringers 1,000 ml 600 @ 75 mls/hr IV .[id number] [facility] Rx#:[id number] Oral 1556 Output: Urine 1000 1200 Other: Voiding Method Indwelling Catheter Indwelling Catheter - Exam Patient is awake, comfortable, no acute distress Examination of the heart S1 and S2 Examination of the lungs bilateral breath sounds are heard Abdomen is soft nontender Examination of lower extremities shows no significant edema. Right foot is currently dressed some drainage noted in the dressing. [employer] exam grossly intact - Labs CBC & Chem 7: 08/20/22 06:06 08/20/22 06:06 Labs: Abnormal Lab Results - Last 24 Hours (Table) 08/20/22 08/20/22 08/20/22 Range/Units 11:58 17:09 20:07 POC Glucose (mg/dL) 149 H 138 H 135 H (70-110) mg/dL Assessment and Plan Assessment: 1. Acute kidney injury obstructive uropathy and possible component of ATN as well. Currently nonoliguric and with indwelling Graham catheter. 800 mL of urine was obtained when Graham catheter was first placed. CT of the abdomen and pelvis does not show gross hydronephrosis. UA shows 2+ protein and small blood. Renal function not improving much. Serologies negative for any other underlying GN. Kidney biopsy cannot be done for about 4-5 days as patient received Coumadin on 08/17/2022 and hemoglobin was 7.3. However, in the meantime the creatinine has improved to 5.3 today. So hopefully patient will not need the biopsy and renal function will continue to improve. 2. Chronic kidney disease with serum creatinine staying at about 1.6 mg/dL since the episode of acute kidney injury in May 2022. At that time serum creatinine had peaked at 4.1 mg/dL. Patient had been on vancomycin at that time. 3. Metabolic acidosis secondary to acute kidney injury and obstructive uropathy 4. Anemia rule out iron deficiency 5. Chronic A. fib with controlled ventricular response 6. Right foot wound currently dressed, being followed by ID 7. Left renal lesion about 3.3 cm, for further evaluation down the road as outpatient. Patient has been evaluated by urology. Plan: Continue with Graham catheter Repeat labs in a.m. Continue with IV fluids Hopefully patient will not need kidney biopsy and renal function will continue to improve
[2022-08-21] MEDS: amLODIPine 5 MG TAB PO SCH (08:13)
[2022-08-21] MEDS: allopurinoL 300 MG TAB PO SCH (08:13)
[2022-08-21] MEDS: PANTOPRAZOLE 40 MG TABLET PO SCH (08:14)
[2022-08-21 08:57] LABS: Prothrombin Time 19.3 sec (9.0-12.0)
--- NOTE | 2022-08-21 09:32 | P.PN ---
Subjective Progress Note Date: 08/21/22 Pepe Waters, is a 71-year-old male patient who presented he ER with concerns of acute on kidney disease with worsening kidney status. Patient has a history of recent second toe amputation approximately 6 weeks ago. Additional medical history includes atrial fibrillation, diabetes mellitus, MRSA, depression and joint replacement. CT of abdomen and pelvis completed showing no evidence of obstructive uropathy there are bilateral nonobstructing renal calculi versus medullary calcifications present. And determinate left renal lesion, not nodule contour to liver correlate for cirrhosis, correlate lithiasis, cardiomegaly with bilateral trace pleural effusions correlate for volume overload with serum BNP. Creatinine elevated at 7.50 and bun 72. Hemoglobin is low at 7.2. At this time nephrology and urology service is consulted. Dr. Dia consulted for infectious disease chronic lower extremity wound. Iron studies ordered. Home meds resumed pharmacy to dose Coumadin for atrial fibrillation. Graham catheter remains in place. This time patient denies chest pain or shortness breath. Patient denies nausea vomiting or diarrhea. Patient denies any urinary burning or frequency. On 08/14/2022 patient was seen and examined on the medical floor he is alert and oriented 3 in no apparent distress he is complaining of pain in his right foot otherwise he denies any complaints there is no fever or chills no headache or dizziness no chest pain no shortness of breath no cough no nausea or vomiting no abdominal pain no diarrhea and no urinary symptoms. At this time patient is maintained on IV antibiotics, infectious disease are following, nephrology are following in regard to acute renal failure, today's INR was more than 10, patient received vitamin K 5 mg by mouth, his hemoglobin was down to 6.4 he is receiving 1 unit of red blood cell transfusion, will continue to follow closely. On 08/15/2022 patient is alert and oriented 3. INR today 1.8. Creatinine 6.7 and bun 65. Pharmacy to dose Coumadin. Patient remains on IV antibiotics per ID. Nephrology services are following. Patient still producing urine. Patient denies chest pain or shortness of breath. Patient denies nausea vomiting or diarrhea. Patient denies any urinary burning or frequency. On 08/16/2022 patient was seen and examined on the medical floor he is alert and oriented 3 in no apparent distress he is complaining of pain in his right foot otherwise he denies any complaints there is no fever or chills no headache or dizziness no chest pain no shortness of breath no cough no nausea or vomiting no abdominal pain no diarrhea and no urinary symptoms. Cr today 6.6 On 08/17/2022 patient is alert and oriented times patient denies any chest pain or shortness breath. Patient denies nausea vomiting or diarrhea. Patient denies any urinary burning or frequency. Awaiting lab work for today. Dr. Barton consulted and recommendations made for wound care to feet. Current vitals signs temp 98.4, heart rate 74, respiratory rate 18, blood pressure 1949 with a pulse ox 95% on room air On 08/18/2022 patient was seen and examined on the medical floor he is alert and oriented 3 in no apparent distress he is complaining of pain in his right foot otherwise he denies any complaints there is no fever or chills no headache or dizziness no chest pain no shortness of breath no cough no nausea or vomiting no abdominal pain no diarrhea and no urinary symptoms. At this time patient is maintained on IV antibiotics, infectious disease are following, nephrology are following in regard to acute renal failure, Dr West is recommending kidney biopsy, at this time will hold coumadin and cover with Lovenox until biopsy is done then will resume coumadin On 08/19/2022 patient was seen and examined on the medical floor he is alert and oriented 3 in no apparent distress he is complaining of pain in his right foot otherwise he denies any complaints there is no fever or chills no headache or dizziness no chest pain no shortness of breath no cough no nausea or vomiting no abdominal pain no diarrhea and no urinary symptoms. At this time patient is maintained on IV antibiotics, infectious disease are following, nephrology are following. Patient is off Coumadin in anticipation of kidney biopsy he was started yesterday on subcu Lovenox On 08/20/2022 patient is alert and oriented 3. Creatinine 5.23 bun 54. INR 2.0 Coumadin on hold for possible kidney biopsy patient maintained on Lovenox. Temp 98.4, heart rate 99, respiratory rate 18, blood pressure 129/66 4 with pulse ox 95% on room air. Infectious disease and nephrology services are following On 08/21/2022 patient is alert and oriented 3. Lab work for today currently pending. Per nephrology services kidney biopsy possible but may not be required if patient continues to improve with kidney function. Patient denies chest pain or shortness of breath. Patient denies nausea or vomiting. Patient remains on IV antibiotics vascular infectious disease service is following Objective - Vital Signs Vital signs: Vital Signs Temp 99.3 F 08/21/22 08:10 Pulse 91 08/21/22 08:10 Resp 16 08/21/22 08:10 BP 109/57 08/21/22 08:10 Pulse Ox 95 08/21/22 08:10 FiO2 Intake & Output 08/20/22 08/21/22 08/21/22 18:59 06:59 18:59 Intake Total 2156 Output Total 1000 1200 Balance 1156 -1200 Intake: Intake, IV Titration 600 Amount Lactated Ringers 1,000 ml 600 @ 75 mls/hr IV .[id number] [facility] Rx#:[id number] Oral 1556 Output: Urine 1000 1200 Other: Voiding Method Indwelling Catheter Indwelling Catheter - Exam Head normocephalic Neck supple Lungs clear to auscultation bilaterally no wheezing or crackles Heart regular rate and rhythm S1-S2, no rub or gallop Abdomen is soft nontender nondistended positive bowel sounds no hepatos plenomegaly Extremities no edema Neuro alert and orientated to 3 - Labs CBC & Chem 7: 08/20/22 06:06 08/20/22 06:06 Labs: Abnormal Lab Results - Last 24 Hours (Table) 08/20/22 08/20/22 08/20/22 Range/Units 11:58 17:09 20:07 PT (9.0-12.0) sec INR (<1.2) POC Glucose (mg/dL) 149 H 138 H 135 H (70-110) mg/dL 08/21/22 Range/Units 07:57 PT 19.3 H (9.0-12.0) sec INR 2.0 H (<1.2) POC Glucose (mg/dL) (70-110) mg/dL Assessment and Plan Assessment: 1. Acute on chronic kidney disease. Nephrology services consulted 2. Recent right toe amputation 3. History of diabetes mellitus 4. History of atrial fibrillation maintained on Coumadin 5. History of essential hypertension 6. History of gout 7. History of chronic back pain 8. Anemia iron studies ordered 9. Subtherapeutic INR. Corrected. Pharmacy to dose Coumadin 10. Cellulitis. Infectious disease service is following DVT prophylaxis Lovenox. Coumadin currently on hold for biopsy. GI prophylaxis Protonix Nephrology, urology and infectious disease service consulted Possible Plans for kidney biopsy per nephrology Repeat labs ordered
[2022-08-21 10:32] LABS: Basophils % (A) 1 %; Eosinophils # (A) 0.3 k/uL (0-0.7); Eosinophils % (A) 5 %; HCT 23.9 % (39.0-53.0); HGB 7.7 gm/dL (13.0-17.5); Hypochromasia Moderate; Lymphocytes # (A) 1.3 k/uL (1.0-4.8); Lymphocytes % (A) 22 %; MCH 32.2 pg (25.0-35.0); MCHC 32.3 g/dL (31.0-37.0); MCV 99.7 fL (80.0-100.0); Macrocytosis Slight; Mean Platelet Volume 8.3; Monocytes # (A) 0.4 k/uL (0-1.0); Monocytes % (A) 6 %; Neutrophils # (A) 3.8 k/uL (1.3-7.7); Neutrophils % (A) 63 %; Platelet Count 163 k/uL (150-450); RDW 15.8 % (11.5-15.5)
[2022-08-21 10:38] LABS: Albumin 3.4 g/dL (3.5-5.0); Calcium 8.2 mg/dL (8.4-10.2); Total Bilirubin 0.7 mg/dL (0.2-1.3); Total Protein 5.7 g/dL (6.3-8.2)
[2022-08-21] MEDS: COLLAGENASE 250 UNIT/GM OINTMENT 30 GM TUBE TOPICAL SCH (11:29)
[2022-08-21 11:59] LABS: Glucose,Whole Blood 126 mg/dL (70-110)
[2022-08-21] MEDS: HYDROmorphone 0.5 MG/0.5 ML SYRINGE IVP PRN (12:56)
--- NOTE | 2022-08-21 14:04 | P.PN ---
Subjective Progress Note Date: 08/21/22 Principal diagnosis: Right second toe amputation site wound infection Patient is a 71-year-old male was recently admitted to this facility and the patient did have a right second toe diabetic foot infection in this patient was status post amputation of his right second toe on 06/29/2022 , patient presented to the hospital with worsening renal failure and the patient w as noticed to have some purulent drainage from his right second toe amputation site wound which is currently not healed On today's evaluation that is 08/21/2022, the patient remains to be afebrile, th e patient is breathing comfortably on room air, the patient denies chest pain shortness of breath or cough , the patient denies nausea no vomiting no abdominal pain no diarrhea, the patient pain to the right second toe amputation site has decreased in intensity and no further drainage Objective - Vital Signs Vital signs: Vital Signs Temp 99.3 F 08/21/22 08:10 Pulse 91 08/21/22 08:10 Resp 16 08/21/22 08:10 BP 109/57 08/21/22 08:10 Pulse Ox 95 08/21/22 08:10 FiO2 Intake & Output 08/20/22 08/21/22 08/21/22 18:59 06:59 18:59 Intake Total 2156 240 Output Total 1000 1200 Balance 1156 -1200 240 Intake: Intake, IV Titration 600 Amount Lactated Ringers 1,000 ml 600 @ 75 mls/hr IV .[id number] [facility] Rx#:[id number] Oral 1556 240 Output: Urine 1000 1200 Other: Voiding Method Indwelling Catheter Indwelling Catheter Indwelling Catheter - Exam GENERAL DESCRIPTION: An elderly male lying in bed in no distress RESPIRATORY SYSTEM: Unlabored breathing , decreased breath sounds at bases HEART: S1 S2 regular rate and rhythm , ABDOMEN: Soft , no tenderness EXTREMITIES: Right second toe amputation site wound base with minimal drainage , right big toe discoloration has decreased in intensity - Labs CBC & Chem 7: 08/21/22 07:57 08/21/22 07:57 Labs: Abnormal Lab Results - Last 24 Hours (Table) 08/20/22 08/20/22 08/21/22 Range/Units 17:09 20:07 07:57 RBC (4.30-5.90) m/uL Hgb (13.0-17.5) gm/dL Hct (39.0-53.0) % RDW (11.5-15.5) % PT 19.3 H (9.0-12.0) sec INR 2.0 H (<1.2) Sodium (137-145) mmol/L Carbon Dioxide (22-30) mmol/L BUN (9-20) mg/dL Creatinine (0.66-1.25) mg/dL POC Glucose (mg/dL) 138 H 135 H (70-110) mg/dL Calcium (8.4-10.2) mg/dL Total Protein (6.3-8.2) g/dL Albumin (3.5-5.0) g/dL 08/21/22 08/21/22 08/21/22 Range/Units 07:57 07:57 11:43 RBC 2.40 L (4.30-5.90) m/uL Hgb 7.7 L (13.0-17.5) gm/dL Hct 23.9 L (39.0-53.0) % RDW 15.8 H (11.5-15.5) % PT (9.0-12.0) sec INR (<1.2) Sodium 136 L (137-145) mmol/L Carbon Dioxide 20 L (22-30) mmol/L BUN 51 H (9-20) mg/dL Creatinine 5.25 H (0.66-1.25) mg/dL POC Glucose (mg/dL) 126 H (70-110) mg/dL Calcium 8.2 L (8.4-10.2) mg/dL Total Protein 5.7 L (6.3-8.2) g/dL Albumin 3.4 L (3.5-5.0) g/dL Assessment and Plan (1) Diabetic foot infection Current Visit: Yes Status: Acute Code(s): E11.628 - TYPE 2 DIABETES MELLITUS WITH OTHER SKIN COMPLICATIONS; L08.9 - LOCAL INFECTION OF THE SKIN AND SUBCUTANEOUS TISSUE, UNSP SNOMED Code(s): 292961201 Plan: 1patient with right second toe diabetic foot infection in this patient who is status post amputation of the right second toe culture that time was positive for MRSA patient did present to the hospital with acute renal failure patient did have purulent drainage to the right second toe amputation site and some surrounding cellulitis. 2local culture growing Proteus, group B strep and is also showing presumptive staph aureus which has been finalized his MSSA. 3local wound care with a dry Aquacel silver dressing change daily and vascular surgery is following the patient closely 4patient is afebrile the patient white count is normal blood culture negative, patient did have clinical improvement as far as the right foot ulcer is concer diana and the patient will continue with cefepime and Flagyl, with a plan to finish therapy with oral antibiotics discussed with the vascular surgeon Time with Patient: Less than 30
--- NOTE | 2022-08-21 15:46 | P.PCN ---
Description of Procedure: Patient was seen today his patient had a left foot toe amputation done incision site is healing for ray amputation we will using X a silver patient also has some discoloration of the big toe with a scab noted on the plantar aspect patient has a history of renal failure under care of in nephrology patient to is on IV antibiotic under care of infectious disease if patient goes home on now. Antibiotic I will see him in my office on Thursday dressing should be changed every 48 hours with the Aquacel silver
[2022-08-21 16:49] LABS: Glucose,Whole Blood 109 mg/dL (70-110)
[2022-08-21 20:17] LABS: Glucose,Whole Blood 130 mg/dL (70-110)
[2022-08-21] MEDS: CEFEPIME 1 GM in SODIUM CHLORIDE 0.9% 50 ML IVPB SCH (20:58)
[2022-08-22] MEDS: HYDROmorphone 0.5 MG/0.5 ML SYRINGE IVP PRN (01:14)
[2022-08-22 06:30] LABS: Glucose,Whole Blood 101 mg/dL (70-110)
[2022-08-22] MEDS: INSULIN ASPART (NovoLOG) 100 UNIT/ML VIAL SQ SCH ×4 (07:36→19:54)
[2022-08-22 07:51] LABS: Basophils % (A) 1 %; Eosinophils # (A) 0.2 k/uL (0-0.7); Eosinophils % (A) 4 %; HCT 22.6 % (39.0-53.0); HGB 7.5 gm/dL (13.0-17.5); Hypochromasia Slight; Lymphocytes # (A) 1.2 k/uL (1.0-4.8); Lymphocytes % (A) 23 %; MCH 32.8 pg (25.0-35.0); MCHC 33.4 g/dL (31.0-37.0); MCV 98.2 fL (80.0-100.0); Macrocytosis Slight; Mean Platelet Volume 8.1; Monocytes # (A) 0.3 k/uL (0-1.0); Monocytes % (A) 7 %; Neutrophils # (A) 3.3 k/uL (1.3-7.7); Neutrophils % (A) 63 %; Platelet Count 149 k/uL (150-450); RDW 15.9 % (11.5-15.5); WBC 5.3 k/uL (3.8-10.6)
[2022-08-22 07:55] LABS: INR 1.9 (<1.2); Prothrombin Time 19.1 sec (9.0-12.0)
[2022-08-22 08:25] LABS: Albumin 3.1 g/dL (3.5-5.0); Calcium 8.1 mg/dL (8.4-10.2); Potassium 3.8 mmol/L (3.5-5.1); Total Bilirubin 0.7 mg/dL (0.2-1.3); Total Protein 5.5 g/dL (6.3-8.2)
[2022-08-22] MEDS: HYDROcodone/APAP 10-325MG 1 EACH TAB PO PRN ×3 (08:26→23:58)
[2022-08-22] MEDS: LACTATED RINGERS 1,000 ML IV SCH ×2 (08:26→15:08)
[2022-08-22] MEDS: amLODIPine 5 MG TAB PO SCH (08:26)
[2022-08-22] MEDS: allopurinoL 300 MG TAB PO SCH (08:26)
[2022-08-22] MEDS: COLLAGENASE 250 UNIT/GM OINTMENT 30 GM TUBE TOPICAL SCH (08:28)
[2022-08-22] MEDS: metroNIDAZOLE 500 MG TAB PO SCH ×3 (08:31→19:53)
[2022-08-22] MEDS: ENOXAPARIN 30 MG/0.3 ML SYRINGE SQ SCH (10:38)
[2022-08-22 11:44] LABS: Glucose,Whole Blood 123 mg/dL (70-110)
--- NOTE | 2022-08-22 14:05 | P.PN ---
Subjective Progress Note Date: 08/22/22 Pepe Waters, is a 71-year-old male patient who presented he ER with concerns of acute on kidney disease with worsening kidney status. Patient has a history of recent second toe amputation approximately 6 weeks ago. Additional medical history includes atrial fibrillation, diabetes mellitus, MRSA, depression and joint replacement. CT of abdomen and pelvis completed showing no evidence of obstructive uropathy there are bilateral nonobstructing renal calculi versus medullary calcifications present. And determinate left renal lesion, not nodule contour to liver correlate for cirrhosis, correlate lithiasis, cardiomegaly with bilateral trace pleural effusions correlate for volume overload with serum BNP. Creatinine elevated at 7.50 and bun 72. Hemoglobin is low at 7.2. At this time nephrology and urology service is consulted. Dr. Dia consulted for infectious disease chronic lower extremity wound. Iron studies ordered. Home meds resumed pharmacy to dose Coumadin for atrial fibrillation. Graham catheter remains in place. This time patient denies chest pain or shortness breath. Patient denies nausea vomiting or diarrhea. Patient denies any urinary burning or frequency. On 08/14/2022 patient was seen and examined on the medical floor he is alert and oriented 3 in no apparent distress he is complaining of pain in his right foot otherwise he denies any complaints there is no fever or chills no headache or dizziness no chest pain no shortness of breath no cough no nausea or vomiting no abdominal pain no diarrhea and no urinary symptoms. At this time patient is maintained on IV antibiotics, infectious disease are following, nephrology are following in regard to acute renal failure, today's INR was more than 10, patient received vitamin K 5 mg by mouth, his hemoglobin was down to 6.4 he is receiving 1 unit of red blood cell transfusion, will continue to follow closely. On 08/15/2022 patient is alert and oriented 3. INR today 1.8. Creatinine 6.7 and bun 65. Pharmacy to dose Coumadin. Patient remains on IV antibiotics per ID. Nephrology services are following. Patient still producing urine. Patient denies chest pain or shortness of breath. Patient denies nausea vomiting or diarrhea. Patient denies any urinary burning or frequency. On 08/16/2022 patient was seen and examined on the medical floor he is alert and oriented 3 in no apparent distress he is complaining of pain in his right foot otherwise he denies any complaints there is no fever or chills no headache or dizziness no chest pain no shortness of breath no cough no nausea or vomiting no abdominal pain no diarrhea and no urinary symptoms. Cr today 6.6 On 08/17/2022 patient is alert and oriented times patient denies any chest pain or shortness breath. Patient denies nausea vomiting or diarrhea. Patient denies any urinary burning or frequency. Awaiting lab work for today. Dr. Barton consulted and recommendations made for wound care to feet. Current vitals signs temp 98.4, heart rate 74, respiratory rate 18, blood pressure 1949 with a pulse ox 95% on room air On 08/18/2022 patient was seen and examined on the medical floor he is alert and oriented 3 in no apparent distress he is complaining of pain in his right foot otherwise he denies any complaints there is no fever or chills no headache or dizziness no chest pain no shortness of breath no cough no nausea or vomiting no abdominal pain no diarrhea and no urinary symptoms. At this time patient is maintained on IV antibiotics, infectious disease are following, nephrology are following in regard to acute renal failure, Dr West is recommending kidney biopsy, at this time will hold coumadin and cover with Lovenox until biopsy is done then will resume coumadin On 08/19/2022 patient was seen and examined on the medical floor he is alert and oriented 3 in no apparent distress he is complaining of pain in his right foot otherwise he denies any complaints there is no fever or chills no headache or dizziness no chest pain no shortness of breath no cough no nausea or vomiting no abdominal pain no diarrhea and no urinary symptoms. At this time patient is maintained on IV antibiotics, infectious disease are following, nephrology are following. Patient is off Coumadin in anticipation of kidney biopsy he was started yesterday on subcu Lovenox On 08/20/2022 patient is alert and oriented 3. Creatinine 5.23 bun 54. INR 2.0 Coumadin on hold for possible kidney biopsy patient maintained on Lovenox. Temp 98.4, heart rate 99, respiratory rate 18, blood pressure 129/66 4 with pulse ox 95% on room air. Infectious disease and nephrology services are following On 08/21/2022 patient is alert and oriented 3. Lab work for today currently pending. Per nephrology services kidney biopsy possible but may not be required if patient continues to improve with kidney function. Patient denies chest pain or shortness of breath. Patient denies nausea or vomiting. Patient remains on IV antibiotics vascular infectious disease service is following. On 08/22/2022 patient was seen and examined on the medical floor he is alert and oriented 3 in no apparent distress he is complaining of foot pain otherwise he denies any complaint there is no fever or chills no headache or dizziness no chest pain no shortness of breath no cough no nausea or vomiting no abdominal pain no diarrhea and no urinary symptoms. Currently he is off Coumadin in anticipation for kidney biopsy, he is maintained on subcu Lovenox We are awaiting further recommendation from nephrology and infectious disease, continue current management at this time will recheck labs in a.m.. Dr. Vizcaino group will be covering for nh starting 08/23/2022 Objective - Vital Signs Vital signs: Vital Signs Temp 97.8 F 08/22/22 08:21 Pulse 84 08/22/22 10:31 Resp 18 08/22/22 10:31 BP 106/52 08/22/22 08:21 Pulse Ox 95 08/22/22 08:21 FiO2 Intake & Output 08/21/22 08/22/22 08/22/22 18:59 06:59 18:59 Intake Total 640 Output Total 1200 800 Balance -560 -800 Intake: Oral 640 Output: Urine 1200 800 Other: Voiding Method Indwelling Catheter Indwelling Catheter Indwelling Catheter - Exam Head normocephalic Neck supple Lungs clear to auscultation bilaterally no wheezing or crackles Heart regular rate and rhythm S1-S2, no rub or gallop Abdomen is soft nontender nondistended positive bowel sounds no hepatosplenomegaly Extremities no edema Neuro alert and orientated to 3 - Labs CBC & Chem 7: 08/22/22 06:50 08/22/22 06:50 Labs: Abnormal Lab Results - Last 24 Hours (Table) 08/21/22 08/22/22 08/22/22 Range/Units 20:15 06:50 06:50 RBC 2.30 L (4.30-5.90) m/uL Hgb 7.5 L (13.0-17.5) gm/dL Hct 22.6 L (39.0-53.0) % RDW 15.9 H (11.5-15.5) % Plt Count 149 L (150-450) k/uL PT 19.1 H (9.0-12.0) sec INR 1.9 H (<1.2) Sodium (137-145) mmol/L Carbon Dioxide (22-30) mmol/L BUN (9-20) mg/dL Creatinine (0.66-1.25) mg/dL POC Glucose (mg/dL) 130 H (70-110) mg/dL Calcium (8.4-10.2) mg/dL Total Protein (6.3-8.2) g/dL Albumin (3.5-5.0) g/dL 08/22/22 08/22/22 Range/Units 06:50 11:41 RBC (4.30-5.90) m/uL Hgb (13.0-17.5) gm/dL Hct (39.0-53.0) % RDW (11.5-15.5) % Plt Count (150-450) k/uL PT (9.0-12.0) sec INR (<1.2) Sodium 133 L (137-145) mmol/L Carbon Dioxide 19 L (22-30) mmol/L BUN 48 H (9-20) mg/dL Creatinine 5.24 H (0.66-1.25) mg/dL POC Glucose (mg/dL) 123 H (70-110) mg/dL Calcium 8.1 L (8.4-10.2) mg/dL Total Protein 5.5 L (6.3-8.2) g/dL Albumin 3.1 L (3.5-5.0) g/dL Assessment and Plan Assessment: 1. Acute on chronic kidney disease. Nephrology services consulted 2. Recent right toe amputation 3. History of diabetes mellitus 4. History of atrial fibrillation maintained on Coumadin 5. History of essential hypertension 6. History of gout 7. History of chronic back pain 8. Anemia iron studies ordered 9. Subtherapeutic INR. Corrected. Pharmacy to dose Coumadin 10. Cellulitis. Infectious disease service is following DVT prophylaxis Lovenox. Coumadin currently on hold for biopsy. GI prophylaxis Protonix Nephrology, urology and infectious disease service consulted Possible Plans for kidney biopsy per nephrology Repeat labs ordered
--- NOTE | 2022-08-22 15:41 | P.PN ---
Progress Note - Text 71-year-old gentleman history of acute chronic renal failure patient had a right foot second toe ray amputation today we've changed her dressing incision site is healing no discharge redness noted the right big toe has a scab on the plantar aspect of the big toe no discharge redness noted patient is an IV antibiotic and we have changed the dressing with excellent silver the right big toe is improving we will watch closely if patient goes home follow-up in office on this Thursday
--- NOTE | 2022-08-22 16:09 | P.PN ---
Subjective Progress Note Date: 08/22/22 Follow-up for acute kidney injury. Good urine output, 2 L in the last 24 hours. Denies any nausea vomiting diarrhea. Objective - Vital Signs Vital signs: Vital Signs Temp 97.8 F 08/22/22 08:21 Pulse 87 08/22/22 15:46 Resp 18 08/22/22 15:46 BP 117/60 08/22/22 14:14 Pulse Ox 95 08/22/22 14:14 FiO2 Intake & Output 08/21/22 08/22/22 08/22/22 18:59 06:59 18:59 Intake Total 640 Output Total 1200 800 Balance -560 -800 Intake: Oral 640 Output: Urine 1200 800 Other: Voiding Method Indwelling Catheter Indwelling Catheter Indwelling Catheter - Exam Acute distress S1-S2 heard Decreased breath sounds Graham catheter Edema - Labs CBC & Chem 7: 08/22/22 06:50 08/22/22 06:50 Labs: Abnormal Lab Results - Last 24 Hours (Table) 08/21/22 08/22/22 08/22/22 Range/Units 20:15 06:50 06:50 RBC 2.30 L (4.30-5.90) m/uL Hgb 7.5 L (13.0-17.5) gm/dL Hct 22.6 L (39.0-53.0) % RDW 15.9 H (11.5-15.5) % Plt Count 149 L (150-450) k/uL PT 19.1 H (9.0-12.0) sec INR 1.9 H (<1.2) Sodium (137-145) mmol/L Carbon Dioxide (22-30) mmol/L BUN (9-20) mg/dL Creatinine (0.66-1.25) mg/dL POC Glucose (mg/dL) 130 H (70-110) mg/dL Calcium (8.4-10.2) mg/dL Total Protein (6.3-8.2) g/dL Albumin (3.5-5.0) g/dL 08/22/22 08/22/22 Range/Units 06:50 11:41 RBC (4.30-5.90) m/uL Hgb (13.0-17.5) gm/dL Hct (39.0-53.0) % RDW (11.5-15.5) % Plt Count (150-450) k/uL PT (9.0-12.0) sec INR (<1.2) Sodium 133 L (137-145) mmol/L Carbon Dioxide 19 L (22-30) mmol/L BUN 48 H (9-20) mg/dL Creatinine 5.24 H (0.66-1.25) mg/dL POC Glucose (mg/dL) 123 H (70-110) mg/dL Calcium 8.1 L (8.4-10.2) mg/dL Total Protein 5.5 L (6.3-8.2) g/dL Albumin 3.1 L (3.5-5.0) g/dL Assessment and Plan Assessment: #1 acute kidney injury secondary to obstructive uropathy and component of ATN. -Baseline creatinine 1.6 MG per DL. #2 chronic kidney disease stage III A suspected nephrosclerosis. #3 metabolic acidosis secondary to acute kidney injury #4 chronic A. fib on anticoagulation #5 left renal lesion, follows with urology as outpatient. Plan: #1 renal function slowly improving. Stop IV fluids and Lasix. #2 serology so far negative. #3 urology following #4 avoid nephrotoxic agents and hypotensive episodes
[2022-08-22 16:17] LABS: Glucose,Whole Blood 129 mg/dL (70-110)
[2022-08-22 19:50] LABS: Glucose,Whole Blood 109 mg/dL (70-110)
[2022-08-22] MEDS: CEFEPIME 1 GM in SODIUM CHLORIDE 0.9% 50 ML IVPB SCH (19:53)
[2022-08-22] MEDS: FUROSEMIDE 10 MG/ML 4 ML VIAL IV SCH (19:53)
--- NOTE | 2022-08-22 20:37 | P.PN ---
Subjective Progress Note Date: 08/22/22 Principal diagnosis: Right second toe amputation site wound infection Patient is a 71-year-old male was recently admitted to this facility and the patient did have a right second toe diabetic foot infection in this patient was status post amputation of his right second toe on 06/29/2022 , patient presented to the hospital with worsening renal failure and the patient w as noticed to have some purulent drainage from his right second toe amputation site wound which is currently not healed On today's evaluation that is 08/22/2022, the patient continues to be afebrile, the patient is breathing comfortably on room air, the patient denies chest pain shortness of breath or cough , the patient denies nausea no vomiting no abdominal pain no diarrhea, the patient pain to the right second toe amputation site has decreased in intensity , patient denies any new symptoms and wants to go home Objective - Vital Signs Vital signs: Vital Signs Temp 97.8 F 08/22/22 08:21 Pulse 84 08/22/22 10:31 Resp 18 08/22/22 10:31 BP 106/52 08/22/22 08:21 Pulse Ox 95 08/22/22 08:21 FiO2 Intake & Output 08/21/22 08/22/22 08/22/22 18:59 06:59 18:59 Intake Total 640 Output Total 1200 800 Balance -560 -800 Intake: Oral 640 Output: Urine 1200 800 Other: Voiding Method Indwelling Catheter Indwelling Catheter Indwelling Catheter - Exam GENERAL DESCRIPTION: An elderly male lying in bed in no distress RESPIRATORY SYSTEM: Unlabored breathing , decreased breath sounds at bases HEART: S1 S2 regular rate and rhythm , ABDOMEN: Soft , no tenderness EXTREMITIES: Right second toe amputation site wound base with minimal drainage , right big toe discoloration has decreased in intensity - Labs CBC & Chem 7: 08/22/22 06:50 08/22/22 06:50 Labs: Abnormal Lab Results - Last 24 Hours (Table) 08/21/22 08/22/22 08/22/22 Range/Units 20:15 06:50 06:50 RBC 2.30 L (4.30-5.90) m/uL Hgb 7.5 L (13.0-17.5) gm/dL Hct 22.6 L (39.0-53.0) % RDW 15.9 H (11.5-15.5) % Plt Count 149 L (150-450) k/uL PT 19.1 H (9.0-12.0) sec INR 1.9 H (<1.2) Sodium (137-145) mmol/L Carbon Dioxide (22-30) mmol/L BUN (9-20) mg/dL Creatinine (0.66-1.25) mg/dL POC Glucose (mg/dL) 130 H (70-110) mg/dL Calcium (8.4-10.2) mg/dL Total Protein (6.3-8.2) g/dL Albumin (3.5-5.0) g/dL 08/22/22 08/22/22 Range/Units 06:50 11:41 RBC (4.30-5.90) m/uL Hgb (13.0-17.5) gm/dL Hct (39.0-53.0) % RDW (11.5-15.5) % Plt Count (150-450) k/uL PT (9.0-12.0) sec INR (<1.2) Sodium 133 L (137-145) mmol/L Carbon Dioxide 19 L (22-30) mmol/L BUN 48 H (9-20) mg/dL Creatinine 5.24 H (0.66-1.25) mg/dL POC Glucose (mg/dL) 123 H (70-110) mg/dL Calcium 8.1 L (8.4-10.2) mg/dL Total Protein 5.5 L (6.3-8.2) g/dL Albumin 3.1 L (3.5-5.0) g/dL Assessment and Plan (1) Diabetic foot infection Current Visit: Yes Status: Acute Code(s): E11.628 - TYPE 2 DIABETES MELLITUS WITH OTHER SKIN COMPLICATIONS; L08.9 - LOCAL INFECTION OF THE SKIN AND SUBCUTANEOUS TISSUE, UNSP SNOMED Code(s): 772745168 Plan: 1patient with right second toe diabetic foot infection in this patient who is status post amputation of the right second toe culture that time was positive for MRSA patient did present to the hospital with acute renal failure patient did have purulent drainage to the right second toe amputation site and some surrounding cellulitis. 2local culture growing Proteus, group B strep and is also showing presumptive staph aureus which has been finalized his MSSA. 3local wound care with a dry Aquacel silver dressing change daily and vascular surgery is following the patient closely 4patient did have clinical improvement as far as the right foot ulcer is concerned , the patient will continue with cefepime and Flagyl, with a plan to finish therapy with oral antibiotics and close outpatient follow-up Time with Patient: Less than 30
[2022-08-23] MEDS: HYDROmorphone 0.5 MG/0.5 ML SYRINGE IVP PRN (04:12)
[2022-08-23 05:58] LABS: Glucose,Whole Blood 101 mg/dL (70-110)
[2022-08-23] MEDS: INSULIN ASPART (NovoLOG) 100 UNIT/ML VIAL SQ SCH ×4 (06:12→20:21)
[2022-08-23] MEDS: PANTOPRAZOLE 40 MG TABLET PO SCH (06:46)
[2022-08-23 08:44] LABS: Basophils % (A) 1 %; Eosinophils # (A) 0.2 k/uL (0-0.7); Eosinophils % (A) 4 %; HCT 23.2 % (39.0-53.0); HGB 7.7 gm/dL (13.0-17.5); Hypochromasia Slight; Lymphocytes # (A) 1.3 k/uL (1.0-4.8); Lymphocytes % (A) 23 %; MCH 32.4 pg (25.0-35.0); MCHC 33.3 g/dL (31.0-37.0); MCV 97.3 fL (80.0-100.0); Mean Platelet Volume 8.4; Monocytes # (A) 0.3 k/uL (0-1.0); Monocytes % (A) 6 %; Neutrophils # (A) 3.4 k/uL (1.3-7.7); Neutrophils % (A) 63 %; Platelet Count 150 k/uL (150-450); RBC 2.38 m/uL (4.30-5.90); RDW 15.9 % (11.5-15.5); WBC 5.5 k/uL (3.8-10.6)
[2022-08-23] MEDS: COLLAGENASE 250 UNIT/GM OINTMENT 30 GM TUBE TOPICAL SCH (08:51)
[2022-08-23 08:57] LABS: Albumin 3.3 g/dL (3.5-5.0); Calcium 8.2 mg/dL (8.4-10.2); INR 1.9 (<1.2); Potassium 3.4 mmol/L (3.5-5.1); Prothrombin Time 18.9 sec (9.0-12.0); Total Bilirubin 0.8 mg/dL (0.2-1.3); Total Protein 5.6 g/dL (6.3-8.2)
[2022-08-23] MEDS: allopurinoL 300 MG TAB PO SCH (09:06)
[2022-08-23] MEDS: HYDROcodone/APAP 10-325MG 1 EACH TAB PO PRN ×3 (09:06→23:41)
[2022-08-23] MEDS: ENOXAPARIN 30 MG/0.3 ML SYRINGE SQ SCH (09:06)
[2022-08-23] MEDS: metroNIDAZOLE 500 MG TAB PO SCH ×3 (09:06→20:22)
[2022-08-23] MEDS: FUROSEMIDE 10 MG/ML 4 ML VIAL IV SCH ×2 (09:07→20:21)
[2022-08-23] MEDS ORDERED: POTASSIUM CHLORIDE ER 20 MEQ TAB.ER PO STA (09:38)
--- NOTE | 2022-08-23 11:29 | P.PN ---
Subjective Progress Note Date: 08/23/22 71-year-old male patient who presented he ER with concerns of acute on kidney disease with worsening kidney status. Patient has a history of recent second toe amputation approximately 6 weeks ago. Additional medical history includes atrial fibrillation, diabetes mellitus, MRSA, depression and joint replacement. CT of abdomen and pelvis completed showing no evidence of obstructive uropathy there are bilateral nonobstructing renal calculi versus medullary calcifications present. And determinate left renal lesion, not nodule contour to liver correlate for cirrhosis, correlate lithiasis, cardiomegaly with bilateral trace pleural effusions correlate for volume overload with serum BNP. Creatinine elevated at 7.50 and bun 72. Hemoglobin is low at 7.2. At this time nephrology and urology service is consulted. Dr. Dia consulted for infectious disease chronic lower extremity wound. Iron studies ordered. Home meds resumed pharmacy to dose Coumadin for atrial fibrillation. Graham catheter remains in place. This time patient denies chest pain or shortness breath. Patient denies nausea vomiting or diarrhea. Patient denies any urinary burning or frequency. 08/23/2022 the patient is seen and evaluated in room at bedside, continues to be afebrile, the patient is breathing comfortably on room air, the patient denies chest pain shortness of breath or cough , the patient denies nausea no vomiting no abdominal pain no diarrhea, the patient pain to the right second toe amputation site has decreased in intensity , patient denies any new symptoms and wants to g o home Objective - Vital Signs Vital signs: Vital Signs Temp 98.1 F 08/23/22 04:00 Pulse 74 08/23/22 04:00 Resp 18 08/23/22 04:00 BP 132/67 08/23/22 04:00 Pulse Ox 98 08/23/22 08:41 FiO2 Intake & Output 08/22/22 08/23/22 08/23/22 18:59 06:59 18:59 Intake Total 675 Output Total 1100 2000 Balance -425 -1999 Intake: Intake, IV Titration 675 Amount Lactated Ringers 1,000 ml 675 @ 75 mls/hr IV .[id number] [facility] Rx#:[id number] Output: Urine 1100 2000 Other: Voiding Method Indwelling Catheter Indwelling Catheter - Exam PHYSICAL EXAMINATION: GENERAL: The patient is alert and oriented x3, not in any acute distress. Well developed, well nourished. HEENT: Pupils are round and equally reacting to light. EOMI. No scleral icterus. No conjunctival pallor. Normocephalic, atraumatic. No pharyngeal erythema. No thyromegaly. CARDIOVASCULAR: S1 and S2 present. No murmurs, rubs, or gallops. PULMONARY: Chest is clear to auscultation, no wheezing or crackles. ABDOMEN: Soft, nontender, nondistended, normoactive bowel sounds. No palpable organomegaly. MUSCULOSKELETAL: No joint swelling or deformity. EXTREMITIES: No cyanosis, clubbing, or pedal edema. NEUROLOGICAL: Gross neurological examination did not reveal any focal deficits. SKIN: No rashes. - Labs CBC & Chem 7: 08/23/22 07:58 08/23/22 07:58 Labs: Abnormal Lab Results - Last 24 Hours (Table) 08/22/22 08/22/22 08/23/22 Range/Units 11:41 16:16 07:58 RBC (4.30-5.90) m/uL Hgb (13.0-17.5) gm/dL Hct (39.0-53.0) % RDW (11.5-15.5) % PT 18.9 H (9.0-12.0) sec INR 1.9 H (<1.2) Sodium (137-145) mmol/L Potassium (3.5-5.1) mmol/L Carbon Dioxide (22-30) mmol/L BUN (9-20) mg/dL Creatinine (0.66-1.25) mg/dL POC Glucose (mg/dL) 123 H 129 H (70-110) mg/dL Calcium (8.4-10.2) mg/dL Total Protein (6.3-8.2) g/dL Albumin (3.5-5.0) g/dL 08/23/22 08/23/22 Range/Units 07:58 07:58 RBC 2.38 L (4.30-5.90) m/uL Hgb 7.7 L (13.0-17.5) gm/dL Hct 23.2 L (39.0-53.0) % RDW 15.9 H (11.5-15.5) % PT (9.0-12.0) sec INR (<1.2) Sodium 134 L (137-145) mmol/L Potassium 3.4 L (3.5-5.1) mmol/L Carbon Dioxide 20 L (22-30) mmol/L BUN 47 H (9-20) mg/dL Creatinine 5.10 H (0.66-1.25) mg/dL POC Glucose (mg/dL) (70-110) mg/dL Calcium 8.2 L (8.4-10.2) mg/dL Total Protein 5.6 L (6.3-8.2) g/dL Albumin 3.3 L (3.5-5.0) g/dL Assessment and Plan Assessment: 1. Acute on chronic kidney disease likely related to obstructive uropathy and component of ATN/CK D stage III a. Nephrology services have been consulted; baseline creatinine of 1.6 -- Patient continues to have good urine output; metabolic acidosis likely related to acute on chronic kidney injury; serologies negative so far -renal function slowly improving. Patient is currently on Lasix 40 mg IV every 12 hours - Continue to avoid nephrotoxins and hypotension 2. Left renal lesion; patient follows up with urology as an outpatient 3. History of diabetes mellitus 4. History of atrial fibrillation maintained on Coumadin; Coumadin was initi ally placed on hold in anticipation of possible renal biopsy; patient is maintained on subcu Lovenox at this time; INR 1.9 this morning 5. History of essential hypertension; currently not on any antihypertensive therapy 6. History of gout; allopurinol 300 mg daily 7. History of chronic back pain; continue with home dose of [place] 10 mg every 6 hours when necessary; patient also has Dilaudid 0.5 mg ordered IV every 4 hours when necessary for breakthrough pain 8. Anemia; iron studies ordered; hemoglobin is stable at 7.7 9. Subtherapeutic INR. Corrected. Pharmacy to dose Coumadin 10. Cellulitis. Infectious disease service is following; continue with IV cefepime 1 g daily, Flagyl 500 mg 3 times a day DVT prophylaxis; SCDs/Coumadin CODE STATUS; full code
[2022-08-23 11:58] LABS: Glucose,Whole Blood 117 mg/dL (70-110)
--- NOTE | 2022-08-23 13:48 | P.PN ---
Subjective Progress Note Date: 08/23/22 Principal diagnosis: Right second toe amputation site wound infection Patient is a 71-year-old male was recently admitted to this facility and the patient did have a right second toe diabetic foot infection in this patient was status post amputation of his right second toe on 06/29/2022 , patient presented to the hospital with worsening renal failure and the patient w as noticed to have some purulent drainage from his right second toe amputation site wound which is currently not healed On today's evaluation that is 08/23/2022, the patient remains to be afebrile, th e patient is breathing comfortably on room air, the patient denies chest pain shortness of breath or cough , the patient denies nausea no vomiting no abdominal pain no diarrhea, the patient pain to the right second toe amputation site is currently controlled, no new symptoms Objective - Vital Signs Vital signs: Vital Signs Temp 98.7 F 08/23/22 08:55 Pulse 88 08/23/22 08:55 Resp 16 08/23/22 08:55 BP 115/55 08/23/22 08:55 Pulse Ox 95 08/23/22 08:55 FiO2 Intake & Output 08/22/22 08/23/22 08/23/22 18:59 06:59 18:59 Intake Total 675 Output Total 1100 2750 Balance -425 -2750 Intake: Intake, IV Titration 675 Amount Lactated Ringers 1,000 ml 675 @ 75 mls/hr IV .[id number] [facility] Rx#:[id number] Output: Urine 1100 2750 Other: Voiding Method Indwelling Catheter Indwelling Catheter Indwelling Catheter - Exam GENERAL DESCRIPTION: An elderly male lying in bed in no distress RESPIRATORY SYSTEM: Unlabored breathing , decreased breath sounds at bases HEART: S1 S2 regular rate and rhythm , ABDOMEN: Soft , no tenderness EXTREMITIES: Right second toe amputation site wound base with minimal drainage , right big toe discoloration has decreased in intensity - Labs CBC & Chem 7: 08/23/22 07:58 08/23/22 07:58 Labs: Abnormal Lab Results - Last 24 Hours (Table) 08/22/22 08/23/22 08/23/22 Range/Units 16:16 07:58 07:58 RBC (4.30-5.90) m/uL Hgb (13.0-17.5) gm/dL Hct (39.0-53.0) % RDW (11.5-15.5) % PT 18.9 H (9.0-12.0) sec INR 1.9 H (<1.2) Sodium 134 L (137-145) mmol/L Potassium 3.4 L (3.5-5.1) mmol/L Carbon Dioxide 20 L (22-30) mmol/L BUN 47 H (9-20) mg/dL Creatinine 5.10 H (0.66-1.25) mg/dL POC Glucose (mg/dL) 129 H (70-110) mg/dL Calcium 8.2 L (8.4-10.2) mg/dL Total Protein 5.6 L (6.3-8.2) g/dL Albumin 3.3 L (3.5-5.0) g/dL 08/23/22 08/23/22 Range/Units 07:58 11:40 RBC 2.38 L (4.30-5.90) m/uL Hgb 7.7 L (13.0-17.5) gm/dL Hct 23.2 L (39.0-53.0) % RDW 15.9 H (11.5-15.5) % PT (9.0-12.0) sec INR (<1.2) Sodium (137-145) mmol/L Potassium (3.5-5.1) mmol/L Carbon Dioxide (22-30) mmol/L BUN (9-20) mg/dL Creatinine (0.66-1.25) mg/dL POC Glucose (mg/dL) 117 H (70-110) mg/dL Calcium (8.4-10.2) mg/dL Total Protein (6.3-8.2) g/dL Albumin (3.5-5.0) g/dL Assessment and Plan (1) Diabetic foot infection Current Visit: Yes Status: Acute Code(s): E11.628 - TYPE 2 DIABETES MELLITUS WITH OTHER SKIN COMPLICATIONS; L08.9 - LOCAL INFECTION OF THE SKIN AND SUBCUTANEOUS TISSUE, UNSP SNOMED Code(s): 605787972 Plan: 1patient with right second toe diabetic foot infection in this patient who is status post amputation of the right second toe culture that time was positive for MRSA patient did present to the hospital with acute renal failure patient did have purulent drainage to the right second toe amputation site and some surrounding cellulitis. 2local culture growing Proteus, group B strep and is also showing presumptive staph aureus which has been finalized his MSSA. 3local wound care with a dry Aquacel silver dressing change daily and vascular surgery is following the patient closely 4patient has shown clinical improvement as far as the right foot ulcer and cellulitis is concerned , the patient will continue with cefepime and Flagyl ivania le inpatient however plan to finish therapy with oral antibiotics and close outpatient follow-up Time with Patient: Less than 30
--- NOTE | 2022-08-23 15:22 | P.PN ---
Subjective Progress Note Date: 08/23/22 Follow-up for acute kidney injury. Good urine output, 3.6 L in the last 24 hours. Denies any nausea vomiting diarrhea. Objective - Vital Signs Vital signs: Vital Signs Temp 96.1 F L 08/23/22 12:30 Pulse 83 08/23/22 12:30 Resp 16 08/23/22 12:30 BP 116/60 08/23/22 12:30 Pulse Ox 96 08/23/22 12:30 FiO2 Intake & Output 08/22/22 08/23/22 08/23/22 18:59 06:59 18:59 Intake Total 675 480 Output Total 1100 3600 Balance -425 -3120 Intake: Intake, IV Titration 675 Amount Lactated Ringers 1,000 ml 675 @ 75 mls/hr IV .[id number] [facility] Rx#:[id number] Oral 480 Output: Urine 1100 3600 Other: Voiding Method Indwelling Catheter Indwelling Catheter Indwelling Catheter - Exam Acute distress S1-S2 heard Decreased breath sounds Graham catheter Edema - Labs CBC & Chem 7: 08/23/22 07:58 08/23/22 07:58 Labs: Abnormal Lab Results - Last 24 Hours (Table) 08/22/22 08/23/22 08/23/22 Range/Units 16:16 07:58 07:58 RBC (4.30-5.90) m/uL Hgb (13.0-17.5) gm/dL Hct (39.0-53.0) % RDW (11.5-15.5) % PT 18.9 H (9.0-12.0) sec INR 1.9 H (<1.2) Sodium 134 L (137-145) mmol/L Potassium 3.4 L (3.5-5.1) mmol/L Carbon Dioxide 20 L (22-30) mmol/L BUN 47 H (9-20) mg/dL Creatinine 5.10 H (0.66-1.25) mg/dL POC Glucose (mg/dL) 129 H (70-110) mg/dL Calcium 8.2 L (8.4-10.2) mg/dL Total Protein 5.6 L (6.3-8.2) g/dL Albumin 3.3 L (3.5-5.0) g/dL 08/23/22 08/23/22 Range/Units 07:58 11:40 RBC 2.38 L (4.30-5.90) m/uL Hgb 7.7 L (13.0-17.5) gm/dL Hct 23.2 L (39.0-53.0) % RDW 15.9 H (11.5-15.5) % PT (9.0-12.0) sec INR (<1.2) Sodium (137-145) mmol/L Potassium (3.5-5.1) mmol/L Carbon Dioxide (22-30) mmol/L BUN (9-20) mg/dL Creatinine (0.66-1.25) mg/dL POC Glucose (mg/dL) 117 H (70-110) mg/dL Calcium (8.4-10.2) mg/dL Total Protein (6.3-8.2) g/dL Albumin (3.5-5.0) g/dL Assessment and Plan Assessment: #1 acute kidney injury secondary to obstructive uropathy and component of ATN. -Baseline creatinine 1.6 MG per DL. #2 chronic kidney disease stage III A suspected nephrosclerosis. #3 metabolic acidosis secondary to acute kidney injury #4 chronic A. fib on anticoagulation #5 left renal lesion, follows with urology as outpatient. Plan: #1 renal function slowly improving. #2 serology so far negative. #3 urology following #4 avoid nephrotoxic agents and hypotensive episodes
[2022-08-23 17:11] LABS: Glucose,Whole Blood 199 mg/dL (70-110)
[2022-08-23 20:05] LABS: Glucose,Whole Blood 173 mg/dL (70-110)
[2022-08-23] MEDS: CEFEPIME 1 GM in SODIUM CHLORIDE 0.9% 50 ML IVPB SCH (20:20)
[2022-08-24] MEDS: HYDROmorphone 0.5 MG/0.5 ML SYRINGE IVP PRN (02:21)
[2022-08-24 06:09] LABS: Glucose,Whole Blood 101 mg/dL (70-110)
[2022-08-24] MEDS: INSULIN ASPART (NovoLOG) 100 UNIT/ML VIAL SQ SCH ×4 (06:15→21:18)
[2022-08-24] MEDS: PANTOPRAZOLE 40 MG TABLET PO SCH (06:31)
[2022-08-24] MEDS: HYDROcodone/APAP 10-325MG 1 EACH TAB PO PRN ×3 (06:31→21:17)
[2022-08-24 07:59] LABS: INR 1.7 (<1.2); Prothrombin Time 17.3 sec (9.0-12.0)
[2022-08-24] MEDS: metroNIDAZOLE 500 MG TAB PO SCH ×3 (08:11→21:17)
[2022-08-24] MEDS: allopurinoL 300 MG TAB PO SCH (08:11)
[2022-08-24] MEDS: FUROSEMIDE 10 MG/ML 4 ML VIAL IV SCH ×2 (08:11→21:17)
[2022-08-24] MEDS: COLLAGENASE 250 UNIT/GM OINTMENT 30 GM TUBE TOPICAL SCH (08:12)
--- NOTE | 2022-08-24 10:40 | P.PN ---
Subjective Progress Note Date: 08/24/22 Principal diagnosis: This is a 71-year-old male with diabetes atrial fibrillation, seen with obstructive nephropathy. His admission creatinine was 7.55 and is improved to 5.1 with a Graham catheter in last 24 hour urine output is 6425. Patient denies any complaints. No fever chills cough shortness of breath nausea vomiting diarrhea. Appetite fairly good He is known with atrial fibrillation and diabetes mellitus Baseline creatinine is 1.6 with chronic kidney disease stage III Objective - Vital Signs Vital signs: Vital Signs Temp 98.3 F 08/24/22 08:07 Pulse 98 08/24/22 09:43 Resp 18 08/24/22 09:43 BP 107/57 08/24/22 08:07 Pulse Ox 95 08/24/22 09:32 FiO2 21 08/24/22 09:32 Intake & Output 08/23/22 08/24/22 08/24/22 18:59 06:59 18:59 Intake Total 720 Output Total 4225 2200 Balance -3505 -2200 Intake: Oral 720 Output: Urine 4225 2200 Other: Voiding Method Indwelling Catheter Indwelling Catheter Indwelling Catheter On exam he is awake alert oriented comfortable HEENT exam no JVP neck is supple no facial asymmetry Lungs clear to auscultation and good air entry bilaterally Heart sounds unremarkable for any murmur rub gallop Abdomen soft nontender Extremity exam was trace edema Neurologically awake alert oriented - Labs CBC & Chem 7: 08/23/22 07:58 08/23/22 07:58 Labs: Abnormal Lab Results - Last 24 Hours (Table) 08/23/22 08/23/22 08/23/22 Range/Units 11:40 16:33 20:03 PT (9.0-12.0) sec INR (<1.2) POC Glucose (mg/dL) 117 H 199 H 173 H (70-110) mg/dL 08/24/22 Range/Units 06:49 PT 17.3 H (9.0-12.0) sec INR 1.7 H (<1.2) POC Glucose (mg/dL) (70-110) mg/dL Assessment and Plan Assessment: Impression 1. Obstructive nephropathy, status Graham catheter with creatinine slowly improving from a high of 7.5-5.1 with good urine output 2. Chronic kidney disease stage III, Baseline creatinine 1.6, serum protein alkalosis shows a lambda peak, and urine [place] protein positive on 08/16/2022 with lambda light chain additionally possible diabetic nephropathy with 2+ protein, urine microalbumin to creatinine ratio is 200 mg/g. Urine protein to creatinine ratio not available 3. History of diabetes mellitus 4. History of left renal mass 5. Mild degree of hyponatremia and hypokalemia secondary to acute kidney injury last today are pending yesterday his sodium was 134 and potassium is 3.4 6. Mild degree of non-gap acidosis bicarb is 28 and gap was 12 secondary to acute kidney injury. Recommendation 1. Maintain the Graham catheter and deferred to the urology regarding the management. 2. Check urine protein to creatinine ratio. 3. Heme consult regarding monoclonal gammopathy
[2022-08-24 11:19] LABS: Creatinine,Urine Random 37.9 mg/dL
[2022-08-24 11:29] LABS: Glucose,Whole Blood 139 mg/dL (70-110)
--- NOTE | 2022-08-24 14:25 | P.PN ---
Subjective Progress Note Date: 08/24/22 Principal diagnosis: Right second toe amputation site wound infection Patient is a 71-year-old male was recently admitted to this facility and the patient did have a right second toe diabetic foot infection in this patient was status post amputation of his right second toe on 06/29/2022 , patient presented to the hospital with worsening renal failure and the patient w as noticed to have some purulent drainage from his right second toe amputation site wound which is currently not healed On today's evaluation that is 08/24/2022, the patient continues to be afebrile, the patient is breathing comfortably on room air, the patient denies chest pain shortness of breath or cough , the patient denies nausea no vomiting no abdominal pain no diarrhea, the patient denies significant pain to the right second toe amputation site or any foul-smelling drainage Objective - Vital Signs Vital signs: Vital Signs Temp 98.3 F 08/24/22 08:07 Pulse 80 08/24/22 14:13 Resp 18 08/24/22 14:13 BP 113/58 08/24/22 12:00 Pulse Ox 94 L 08/24/22 12:00 FiO2 21 08/24/22 09:32 Intake & Output 08/23/22 08/24/22 08/24/22 18:59 06:59 18:59 Intake Total 720 180 Output Total 4225 2200 825 Balance -3505 -2200 -645 Intake: Oral 720 180 Output: Urine 4225 2200 825 Other: Voiding Method Indwelling Catheter Indwelling Catheter Indwelling Catheter - Exam GENERAL DESCRIPTION: An elderly male lying in bed in no distress RESPIRATORY SYSTEM: Unlabored breathing , decreased breath sounds at bases HEART: S1 S2 regular rate and rhythm , ABDOMEN: Soft , no tenderness EXTREMITIES: Right second toe amputation site wound base with minimal drainage , right big toe discoloration has decreased in intensity - Labs CBC & Chem 7: 08/23/22 07:58 08/23/22 07:58 Labs: Abnormal Lab Results - Last 24 Hours (Table) 08/23/22 08/23/22 08/24/22 Range/Units 16:33 20:03 06:49 PT 17.3 H (9.0-12.0) sec INR 1.7 H (<1.2) POC Glucose (mg/dL) 199 H 173 H (70-110) mg/dL 08/24/22 Range/Units 11:28 PT (9.0-12.0) sec INR (<1.2) POC Glucose (mg/dL) 139 H (70-110) mg/dL Assessment and Plan (1) Diabetic foot infection Current Visit: Yes Status: Acute Code(s): E11.628 - TYPE 2 DIABETES MELLITUS WITH OTHER SKIN COMPLICATIONS; L08.9 - LOCAL INFECTION OF THE SKIN AND SUBCUTANEOUS TISSUE, UNSP SNOMED Code(s): 983780168 Plan: 1patient with right second toe diabetic foot infection in this patient who is status post amputation of the right second toe culture that time was positive for MRSA patient did present to the hospital with acute renal failure patient did have purulent drainage to the right second toe amputation site and some surrounding cellulitis. 2local culture growing Proteus, group B strep and is also showing presumptive staph aureus which has been finalized his MSSA. 3local wound care with a dry Aquacel silver dressing change daily and vascular surgery is following the patient closely 4patient slowly clinically improving as far as the right foot ulcer and cellulitis is concerned , the patient currently being treated with cefepime and Flagyl, with plan to finish therapy with oral antibiotics and close outpatient follow-up Time with Patient: Less than 30
--- NOTE | 2022-08-24 15:58 | P.PN ---
Subjective Progress Note Date: 08/24/22 71-year-old male patient who presented he ER with concerns of acute on kidney disease with worsening kidney status. Patient has a history of recent second toe amputation approximately 6 weeks ago. Additional medical history includes atrial fibrillation, diabetes mellitus, MRSA, depression and joint replacement. CT of abdomen and pelvis completed showing no evidence of obstructive uropathy there are bilateral nonobstructing renal calculi versus medullary calcifications present. And determinate left renal lesion, not nodule contour to liver correlate for cirrhosis, correlate lithiasis, cardiomegaly with bilateral trace pleural effusions correlate for volume overload with serum BNP. Creatinine elevated at 7.50 and bun 72. Hemoglobin is low at 7.2. At this time nephrology and urology service is consulted. Dr. Dia consulted for infectious disease chronic lower extremity wound. Iron studies ordered. Home meds resumed pharmacy to dose Coumadin for atrial fibrillation. Graham catheter remains in place. This time patient denies chest pain or shortness breath. Patient denies nausea vomiting or diarrhea. Patient denies any urinary burning or frequency. 08/23/2022 the patient is seen and evaluated in room at bedside, continues to be afebrile, the patient is breathing comfortably on room air, the patient denies chest pain shortness of breath or cough , the patient denies nausea no vomiting no abdominal pain no diarrhea, the patient pain to the right second toe amputation site has decreased in intensity , patient denies any new symptoms and wants to g o home 08/24/2022 the patient is seen and evaluated in room at bedside; continues to be afebrile, the patient is breathing comfortably on room air, the patient denies chest pain shortness of breath or cough , the patient denies nausea no vomiting no abdominal pain no diarrhea, the patient denies significant pain to the right second toe amputation site or any foul-smelling drainage patient with right second toe diabetic foot infection in this patient who is status post amputation of the right second toe culture that time was positive for MRSA patient did present to the hospital with acute renal failure patient did have purulent drainage to the right second toe amputation site and some surrounding cellulitis. local culture growing Proteus, group B strep and is also showing presumptive staph aureus which has been finalized his MSSA. local wound care with a dry Aquacel silver dressing change daily and vascular surgery is following the patient closely patient slowly clinically improving as far as the right foot ulcer and cellulitis is concerned , the patient currently being treated with cefepime and Flagyl, with plan to finish therapy with oral antibiotics and close outpatient follow-up Objective - Vital Signs Vital signs: Vital Signs Temp 98.3 F 08/24/22 08:07 Pulse 98 08/24/22 09:43 Resp 18 08/24/22 09:43 BP 107/57 08/24/22 08:07 Pulse Ox 95 08/24/22 09:32 FiO2 21 08/24/22 09:32 Intake & Output 08/23/22 08/24/22 08/24/22 18:59 06:59 18:59 Intake Total 720 180 Output Total 4225 2200 550 Balance -3505 -2200 -370 Intake: Oral 720 180 Output: Urine 4225 2200 550 Other: Voiding Method Indwelling Catheter Indwelling Catheter Indwelling Catheter - Exam PHYSICAL EXAMINATION: GENERAL: The patient is alert and oriented x3, not in any acute distress. Well developed, well nourished. HEENT: Pupils are round and equally reacting to light. EOMI. No scleral icterus. No conjunctival pallor. Normocephalic, atraumatic. No pharyngeal erythema. No thyromegaly. CARDIOVASCULAR: S1 and S2 present. No murmurs, rubs, or gallops. PULMONARY: Chest is clear to auscultation, no wheezing or crackles. ABDOMEN: Soft, nontender, nondistended, normoactive bowel sounds. No palpable organomegaly. MUSCULOSKELETAL: No joint swelling or deformity. EXTREMITIES: No cyanosis, clubbing, or pedal edema. NEUROLOGICAL: Gross neurological examination did not reveal any focal deficits. SKIN: No rashes. - Labs CBC & Chem 7: 08/23/22 07:58 08/23/22 07:58 Labs: Abnormal Lab Results - Last 24 Hours (Table) 08/23/22 08/23/22 08/24/22 Range/Units 16:33 20:03 06:49 PT 17.3 H (9.0-12.0) sec INR 1.7 H (<1.2) POC Glucose (mg/dL) 199 H 173 H (70-110) mg/dL 08/24/22 Range/Units 11:28 PT (9.0-12.0) sec INR (<1.2) POC Glucose (mg/dL) 139 H (70-110) mg/dL Assessment and Plan Assessment: 1. Acute on chronic kidney disease likely related to obstructive uropathy and component of ATN/CK D stage III a. Nephrology services have been consulted; baseline creatinine of 1.6 -- Patient continues to have good urine output; metabolic acidosis likely related to acute on chronic kidney injury; serologies negative so far -renal function slowly improving. Patient is currently on Lasix 40 mg IV every 12 hours - Continue to avoid nephrotoxins and hypotension 2. Left renal lesion; patient follows up with urology as an outpatient 3. History of diabetes mellitus 4. History of atrial fibrillation maintained on Coumadin; Coumadin was initially placed on hold in anticipation of possible renal biopsy; patient is maintained on subcu Lovenox at this time; INR 1.9 this morning 5. History of essential hypertension; currently not on any antihypertensive therapy 6. History of gout; allopurinol 300 mg daily 7. History of chronic back pain; continue with home dose of Prue 10 mg every 6 hours when necessary; patient also has Dilaudid 0.5 mg ordered IV every 4 hours when necessary for breakthrough pain 8. Anemia; iron studies ordered; hemoglobin is stable at 7.7 9. Subtherapeutic INR. Corrected. Pharmacy to dose Coumadin 10. Cellulitis. Infectious disease service is following; continue with IV cefepime 1 g daily, Flagyl 500 mg 3 times a day DVT prophylaxis; SCDs/Coumadin CODE STATUS; full code
[2022-08-24 16:34] LABS: Glucose,Whole Blood 144 mg/dL (70-110)
[2022-08-24 19:55] LABS: Glucose,Whole Blood 186 mg/dL (70-110)
[2022-08-24] MEDS: CEFEPIME 1 GM in SODIUM CHLORIDE 0.9% 50 ML IVPB SCH (21:18)
[2022-08-25 05:53] LABS: Glucose,Whole Blood 95 mg/dL (70-110)
[2022-08-25] MEDS: INSULIN ASPART (NovoLOG) 100 UNIT/ML VIAL SQ SCH ×4 (05:56→21:24)
[2022-08-25] MEDS: PANTOPRAZOLE 40 MG TABLET PO SCH (06:18)
[2022-08-25] MEDS: HYDROcodone/APAP 10-325MG 1 EACH TAB PO PRN ×2 (08:46→19:52)
[2022-08-25] MEDS: allopurinoL 300 MG TAB PO SCH (08:46)
[2022-08-25] MEDS: metroNIDAZOLE 500 MG TAB PO SCH ×3 (08:46→21:28)
[2022-08-25 08:47] LABS: INR 1.6 (<1.2); Prothrombin Time 16.2 sec (9.0-12.0)
[2022-08-25] MEDS: COLLAGENASE 250 UNIT/GM OINTMENT 30 GM TUBE TOPICAL SCH (08:47)
[2022-08-25] MEDS: FUROSEMIDE 10 MG/ML 4 ML VIAL IV SCH ×2 (08:47→21:28)
--- NOTE | 2022-08-25 10:45 | P.PN ---
Subjective Progress Note Date: 08/25/22 Principal diagnosis: This is a 71-year-old male with diabetes atrial fibrillation, seen with obstructive nephropathy. Creatinine was admitted because of worsening creatinine as an outpatient. His admission creatinine was 7.55 and is improved to 5.1 with a Graham catheter as of yesterday labs today are pending. Urine output is documented at 2775. Patient denies any complaints. No fever chills cough shortness of breath nausea vomiting diarrhea. Appetite fairly good He is known with atrial fibrillation and diabetes mellitus Baseline creatinine is 1.6 with chronic kidney disease stage III Objective - Vital Signs Vital signs: Vital Signs Temp 98.5 F 08/25/22 08:00 Pulse 80 08/25/22 08:00 Resp 18 08/25/22 08:00 BP 125/60 08/25/22 08:00 Pulse Ox 96 08/25/22 08:00 FiO2 21 08/24/22 09:32 Intake & Output 08/24/22 08/25/22 08/25/22 18:59 06:59 18:59 Intake Total 180 240 Output Total 1275 1500 1300 Balance -1095 -1260 -1300 Intake: Oral 180 240 Output: Urine 1275 1500 1300 Other: Voiding Method Indwelling Catheter Indwelling Catheter Indwelling Catheter On exam he is awake alert oriented comfortable HEENT exam no JVP neck is supple no facial asymmetry Lungs clear to auscultation and good air entry bilaterally Heart sounds unremarkable for any murmur rub gallop Abdomen soft nontender Extremity exam was trace edema Neurologically awake alert oriented - Labs CBC & Chem 7: 08/23/22 07:58 08/23/22 07:58 Labs: Abnormal Lab Results - Last 24 Hours (Table) 08/24/22 08/24/22 08/24/22 Range/Units 11:28 16:33 19:53 PT (9.0-12.0) sec INR (<1.2) POC Glucose (mg/dL) 139 H 144 H 186 H (70-110) mg/dL 08/25/22 Range/Units 07:51 PT 16.2 H (9.0-12.0) sec INR 1.6 H (<1.2) POC Glucose (mg/dL) (70-110) mg/dL Assessment and Plan Assessment: Impression 1. Obstructive nephropathy, status Graham catheter with creatinine slowly improving from a high of 7.5-5.1 with good urine output. Labs today are pending 2. Chronic kidney disease stage III, Baseline creatinine 1.6, serum protein alkalosis shows a lambda peak, and urine Bence-Brantley protein positive on 08/16/2022 with lambda light chain additionally possible diabetic nephropathy with 2+ protein, urine microalbumin to creatinine ratio is 200 mg/g. Urine protein to creatinine ratio is 600 mg / 37, therefore nephrotic range 3. History of diabetes mellitus 4. History of left renal mass 5. Mild degree of hyponatremia and hypokalemia secondary to acute kidney injury last today are pending yesterday his sodium was 134 and potassium is 3.4 6. Mild degree of non-gap acidosis bicarb is 28 and gap was 12 secondary to acute kidney injury. Recommendation 1. Pending heme oncology evaluation regarding the monoclonal gammopathy. 2. Please note that he has significant proteinuria will obtain a 24-hour urine for accurate measurement 3. A urine immunoelectrophoresis pending
[2022-08-25 12:04] LABS: Glucose,Whole Blood 116 mg/dL (70-110)
--- NOTE | 2022-08-25 14:11 | P.PN ---
Subjective Progress Note Date: 08/25/22 Principal diagnosis: Right second toe amputation site wound infection Patient is a 71-year-old male was recently admitted to this facility and the patient did have a right second toe diabetic foot infection in this patient was status post amputation of his right second toe on 06/29/2022 , patient presented to the hospital with worsening renal failure and the patient w as noticed to have some purulent drainage from his right second toe amputation site wound which is currently not healed On today's evaluation that is 08/25/2022, the patient denies any fever or any ch ills, the patient is breathing comfortably on room air, the patient denies chest pain shortness of breath or cough , the patient denies nausea no vomiting no abdominal pain no diarrhea, the patient pain to the right second toe amputation site wound has decreased, no new symptoms Objective - Vital Signs Vital signs: Vital Signs Temp 98.5 F 08/25/22 08:00 Pulse 93 08/25/22 12:00 Resp 18 08/25/22 12:00 BP 115/57 08/25/22 12:00 Pulse Ox 96 08/25/22 12:00 FiO2 21 08/24/22 09:32 Intake & Output 08/24/22 08/25/22 08/25/22 18:59 06:59 18:59 Intake Total 180 240 Output Total 1275 1500 1300 Balance -1095 -1260 -1300 Intake: Oral 180 240 Output: Urine 1275 1500 1300 Other: Voiding Method Indwelling Catheter Indwelling Catheter Indwelling Catheter - Exam GENERAL DESCRIPTION: An elderly male lying in bed in no distress RESPIRATORY SYSTEM: Unlabored breathing , decreased breath sounds at bases HEART: S1 S2 regular rate and rhythm , ABDOMEN: Soft , no tenderness EXTREMITIES: Right second toe amputation site wound base looks clean minimal drainage of the dressing patient did have a necrosis on the plantar aspect of his right big toe - Labs CBC & Chem 7: 08/23/22 07:58 08/23/22 07:58 Labs: Abnormal Lab Results - Last 24 Hours (Table) 08/24/22 08/24/22 08/25/22 Range/Units 16:33 19:53 07:51 PT 16.2 H (9.0-12.0) sec INR 1.6 H (<1.2) POC Glucose (mg/dL) 144 H 186 H (70-110) mg/dL 08/25/22 Range/Units 12:02 PT (9.0-12.0) sec INR (<1.2) POC Glucose (mg/dL) 116 H (70-110) mg/dL Assessment and Plan (1) Diabetic foot infection Current Visit: Yes Status: Acute Code(s): E11.628 - TYPE 2 DIABETES MELLITUS WITH OTHER SKIN COMPLICATIONS; L08.9 - LOCAL INFECTION OF THE SKIN AND SUBCUTANEOUS TISSUE, UNSP SNOMED Code(s): 115003075 Plan: 1patient with right second toe diabetic foot infection in this patient who is status post amputation of the right second toe culture that time was positive for MRSA patient did present to the hospital with acute renal failure patient did have purulent drainage to the right second toe amputation site and some surrounding cellulitis. 2local culture growing Proteus, group B strep and is also showing presumptive staph aureus which has been finalized his MSSA. 3local wound care with a dry Aquacel silver dressing change daily, patient noticed to have a more ischemic changes to the right big toe this was discussed with the surgeon on the phone who did evaluate the patient soon 4patient to continue with cefepime and Flagyl, and monitor clinical course closely Time with Patient: Less than 30
[2022-08-25 16:24] LABS: Glucose,Whole Blood 153 mg/dL (70-110)
--- NOTE | 2022-08-25 16:29 | XR ---
EXAMINATION TYPE: XR bone survey complete DATE OF EXAM: 08/25/2022 COMPARISON: NONE TECHNIQUE: 17 views HISTORY: 71-year-old male monoclonal gammopathy, back pain and joint pain. FINDINGS: Cervical spine: Bulky anterior bridging endplate spondylosis C2-C3. No discrete lytic lesion cervical spine. Thoracic spine: Osteopenia. DISH throughout the mid and lower thoracic spine. Vertebral body heights are preserved. Grade 1 anterolisthesis seems to be present near the cervicothoracic junction. Lumbar spine: Moderate multilevel degenerative disc disease with hypertrophic facet arthropathy. No v ertebral compression collapse or malalignment. Calvarium: Patient is edentulous. No discrete lytic lesion identified. Pelvis: Osteopenia. Vascular calcifications in the pelvis. No discrete lytic lesion seen. Femurs: Vascular calcifications. This diffuse muscular atrophy. Osteopenia. Underlying degenerative c hange at the knees. No discrete lytic lesion or endosteal scalloping seen. Humerus: No discrete lytic lesion. Generalized muscular atrophy. Some bony spurring at both elbows. CHEST: Borderline heart size. No discrete lytic rib lesion or clavicular lesion identified. IMPRESSION: No discrete lytic myelomatous lesion identified. Extensive changes of DISH in the cervical and thorac ic spine.
[2022-08-25 20:02] LABS: Glucose,Whole Blood 135 mg/dL (70-110)
[2022-08-25] MEDS: CEFEPIME 1 GM in SODIUM CHLORIDE 0.9% 50 ML IVPB SCH (21:28)
--- NOTE | 2022-08-25 21:41 | P.CONS ---
History of Present Illness - Reason for Consult Consult date: 08/25/22 Monoclonal gammopathy - History of Present Illness the patient is a 71-year-old white male with multiple medical problems. He was admitted this time with acute on chronic renal insufficiency, with creatinine the 7 range. Baseline creatinine was in the mid 1 range. Patient had been admitted in late 05/22 with nonhealing wound of the right to, and had undergone amputation. During his admission in 05/22 drop in hemoglobin from baseline (15-16) 4 as noted, into the 11 range. During this admission hemoglobin dropped further into the 7 range. As part of nephrology workup the patient had protein electrophoresis studies done, which revealed the possibility of a monoclonal process, with free lambda light chains noted. Consult was therefore placed for further evaluation and recommendations. He denied any prior history of malignancy. No history of any autoimmune disease. During this admission autoimmune serologies have been negative foot x-rays had shown soft tissue swelling of the right second toe. CT abdomen and pelvis, and renal ultrasound had shown mild hydronephrosis on the right side, as well as bilateral nonobstructing calculi. There was also mention of a possible solid mass, 3.5 cm, involving the left kidney Review of Systems Constitutional: Reports chronic pain, Reports fatigue Eyes: denies blurred vision, denies pain Ears: deny: decreased hearing, ear discharge, earache, tinnitus Ears, nose, mouth and throat: Denies headache, Denies sore throat Cardiovascular: Reports decreased exercise tolerance Respiratory: Denies cough Gastrointestinal: Denies abdominal pain, Denies diarrhea, Denies nausea, Denies vomiting Genitourinary: Reports as per HPI, Reports urinary retention Musculoskeletal: Reports as per HPI Musculoskeletal: right: foot pain Integumentary: Reports as per HPI, Reports foot/leg ulcers, Reports wounds Neurological: Reports weakness Psychiatric: Denies anxiety, Denies depression Endocrine: Reports fatigue, Reports weight change Hematologic/Lymphatic: Reports as per HPI Past Medical History Past Medical History: Atrial Fibrillation, Diabetes Mellitus Additional Past Medical History / Comment(s): . History of Any Multi-Drug Resistant Organisms: MRSA Year Discovered:: 06/29/22 MDRO Source:: Toe Right Second Past Surgical History: Joint Replacement, Orthopedic Surgery Additional Past Surgical History / Comment(s): right foot/leg surgery and madlayn placement related to crushing injury. Past Anesthesia/Blood Transfusion Reactions: No Reported Reaction Past Psychological History: Depression Smoking Status: Former smoker Past Alcohol Use History: None Reported Past Drug Use History: None Reported Medications and Allergies Home Medications Medication Instructions Recorded Confirmed Type HYDROcodone/APAP 10-325MG [[place] 1 tab PO Q6H PRN 06/30/19 08/12/22 History 10-325] allopurinoL [Zyloprim] 300 mg PO DAILY 06/30/19 08/12/22 History amLODIPine BESYLATE [Norvasc] 5 mg PO DAILY 06/30/19 08/12/22 History Warfarin [Coumadin] 7.5 mg PO DAILY 06/26/22 08/12/22 History Collagenase [Santyl Ointment] 1 applic TOPICAL DAILY 08/12/22 08/12/22 History Allergies Allergy/AdvReac Type Severity Reaction Status Date / Time No Known Allergies Allergy Verified 08/12/22 21:40 Physical Exam Vitals: Vital Signs Temp Pulse Pulse Resp BP Pulse Ox 08/25/22 20:00 97.6 F 91 18 135/66 98 08/25/22 16:00 96.8 F L 85 18 122/63 98 08/25/22 14:00 80 18 08/25/22 12:00 93 18 115/57 96 08/25/22 08:00 98.5 F 89 80 18 125/60 96 08/25/22 04:00 87 18 122/63 95 08/25/22 00:54 86 18 117/58 97 Intake and Output 08/25/22 08/25/22 08/25/22 06:59 14:59 22:59 Intake Total 180 Output Total 1500 2300 400 Balance -1500 -2120 -400 Intake: Oral 180 Output: Urine 1500 2300 400 Other: Voiding Method Indwelling Catheter Indwelling Catheter - Constitutional General appearance: no acute distress - EENT Eyes: EOMI, PERRLA ENT: hearing grossly normal, normal oropharynx - Neck Neck: no lymphadenopathy Thyroid: bilateral: normal size - Respiratory Respiratory: bilateral: CTA - Cardiovascular Rhythm: regular Heart sounds: normal: S1, S2 - Gastrointestinal General gastrointestinal: normal bowel sounds, soft - Integumentary rt foot bandaged - Neurologic Neurologic: CNII-XII intact - Musculoskeletal rt foot bandaged Musculoskeletal: generalized weakness - Psychiatric Psychiatric: A&O x's 3, appropriate affect Results CBC & Chem 7: 08/23/22 07:58 12/24/22 07:58 Labs: Abnormal Lab Results - Last 24 Hours (Table) 08/25/22 08/25/22 08/25/22 Range/Units 07:51 12:02 16:22 PT 16.2 H (9.0-12.0) sec INR 1.6 H (<1.2) POC Glucose (mg/dL) 116 H 153 H (70-110) mg/dL 08/25/22 Range/Units 20:01 PT (9.0-12.0) sec INR (<1.2) POC Glucose (mg/dL) 135 H (70-110) mg/dL Comments: foot , toe x rays reports reviewed CT scan - abdomen: report reviewed CT scan - pelvis: report reviewed US - abdomen: report reviewed Venous US: report reviewed Assessment and Plan (1) Monoclonal gammopathy Narrative/Plan: the patient's labs, done as part of workup for his renal issues, he has is a possibility of one core process, with free lambda light chain noted. There is no measurable M protein. - The pathophysiology was discussed in detail. This time it is not known if this is a true monoclonal process, or radiation because of the marked drop in his renal function. The patient will need an additional workup to determine if he has a true monoclonal process, and if that is significant a unrelated to his current presentation versus just being incidental finding. - additional workup will be ordered, with 24-hour urine studies, serum free light chain quantitation, and a bone survey. 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 However that would require contrast, for which the patient is not a candidate for this time. Creatinine is improving. Therefore continue to follow. Hopefully if creatinine improved into an acceptable range, then appropriate imaging will be ordered Current Visit: Yes Status: Acute Code(s): D41.02 - NEOPLASM OF UNCERTAIN BEHAVIOR OF LEFT KIDNEY SNOMED Code(s): 592022972160182
--- NOTE | 2022-08-25 22:33 | P.PN ---
Subjective Progress Note Date: 08/25/22 Principal diagnosis: KRYSTAL on CKD Mr. Waters is a 71-year-old male with a past medical history of multiple chronic medical conditions including atrial fibrillation, diabetes mellitus, MRSA, depression admitted for acute on chronic kidney injury. He is having Graham's catheter for obstructive nephropathy and creatinine slowly trending down. Patient is also being treated for chronic lower right extremity infection. Today the patient is lying comfortably in bed appears to be in acute distress. Patient denied having any fevers chills or rigors. No chest pain or pal pitations. He denies having any difficulty breathing or cough. On reviewing the patient vital signs temperature of 96.8, heart rate 85, respiratory rate 18, blood pressure evaluated/63 saturating at 98% on room air. Patient labs have been reviewed no new labs from the past [address] MAGISTRATE shows 16.2 INR of 1.6. Patient continues to be on antibiotics in the form of Flagyl and cefepime. Objective - Vital Signs Vital signs: Vital Signs Temp 98.5 F 08/25/22 08:00 Pulse 93 08/25/22 12:00 Resp 18 08/25/22 12:00 BP 115/57 08/25/22 12:00 Pulse Ox 96 08/25/22 12:00 FiO2 21 08/24/22 09:32 Intake & Output 08/24/22 08/25/22 08/25/22 18:59 06:59 18:59 Intake Total 180 240 180 Output Total 1275 1500 2300 Balance -1095 -6650 -2120 Intake: Oral 180 240 180 Output: Urine 1275 1500 2300 Other: Voiding Method Indwelling Catheter Indwelling Catheter Indwelling Catheter - Exam PHYSICAL EXAM Head normocephalic Neck supple Lungs clear to auscultation bilaterally no wheezing or crackles Heart regular rate and rhythm S1-S2, no rub or gallop Abdomen is soft nontender nondistended positive bowel sounds no hepatosplenomegaly Extremities - Right second toe -dressing with minimal soaking Neuro - alert and orientated to 3 - Labs CBC & Chem 7: 08/23/22 07:58 08/23/22 07:58 Labs: Abnormal Lab Results - Last 24 Hours (Table) 08/24/22 08/24/22 08/25/22 Range/Units 16:33 19:53 07:51 PT 16.2 H (9.0-12.0) sec INR 1.6 H (<1.2) POC Glucose (mg/dL) 144 H 186 H (70-110) mg/dL 08/25/22 Range/Units 12:02 PT (9.0-12.0) sec INR (<1.2) POC Glucose (mg/dL) 116 H (70-110) mg/dL Assessment and Plan Assessment: ASSESSMENT Acute on chronic kidney injury secondary to obstructive uropathy Metabolic acidosis secondary to above Left renal lesion Right second toe diabetic foot infection History of type 2 diabetes mellitus History of atrial fibrillation Hypertension Gout Chronic low back pain Anemia of chronic disease PLAN: Patient has Graham's catheter in place for obstructive nephropathy, creatinine slowly trending down with good urinary output. Urine with Bence-Brantley proteins lambda light chain, hematology has been consulted He is currently on antibiotics in the form of cefepime and Flagyl, local wound cultures positive for Proteus group B strep and MSSA ID Dr. Lawler on board Will check for electrolytes in the a.m. to look at the creatinine trend Patient's Coumadin is currently on hold as the patient might need a kidney biopsy -patient's INR is 1.6 today Further recommendations to follow depending on the progress of the patient
[2022-08-26] MEDS: HYDROmorphone 0.5 MG/0.5 ML SYRINGE IVP PRN ×2 (01:18→18:29)
[2022-08-26] MEDS: HYDROcodone/APAP 10-325MG 1 EACH TAB PO PRN ×3 (03:59→21:19)
[2022-08-26 06:03] LABS: Glucose,Whole Blood 109 mg/dL (70-110)
[2022-08-26] MEDS: PANTOPRAZOLE 40 MG TABLET PO SCH (06:41)
[2022-08-26] MEDS: INSULIN ASPART (NovoLOG) 100 UNIT/ML VIAL SQ SCH ×4 (06:41→21:20)
[2022-08-26 08:42] LABS: INR 1.5 (<1.2); Prothrombin Time 15.3 sec (9.0-12.0)
[2022-08-26] MEDS: FUROSEMIDE 10 MG/ML 4 ML VIAL IV SCH ×2 (09:01→21:20)
[2022-08-26] MEDS: metroNIDAZOLE 500 MG TAB PO SCH ×3 (09:02→21:20)
[2022-08-26] MEDS: allopurinoL 300 MG TAB PO SCH (09:02)
[2022-08-26] MEDS: COLLAGENASE 250 UNIT/GM OINTMENT 30 GM TUBE TOPICAL SCH (09:03)
[2022-08-26 09:21] LABS: Basophils % (A) 1 %; Eosinophils # (A) 0.3 k/uL (0-0.7); Eosinophils % (A) 5 %; HGB 7.6 gm/dL (13.0-17.5); Lymphocytes # (A) 1.4 k/uL (1.0-4.8); Lymphocytes % (A) 28 %; MCH 31.4 pg (25.0-35.0); MCHC 32.9 g/dL (31.0-37.0); MCV 95.5 fL (80.0-100.0); Mean Platelet Volume 8.5; Monocytes # (A) 0.3 k/uL (0-1.0); Monocytes % (A) 7 %; Neutrophils # (A) 2.6 k/uL (1.3-7.7); Neutrophils % (A) 55 %; Platelet Count 116 k/uL (150-450); RBC 2.41 m/uL (4.30-5.90); RDW 15.8 % (11.5-15.5); WBC 4.8 k/uL (3.8-10.6)
[2022-08-26 09:22] LABS: Calcium 8.3 mg/dL (8.4-10.2); Magnesium 1.2 mg/dL (1.6-2.3); Potassium 3.4 mmol/L (3.5-5.1)
[2022-08-26] MEDS ORDERED: Potassium Replacement Protocol 1 EACH MISC MISCELLANE PRN (10:12)
[2022-08-26] MEDS ORDERED: Magnesium Replacement Protocol 1 EACH MISC MISCELLANE PRN (10:12)
[2022-08-26] MEDS: POTASSIUM CHLORIDE ER 20 MEQ TAB.ER PO SCH ×2 (10:42→12:21)
[2022-08-26] MEDS: MAGNESIUM SULFATE-D5W PMX 1 GM in DEXTROSE/WATER 1 100ML.BAG IVPB SCH ×3 (10:43→16:19)
[2022-08-26 11:23] LABS: Glucose,Whole Blood 118 mg/dL (70-110)
--- NOTE | 2022-08-26 12:54 | P.PN ---
Subjective Patient is seen in follow-up for acute kidney injury on chronic kidney disease. Renal function slowly improving. Creatinine 4.9 today. Nonoliguric. Blood pressure stable. Working with physical therapy. Vital signs are stable. General: Awake. No acute distress. HEENT: Head exam is unremarkable. LUNGS: Breath sounds decreased. HEART: Rate and Rhythm are regular. ABDOMEN: Soft, no distention. EXTREMITITES: 1+ edema. Objective - Vital Signs Vital signs: Vital Signs Temp 98.0 F 08/26/22 11:29 Pulse 83 08/26/22 11:29 Resp 15 08/26/22 08:00 BP 119/64 08/26/22 11:29 Pulse Ox 97 08/26/22 11:29 FiO2 21 08/24/22 09:32 Intake & Output 08/25/22 08/26/22 08/26/22 18:59 06:59 18:59 Intake Total 180 Output Total 2700 1500 1225 Balance -2520 -1500 -1225 Intake: Oral 180 Output: Urine 2700 1500 1225 Other: Voiding Method Indwelling Catheter Indwelling Catheter Indwelling Catheter - Labs CBC & Chem 7: 08/26/22 08:03 08/26/22 08:03 Labs: Abnormal Lab Results - Last 24 Hours (Table) 08/25/22 08/25/22 08/26/22 Range/Units 16:22 20:01 08:03 RBC (4.30-5.90) m/uL Hgb (13.0-17.5) gm/dL Hct (39.0-53.0) % RDW (11.5-15.5) % Plt Count (150-450) k/uL PT 15.3 H (9.0-12.0) sec INR 1.5 H (<1.2) Sodium (137-145) mmol/L Potassium (3.5-5.1) mmol/L BUN (9-20) mg/dL Creatinine (0.66-1.25) mg/dL POC Glucose (mg/dL) 153 H 135 H (70-110) mg/dL Calcium (8.4-10.2) mg/dL Magnesium (1.6-2.3) mg/dL 08/26/22 08/26/22 08/26/22 Range/Units 08:03 08:03 11:21 RBC 2.41 L (4.30-5.90) m/uL Hgb 7.6 L (13.0-17.5) gm/dL Hct 23.0 L (39.0-53.0) % RDW 15.8 H (11.5-15.5) % Plt Count 116 L (150-450) k/uL PT (9.0-12.0) sec INR (<1.2) Sodium 134 L (137-145) mmol/L Potassium 3.4 L (3.5-5.1) mmol/L BUN 48 H (9-20) mg/dL Creatinine 4.90 H (0.66-1.25) mg/dL POC Glucose (mg/dL) 118 H (70-110) mg/dL Calcium 8.3 L (8.4-10.2) mg/dL Magnesium 1.2 L (1.6-2.3) mg/dL Assessment and Plan Plan: Assessment: 1. Acute kidney injury secondary to obstructive uropathy. Also concern for underlying GN versus monoclonal gammopathy. Creatinine was 7.9 on admission and is 4.9 today. Nonoliguric. No hydronephrosis noted on kidney ultrasound. 2. Chronic kidney disease stage IIIB with baseline creatinine near 1.6. 3. Volume overload. 4. Hypokalemia secondary to diuresis and hypomagnesemia. 5. Hypomagnesemia secondary to diuresis. 6. Left kidney lesion being followed by oncology and urology. 7. Urinary retention. Has Graham catheter. Urology following. 8. Anemia. Rule out iron deficiency. Plan: Maintain IV Lasix. Replace potassium and magnesium. Kidney biopsy pending. DDAVP to be given before biopsy. Check iron studies. Avoid nephrotoxins. Add Flomax.
[2022-08-26] MEDS ORDERED: LACTATED RINGERS 1,000 ML IV ONE (14:02)
[2022-08-26] MEDS ORDERED: ceFAZolin 1,000 MG VIAL ONE (14:19)
[2022-08-26] MEDS ORDERED: MIDAZOLAM 2 MG/2 ML VIAL ONE (14:19)
[2022-08-26] MEDS ORDERED: fentaNYL (PF) 50 MCG/ML 2 ML AMP ONE (14:19)
[2022-08-26] MEDS ORDERED: PROPOFOL 10 MG/ML 20 ML VIAL IV ONE (14:19)
[2022-08-26] MEDS ORDERED: PHENYLEPHRINE-0.9% NACL SYG 1,000 MCG/10 ML SYRINGE ONE (14:19)
[2022-08-26] MEDS ORDERED: SODIUM CHLORIDE 0.9% 1,000 ML IV ONE (14:20)
[2022-08-26 14:22] LABS: Glucose,Whole Blood 144 mg/dL (70-110)
--- NOTE | 2022-08-26 14:23 | P.PN ---
Progress Note - Text 71-year-old gentleman history of chronic renal failure ischemic changes right foot big toe ulcer on the plantar aspect of the right foot big toe plan is a right toe amputation risk and complication discussed
[2022-08-26] MEDS: SODIUM CHLORIDE 0.9% 50 ML with ceFAZolin 2,000 MG IV ONE ×4 (14:34→17:34)
[2022-08-26] MEDS ORDERED: LIDOCAINE 2% (PF) 20 MG/ML 10 ML AMP SQ ONE (14:48)
[2022-08-26] MEDS ORDERED: HYDROmorphone 0.5 MG/0.5 ML SYRINGE IVP ONE (15:28)
[2022-08-26 16:06] LABS: Glucose,Whole Blood 138 mg/dL (70-110)
--- NOTE | 2022-08-26 17:16 | P.PN ---
Subjective Progress Note Date: 08/26/22 Principal diagnosis: KRYSTAL, MGUS worjup Pt reports feeing well today, but tired. No other reported complaints Objective - Vital Signs Vital signs: Vital Signs Temp 97.8 F 08/26/22 08:00 Pulse 80 08/26/22 08:00 Resp 15 08/26/22 08:00 BP 122/64 08/26/22 08:00 Pulse Ox 97 08/26/22 08:00 FiO2 21 08/24/22 09:32 Intake & Output 08/25/22 08/26/22 08/26/22 18:59 06:59 18:59 Intake Total 180 Output Total 2700 1500 600 Balance -2520 -1500 -600 Intake: Oral 180 Output: Urine 2700 1500 600 Other: Voiding Method Indwelling Catheter Indwelling Catheter - Constitutional General appearance: Present: average body habitus, cooperative, no acute distress - EENT Eyes: Present: anicteric sclerae, EOMI ENT: Present: hearing grossly normal - Respiratory Details: resp even and unlabored - Cardiovascular Details: skin warm and dry - Integumentary Integumentary Comment(s): LUE bruising Integumentary: Present: pale - Neurologic Neurologic: Present: CNII-XII intact (grossly) - Psychiatric Psychiatric: Present: A&O x's 3, appropriate affect, intact judgment & insight - Labs CBC & Chem 7: 08/26/22 08:03 08/26/22 08:03 Labs: Abnormal Lab Results - Last 24 Hours (Table) 08/25/22 08/25/22 08/25/22 Range/Units 12:02 16:22 20:01 RBC (4.30-5.90) m/uL Hgb (13.0-17.5) gm/dL Hct (39.0-53.0) % RDW (11.5-15.5) % Plt Count (150-450) k/uL PT (9.0-12.0) sec INR (<1.2) Sodium (137-145) mmol/L Potassium (3.5-5.1) mmol/L BUN (9-20) mg/dL Creatinine (0.66-1.25) mg/dL POC Glucose (mg/dL) 116 H 153 H 135 H (70-110) mg/dL Calcium (8.4-10.2) mg/dL Magnesium (1.6-2.3) mg/dL 08/26/22 08/26/22 08/26/22 Range/Units 08:03 08:03 08:03 RBC 2.41 L (4.30-5.90) m/uL Hgb 7.6 L (13.0-17.5) gm/dL Hct 23.0 L (39.0-53.0) % RDW 15.8 H (11.5-15.5) % Plt Count 116 L (150-450) k/uL PT 15.3 H (9.0-12.0) sec INR 1.5 H (<1.2) Sodium 134 L (137-145) mmol/L Potassium 3.4 L (3.5-5.1) mmol/L BUN 48 H (9-20) mg/dL Creatinine 4.90 H (0.66-1.25) mg/dL POC Glucose (mg/dL) (70-110) mg/dL Calcium 8.3 L (8.4-10.2) mg/dL Magnesium 1.2 L (1.6-2.3) mg/dL - Imaging and Cardiology Bone survey report reviewed Assessment and Plan (1) Monoclonal gammopathy Current Visit: Yes Status: Acute Priority: High Code(s): D47.2 - MONOCLONAL GAMMOPATHY SNOMED Code(s): 118362348 Plan: Reviewed normal bone survey results Serum M spike negative 24hr urine positive for bence horvath protein, pending quantitation. Hgb 7.6, HCT 23.0, PLT 116, will continue to monitor, no transfusions today. Transfuse for Hgb <7. CT scan or MRI kidney protocol with contrast to workup left renal lesion, however, creatinine elevated at this time. Will hold scan until kidney function improves.
[2022-08-26] MEDS: TAMSULOSIN 0.4 MG CAP.ER.24H PO SCH (17:29)
[2022-08-26 18:33] LABS: % Iron Saturation 67.89 (15.00-50.00)
[2022-08-26 20:25] LABS: Glucose,Whole Blood 161 mg/dL (70-110)
--- NOTE | 2022-08-26 20:50 | P.PN ---
Subjective Progress Note Date: 08/26/22 Principal diagnosis: KRYSTAL on CKD . Right Big Toe Infection Mr. Waters is a 71-year-old male with a past medical history of multiple chronic medical conditions including atrial fibrillation, diabetes mellitus, MRSA, depression admitted for acute on chronic kidney injury. He is having Graham's catheter for obstructive nephropathy and creatinine slowly trending down. Patient is also being treated for chronic lower right Big toe infection. Today patient is lying comfortably not appears to be in acute distress. Patient has complaints of right lower extremity pain. He denies having any fevers chills or rigors. No chest pain or palpitations. No cough or difficulty in breathing. On reviewing the patient's vital signs temperature of 98, heart rate 83, blood pressure 119/64 saturating at 97% on nasal cannula. Patient's labs reviewed white count of 4.8 hemoglobin is 7.6 platelets of 116 INR of 1.5. Sodium 134, potassium 3.4, chloride 99, bicarb 25, BUN 48, creatinine 4.90. Objective - Vital Signs Vital signs: Vital Signs Temp 98.2 F 08/26/22 16:15 Pulse 76 08/26/22 17:15 Resp 16 08/26/22 15:50 BP 103/56 08/26/22 17:15 Pulse Ox 96 08/26/22 16:15 FiO2 21 08/24/22 09:32 Intake & Output 08/26/22 08/26/22 08/27/22 06:59 18:59 06:59 Intake Total 1418 Output Total 1500 2135 Balance -1500 -717 Intake: IV 1300 Oral 118 Output: Urine 1500 2125 Estimated Blood Loss 10 Other: Voiding Method Indwelling Catheter Indwelling Catheter - Exam PHYSICAL EXAM Head normocephalic Neck supple Lungs clear to auscultation bilaterally no wheezing or crackles Heart regular rate and rhythm S1-S2, no rub or gallop Abdomen is soft nontender nondistended positive bowel sounds Extremities - Right second toe -dressing intact with minimal sanginous discharge Neuro - alert and orientated to 3 - Labs CBC & Chem 7: 08/26/22 08:03 08/26/22 08:03 Labs: Abnormal Lab Results - Last 24 Hours (Table) 08/26/22 08/26/22 08/26/22 Range/Units 08:03 08:03 08:03 RBC 2.41 L (4.30-5.90) m/uL Hgb 7.6 L (13.0-17.5) gm/dL Hct 23.0 L (39.0-53.0) % RDW 15.8 H (11.5-15.5) % Plt Count 116 L (150-450) k/uL PT 15.3 H (9.0-12.0) sec INR 1.5 H (<1.2) Sodium 134 L (137-145) mmol/L Potassium 3.4 L (3.5-5.1) mmol/L BUN 48 H (9-20) mg/dL Creatinine 4.90 H (0.66-1.25) mg/dL POC Glucose (mg/dL) (70-110) mg/dL Calcium 8.3 L (8.4-10.2) mg/dL Magnesium 1.2 L (1.6-2.3) mg/dL TIBC (228-460) ug/dL % Saturation (15.00-50.00) Transferrin (204.0-354.0) mg/dL Ferritin (22.0-322.0) ng/mL 08/26/22 08/26/22 08/26/22 Range/Units 11:21 12:59 14:19 RBC (4.30-5.90) m/uL Hgb (13.0-17.5) gm/dL Hct (39.0-53.0) % RDW (11.5-15.5) % Plt Count (150-450) k/uL PT (9.0-12.0) sec INR (<1.2) Sodium (137-145) mmol/L Potassium (3.5-5.1) mmol/L BUN (9-20) mg/dL Creatinine (0.66-1.25) mg/dL POC Glucose (mg/dL) 118 H 144 H (70-110) mg/dL Calcium (8.4-10.2) mg/dL Magnesium (1.6-2.3) mg/dL TIBC 169 L (228-460) ug/dL % Saturation 67.89 H (15.00-50.00) Transferrin 121.0 L (204.0-354.0) mg/dL Ferritin 2461.0 H (22.0-322.0) ng/mL 08/26/22 08/26/22 Range/Units 16:05 20:24 RBC (4.30-5.90) m/uL Hgb (13.0-17.5) gm/dL Hct (39.0-53.0) % RDW (11.5-15.5) % Plt Count (150-450) k/uL PT (9.0-12.0) sec INR (<1.2) Sodium (137-145) mmol/L Potassium (3.5-5.1) mmol/L BUN (9-20) mg/dL Creatinine (0.66-1.25) mg/dL POC Glucose (mg/dL) 138 H 161 H (70-110) mg/dL Calcium (8.4-10.2) mg/dL Magnesium (1.6-2.3) mg/dL TIBC (228-460) ug/dL % Saturation (15.00-50.00) Transferrin (204.0-354.0) mg/dL Ferritin (22.0-322.0) ng/mL Assessment and Plan Assessment: ASSESSMENT Acute on chronic kidney injury secondary to obstructive uropathy Metabolic acidosis secondary to above Left renal lesion Right second toe diabetic foot infection History of type 2 diabetes mellitus History of atrial fibrillation Hypertension Gout Chronic low back pain Anemia of chronic disease PLAN: Patient has Graham's catheter in place for obstructive nephropathy, creatinine gradually trending down ,today 4.90 - Nephrology on board Urine with Bence-Brantley proteins lambda light chain, hematology has been consulted - suggested CT scan or MRI kidney protocol with contrast to workup left renal lesion -but on hold due to KRYSTAL He is being taken for right great toe amputation by Vascular surgery today Patient's Coumadin is currently on hold as the patient might need a kidney biopsy -patient's INR is 1.5 today Overall prognosis is guarded Further recommendations to follow depending on the progress of the patient
[2022-08-26] MEDS: CEFEPIME 1 GM in SODIUM CHLORIDE 0.9% 50 ML IVPB SCH (22:26)
--- NOTE | 2022-08-26 22:31 | P.PN ---
Subjective Progress Note Date: 08/26/22 Principal diagnosis: Right second toe amputation site wound infection Patient is a 71-year-old male was recently admitted to this facility and the patient did have a right second toe diabetic foot infection in this patient was status post amputation of his right second toe on 06/29/2022 , patient presented to the hospital with worsening renal failure and the patient w as noticed to have some purulent drainage from his right second toe amputation site wound which is currently not healed On today's evaluation that is 08/26/2022, the patient continues to be afebrile, the patient is breathing comfortably on room air, the patient denies chest pain shortness of breath or cough , the patient denies nausea no vomiting no abdominal pain no diarrhea, the patient scheduled for amputation of the right big toe this afternoon per patient Objective - Vital Signs Vital signs: Vital Signs Temp 98.0 F 08/26/22 11:29 Pulse 83 08/26/22 11:29 Resp 15 08/26/22 08:00 BP 119/64 08/26/22 11:29 Pulse Ox 97 08/26/22 11:29 FiO2 21 08/24/22 09:32 Intake & Output 08/25/22 08/26/22 08/26/22 18:59 06:59 18:59 Intake Total 180 Output Total 2700 1500 1225 Balance -2520 -1500 -1225 Intake: Oral 180 Output: Urine 2700 1500 1225 Other: Voiding Method Indwelling Catheter Indwelling Catheter Indwelling Catheter - Exam GENERAL DESCRIPTION: An elderly male lying in bed in no distress RESPIRATORY SYSTEM: Unlabored breathing , decreased breath sounds at bases HEART: S1 S2 regular rate and rhythm , ABDOMEN: Soft , no tenderness EXTREMITIES: Right second toe amputation site wound base looks clean minimal drainage of the dressing patient did have a necrosis on the plantar aspect of his right big toe - Labs CBC & Chem 7: 08/26/22 08:03 08/26/22 08:03 Labs: Abnormal Lab Results - Last 24 Hours (Table) 08/25/22 08/25/22 08/26/22 Range/Units 16:22 20:01 08:03 RBC (4.30-5.90) m/uL Hgb (13.0-17.5) gm/dL Hct (39.0-53.0) % RDW (11.5-15.5) % Plt Count (150-450) k/uL PT 15.3 H (9.0-12.0) sec INR 1.5 H (<1.2) Sodium (137-145) mmol/L Potassium (3.5-5.1) mmol/L BUN (9-20) mg/dL Creatinine (0.66-1.25) mg/dL POC Glucose (mg/dL) 153 H 135 H (70-110) mg/dL Calcium (8.4-10.2) mg/dL Magnesium (1.6-2.3) mg/dL 08/26/22 08/26/22 08/26/22 Range/Units 08:03 08:03 11:21 RBC 2.41 L (4.30-5.90) m/uL Hgb 7.6 L (13.0-17.5) gm/dL Hct 23.0 L (39.0-53.0) % RDW 15.8 H (11.5-15.5) % Plt Count 116 L (150-450) k/uL PT (9.0-12.0) sec INR (<1.2) Sodium 134 L (137-145) mmol/L Potassium 3.4 L (3.5-5.1) mmol/L BUN 48 H (9-20) mg/dL Creatinine 4.90 H (0.66-1.25) mg/dL POC Glucose (mg/dL) 118 H (70-110) mg/dL Calcium 8.3 L (8.4-10.2) mg/dL Magnesium 1.2 L (1.6-2.3) mg/dL Assessment and Plan (1) Diabetic foot infection Current Visit: Yes Status: Acute Code(s): E11.628 - TYPE 2 DIABETES MELLITUS WITH OTHER SKIN COMPLICATIONS; L08.9 - LOCAL INFECTION OF THE SKIN AND SUBCUTANEOUS TISSUE, UNSP SNOMED Code(s): 391615204 Plan: 1patient with right second toe diabetic foot infection in this patient who is status post amputation of the right second toe culture that time was positive for MRSA patient did present to the hospital with acute renal failure patient did have purulent drainage to the right second toe amputation site and some surrounding cellulitis. 2local culture growing Proteus, group B strep and is also showing presumptive staph aureus which has been finalized his MSSA. 3local wound care with a dry Aquacel silver dressing change daily, patient noticed to have a more ischemic changes to the right big toe , and patient apparently scheduled for amputation of the right big toe this afternoon 4patient to continue with cefepime and Flagyl, and continue supportive care Time with Patient: Less than 30
--- NOTE | 2022-08-26 22:56 | OP ---
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 POSTOPERATIVE DIAGNOSES: Infected gangrene of the right foot big toe and ulcer on the plantar aspect. PROCEDURE PERFORMED: Right foot big toe amputation and excision of the infected callus on the plantar aspect. DESCRIPTION OF PROCEDURE: This patient was brought to the operating room. Right foot was prepped and draped in appropriate sterile manner. This patient had a right second toe amputation done in the past. 1+ lidocaine was infiltrated on the plantar dorsal aspect of the right foot. An elliptical incision was made on the dorsum aspect of the foot, deepened through skin, fat and fascia and the tendons were divided, went circumferentially around the plantar aspect. There was a wound on the plantar aspect which included an incision, deepened through skin, fat and fascia. Tendons were divided on the plantar aspect. There was a devitalized and infected tissue which was also excised, which was sent for deep culture till we reach the metatarsophalangeal joint. We noticed that there was on the plantar aspect still devitalized tissue which was infected. At this point, periosteum elevator was used to elevate the periosteum from the metatarsal bone, and head of the metatarsal was removed by hand electric saw. Also, devitalized tissue was excised and specimen was removed. Hemostasis was controlled. suture ligated. Wound was copiously irrigated with hydrogen peroxide and saline. Because the wound was infected, we could not close the skin. Subcu tissue was approximated with 0 Vicryl. Pressure dressing was applied. The patient tolerated the procedure well. Prognosis was guarded. MMODL / IJN: [id number] /
[2022-08-27] MEDS: HYDROmorphone 0.5 MG/0.5 ML SYRINGE IVP PRN ×3 (00:44→11:21)
[2022-08-27] MEDS: HYDROcodone/APAP 10-325MG 1 EACH TAB PO PRN ×3 (03:14→17:38)
[2022-08-27 05:59] LABS: Glucose,Whole Blood 117 mg/dL (70-110)
[2022-08-27] MEDS: INSULIN ASPART (NovoLOG) 100 UNIT/ML VIAL SQ SCH ×4 (06:03→20:35)
[2022-08-27] MEDS: PANTOPRAZOLE 40 MG TABLET PO SCH (06:16)
[2022-08-27 09:02] LABS: INR 1.4 (<1.2); Prothrombin Time 14.1 sec (9.0-12.0)
[2022-08-27] MEDS: FUROSEMIDE 10 MG/ML 4 ML VIAL IV SCH ×2 (09:03→20:35)
[2022-08-27] MEDS: allopurinoL 300 MG TAB PO SCH (09:03)
[2022-08-27] MEDS: metroNIDAZOLE 500 MG TAB PO SCH ×3 (09:03→20:35)
[2022-08-27 09:11] LABS: Calcium 8.4 mg/dL (8.4-10.2); Magnesium 1.6 mg/dL (1.6-2.3)
[2022-08-27 11:30] LABS: Glucose,Whole Blood 114 mg/dL (70-110)
[2022-08-27] MEDS: COLLAGENASE 250 UNIT/GM OINTMENT 30 GM TUBE TOPICAL SCH (12:01)
--- NOTE | 2022-08-27 13:12 | US ---
Ultrasound-guided left renal biopsy Date: 08/27/2022 History: Acute renal failure Comparison: Ultrasound 08/15/2022, CT 08/12/2022 The patient was brought to the US room after coagulation profile was checked and deemed appropriate. The risks and benefits of the procedure were explained to the patient, and the patient's questions we re answered. Informed consent was obtained. Limited ultrasound of the left kidney was performed demonstrating a small mass within the upper pole of the left kidney which is a known finding. A critical pause was performed. Sterile field was prepared, and lidocaine was used for local anesthes ia. Under direct ultrasonic guidance, four 18-gauge core specimens were obtained of the left renal co rtex and given to pathology. Avitene collagen hemostatic matrix was administered through the trocar a s a slurry for hemostasis. The patient tolerated the procedure well with no apparent complications. A postprocedural scan throug h the region of interest demonstrated no acute complications. After the procedure, the patient was observed for a short period of time, again with no complications . Impression: Successful left renal biopsy for medical renal disease.
--- NOTE | 2022-08-27 16:21 | P.PN ---
Progress Note - Text 71-year-old gentleman history of 4 peripheral vascular disease, history of chronic renal failure patient had a ischemic changes right foot big toe and a ulcer on the plantar aspect we went for ray amputation of the right big toe patient had this second toe removed few weeks ago patient is an IV antibiotic under care of infectious disease today change addresses as skin edges has some flap necrosis wound was cleaned and Aquacel silver placed she may need some trimming of the skin edges we'll continue with exercise silver which change her dressing every 48 hours
[2022-08-27] MEDS: MAGNESIUM SULFATE-D5W PMX 1 GM in DEXTROSE/WATER 1 100ML.BAG IVPB SCH ×2 (16:24→17:37)
[2022-08-27 16:39] LABS: Glucose,Whole Blood 141 mg/dL (70-110)
[2022-08-27] MEDS: TAMSULOSIN 0.4 MG CAP.ER.24H PO SCH (17:36)
[2022-08-27 19:55] LABS: Glucose,Whole Blood 188 mg/dL (70-110)
[2022-08-27] MEDS: CEFEPIME 1 GM in SODIUM CHLORIDE 0.9% 50 ML IVPB SCH (20:35)
[2022-08-28] MEDS: MAGNESIUM SULFATE-D5W PMX 1 GM in DEXTROSE/WATER 1 100ML.BAG IVPB SCH ×2 (00:54→11:40)
[2022-08-28 06:06] LABS: Glucose,Whole Blood 118 mg/dL (70-110)
[2022-08-28] MEDS: INSULIN ASPART (NovoLOG) 100 UNIT/ML VIAL SQ SCH ×4 (06:13→20:17)
[2022-08-28] MEDS: PANTOPRAZOLE 40 MG TABLET PO SCH (06:34)
[2022-08-28] MEDS: HYDROcodone/APAP 10-325MG 1 EACH TAB PO PRN ×3 (06:34→21:14)
[2022-08-28 09:04] LABS: Total Volume 24 Hour,Urine 3600 mls (250-2400)
[2022-08-28] MEDS: HYDROmorphone 0.5 MG/0.5 ML SYRINGE IVP PRN ×2 (09:15→23:17)
[2022-08-28] MEDS: metroNIDAZOLE 500 MG TAB PO SCH ×3 (09:16→20:16)
[2022-08-28] MEDS: FUROSEMIDE 10 MG/ML 4 ML VIAL IV SCH (09:16)
[2022-08-28] MEDS: allopurinoL 300 MG TAB PO SCH (09:16)
[2022-08-28 10:00] LABS: INR 1.5 (<1.2); Prothrombin Time 15.1 sec (9.0-12.0)
[2022-08-28 10:06] LABS: Calcium 8.3 mg/dL (8.4-10.2); Magnesium 2.2 mg/dL (1.6-2.3); Potassium 3.9 mmol/L (3.5-5.1)
[2022-08-28 10:27] LABS: Basophils % (A) 1 %; Eosinophils # (A) 0.2 k/uL (0-0.7); Eosinophils % (A) 3 %; HCT 21.4 % (39.0-53.0); HGB 7.2 gm/dL (13.0-17.5); Lymphocytes # (A) 1.2 k/uL (1.0-4.8); Lymphocytes % (A) 28 %; MCH 32.1 pg (25.0-35.0); MCHC 33.7 g/dL (31.0-37.0); MCV 95.2 fL (80.0-100.0); Mean Platelet Volume 8.8; Monocytes # (A) 0.3 k/uL (0-1.0); Monocytes % (A) 6 %; Neutrophils # (A) 2.7 k/uL (1.3-7.7); Neutrophils % (A) 59 %; RBC 2.25 m/uL (4.30-5.90); RDW 15.6 % (11.5-15.5); WBC 4.5 k/uL (3.8-10.6)
--- NOTE | 2022-08-28 11:31 | P.PN ---
Subjective Patient is seen in follow-up for acute kidney injury on chronic kidney disease. Renal function is slightly worse. Nonoliguric. Blood pressure stable. Underwent kidney biopsy yesterday. Vital signs are stable. General: Awake. No acute distress. HEENT: Head exam is unremarkable. LUNGS: Breath sounds decreased. HEART: Rate and Rhythm are regular. ABDOMEN: Soft, no distention. EXTREMITITES: 1+ edema. Objective - Vital Signs Vital signs: Vital Signs Temp 98.1 F 08/28/22 08:00 Pulse 89 08/28/22 08:00 Resp 18 08/28/22 08:00 BP 103/54 08/28/22 08:00 Pulse Ox 95 08/28/22 08:00 FiO2 21 08/24/22 09:32 Intake & Output 08/27/22 08/28/22 08/28/22 18:59 06:59 18:59 Intake Total 118 118 Output Total 1650 800 Balance -1532 -800 118 Intake: Oral 118 118 Output: Urine 1650 800 Uretheral (Graham) 600 Other: Voiding Method Indwelling Catheter Indwelling Catheter - Labs CBC & Chem 7: 08/28/22 09:01 08/28/22 09:01 Labs: Abnormal Lab Results - Last 24 Hours (Table) 08/27/22 08/27/22 08/27/22 Range/Units 00:10 11:28 16:36 RBC (4.30-5.90) m/uL Hgb (13.0-17.5) gm/dL Hct (39.0-53.0) % RDW (11.5-15.5) % PT (9.0-12.0) sec INR (<1.2) Sodium (137-145) mmol/L Chloride (98-107) mmol/L BUN (9-20) mg/dL Creatinine (0.66-1.25) mg/dL Glucose (74-99) mg/dL POC Glucose (mg/dL) 114 H 141 H (70-110) mg/dL Calcium (8.4-10.2) mg/dL Ur 24 Hour Volume 3600 H (250-2400) mls 08/27/22 08/28/22 08/28/22 Range/Units 19:54 06:05 09:01 RBC (4.30-5.90) m/uL Hgb (13.0-17.5) gm/dL Hct (39.0-53.0) % RDW (11.5-15.5) % PT (9.0-12.0) sec INR (<1.2) Sodium 131 L (137-145) mmol/L Chloride 96 L (98-107) mmol/L BUN 50 H (9-20) mg/dL Creatinine 5.27 H (0.66-1.25) mg/dL Glucose 118 H (74-99) mg/dL POC Glucose (mg/dL) 188 H 118 H (70-110) mg/dL Calcium 8.3 L (8.4-10.2) mg/dL Ur 24 Hour Volume (250-2400) mls 08/28/22 08/28/22 Range/Units 09:01 09:01 RBC 2.25 L (4.30-5.90) m/uL Hgb 7.2 L (13.0-17.5) gm/dL Hct 21.4 L (39.0-53.0) % RDW 15.6 H (11.5-15.5) % PT 15.1 H (9.0-12.0) sec INR 1.5 H (<1.2) Sodium (137-145) mmol/L Chloride (98-107) mmol/L BUN (9-20) mg/dL Creatinine (0.66-1.25) mg/dL Glucose (74-99) mg/dL POC Glucose (mg/dL) (70-110) mg/dL Calcium (8.4-10.2) mg/dL Ur 24 Hour Volume (250-2400) mls Microbiology - Last 24 Hours (Table) 08/26/22 15:20 Gram Stain - Preliminary Toe - Right First Tissue Culture - Preliminary Gram Neg Bacilli Assessment and Plan Plan: Assessment: 1. Acute kidney injury secondary to obstructive uropathy. Also concern for underlying GN versus monoclonal gammopathy. Creatinine was 7.9 on admission and is 5.27 today. Nonoliguric. No hydronephrosis noted on kidney ultrasound. 2. Chronic kidney disease stage IIIB with baseline creatinine near 1.6. 3. Volume overload. Improved with diuresis. 4. Hypokalemia secondary to diuresis and hypomagnesemia. Better. 5. Hypomagnesemia secondary to diuresis. Better. 6. Left kidney lesion being followed by oncology and urology. 7. Urinary retention. Has Graham catheter. On Flomax. Urology following. 8. Anemia of chronic kidney disease. Iron replete. 9. Hypervolemic hyponatremia. 10. 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 Plan: Stop IV Lasix. Start torsemide 40 mg once daily. Kidney biopsy results pending. Avoid nephrotoxins. Add Aranesp. Add 1500 mL fluid restriction.
[2022-08-28 11:33] LABS: Glucose,Whole Blood 151 mg/dL (70-110)
[2022-08-28 11:49] LABS: Free Kappa Lt Chain Qnt, Serum 1.81 mg/dL (0.33-1.94); Free Lambda Lt Chain Qnt, Seru 1099.75 mg/dL (0.57-2.63)
[2022-08-28 12:18] LABS: Total Protein 24 Hour,Urine >21600 mg/24hr (42.0-225.0)
--- NOTE | 2022-08-28 13:07 | P.PN ---
Subjective Progress Note Date: 08/27/22 Principal diagnosis: KRYSTAL on CKD . Right Big Toe Infection Mr. Waters is a 71-year-old male with a past medical history of multiple chronic medical conditions including atrial fibrillation, diabetes mellitus, MRSA, depression admitted for acute on chronic kidney injury. He is having Graham's catheter for obstructive nephropathy and creatinine slowly trending down. Patient is also being treated for chronic lower right Big toe infection. 08/26/2022- patient is lying comfortably not appears to be in acute distress. Patient has complaints of right lower extremity pain. He denies having any fevers chills or rigors. No chest pain or palpitations. No cough or difficulty in breathing. On reviewing the patient's vital signs temperature of 98, heart rate 83, blood pressure 119/64 saturating at 97% on nasal cannula. Patient's labs reviewed white count of 4.8 hemoglobin is 7.6 platelets of 116 INR of 1.5. Sodium 134, potassium 3.4, chloride 99, bicarb 25, BUN 48, creatinine 4.90. 08/27/2022 -patient is comfortably lying in bed appears to be in no acute distress. He is drowsy as he just got back from getting the renal biopsy done. But was able to wake up on calling his name and responded appropriately. He denies having any fevers chills or rigors. No cough or difficulty breathing. He complains of pain in his right lower extremity where he had the amputation done. On reviewing the patient's vitals temperature of 98.7 heart 97, respiratory rate 14, blood pressure 106/55 saturating at 95% on room air. Patient's labs are reviewed INR of 1.4, sodium 133, potassium 4, chloride 97, bicarb 28, creatinine 5.02. Objective - Vital Signs Vital signs: Vital Signs Temp 98.2 F 08/27/22 20:34 Pulse 78 08/27/22 20:34 Resp 14 08/27/22 20:34 BP 113/55 08/27/22 20:34 Pulse Ox 97 08/27/22 20:34 FiO2 21 08/24/22 09:32 Intake & Output 08/27/22 08/27/22 08/28/22 06:59 18:59 06:59 Intake Total 118 Output Total 600 1650 Balance -600 -1532 Intake: Oral 118 Output: Urine 600 1650 Uretheral (Graham) 600 Other: Voiding Method Indwelling Catheter Indwelling Catheter - Exam PHYSICAL EXAM HEENT - Head normocephalic Neck - supple Respiratory - Lungs clear to auscultation bilaterally no wheezing or crackles CVS - Heart regular rate and rhythm S1-S2, no rub or gallop GI - Abdomen is soft nontender nondistended positive bowel sounds Extremities - s/p Right Great toe amputation Neuro - drowsy , but responded appropriately - Labs CBC & Chem 7: 08/29/22 07:05 08/29/22 07:05 Labs: Abnormal Lab Results - Last 24 Hours (Table) 08/27/22 08/27/22 08/27/22 Range/Units 05:57 08:09 08:09 PT 14.1 H (9.0-12.0) sec INR 1.4 H (<1.2) Sodium 133 L (137-145) mmol/L Chloride 97 L (98-107) mmol/L BUN 48 H (9-20) mg/dL Creatinine 5.02 H (0.66-1.25) mg/dL Glucose 100 H (74-99) mg/dL POC Glucose (mg/dL) 117 H (70-110) mg/dL 08/27/22 08/27/22 08/27/22 Range/Units 11:28 16:36 19:54 PT (9.0-12.0) sec INR (<1.2) Sodium (137-145) mmol/L Chloride (98-107) mmol/L BUN (9-20) mg/dL Creatinine (0.66-1.25) mg/dL Glucose (74-99) mg/dL POC Glucose (mg/dL) 114 H 141 H 188 H (70-110) mg/dL Microbiology - Last 24 Hours (Table) 08/26/22 15:20 Gram Stain - Preliminary Toe - Right First Tissue Culture - Preliminary Assessment and Plan Assessment: ASSESSMENT Acute on chronic kidney injury secondary to obstructive uropathy Metabolic acidosis secondary to above Left renal lesion Right big toe gangrene s/p amputation done 08/26/2022 History of type 2 diabetes mellitus History of atrial fibrillation Hypertension Gout Chronic low back pain Anemia of chronic disease PLAN: He is status post right great toe amputation done on 08/26/2022 by vascular surgery - following the patient closely Continue with antibiotics in the form of cefepime and Flagyl-ID Dr. Lawler on board Patient's Coumadin on hold - he had a kidney biopsy done today, will possibly resume anticoagulation Patient has Graham's catheter in place for obstructive nephropathy, creatinine slightly up ,today 5.02 - Nephrology on board Urine with Bence-Brantley proteins lambda light chain, hematology has been cons ulted - suggested CT scan or MRI kidney protocol with contrast to workup left renal lesion -but on hold due to KRYSATL Overall prognosis is guarded Further recommendations to follow depending on the progress of the patient
[2022-08-28 13:15] LABS: Platelet Count 81 k/uL (150-450)
[2022-08-28] MEDS: DARBEPOETIN ALFA 25 MCG/0.42 ML SYRINGE SQ SCH (13:17)
[2022-08-28 13:39] LABS: 24-hr Urine Specific Gravity 1.011 (1.001-1.035)
--- NOTE | 2022-08-28 14:51 | P.PN ---
Subjective Progress Note Date: 08/27/22 Principal diagnosis: Right second toe amputation site wound infection Patient is a 71-year-old male was recently admitted to this facility and the patient did have a right second toe diabetic foot infection in this patient was status post amputation of his right second toe on 06/29/2022 , patient presented to the hospital with worsening renal failure and the patient w as noticed to have some purulent drainage from his right second toe amputation site wound which is currently not healed, patient is status post right big toe amputation on 08/26/2022 and the patient did have a renal biopsy completed on 08/27/2022 On today's evaluation that is 08/27/2022, the patient remains to be afebrile, the patient is breathing comfortably on room air, the patient denies chest pain shortness of breath or cough , the patient denies nausea no vomiting no abdominal pain no diarrhea, the patient feeling better wants to go home Objective - Vital Signs Vital signs: Vital Signs Temp 98.7 F 08/27/22 11:28 Pulse 92 08/27/22 12:38 Resp 18 08/27/22 12:38 BP 111/85 08/27/22 12:38 Pulse Ox 93 L 08/27/22 12:38 FiO2 21 08/24/22 09:32 Intake & Output 08/26/22 08/27/22 08/27/22 18:59 06:59 18:59 Intake Total 1418 Output Total 2135 600 800 Balance -717 -600 -800 Intake: IV 1300 Oral 118 Output: Urine 2125 600 800 Estimated Blood Loss 10 Other: Voiding Method Indwelling Catheter Indwelling Catheter - Exam GENERAL DESCRIPTION: An elderly male lying in bed in no distress RESPIRATORY SYSTEM: Unlabored breathing , decreased breath sounds at bases HEART: S1 S2 regular rate and rhythm , ABDOMEN: Soft , no tenderness EXTREMITIES: Right second toe as well as right big toe amputation site is curre ntly dressed no drainage on the dressing - Labs CBC & Chem 7: 08/28/22 09:01 08/28/22 09:01 Labs: Abnormal Lab Results - Last 24 Hours (Table) 08/26/22 08/26/22 08/26/22 Range/Units 12:59 14:19 16:05 PT (9.0-12.0) sec INR (<1.2) Sodium (137-145) mmol/L Chloride (98-107) mmol/L BUN (9-20) mg/dL Creatinine (0.66-1.25) mg/dL Glucose (74-99) mg/dL POC Glucose (mg/dL) 144 H 138 H (70-110) mg/dL TIBC 169 L (228-460) ug/dL % Saturation 67.89 H (15.00-50.00) Transferrin 121.0 L (204.0-354.0) mg/dL Ferritin 2461.0 H (22.0-322.0) ng/mL 08/26/22 08/27/22 08/27/22 Range/Units 20:24 05:57 08:09 PT 14.1 H (9.0-12.0) sec INR 1.4 H (<1.2) Sodium (137-145) mmol/L Chloride (98-107) mmol/L BUN (9-20) mg/dL Creatinine (0.66-1.25) mg/dL Glucose (74-99) mg/dL POC Glucose (mg/dL) 161 H 117 H (70-110) mg/dL TIBC (228-460) ug/dL % Saturation (15.00-50.00) Transferrin (204.0-354.0) mg/dL Ferritin (22.0-322.0) ng/mL 08/27/22 08/27/22 Range/Units 08:09 11:28 PT (9.0-12.0) sec INR (<1.2) Sodium 133 L (137-145) mmol/L Chloride 97 L (98-107) mmol/L BUN 48 H (9-20) mg/dL Creatinine 5.02 H (0.66-1.25) mg/dL Glucose 100 H (74-99) mg/dL POC Glucose (mg/dL) 114 H (70-110) mg/dL TIBC (228-460) ug/dL % Saturation (15.00-50.00) Transferrin (204.0-354.0) mg/dL Ferritin (22.0-322.0) ng/mL Microbiology - Last 24 Hours (Table) 08/26/22 15:20 Gram Stain - Preliminary Toe - Right First Tissue Culture - Preliminary Assessment and Plan (1) Diabetic foot infection Current Visit: Yes Status: Acute Code(s): E11.628 - TYPE 2 DIABETES MELLITUS WITH OTHER SKIN COMPLICATIONS; L08.9 - LOCAL INFECTION OF THE SKIN AND SUBCUTANEOUS TISSUE, UNSP SNOMED Code(s): 383859977 Plan: 1patient with right second toe diabetic foot infection in this patient who is status post amputation of the right second toe culture that time was positive for MRSA patient did present to the hospital with acute renal failure patient did have purulent drainage to the right second toe amputation site and some surrounding cellulitis. 2local culture growing Proteus, group B strep and is also showing presumptive staph aureus which has been finalized his MSSA. 3local wound care with a dry Aquacel silver dressing change daily, patient noticed to have a more ischemic changes to the right big toe , and patient the patient is status post amputation of the right big toe on 08/26/2022 4patient to continue with cefepime and Flagyl, and monitor his clinical course closely Time with Patient: Less than 30
--- NOTE | 2022-08-28 14:53 | P.PN ---
Subjective Progress Note Date: 08/28/22 Principal diagnosis: Right second toe amputation site wound infection Patient is a 71-year-old male was recently admitted to this facility and the patient did have a right second toe diabetic foot infection in this patient was status post amputation of his right second toe on 06/29/2022 , patient presented to the hospital with worsening renal failure and the patient w as noticed to have some purulent drainage from his right second toe amputation site wound which is currently not healed, patient is status post right big toe amputation on 08/26/2022 and the patient did have a renal biopsy completed on 08/27/2022 On today's evaluation that is 08/28/2022, the patient continues to be afebrile, the patient is breathing comfortably on room air, the patient denies chest pain shortness of breath or cough , the patient denies nausea no vomiting no abdominal pain and no pain to his right foot toe amputation site Objective - Vital Signs Vital signs: Vital Signs Temp 98.1 F 08/28/22 12:00 Pulse 87 08/28/22 12:00 Resp 18 08/28/22 12:00 BP 102/57 08/28/22 12:00 Pulse Ox 96 08/28/22 12:00 FiO2 21 08/24/22 09:32 Intake & Output 08/27/22 08/28/22 08/28/22 18:59 06:59 18:59 Intake Total 118 118 Output Total 1650 800 Balance -1532 -800 118 Intake: Oral 118 118 Output: Urine 1650 800 Uretheral (Graham) 600 Other: Voiding Method Indwelling Catheter Indwelling Catheter Indwelling Catheter - Exam GENERAL DESCRIPTION: An elderly male lying in bed in no distress RESPIRATORY SYSTEM: Unlabored breathing , decreased breath sounds at bases HEART: S1 S2 regular rate and rhythm , ABDOMEN: Soft , no tenderness EXTREMITIES: Right second toe as well as right big toe amputation site is currently dressed no drainage on the dressing - Labs CBC & Chem 7: 08/28/22 09:01 08/28/22 09:01 Labs: Abnormal Lab Results - Last 24 Hours (Table) 08/26/22 08/27/22 08/27/22 Range/Units 08:03 00:10 16:36 RBC (4.30-5.90) m/uL Hgb (13.0-17.5) gm/dL Hct (39.0-53.0) % RDW (11.5-15.5) % Plt Count (150-450) k/uL PT (9.0-12.0) sec INR (<1.2) Sodium (137-145) mmol/L Chloride (98-107) mmol/L BUN (9-20) mg/dL Creatinine (0.66-1.25) mg/dL Glucose (74-99) mg/dL POC Glucose (mg/dL) 141 H (70-110) mg/dL Calcium (8.4-10.2) mg/dL Ur 24 Hour Volume 3600 H (250-2400) mls U Tot Protein 24h, Calc >65002 H (42.0-225.0) mg/24hr Free Lambda LC, Quant 1099.75 H (0.57-2.63) mg/dL 08/27/22 08/28/22 08/28/22 Range/Units 19:54 06:05 09:01 RBC (4.30-5.90) m/uL Hgb (13.0-17.5) gm/dL Hct (39.0-53.0) % RDW (11.5-15.5) % Plt Count (150-450) k/uL PT (9.0-12.0) sec INR (<1.2) Sodium 131 L (137-145) mmol/L Chloride 96 L (98-107) mmol/L BUN 50 H (9-20) mg/dL Creatinine 5.27 H (0.66-1.25) mg/dL Glucose 118 H (74-99) mg/dL POC Glucose (mg/dL) 188 H 118 H (70-110) mg/dL Calcium 8.3 L (8.4-10.2) mg/dL Ur 24 Hour Volume (250-2400) mls U Tot Protein 24h, Calc (42.0-225.0) mg/24hr Free Lambda LC, Quant (0.57-2.63) mg/dL 08/28/22 08/28/22 08/28/22 Range/Units 09:01 09:01 11:32 RBC 2.25 L (4.30-5.90) m/uL Hgb 7.2 L (13.0-17.5) gm/dL Hct 21.4 L (39.0-53.0) % RDW 15.6 H (11.5-15.5) % Plt Count 81 L (150-450) k/uL PT 15.1 H (9.0-12.0) sec INR 1.5 H (<1.2) Sodium (137-145) mmol/L Chloride (98-107) mmol/L BUN (9-20) mg/dL Creatinine (0.66-1.25) mg/dL Glucose (74-99) mg/dL POC Glucose (mg/dL) 151 H (70-110) mg/dL Calcium (8.4-10.2) mg/dL Ur 24 Hour Volume (250-2400) mls U Tot Protein 24h, Calc (42.0-225.0) mg/24hr Free Lambda LC, Quant (0.57-2.63) mg/dL Microbiology - Last 24 Hours (Table) 08/26/22 15:20 Gram Stain - Preliminary Toe - Right First Tissue Culture - Preliminary Gram Neg Bacilli Assessment and Plan (1) Diabetic foot infection Current Visit: Yes Status: Acute Code(s): E11.628 - TYPE 2 DIABETES MELLITUS WITH OTHER SKIN COMPLICATIONS; L08.9 - LOCAL INFECTION OF THE SKIN AND SUBCUTANEOUS TISSUE, UNSP SNOMED Code(s): 946018343 Plan: 1patient with right second toe diabetic foot infection in this patient who is status post amputation of the right second toe culture that time was positive for MRSA patient did present to the hospital with acute renal failure patient did have purulent drainage to the right second toe amputation site and some marsiol rounding cellulitis. 2local culture growing Proteus, group B strep and is also showing presumptive staph aureus which has been finalized his MSSA. 3local wound care with a dry Aquacel silver dressing change daily, patient noticed to have a more ischemic changes to the right big toe , and patient the patient is status post amputation of the right big toe on 08/26/2022 4patient right big toe amputation site wound cultures currently growing gram- negative with ID sensitivity pending, patient to continue with cefepime and Flagyl, and will adjust antibiotics further on the basis of new culture Time with Patient: Less than 30
[2022-08-28 16:29] LABS: Glucose,Whole Blood 167 mg/dL (70-110)
[2022-08-28] MEDS: COLLAGENASE 250 UNIT/GM OINTMENT 30 GM TUBE TOPICAL SCH (17:14)
[2022-08-28] MEDS: TAMSULOSIN 0.4 MG CAP.ER.24H PO SCH (17:15)
[2022-08-28] MEDS ORDERED: WARFARIN 5 MG TAB PO ONE (18:00)
[2022-08-28 20:03] LABS: Glucose,Whole Blood 169 mg/dL (70-110)
[2022-08-28] MEDS: CEFEPIME 1 GM in SODIUM CHLORIDE 0.9% 50 ML IVPB SCH (20:17)
[2022-08-29] MEDS: HYDROcodone/APAP 10-325MG 1 EACH TAB PO PRN ×2 (03:03→12:14)
[2022-08-29 06:06] LABS: Glucose,Whole Blood 104 mg/dL (70-110)
[2022-08-29] MEDS: INSULIN ASPART (NovoLOG) 100 UNIT/ML VIAL SQ SCH ×4 (06:11→20:23)
[2022-08-29] MEDS: HYDROmorphone 0.5 MG/0.5 ML SYRINGE IVP PRN ×2 (06:12→15:56)
[2022-08-29] MEDS: PANTOPRAZOLE 40 MG TABLET PO SCH (06:12)
[2022-08-29 08:03] LABS: Anisocytosis Slight; Basophils % (A) 0 %; Eosinophils # (A) 0.2 k/uL (0-0.7); Eosinophils % (A) 5 %; HGB 7.1 gm/dL (13.0-17.5); Lymphocytes # (A) 1.4 k/uL (1.0-4.8); Lymphocytes % (A) 34 %; MCH 31.5 pg (25.0-35.0); MCHC 33.7 g/dL (31.0-37.0); MCV 93.4 fL (80.0-100.0); Mean Platelet Volume 9.1; Monocytes # (A) 0.3 k/uL (0-1.0); Monocytes % (A) 7 %; Neutrophils % (A) 50 %; RBC 2.25 m/uL (4.30-5.90)
[2022-08-29 08:06] LABS: Platelet Count 88 k/uL (150-450)
[2022-08-29 08:11] LABS: INR 1.5 (<1.2); Prothrombin Time 15.1 sec (9.0-12.0)
[2022-08-29 08:42] LABS: Calcium 8.4 mg/dL (8.4-10.2); Potassium 3.7 mmol/L (3.5-5.1)
[2022-08-29] MEDS: COLLAGENASE 250 UNIT/GM OINTMENT 30 GM TUBE TOPICAL SCH (10:26)
--- NOTE | 2022-08-29 11:01 | P.PN ---
Subjective Progress Note Date: 08/28/22 Principal diagnosis: KRYSTAL on CKD . Right Big Toe Infection Mr. Waters is a 71-year-old male with a past medical history of multiple chronic medical conditions including atrial fibrillation, diabetes mellitus, MRSA, depression admitted for acute on chronic kidney injury. He is having Graham's catheter for obstructive nephropathy and creatinine slowly trending down. Patient is also being treated for chronic lower right Big toe infection. 08/26/2022- patient is lying comfortably not appears to be in acute distress. Patient has complaints of right lower extremity pain. He denies having any fevers chills or rigors. No chest pain or palpitations. No cough or difficulty in breathing. On reviewing the patient's vital signs temperature of 98, heart rate 83, blood pressure 119/64 saturating at 97% on nasal cannula. Patient's labs reviewed white count of 4.8 hemoglobin is 7.6 platelets of 116 INR of 1.5. Sodium 134, potassium 3.4, chloride 99, bicarb 25, BUN 48, creatinine 4.90. 08/27/2022 -patient is comfortably lying in bed appears to be in no acute distress. He is drowsy as he just got back from getting the renal biopsy done. But was able to wake up on calling his name and responded appropriately. He denies having any fevers chills or rigors. No cough or difficulty breathing. He complains of pain in his right lower extremity where he had the amputation done. On reviewing the patient's vitals temperature of 98.7 heart 97, respiratory rate 14, blood pressure 106/55 saturating at 95% on room air. Patient's labs are reviewed INR of 1.4, sodium 133, potassium 4, chloride 97, bicarb 28, creatinine 5.02. 08/28/2022 -patient is seen and examined at bedside today. He is comfortably lying in bed appears to be no acute distress. Patient denies having any fevers chills or rigors. He does not have complaints of chest pain or palpitations. No abdominal pain nausea vomiting or diarrhea. Patient has pain in the right lower extremity. On reviewing the patient's vital signs temperature of 98.1, heart rate 87, respiratory rate 18, blood pressure 102/57 saturating at 96% on room air. On reviewing the patient's labs white count of 4.5 hemoglobin 7.2 platelets 81. Sodium 131, potassium 3.9, chloride 96, bicarb 25, BUN 50, creatinine 5.27 Objective - Vital Signs Vital signs: Vital Signs Temp 97.9 F 08/28/22 19:40 Pulse 80 08/28/22 19:40 Resp 16 08/28/22 19:40 BP 115/56 08/28/22 19:40 Pulse Ox 80 L 08/28/22 19:40 FiO2 21 08/24/22 09:32 Intake & Output 08/28/22 08/28/22 08/29/22 06:59 18:59 06:59 Intake Total 636 Output Total 800 Balance -800 636 Intake: Oral 636 Output: Urine 800 Other: Voiding Method Indwelling Catheter Indwelling Catheter - Exam PHYSICAL EXAM HEENT - Head normocephalic Neck - supple Respiratory - Lungs clear to auscultation bilaterally no wheezing or crackles CVS - Heart regular rate and rhythm S1-S2 GI - Abdomen is soft nontender nondistended positive bowel sounds Extremities - s/p Right Great toe amputation Neuro - Alert awake oriented x3 no focal neurological deficits - Labs CBC & Chem 7: 08/29/22 07:05 08/29/22 07:05 Labs: Abnormal Lab Results - Last 24 Hours (Table) 08/26/22 08/27/22 08/28/22 Range/Units 08:03 00:10 06:05 RBC (4.30-5.90) m/uL Hgb (13.0-17.5) gm/dL Hct (39.0-53.0) % RDW (11.5-15.5) % Plt Count (150-450) k/uL PT (9.0-12.0) sec INR (<1.2) Sodium (137-145) mmol/L Chloride (98-107) mmol/L BUN (9-20) mg/dL Creatinine (0.66-1.25) mg/dL Glucose (74-99) mg/dL POC Glucose (mg/dL) 118 H (70-110) mg/dL Calcium (8.4-10.2) mg/dL Ur 24 Hour Volume 3600 H (250-2400) mls U Tot Protein 24h, Calc >77268 H (42.0-225.0) mg/24hr Free Lambda LC, Quant 1099.75 H (0.57-2.63) mg/dL 08/28/22 08/28/22 08/28/22 Range/Units 09:01 09:01 09:01 RBC 2.25 L (4.30-5.90) m/uL Hgb 7.2 L (13.0-17.5) gm/dL Hct 21.4 L (39.0-53.0) % RDW 15.6 H (11.5-15.5) % Plt Count 81 L (150-450) k/uL PT 15.1 H (9.0-12.0) sec INR 1.5 H (<1.2) Sodium 131 L (137-145) mmol/L Chloride 96 L (98-107) mmol/L BUN 50 H (9-20) mg/dL Creatinine 5.27 H (0.66-1.25) mg/dL Glucose 118 H (74-99) mg/dL POC Glucose (mg/dL) (70-110) mg/dL Calcium 8.3 L (8.4-10.2) mg/dL Ur 24 Hour Volume (250-2400) mls U Tot Protein 24h, Calc (42.0-225.0) mg/24hr Free Lambda LC, Quant (0.57-2.63) mg/dL 08/28/22 08/28/22 08/28/22 Range/Units 11:32 16:27 20:01 RBC (4.30-5.90) m/uL Hgb (13.0-17.5) gm/dL Hct (39.0-53.0) % RDW (11.5-15.5) % Plt Count (150-450) k/uL PT (9.0-12.0) sec INR (<1.2) Sodium (137-145) mmol/L Chloride (98-107) mmol/L BUN (9-20) mg/dL Creatinine (0.66-1.25) mg/dL Glucose (74-99) mg/dL POC Glucose (mg/dL) 151 H 167 H 169 H (70-110) mg/dL Calcium (8.4-10.2) mg/dL Ur 24 Hour Volume (250-2400) mls U Tot Protein 24h, Calc (42.0-225.0) mg/24hr Free Lambda LC, Quant (0.57-2.63) mg/dL Microbiology - Last 24 Hours (Table) 08/26/22 15:20 Gram Stain - Preliminary Toe - Right First Tissue Culture - Preliminary Proteus vulgaris Assessment and Plan Assessment: ASSESSMENT Acute on chronic kidney injury secondary to obstructive uropathy Metabolic acidosis secondary to above Hypervolemic Hyponatremia Left renal lesion s/p Renal Biopsy done on 08/27/2022 Right big toe gangrene s/p amputation done 08/26/2022 History of type 2 diabetes mellitus History of atrial fibrillation Hypertension Gout Chronic low back pain Anemia of chronic disease PLAN: Status post renal biopsy done on 08/27/2022 Due to hypervolemic hyponatremia-his Lasix has been discontinued and started on torsemide by nephrology Dr. Arreguin Supplement potassium and magnesium Creatinine trended up slightly-avoid nephrotoxins Restart anticoagulation from tomorrow Urine positive for Bence-Brantley proteins hematology suggested CT/MRI but on hold because of KRYSTAL Continue antibiotics in the form of cefepime and Flagyl-ID Dr. Lawler on board Will adjust the dose of insulin requirements depending on blood sugar levels Pain management Protonix for GI prophylaxis Overall prognosis is guarded
[2022-08-29 11:59] LABS: Glucose,Whole Blood 95 mg/dL (70-110)
[2022-08-29] MEDS: TORSEMIDE 20 MG TAB PO SCH (12:13)
[2022-08-29] MEDS: allopurinoL 300 MG TAB PO SCH (12:13)
[2022-08-29] MEDS: metroNIDAZOLE 500 MG TAB PO SCH ×3 (12:13→20:23)
--- NOTE | 2022-08-29 12:58 | P.PN ---
Subjective Progress Note Date: 08/29/22 Principal diagnosis: KRYSTAL, MGUS worjup Pt Has no physical complaints today, no new or unusual pain, SOB. Objective - Vital Signs Vital signs: Vital Signs Temp 98.1 F 08/29/22 08:35 Pulse 90 08/29/22 08:35 Resp 18 08/29/22 08:35 BP 97/51 08/29/22 08:35 Pulse Ox 96 08/29/22 08:35 FiO2 21 08/24/22 09:32 Intake & Output 08/28/22 08/29/22 08/29/22 18:59 06:59 18:59 Intake Total 636 Output Total 1175 Balance 636 -1175 Intake: Oral 636 Output: Urine 1175 Other: Voiding Method Indwelling Catheter Indwelling Catheter - Constitutional General appearance: Present: average body habitus, no acute distress - EENT Eyes: Present: anicteric sclerae, EOMI ENT: Present: hearing grossly normal - Respiratory Respiratory: bilateral: CTA - Cardiovascular Rhythm: regular Heart sounds: normal: S1, S2 Abnormal Heart Sounds: Absent: systolic murmur, diastolic murmur, rub, S3 Gallop, S4 Gallop, click, other - Gastrointestinal General gastrointestinal: Present: soft - Integumentary Integumentary Comment(s): Right lower extremity dressing, C/D/I Integumentary: Present: pale - Neurologic Neurologic Comment(s): grossly Neurologic: Present: CNII-XII intact - Musculoskeletal Musculoskeletal: Present: generalized weakness, strength equal bilaterally - Psychiatric Psychiatric: Present: A&O x's 3, appropriate affect, intact judgment & insight - Labs CBC & Chem 7: 08/29/22 07:05 08/29/22 07:05 Labs: Abnormal Lab Results - Last 24 Hours (Table) 08/27/22 08/28/22 08/28/22 Range/Units 00:10 09:01 16:27 RBC (4.30-5.90) m/uL Hgb (13.0-17.5) gm/dL Hct (39.0-53.0) % RDW (11.5-15.5) % Plt Count 81 L (150-450) k/uL PT (9.0-12.0) sec INR (<1.2) Sodium (137-145) mmol/L Chloride (98-107) mmol/L BUN (9-20) mg/dL Creatinine (0.66-1.25) mg/dL POC Glucose (mg/dL) 167 H (70-110) mg/dL U Free [employer] Ch 3.39 H (0.00-3.29) mg/dL 08/28/22 08/29/22 08/29/22 Range/Units 20:01 07:05 07:05 RBC (4.30-5.90) m/uL Hgb (13.0-17.5) gm/dL Hct (39.0-53.0) % RDW (11.5-15.5) % Plt Count (150-450) k/uL PT 15.1 H (9.0-12.0) sec INR 1.5 H (<1.2) Sodium 128 L (137-145) mmol/L Chloride 93 L (98-107) mmol/L BUN 51 H (9-20) mg/dL Creatinine 5.42 H (0.66-1.25) mg/dL POC Glucose (mg/dL) 169 H (70-110) mg/dL U Free [employer] Light Ch (0.00-3.29) mg/dL 08/29/22 Range/Units 07:05 RBC 2.25 L (4.30-5.90) m/uL Hgb 7.1 L (13.0-17.5) gm/dL Hct 21.0 L (39.0-53.0) % RDW 16.0 H (11.5-15.5) % Plt Count 88 L (150-450) k/uL PT (9.0-12.0) sec INR (<1.2) Sodium (137-145) mmol/L Chloride (98-107) mmol/L BUN (9-20) mg/dL Creatinine (0.66-1.25) mg/dL POC Glucose (mg/dL) (70-110) mg/dL U Free [employer] Ch (0.00-3.29) mg/dL Microbiology - Last 24 Hours (Table) 08/26/22 15:20 Gram Stain - Final Toe - Right First Tissue Culture - Final Proteus vulgaris - Imaging and Cardiology Renal biopsy pathology report reviewed. Assessment and Plan (1) Light chain myeloma Current Visit: Yes Status: Acute Priority: High Code(s): C90.00 - MULTIPLE MYELOMA NOT HAVING ACHIEVED REMISSION SNOMED Code(s): 838108726 Plan: Dr. Pendleton reviewed diagnosis with patient and family at the bedside. Patient does have a light chain myeloma. Conflicting results, urine is positive for a lambda light chain-Lambda light chain 1100, kappa light chain 1.81. Renal biopsy is positive for kappa light chain. Plan is for bone marrow biopsy and aspirate next week. Patient continue Coumadin at this time, we will hold once there is a bone Bone marrow scheduled. Normal bone survey. Serum M spike negative. Hgb 7.1, PLT 88, will continue to monitor, no transfusions today. Transfuse for Hgb <7 Or if symptomatic. Transfuse for platelets less than 10,[address] or MRI, kidney protocol with contrast to workup left renal lesion, however, creatinine elevated at this time. Will hold scan until kidney function improves. attests: I seen and examined patient, performed H&P, developed impression and plan of care. Discussed with dictator. Agree with documentation, dictated as a scribe Time with Patient: Greater than 30 (Counseling and coordinating care)
[2022-08-29] MEDS ORDERED: POTASSIUM CHLORIDE ER 20 MEQ TAB.ER PO STA (14:17)
--- NOTE | 2022-08-29 14:17 | P.PN ---
Subjective Patient is seen in follow-up for acute kidney injury on chronic kidney disease. Renal function fairly stable. Nonoliguric. Blood pressure stable. Graham catheter had to be reinserted due to persistent urinary retention. Denies chest pain or shortness of breath. Vital signs are stable. General: Awake. No acute distress. HEENT: Head exam is unremarkable. LUNGS: Breath sounds decreased. HEART: Rate and Rhythm are regular. ABDOMEN: Soft, no distention. EXTREMITITES: Trace edema. Objective - Vital Signs Vital signs: Vital Signs Temp 98.1 F 08/29/22 08:35 Pulse 90 08/29/22 08:35 Resp 18 08/29/22 08:35 BP 97/51 08/29/22 08:35 Pulse Ox 96 08/29/22 08:35 FiO2 21 08/24/22 09:32 Intake & Output 08/28/22 08/29/22 08/29/22 18:59 06:59 18:59 Intake Total 636 Output Total 1175 Balance 636 -1175 Intake: Oral 636 Output: Urine 1175 Other: Voiding Method Indwelling Catheter Indwelling Catheter - Labs CBC & Chem 7: 08/29/22 07:05 08/29/22 07:05 Labs: Abnormal Lab Results - Last 24 Hours (Table) 08/27/22 08/28/22 08/28/22 Range/Units 00:10 16:27 20:01 RBC (4.30-5.90) m/uL Hgb (13.0-17.5) gm/dL Hct (39.0-53.0) % RDW (11.5-15.5) % Plt Count (150-450) k/uL PT (9.0-12.0) sec INR (<1.2) Sodium (137-145) mmol/L Chloride (98-107) mmol/L BUN (9-20) mg/dL Creatinine (0.66-1.25) mg/dL POC Glucose (mg/dL) 167 H 169 H (70-110) mg/dL U Free [place] Light Ch 3.39 H (0.00-3.29) mg/dL 08/29/22 08/29/22 08/29/22 Range/Units 07:05 07:05 07:05 RBC 2.25 L (4.30-5.90) m/uL Hgb 7.1 L (13.0-17.5) gm/dL Hct 21.0 L (39.0-53.0) % RDW 16.0 H (11.5-15.5) % Plt Count 88 L (150-450) k/uL PT 15.1 H (9.0-12.0) sec INR 1.5 H (<1.2) Sodium 128 L (137-145) mmol/L Chloride 93 L (98-107) mmol/L BUN 51 H (9-20) mg/dL Creatinine 5.42 H (0.66-1.25) mg/dL POC Glucose (mg/dL) (70-110) mg/dL U Free [place] Ch (0.00-3.29) mg/dL Microbiology - Last 24 Hours (Table) 08/26/22 15:20 Gram Stain - Final Toe - Right First Tissue Culture - Final Proteus vulgaris Assessment and Plan Plan: Assessment: 1. Acute kidney injury secondary to biopsy-proven cast nephropathy. Creatinine was 7.9 on admission and is 5.42 today. Nonoliguric. No hydronephrosis noted on kidney ultrasound. 2. Chronic kidney disease stage IIIB with baseline creatinine near 1.6. 3. Volume overload. Improved with diuresis. 4. Hypokalemia secondary to diuresis and hypomagnesemia. 5. Hypomagnesemia secondary to diuresis. Better. 6. Left kidney lesion being followed by oncology and urology. 7. Urinary retention. Has Graham catheter. On Flomax. Urology following. 8. Anemia of chronic kidney disease. Iron replete. On Aranesp. 9. Hypervolemic hyponatremia. 10. 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 11. Biopsy-proven lambda light chain cast nephropathy. Minimal fibrosis on biopsy. Case discussed with oncology. Bone marrow biopsy pending. Plan: Maintain torsemide. Avoid nephrotoxins. Maintain 1500 mL fluid restriction. Replace potassium. Discussed with patient potential need to start renal replacement therapy. States he will think about it. Electrolytes are stable and patient has good urine output. Continue to assess on daily basis.
--- NOTE | 2022-08-29 14:48 | P.PN ---
Progress Note - Text 71-year-old gentleman, patient has history of acute chronic kidney disease. We did the right foot big toe and second toe ray amputation failure change her dressing base of the wound is clean some redness tissue noted no discharge noted we will continue with Aquacel silver
--- NOTE | 2022-08-29 15:06 | P.PN ---
Subjective Progress Note Date: 08/29/22 Principal diagnosis: Right second toe amputation site wound infection Patient is a 71-year-old male was recently admitted to this facility and the patient did have a right second toe diabetic foot infection in this patient was status post amputation of his right second toe on 06/29/2022 , patient presented to the hospital with worsening renal failure and the patient w as noticed to have some purulent drainage from his right second toe amputation site wound which is currently not healed, patient is status post right big toe amputation on 08/26/2022 and the patient did have a renal biopsy completed on 08/27/2022 On today's evaluation that is 08/29/2022, the patient remains to be afebrile, the patient is breathing comfortably on room air, the patient denies chest pain shortness of breath or cough , the patient denies nausea no vomiting no abdominal pain and the patient denies pain to his right foot toe amputation site, no new symptoms Objective - Vital Signs Vital signs: Vital Signs Temp 98.1 F 08/29/22 08:35 Pulse 90 08/29/22 08:35 Resp 18 08/29/22 08:35 BP 97/51 08/29/22 08:35 Pulse Ox 96 08/29/22 08:35 FiO2 21 08/24/22 09:32 Intake & Output 08/28/22 08/29/22 08/29/22 18:59 06:59 18:59 Intake Total 636 Output Total 1175 Balance 636 -1175 Intake: Oral 636 Output: Urine 1175 Other: Voiding Method Indwelling Catheter Indwelling Catheter - Exam GENERAL DESCRIPTION: An elderly male lying in bed in no distress RESPIRATORY SYSTEM: Unlabored breathing , decreased breath sounds at bases HEART: S1 S2 regular rate and rhythm , ABDOMEN: Soft , no tenderness EXTREMITIES: Right second toe as well as right big toe amputation site is currently dressed no drainage on the dressing - Labs CBC & Chem 7: 08/29/22 07:05 08/29/22 07:05 Labs: Abnormal Lab Results - Last 24 Hours (Table) 08/27/22 08/28/22 08/28/22 Range/Units 00:10 09:01 16:27 RBC (4.30-5.90) m/uL Hgb (13.0-17.5) gm/dL Hct (39.0-53.0) % RDW (11.5-15.5) % Plt Count 81 L (150-450) k/uL PT (9.0-12.0) sec INR (<1.2) Sodium (137-145) mmol/L Chloride (98-107) mmol/L BUN (9-20) mg/dL Creatinine (0.66-1.25) mg/dL POC Glucose (mg/dL) 167 H (70-110) mg/dL U Free [place] Light Ch 3.39 H (0.00-3.29) mg/dL 08/28/22 08/29/22 08/29/22 Range/Units 20:01 07:05 07:05 RBC (4.30-5.90) m/uL Hgb (13.0-17.5) gm/dL Hct (39.0-53.0) % RDW (11.5-15.5) % Plt Count (150-450) k/uL PT 15.1 H (9.0-12.0) sec INR 1.5 H (<1.2) Sodium 128 L (137-145) mmol/L Chloride 93 L (98-107) mmol/L BUN 51 H (9-20) mg/dL Creatinine 5.42 H (0.66-1.25) mg/dL POC Glucose (mg/dL) 169 H (70-110) mg/dL U Free [place] Ch (0.00-3.29) mg/dL 08/29/22 Range/Units 07:05 RBC 2.25 L (4.30-5.90) m/uL Hgb 7.1 L (13.0-17.5) gm/dL Hct 21.0 L (39.0-53.0) % RDW 16.0 H (11.5-15.5) % Plt Count 88 L (150-450) k/uL PT (9.0-12.0) sec INR (<1.2) Sodium (137-145) mmol/L Chloride (98-107) mmol/L BUN (9-20) mg/dL Creatinine (0.66-1.25) mg/dL POC Glucose (mg/dL) (70-110) mg/dL U Free [place] Ch (0.00-3.29) mg/dL Microbiology - Last 24 Hours (Table) 08/26/22 15:20 Gram Stain - Final Toe - Right First Tissue Culture - Final Proteus vulgaris Assessment and Plan (1) Diabetic foot infection Current Visit: Yes Status: Acute Code(s): E11.628 - TYPE 2 DIABETES MELLITUS WITH OTHER SKIN COMPLICATIONS; L08.9 - LOCAL INFECTION OF THE SKIN AND SUBCUTANEOUS TISSUE, UNSP SNOMED Code(s): 705451333 Plan: 1patient with right second toe diabetic foot infection in this patient who is status post amputation of the right second toe culture that time was positive for MRSA patient did present to the hospital with acute renal failure patient did have purulent drainage to the right second toe amputation site and some marisol rounding cellulitis. 2local culture growing Proteus, group B strep and is also showing presumptive staph aureus which has been finalized his MSSA. 3local wound care with a dry Aquacel silver dressing change daily, patient noticed to have a more ischemic changes to the right big toe , and patient the patient is status post amputation of the right big toe on 08/26/2022 4patient right big toe amputation site wound cultures grew Proteus which is sensitive to cefepime patient is on the previous culture positive for MSSA and strep to antibiotic will be switched to Rocephin 2 g daily along with Flagyl finishing therapy with oral Ceftin and Flagyl and close outpatient follow-up Time with Patient: Less than 30
[2022-08-29 17:00] LABS: Glucose,Whole Blood 130 mg/dL (70-110)
[2022-08-29] MEDS ORDERED: WARFARIN 5 MG TAB PO ONE (18:00)
[2022-08-29] MEDS: TAMSULOSIN 0.4 MG CAP.ER.24H PO SCH (18:26)
[2022-08-29] MEDS: HYDROcodone/APAP 5-325MG 1 EACH TAB PO PRN (19:20)
[2022-08-29 20:18] LABS: Glucose,Whole Blood 172 mg/dL (70-110)
--- NOTE | 2022-08-29 21:22 | P.PN ---
Subjective Progress Note Date: 08/29/22 Principal diagnosis: KRYSTAL on CKD . Right Big Toe Infection s/p Amputation Mr. Waters is a 71-year-old male with a past medical history of multiple chronic medical conditions including atrial fibrillation, diabetes mellitus, MRSA, depression admitted for acute on chronic kidney injury. He is having Graham's catheter for obstructive nephropathy and creatinine slowly trending down. Patient is also being treated for chronic lower right Big toe infection. 08/26/2022- patient is lying comfortably not appears to be in acute distress. Patient has complaints of right lower extremity pain. He denies having any fevers chills or rigors. No chest pain or palpitations. No cough or difficulty in breathing. On reviewing the patient's vital signs temperature of 98, heart rate 83, blood pressure 119/64 saturating at 97% on nasal cannula. Patient's labs reviewed white count of 4.8 hemoglobin is 7.6 platelets of 116 INR of 1.5. Sodium 134, potassium 3.4, chloride 99, bicarb 25, BUN 48, creatinine 4.90. 08/27/2022 -patient is comfortably lying in bed appears to be in no acute distress. He is drowsy as he just got back from getting the renal biopsy done. But was able to wake up on calling his name and responded appropriately. He denies having any fevers chills or rigors. No cough or difficulty breathing. He complains of pain in his right lower extremity where he had the amputation done. On reviewing the patient's vitals temperature of 98.7 heart 97, respiratory rate 14, blood pressure 106/55 saturating at 95% on room air. Patient's labs are reviewed INR of 1.4, sodium 133, potassium 4, chloride 97, bicarb 28, creatinine 5.02. 08/28/2022 -patient is seen and examined at bedside today. He is comfortably lying in bed appears to be no acute distress. Patient denies having any fevers chills or rigors. He does not have complaints of chest pain or palpitations. No abdominal pain nausea vomiting or diarrhea. Patient has pain in the right lower extremity. On reviewing the patient's vital signs temperature of 98.1, heart rate 87, respiratory rate 18, blood pressure 102/57 saturating at 96% on room air. On reviewing the patient's labs white count of 4.5 hemoglobin 7.2 platelets 81. Sodium 131, potassium 3.9, chloride 96, bicarb 25, BUN 50, creatinine 5.27 08/29/2022 patient is seen and examined at bedside. As the patient had urinary retention after discontinuing the Graham's catheter it has to be reinserted. He denies having any chest pain or palpitations. No cough or difficulty breathing. No fever chills or rigors. No abdominal pain nausea vomiting or diarrhea. On reviewing the patient's vital signs T-max of 98.30, heart rate of 90, respiratory rate 18, blood pressure 97/51 saturating at 96% on room air. On r eviewing the patient's labs white count of 4 hemoglobin of 7.1 platelets of 88. Sodium 128 potassium 3.7 chloride 93, bicarb 25, BUN 51, creatinine 5.42. Objective - Vital Signs Vital signs: Vital Signs Temp 98.2 F 08/29/22 19:33 Pulse 96 08/29/22 19:33 Resp 18 08/29/22 19:33 BP 100/53 08/29/22 19:33 Pulse Ox 93 L 08/29/22 19:33 FiO2 21 08/24/22 09:32 Intake & Output 08/29/22 08/29/22 08/30/22 06:59 18:59 06:59 Output Total 1175 325 Balance -1175 -325 Output: Urine 1175 325 Other: Voiding Method Indwelling Catheter Indwelling Catheter Indwelling Catheter - Exam PHYSICAL EXAM HEENT - Head normocephalic. Mild pallor, no Icterus Respiratory - Lungs clear to auscultation bilaterally no wheezing or crackles CVS - Heart regular rate and rhythm S1-S2 GI - Abdomen is soft nontender nondistended positive bowel sounds Extremities - s/p Right Great toe amputation Neuro - Alert awake oriented x3 no focal neurological deficits - Labs CBC & Chem 7: 08/29/22 07:05 08/29/22 07:05 Labs: Abnormal Lab Results - Last 24 Hours (Table) 08/27/22 08/29/22 08/29/22 Range/Units 00:10 07:05 07:05 RBC (4.30-5.90) m/uL Hgb (13.0-17.5) gm/dL Hct (39.0-53.0) % RDW (11.5-15.5) % Plt Count (150-450) k/uL PT 15.1 H (9.0-12.0) sec INR 1.5 H (<1.2) Sodium 128 L (137-145) mmol/L Chloride 93 L (98-107) mmol/L BUN 51 H (9-20) mg/dL Creatinine 5.42 H (0.66-1.25) mg/dL POC Glucose (mg/dL) (70-110) mg/dL U Free [place] Ch 3.39 H (0.00-3.29) mg/dL 08/29/22 08/29/22 08/29/22 Range/Units 07:05 16:59 20:17 RBC 2.25 L (4.30-5.90) m/uL Hgb 7.1 L (13.0-17.5) gm/dL Hct 21.0 L (39.0-53.0) % RDW 16.0 H (11.5-15.5) % Plt Count 88 L (150-450) k/uL PT (9.0-12.0) sec INR (<1.2) Sodium (137-145) mmol/L Chloride (98-107) mmol/L BUN (9-20) mg/dL Creatinine (0.66-1.25) mg/dL POC Glucose (mg/dL) 130 H 172 H (70-110) mg/dL U Free [place] Ch (0.00-3.29) mg/dL Microbiology - Last 24 Hours (Table) 08/26/22 15:20 Gram Stain - Final Toe - Right First Tissue Culture - Final Proteus vulgaris Assessment and Plan Assessment: ASSESSMENT Acute on chronic kidney injury secondary to obstructive uropathy Metabolic acidosis secondary to above Hypervolemic Hyponatremia Left renal lesion s/p Renal Biopsy done on 08/27/2022 Right big toe gangrene s/p amputation done 08/26/2022 History of type 2 diabetes mellitus History of atrial fibrillation Hypertension Gout Chronic low back pain Anemia of chronic disease PLAN: He is status post renal biopsy on 08/27/2022 Status post right big toe amputation done on 08/26/2022 Patient continues to be on Graham's catheter due to persistent obstruction Hypervolemic hyponatremia sodium at 128 -fluid restriction to 1.5 L as per nephrology recommendations Patient's renal biopsy showing kappa light chains, so hematology planning for bone marrow biopsy and aspirate next week For now patient to be continued on Coumadin until bone marrow biopsy is scheduled Patient's hemoglobin and platelets stable Left renal [id number] on hold as the patient cannot have CT/MRI due to acute kidney injury Adjusting the dose of insulin requirements depending on the blood sugar at next pain management Protonix for GI prophylaxis Overall prognosis is guarded
[2022-08-30 06:10] LABS: Glucose,Whole Blood 185 mg/dL (70-110)
[2022-08-30] MEDS: PANTOPRAZOLE 40 MG TABLET PO SCH (06:18)
[2022-08-30] MEDS: INSULIN ASPART (NovoLOG) 100 UNIT/ML VIAL SQ SCH ×4 (06:18→20:19)
[2022-08-30] MEDS: metroNIDAZOLE 500 MG TAB PO SCH ×3 (08:22→20:19)
[2022-08-30] MEDS: TORSEMIDE 20 MG TAB PO SCH (08:22)
[2022-08-30] MEDS: HYDROcodone/APAP 5-325MG 1 EACH TAB PO PRN ×4 (08:23→20:18)
[2022-08-30] MEDS: allopurinoL 300 MG TAB PO SCH (08:23)
[2022-08-30] MEDS: COLLAGENASE 250 UNIT/GM OINTMENT 30 GM TUBE TOPICAL SCH (08:24)
[2022-08-30 09:29] LABS: INR 1.7 (<1.2)
[2022-08-30 09:45] LABS: Calcium 8.3 mg/dL (8.4-10.2); Magnesium 1.9 mg/dL (1.6-2.3); Potassium 3.7 mmol/L (3.5-5.1)
[2022-08-30 11:37] LABS: Glucose,Whole Blood 113 mg/dL (70-110)
[2022-08-30] MEDS ORDERED: POTASSIUM CHLORIDE ER 20 MEQ TAB.ER PO STA (12:21)
--- NOTE | 2022-08-30 12:22 | P.PN ---
Subjective Patient is seen in follow-up for acute kidney injury on chronic kidney disease. Renal function stable. Nonoliguric. Blood pressure stable. Graham catheter had to be reinserted due to persistent urinary retention. Nonoliguric. Denies chest pain or shortness of breath. Vital signs are stable. General: Awake. No acute distress. HEENT: Head exam is unremarkable. LUNGS: Breath sounds decreased. HEART: Rate and Rhythm are regular. ABDOMEN: Soft, no distention. EXTREMITITES: Trace edema. Objective - Vital Signs Vital signs: Vital Signs Temp 96.9 F L 08/30/22 08:15 Pulse 82 08/30/22 12:13 Resp 18 08/30/22 12:13 BP 121/57 08/30/22 12:13 Pulse Ox 96 08/30/22 12:13 FiO2 21 08/24/22 09:32 Intake & Output 08/29/22 08/30/22 08/30/22 18:59 06:59 18:59 Output Total 325 900 Balance -325 -900 Output: Urine 325 900 Other: Voiding Method Indwelling Catheter Indwelling Catheter Indwelling Catheter - Labs CBC & Chem 7: 08/29/22 07:05 08/30/22 08:30 Labs: Abnormal Lab Results - Last 24 Hours (Table) 08/29/22 08/29/22 08/30/22 Range/Units 16:59 20:17 06:08 PT (9.0-12.0) sec INR (<1.2) Sodium (137-145) mmol/L Chloride (98-107) mmol/L BUN (9-20) mg/dL Creatinine (0.66-1.25) mg/dL Glucose (74-99) mg/dL POC Glucose (mg/dL) 130 H 172 H 185 H (70-110) mg/dL Calcium (8.4-10.2) mg/dL 08/30/22 08/30/22 08/30/22 Range/Units 08:30 08:30 11:36 PT 17.0 H (9.0-12.0) sec INR 1.7 H (<1.2) Sodium 129 L (137-145) mmol/L Chloride 94 L (98-107) mmol/L BUN 53 H (9-20) mg/dL Creatinine 5.89 H (0.66-1.25) mg/dL Glucose 125 H (74-99) mg/dL POC Glucose (mg/dL) 113 H (70-110) mg/dL Calcium 8.3 L (8.4-10.2) mg/dL Assessment and Plan Plan: Assessment: 1. Acute kidney injury secondary to biopsy-proven cast nephropathy. Creatinine was 7.9 on admission and is 5.89 today. Nonoliguric. No hydronephrosis noted on kidney ultrasound. 2. Chronic kidney disease stage IIIB with baseline creatinine near 1.6. 3. Volume overload. Improved with diuresis. 4. Hypokalemia secondary to diuresis and hypomagnesemia. Stable. 5. Hypomagnesemia secondary to diuresis. Better. 6. Left kidney lesion being followed by oncology and urology. 7. Urinary retention. Has Graham catheter. On Flomax. Urology following. 8. Anemia of chronic kidney disease. Iron replete. On Aranesp. 9. Hypervolemic hyponatremia. Slightly better. 10. 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 11. Biopsy-proven lambda light chain cast nephropathy. Minimal fibrosis on biopsy. Case discussed with oncology. Bone marrow biopsy pending. Plan: Maintain torsemide. Avoid nephrotoxins. Maintain 1500 mL fluid restriction. Replace potassium. Discussed with patient potential need to start renal replacement therapy. Still hasn't made up his mind. Electrolytes are stable and patient has good urine output. Continue to assess on daily basis.
--- NOTE | 2022-08-30 14:57 | P.PN ---
Subjective Progress Note Date: 08/30/22 Principal diagnosis: Right second toe amputation site wound infection Patient is a 71-year-old male was recently admitted to this facility and the patient did have a right second toe diabetic foot infection in this patient was status post amputation of his right second toe on 06/29/2022 , patient presented to the hospital with worsening renal failure and the patient w as noticed to have some purulent drainage from his right second toe amputation site wound which is currently not healed, patient is status post right big toe amputation on 08/26/2022 and the patient did have a renal biopsy completed on 08/27/2022 On today's evaluation that is 08/30/2022, the patient denies any fever or chills, the patient is breathing comfortably on room air, the patient denies ch est pain shortness of breath or cough , the patient denies nausea no vomiting no abdominal pain or any diarrhea, the patient been right foot is currently controlled Objective - Vital Signs Vital signs: Vital Signs Temp 96.9 F L 08/30/22 08:15 Pulse 82 08/30/22 12:13 Resp 18 08/30/22 12:13 BP 121/57 08/30/22 12:13 Pulse Ox 96 08/30/22 12:13 FiO2 21 08/24/22 09:32 Intake & Output 08/29/22 08/30/22 08/30/22 18:59 06:59 18:59 Output Total 325 900 Balance -325 -900 Output: Urine 325 900 Other: Voiding Method Indwelling Catheter Indwelling Catheter Indwelling Catheter - Exam GENERAL DESCRIPTION: An elderly male lying in bed in no distress RESPIRATORY SYSTEM: Unlabored breathing , decreased breath sounds at bases HEART: S1 S2 regular rate and rhythm , ABDOMEN: Soft , no tenderness EXTREMITIES: Right second toe as well as right big toe amputation site is currently dressed no drainage on the dressing - Labs CBC & Chem 7: 08/29/22 07:05 08/30/22 08:30 Labs: Abnormal Lab Results - Last 24 Hours (Table) 08/29/22 08/29/22 08/30/22 Range/Units 16:59 20:17 06:08 PT (9.0-12.0) sec INR (<1.2) Sodium (137-145) mmol/L Chloride (98-107) mmol/L BUN (9-20) mg/dL Creatinine (0.66-1.25) mg/dL Glucose (74-99) mg/dL POC Glucose (mg/dL) 130 H 172 H 185 H (70-110) mg/dL Calcium (8.4-10.2) mg/dL 08/30/22 08/30/22 08/30/22 Range/Units 08:30 08:30 11:36 PT 17.0 H (9.0-12.0) sec INR 1.7 H (<1.2) Sodium 129 L (137-145) mmol/L Chloride 94 L (98-107) mmol/L BUN 53 H (9-20) mg/dL Creatinine 5.89 H (0.66-1.25) mg/dL Glucose 125 H (74-99) mg/dL POC Glucose (mg/dL) 113 H (70-110) mg/dL Calcium 8.3 L (8.4-10.2) mg/dL Assessment and Plan (1) Diabetic foot infection Current Visit: Yes Status: Acute Code(s): E11.628 - TYPE 2 DIABETES MELLITUS WITH OTHER SKIN COMPLICATIONS; L08.9 - LOCAL INFECTION OF THE SKIN AND SUBCUTA NEOUS TISSUE, UNSP SNOMED Code(s): 804786166 Plan: 1patient with right second toe diabetic foot infection in this patient who is status post amputation of the right second toe culture that time was positive for MRSA patient did present to the hospital with acute renal failure patient did have purulent drainage to the right second toe amputation site and some surrounding cellulitis. 2local culture growing Proteus, group B strep and is also showing presumptive staph aureus which has been finalized his MSSA. 3local wound care with a dry Aquacel silver dressing change daily, patient noticed to have a more ischemic changes to the right big toe , and patient the patient is status post amputation of the right big toe on 08/26/2022 4patient right big toe amputation site wound cultures grew Proteus which is sensitive to cefepime patient previous culture positive for MSSA and strep 5-patient to continue with Rocephin and Flagyl finishing therapy with oral Ceftin and Flagyl Time with Patient: Less than 30
--- NOTE | 2022-08-30 16:03 | P.PN ---
Subjective Progress Note Date: 08/30/22 KRYSTAL on CKD . Right Big Toe Infection s/p Amputation Mr. Waters is a 71-year-old male with a past medical history of multiple chronic medical conditions including atrial fibrillation, diabetes mellitus, MRSA, depression admitted for acute on chronic kidney injury. He is having Graham's catheter for obstructive nephropathy and creatinine slowly trending down. Patient is also being treated for chronic lower right Big toe infection. 08/26/2022- patient is lying comfortably not appears to be in acute distress. Patient has complaints of right lower extremity pain. He denies having any fevers chills or rigors. No chest pain or palpitations. No cough or difficulty in breathing. On reviewing the patient's vital signs temperature of 98, heart rate 83, blood pressure 119/64 saturating at 97% on nasal cannula. Patient's labs reviewed white count of 4.8 hemoglobin is 7.6 platelets of 116 INR of 1.5. Sodium 134, potassium 3.4, chloride 99, bicarb 25, BUN 48, creatinine 4.90. 08/27/2022 -patient is comfortably lying in bed appears to be in no acute distress. He is drowsy as he just got back from getting the renal biopsy done. But was able to wake up on calling his name and responded appropriately. He denies having any fevers chills or rigors. No cough or difficulty breathing. He complains of pain in his right lower extremity where he had the amputation done. On reviewing the patient's vitals temperature of 98.7 heart 97, respiratory rate 14, blood pressure 106/55 saturating at 95% on room air. Patient's labs are reviewed INR of 1.4, sodium 133, potassium 4, chloride 97, bicarb 28, creatinine 5.02. 08/28/2022 -patient is seen and examined at bedside today. He is comfortably lying in bed appears to be no acute distress. Patient denies having any fevers chills or rigors. He does not have complaints of chest pain or palpitations. No abdominal pain nausea vomiting or diarrhea. Patient has pain in the right lower extremity. On reviewing the patient's vital signs temperature of 98.1, heart rate 87, respiratory rate 18, blood pressure 102/57 saturating at 96% on room air. On reviewing the patient's labs white count of 4.5 hemoglobin 7.2 platelets 81. Sodium 131, potassium 3.9, chloride 96, bicarb 25, BUN 50, creatinine 5.27 08/29/2022 patient is seen and examined at bedside. As the patient had urinary retention after discontinuing the Graham's catheter it has to be reinserted. He denies having any chest pain or palpitations. No cough or difficulty breathing. No fever chills or rigors. No abdominal pain nausea vomiting or diarrhea. On reviewing the patient's vital signs T-max of 98.30, heart rate of 90, respiratory rate 18, blood pressure 97/51 saturating at 96% on room air. On reviewing the patient's labs white count of 4 hemoglobin of 7.1 platelets of 88. Sodium 128 potassium 3.7 chloride 93, bicarb 25, BUN 51, creatinine 5.42. 08/30/2022 Patient is monitored on stepdown unit today. He is postoperative day #4 right foot big toe amputation secondary to gangrene and excision of infection callus on plantar aspect of right foot. He is being followed by vascular and will continue to follow up on discharge. Indwelling catheter has been reinserted at this time secondary to urinary retention. Urology and oncology following, he is status post biopsy of left renal lesion showing cast nephropathy. Patient will need bone marrow biopsy Nephrology is also following. His creatinine today is up to 5.89, BUN 53, sodium 129. INR 1.7 today. Review of Systems Constitutional: Denied any fatigue denied any fever. Cardio vascular: denied any chest pain, palpitations Gastrointestinal: denied any nausea, vomiting, diarrhea Pulmonary: Denied any shortness of breath cough Neurologic denied any new focal deficits All inpatient medications were reviewed and appropriate changes in these medications as dictated in the interval history and assessment and plan. PHYSICAL EXAMINATION: GENERAL: The patient is alert and oriented x3, not in any acute distress. Well developed, well nourished. HEENT: Pupils are round and equally reacting to light. EOMI. No scleral icterus. No conjunctival pallor. Normocephalic, atraumatic. No pharyngeal erythema. No thyromegaly. CARDIOVASCULAR: S1 and S2 present. No murmurs, rubs, or gallops. PULMONARY: Chest is clear to auscultation, no wheezing or crackles. ABDOMEN: Soft, nontender, nondistended, normoactive bowel sounds. No palpable organomegaly. Indwelling catheter in place, clear yellow drainage. MUSCULOSKELETAL: No joint swelling or deformity. EXTREMITIES: No cyanosis, clubbing, or pedal edema. NEUROLOGICAL: Gross neurological examination did not reveal any focal deficits. SKIN: No rashes. Dressing intact to right foot with kerlex, no shadowing noted on dressing. Deferred to vascular. Assessment and plan Assessment Acute on chronic kidney injury secondary to obstructive uropathy, indwelling catheter has been reinserted Metabolic acidosis secondary to above Hypervolemic Hyponatremia Left renal lesion s/p Renal Biopsy done on 08/27/2022 showing lambda light chain cast nephropathy Right big toe gangrene s/p amputation done 08/26/2022 History of type 2 diabetes mellitus History of atrial fibrillation Hypertension Gout Chronic low back pain Anemia of chronic disease GI prophylaxis DVT prophylaxis: Warfarin monitoring Plan Continue with 1.5 L fluid restriction Intake and output monitoring Indwelling catheter to remain in place, urology following Possible renal replacement therapy, nephrology following patient unsure at this time if he wants to begin. Bone marrow biopsy and FNA possibly next week Oncology, urology and nephrology following closely Continues on IV rocephin and flagyl with oral antibiotics on discharge ID is following closely Subacute rehab on discharge The impression and plan of care has been dictated by Tami Guerrero, Nurse Practitioner as directed. Dr. Shima MD I have performed a history and physical examination and medical decision making of this patient, discussed the same with the dictator, and agree with the dictators assessment and plan as written, documented as a scribe. Based on total visit time, I have performed more than 50% of this visit. Objective - Vital Signs Vital signs: Vital Signs Temp 96.9 F L 08/30/22 08:15 Pulse 85 08/30/22 09:44 Resp 18 08/30/22 09:44 BP 104/57 08/30/22 08:15 Pulse Ox 96 08/30/22 08:55 FiO2 21 08/24/22 09:32 Intake & Output 08/29/22 08/30/22 08/30/22 18:59 06:59 18:59 Output Total 325 900 Balance -325 -900 Output: Urine 325 900 Other: Voiding Method Indwelling Catheter Indwelling Catheter Indwelling Catheter - Labs CBC & Chem 7: 08/29/22 07:05 08/30/22 08:30 Labs: Abnormal Lab Results - Last 24 Hours (Table) 08/27/22 08/29/22 08/29/22 Range/Units 00:10 16:59 20:17 PT (9.0-12.0) sec INR (<1.2) Sodium (137-145) mmol/L Chloride (98-107) mmol/L BUN (9-20) mg/dL Creatinine (0.66-1.25) mg/dL Glucose (74-99) mg/dL POC Glucose (mg/dL) 130 H 172 H (70-110) mg/dL Calcium (8.4-10.2) mg/dL U Free [place] Ch 3.39 H (0.00-3.29) mg/dL 08/30/22 08/30/22 08/30/22 Range/Units 06:08 08:30 08:30 PT 17.0 H (9.0-12.0) sec INR 1.7 H (<1.2) Sodium 129 L (137-145) mmol/L Chloride 94 L (98-107) mmol/L BUN 53 H (9-20) mg/dL Creatinine 5.89 H (0.66-1.25) mg/dL Glucose 125 H (74-99) mg/dL POC Glucose (mg/dL) 185 H (70-110) mg/dL Calcium 8.3 L (8.4-10.2) mg/dL U Free [place] Ch (0.00-3.29) mg/dL Assessment and Plan Time with Patient: Less than 30
[2022-08-30 16:21] LABS: Glucose,Whole Blood 144 mg/dL (70-110)
[2022-08-30] MEDS: TAMSULOSIN 0.4 MG CAP.ER.24H PO SCH (17:01)
[2022-08-30] MEDS ORDERED: WARFARIN 5 MG TAB PO ONE (18:00)
[2022-08-30 20:18] LABS: Glucose,Whole Blood 182 mg/dL (70-110)
[2022-08-31 06:07] LABS: Glucose,Whole Blood 125 mg/dL (70-110)
[2022-08-31] MEDS: INSULIN ASPART (NovoLOG) 100 UNIT/ML VIAL SQ SCH ×4 (06:11→20:24)
[2022-08-31] MEDS: metroNIDAZOLE 500 MG TAB PO SCH ×3 (09:40→20:24)
[2022-08-31] MEDS: TORSEMIDE 20 MG TAB PO SCH (09:40)
[2022-08-31] MEDS: FAMOTIDINE 20 MG TAB PO SCH (09:40)
[2022-08-31] MEDS: allopurinoL 300 MG TAB PO SCH (09:40)
[2022-08-31 10:16] LABS: INR 1.7 (<1.2); Prothrombin Time 16.7 sec (9.0-12.0)
[2022-08-31 10:34] LABS: Calcium 8.4 mg/dL (8.4-10.2); Magnesium 1.7 mg/dL (1.6-2.3)
[2022-08-31 10:39] LABS: Basophils % (A) 1 %; Eosinophils # (A) 0.2 k/uL (0-0.7); Eosinophils % (A) 4 %; HCT 21.6 % (39.0-53.0); HGB 7.5 gm/dL (13.0-17.5); Lymphocytes # (A) 1.1 k/uL (1.0-4.8); Lymphocytes % (A) 31 %; MCH 32.5 pg (25.0-35.0); MCHC 34.8 g/dL (31.0-37.0); MCV 93.3 fL (80.0-100.0); Mean Platelet Volume 9.1; Monocytes # (A) 0.3 k/uL (0-1.0); Monocytes % (A) 9 %; Neutrophils # (A) 1.9 k/uL (1.3-7.7); Neutrophils % (A) 52 %; Platelet Count 78 k/uL (150-450); RBC 2.31 m/uL (4.30-5.90); RDW 15.5 % (11.5-15.5); WBC 3.6 k/uL (3.8-10.6)
--- NOTE | 2022-08-31 10:58 | P.PN ---
Subjective Patient is seen for follow-up for acute kidney injury on top of chronic kidney disease. Renal function has been stable Status post kidney biopsy which shows evidence of cast nephropathy. Awaiting bone marrow biopsy. No complaints of nausea vomiting or abdominal pain. Patient is tolerating oral intake No complaints of chest pain or shortness of breath as well. Good urine output. Graham catheter was reinserted due to retention Objective - Vital Signs Vital signs: Vital Signs Temp 98.3 F 08/31/22 03:11 Pulse 99 08/31/22 08:00 Resp 16 08/31/22 08:00 BP 110/58 08/31/22 08:00 Pulse Ox 94 L 08/31/22 08:00 FiO2 21 08/24/22 09:32 Intake & Output 08/30/22 08/31/22 08/31/22 18:59 06:59 18:59 Output Total 1000 900 Balance -1000 -900 Output: Urine 1000 900 Other: Voiding Method Indwelling Catheter Indwelling Catheter - Exam Patient is awake, comfortable, no acute distress Examination of the heart S1 and S2 Examination of the lungs bilateral breath sounds are heard Abdomen is soft nontender Examination of lower extremities shows no significant edema. Right foot is currently dressed SAFE TECHNICIAN exam grossly intact - Labs CBC & Chem 7: 08/31/22 09:32 08/31/22 09:32 Labs: Abnormal Lab Results - Last 24 Hours (Table) 08/30/22 08/30/22 08/30/22 Range/Units 11:36 16:20 20:16 WBC (3.8-10.6) k/uL RBC (4.30-5.90) m/uL Hgb (13.0-17.5) gm/dL Hct (39.0-53.0) % Plt Count (150-450) k/uL PT (9.0-12.0) sec INR (<1.2) Sodium (137-145) mmol/L Chloride (98-107) mmol/L BUN (9-20) mg/dL Creatinine (0.66-1.25) mg/dL Glucose (74-99) mg/dL POC Glucose (mg/dL) 113 H 144 H 182 H (70-110) mg/dL 08/31/22 08/31/22 08/31/22 Range/Units 06:06 09:32 09:32 WBC 3.6 L (3.8-10.6) k/uL RBC 2.31 L (4.30-5.90) m/uL Hgb 7.5 L (13.0-17.5) gm/dL Hct 21.6 L (39.0-53.0) % Plt Count 78 L (150-450) k/uL PT 16.7 H (9.0-12.0) sec INR 1.7 H (<1.2) Sodium (137-145) mmol/L Chloride (98-107) mmol/L BUN (9-20) mg/dL Creatinine (0.66-1.25) mg/dL Glucose (74-99) mg/dL POC Glucose (mg/dL) 125 H (70-110) mg/dL 08/31/22 Range/Units 09:32 WBC (3.8-10.6) k/uL RBC (4.30-5.90) m/uL Hgb (13.0-17.5) gm/dL Hct (39.0-53.0) % Plt Count (150-450) k/uL PT (9.0-12.0) sec INR (<1.2) Sodium 127 L (137-145) mmol/L Chloride 93 L (98-107) mmol/L BUN 55 H (9-20) mg/dL Creatinine 6.32 H (0.66-1.25) mg/dL Glucose 102 H (74-99) mg/dL POC Glucose (mg/dL) (70-110) mg/dL Assessment and Plan Assessment: 1. Acute kidney injury secondary to biopsy-proven cast nephropathy. Creatinine was 7.9 on admission and is 6.3 today. Nonoliguric. No hydronephrosis noted on kidney ultrasound. 2. Chronic kidney disease stage IIIB with baseline creatinine near 1.6. 3. Volume overload. Improved with diuresis. 4. Hypokalemia secondary to diuresis and hypomagnesemia. Stable. 5. Hypomagnesemia secondary to diuresis. Better. 6. Left kidney lesion being followed by oncology and urology. 7. Urinary retention. Has Graham catheter. On Flomax. Urology following. 8. Anemia of chronic kidney disease. Iron replete. On Aranesp. 9. Hypervolemic hyponatremia. Slightly better. 10. 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 11. Biopsy-proven lambda light chain cast nephropathy. Minimal fibrosis on biopsy. Case discussed with oncology. Bone marrow biopsy pending. Plan: Continue diuretics Continue to monitor renal function for need for renal replacement therapy. Serum creatinine did go up to 6.3 today Decrease torsemide to 20 mg daily
[2022-08-31 12:00] LABS: Glucose,Whole Blood 128 mg/dL (70-110)
--- NOTE | 2022-08-31 14:31 | P.PN ---
Subjective Progress Note Date: 08/31/22 KRYSTAL on CKD . Right Big Toe Infection s/p Amputation Mr. Waters is a 71-year-old male with a past medical history of multiple chronic medical conditions including atrial fibrillation, diabetes mellitus, MRSA, depression admitted for acute on chronic kidney injury. He is having Graham's catheter for obstructive nephropathy and creatinine slowly trending down. Patient is also being treated for chronic lower right Big toe infection. 08/26/2022- patient is lying comfortably not appears to be in acute distress. Patient has complaints of right lower extremity pain. He denies having any fevers chills or rigors. No chest pain or palpitations. No cough or difficulty in breathing. On reviewing the patient's vital signs temperature of 98, heart rate 83, blood pressure 119/64 saturating at 97% on nasal cannula. Patient's labs reviewed white count of 4.8 hemoglobin is 7.6 platelets of 116 INR of 1.5. Sodium 134, potassium 3.4, chloride 99, bicarb 25, BUN 48, creatinine 4.90. 08/27/2022 -patient is comfortably lying in bed appears to be in no acute distress. He is drowsy as he just got back from getting the renal biopsy done. But was able to wake up on calling his name and responded appropriately. He denies having any fevers chills or rigors. No cough or difficulty breathing. He complains of pain in his right lower extremity where he had the amputation done. On reviewing the patient's vitals temperature of 98.7 heart 97, respiratory rate 14, blood pressure 106/55 saturating at 95% on room air. Patient's labs are reviewed INR of 1.4, sodium 133, potassium 4, chloride 97, bicarb 28, creatinine 5.02. 08/28/2022 -patient is seen and examined at bedside today. He is comfortably lying in bed appears to be no acute distress. Patient denies having any fevers chills or rigors. He does not have complaints of chest pain or palpitations. No abdominal pain nausea vomiting or diarrhea. Patient has pain in the right lower extremity. On reviewing the patient's vital signs temperature of 98.1, heart rate 87, respiratory rate 18, blood pressure 102/57 saturating at 96% on room air. On reviewing the patient's labs white count of 4.5 hemoglobin 7.2 platelets 81. Sodium 131, potassium 3.9, chloride 96, bicarb 25, BUN 50, creatinine 5.27 08/29/2022 patient is seen and examined at bedside. As the patient had urinary retention after discontinuing the Graham's catheter it has to be reinserted. He denies having any chest pain or palpitations. No cough or difficulty breathing. No fever chills or rigors. No abdominal pain nausea vomiting or diarrhea. On reviewing the patient's vital signs T-max of 98.30, heart rate of 90, respiratory rate 18, blood pressure 97/51 saturating at 96% on room air. On reviewing the patient's labs white count of 4 hemoglobin of 7.1 platelets of 88. Sodium 128 potassium 3.7 chloride 93, bicarb 25, BUN 51, creatinine 5.42. 08/30/2022 Patient is monitored on stepdown unit today. He is postoperative day #4 right foot big toe amputation secondary to gangrene and excision of infection callus on plantar aspect of right foot. He is being followed by vascular and will continue to follow up on discharge. Indwelling catheter has been reinserted at this time secondary to urinary retention. Urology and oncology following, he is status post biopsy of left renal lesion showing cast nephropathy. Patient will need bone marrow biopsy Nephrology is also following. His creatinine today is up to 5.89, BUN 53, sodium 129. INR 1.7 today. 08/31/2022 Patient is evaluated today resting in bed, no acute events overnight. Minimal activity and nursing reports poor oral intake. Postoperative day #5 right big toe amputation. Vascular following. Has indwelling catheter in place with good urine output. Pending bone marrow biopsy per oncology. Nephrology following. Labs today showing white count 3.6, hemoglobin 7.5, INR 1.7, sodium 127, BUN 55, creatinine 6.32. Glucose 120s. Mag 1.7 today. Review of Systems Constitutional: Denied any fatigue denied any fever. Cardio vascular: denied any chest pain, palpitations Gastrointestinal: denied any nausea, vomiting, diarrhea Pulmonary: Denied any shortness of breath cough Neurologic denied any new focal deficits All inpatient medications were reviewed and appropriate changes in these medications as dictated in the interval history and assessment and plan. PHYSICAL EXAMINATION: GENERAL: The patient is alert and oriented x3, not in any acute distress. Well developed, well nourished. HEENT: Pupils are round and equally reacting to light. EOMI. No scleral icterus. No conjunctival pallor. Normocephalic, atraumatic. No pharyngeal erythema. No thyromegaly. CARDIOVASCULAR: S1 and S2 present. No murmurs, rubs, or gallops. PULMONARY: Chest is clear to auscultation, no wheezing or crackles. ABDOMEN: Soft, nontender, nondistended, normoactive bowel sounds. No palpable organomegaly. Indwelling catheter in place, clear yellow drainage. MUSCULOSKELETAL: No joint swelling or deformity. EXTREMITIES: No cyanosis, clubbing, or pedal edema. NEUROLOGICAL: Gross neurological examination did not reveal any focal deficits. SKIN: No rashes. Dressing intact to right foot with kerlex, no shadowing noted on dressing. Deferred to vascular. Assessment and plan Assessment Acute on chronic kidney injury secondary to obstructive uropathy, indwelling catheter has been reinserted Metabolic acidosis secondary to above improving Hypervolemic Hyponatremia Left renal lesion s/p Renal Biopsy done on 08/27/2022 showing lambda light chain cast nephropathy Right big toe gangrene s/p amputation done 08/26/2022 History of type 2 diabetes mellitus Chronic atrial fibrillation anticoagulated with warfarin Hypertension Gout Chronic low back pain Anemia of chronic disease GI prophylaxis DVT prophylaxis: Warfarin monitoring Plan Continue with 1.5 L fluid restriction Intake and output monitoring Indwelling catheter to remain in place, urology following Bone marrow biopsy and FNA possibly next week Oncology, urology and nephrology following closely Continues on IV rocephin and flagyl with oral antibiotics on discharge ID is following closely Dietary consultation glucerna added patient will poor oral intake PT/OT following Subacute rehab on discharge The impression and plan of care has been dictated by Tami Guerrero, Nurse Practitioner as directed. Dr. Shima MD I have performed a history and physical examination and medical decision making of this patient, discussed the same with the dictator, and agree with the dictators assessment and plan as written, documented as a scribe. Based on total visit time, I have performed more than 50% of this visit. Objective - Vital Signs Vital signs: Vital Signs Temp 98.3 F 08/31/22 03:11 Pulse 83 08/31/22 12:00 Resp 16 08/31/22 12:00 BP 115/56 08/31/22 12:00 Pulse Ox 95 08/31/22 12:00 FiO2 21 08/24/22 09:32 Intake & Output 08/30/22 08/31/22 08/31/22 18:59 06:59 18:59 Intake Total 120 Output Total 2051 178 6631 Balance -7471 -228 -662 Intake: Oral 120 Output: Urine 4273 407 7639 Other: Voiding Method Indwelling Catheter Indwelling Catheter Indwelling Catheter - Labs CBC & Chem 7: 08/31/22 09:32 08/31/22 09:32 Labs: Abnormal Lab Results - Last 24 Hours (Table) 08/30/22 08/30/22 08/31/22 Range/Units 16:20 20:16 06:06 WBC (3.8-10.6) k/uL RBC (4.30-5.90) m/uL Hgb (13.0-17.5) gm/dL Hct (39.0-53.0) % Plt Count (150-450) k/uL PT (9.0-12.0) sec INR (<1.2) Sodium (137-145) mmol/L Chloride (98-107) mmol/L BUN (9-20) mg/dL Creatinine (0.66-1.25) mg/dL Glucose (74-99) mg/dL POC Glucose (mg/dL) 144 H 182 H 125 H (70-110) mg/dL 08/31/22 08/31/22 08/31/22 Range/Units 09:32 09:32 09:32 WBC 3.6 L (3.8-10.6) k/uL RBC 2.31 L (4.30-5.90) m/uL Hgb 7.5 L (13.0-17.5) gm/dL Hct 21.6 L (39.0-53.0) % Plt Count 78 L (150-450) k/uL PT 16.7 H (9.0-12.0) sec INR 1.7 H (<1.2) Sodium 127 L (137-145) mmol/L Chloride 93 L (98-107) mmol/L BUN 55 H (9-20) mg/dL Creatinine 6.32 H (0.66-1.25) mg/dL Glucose 102 H (74-99) mg/dL POC Glucose (mg/dL) (70-110) mg/dL 08/31/22 Range/Units 11:54 WBC (3.8-10.6) k/uL RBC (4.30-5.90) m/uL Hgb (13.0-17.5) gm/dL Hct (39.0-53.0) % Plt Count (150-450) k/uL PT (9.0-12.0) sec INR (<1.2) Sodium (137-145) mmol/L Chloride (98-107) mmol/L BUN (9-20) mg/dL Creatinine (0.66-1.25) mg/dL Glucose (74-99) mg/dL POC Glucose (mg/dL) 128 H (70-110) mg/dL Assessment and Plan Time with Patient: Less than 30
[2022-08-31] MEDS: HYDROcodone/APAP 5-325MG 1 EACH TAB PO PRN ×2 (15:29→20:25)
[2022-08-31 16:35] LABS: Glucose,Whole Blood 177 mg/dL (70-110)
[2022-08-31] MEDS: COLLAGENASE 250 UNIT/GM OINTMENT 30 GM TUBE TOPICAL SCH (16:41)
[2022-08-31] MEDS: TAMSULOSIN 0.4 MG CAP.ER.24H PO SCH (16:48)
[2022-08-31] MEDS: MAGNESIUM SULFATE-D5W PMX 1 GM in DEXTROSE/WATER 1 100ML.BAG IVPB SCH ×2 (16:49→18:47)
[2022-08-31] MEDS ORDERED: WARFARIN 3 MG TAB PO ONE (18:00)
[2022-08-31 20:10] LABS: Glucose,Whole Blood 154 mg/dL (70-110)
[2022-09-01] MEDS: HYDROcodone/APAP 5-325MG 1 EACH TAB PO PRN ×2 (05:44→17:49)
[2022-09-01 06:02] LABS: Glucose,Whole Blood 124 mg/dL (70-110)
[2022-09-01] MEDS: INSULIN ASPART (NovoLOG) 100 UNIT/ML VIAL SQ SCH ×4 (06:07→21:50)
[2022-09-01 08:28] LABS: INR 1.8 (<1.2); Prothrombin Time 17.8 sec (9.0-12.0)
[2022-09-01 08:31] LABS: Calcium 8.3 mg/dL (8.4-10.2); Magnesium 2.1 mg/dL (1.6-2.3); Potassium 3.8 mmol/L (3.5-5.1)
[2022-09-01] MEDS: allopurinoL 300 MG TAB PO SCH (08:37)
[2022-09-01] MEDS: COLLAGENASE 250 UNIT/GM OINTMENT 30 GM TUBE TOPICAL SCH (08:37)
[2022-09-01] MEDS: metroNIDAZOLE 500 MG TAB PO SCH ×2 (08:37→17:38)
[2022-09-01] MEDS: FAMOTIDINE 20 MG TAB PO SCH (08:37)
[2022-09-01] MEDS ORDERED: TORSEMIDE 20 MG TAB PO SCH (09:00)
[2022-09-01] MEDS ORDERED: TOLVAPTAN 15 MG 1/2 TABLET PO ONE (09:00)
--- NOTE | 2022-09-01 10:47 | P.PN ---
Subjective Patient is seen for follow-up for acute kidney injury on top of chronic kidney disease. Renal function has been stable Status post kidney biopsy which shows evidence of cast nephropathy. Awaiting bone marrow biopsy. No complaints of nausea vomiting or abdominal pain. Patient is tolerating oral intake No complaints of chest pain or shortness of breath as well. Good urine output. Graham catheter was reinserted due to retention Serum creatinine has increased to 6.5 mg/dL today. Torsemide was decreased yesterday. Discussed renal replacement therapy again with the patient and he is agreeable to start dialysis. Objective - Vital Signs Vital signs: Vital Signs Temp 97.9 F 08/31/22 20:20 Pulse 98 09/01/22 08:00 Resp 16 09/01/22 08:00 BP 117/56 09/01/22 08:00 Pulse Ox 97 09/01/22 08:00 FiO2 21 08/24/22 09:32 Intake & Output 08/31/22 09/01/22 09/01/22 18:59 06:59 18:59 Intake Total 120 500 180 Output Total 1000 1580 Balance -880 -1080 180 Intake: Intake, IV Titration 400 Amount Sodium Chloride 0.9% 50 300 ml @ 0 mls/hr IV .STK-MED ONE with ceFAZolin 2,000 mg Rx#:[id number] cefTRIAXone 2 gm In 100 Sodium Chloride 0.9% 50 ml @ 100 mls/hr IVPB Q24HR [facility] Rx#:[id number] Oral 120 100 180 Output: Urine 1000 1580 Uretheral (Graham) 500 Other: Voiding Method Indwelling Catheter Indwelling Catheter - Exam Patient is awake, comfortable, no acute distress Examination of the heart S1 and S2 Examination of the lungs bilateral breath sounds are heard Abdomen is soft nontender Examination of lower extremities shows no significant edema. 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 - Labs CBC & Chem 7: 08/31/22 09:32 09/01/22 07:37 Labs: Abnormal Lab Results - Last 24 Hours (Table) 08/31/22 08/31/22 08/31/22 Range/Units 11:54 16:29 20:08 PT (9.0-12.0) sec INR (<1.2) Sodium (137-145) mmol/L Chloride (98-107) mmol/L BUN (9-20) mg/dL Creatinine (0.66-1.25) mg/dL POC Glucose (mg/dL) 128 H 177 H 154 H (70-110) mg/dL Calcium (8.4-10.2) mg/dL 09/01/22 09/01/22 09/01/22 Range/Units 06:01 07:37 07:37 PT 17.8 H (9.0-12.0) sec INR 1.8 H (<1.2) Sodium 126 L (137-145) mmol/L Chloride 91 L (98-107) mmol/L BUN 57 H (9-20) mg/dL Creatinine 6.51 H (0.66-1.25) mg/dL POC Glucose (mg/dL) 124 H (70-110) mg/dL Calcium 8.3 L (8.4-10.2) mg/dL Assessment and Plan Assessment: 1. Acute kidney injury secondary to biopsy-proven cast nephropathy. Creatinine increased to 6.5 today. Nonoliguric. No hydronephrosis noted on kidney ultrasound. Patient is agreeable to start renal replacement therapy 2. Chronic kidney disease stage IIIB with baseline creatinine near 1.6. 3. Volume overload. Improved with diuresis. 4. Hypokalemia secondary to diuresis and hypomagnesemia. Stable. 5. Hypomagnesemia secondary to diuresis. Better. 6. Left kidney lesion being followed by oncology and urology. 7. Urinary retention. Has Graham catheter. On Flomax. Urology following. 8. Anemia of chronic kidney disease. Iron replete. On Aranesp. 9. Hypervolemic hyponatremia. Slightly better. 10. 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 11. Biopsy-proven lambda light chain cast nephropathy. Minimal fibrosis on bio psy. Case discussed with oncology. Bone marrow biopsy pending. Plan: Hold Demadex Consult vascular surgery for dialysis catheter placement Samsca 1 today Repeat labs in a.m.
[2022-09-01 11:36] LABS: Glucose,Whole Blood 183 mg/dL (70-110)
[2022-09-01] MEDS ORDERED: HEPARIN SODIUM 1,000 UN/ML (10ML VL) ONE (12:57)
[2022-09-01] MEDS: MIDAZOLAM 2 MG/2 ML VIAL IVP ONE ×2 (13:05→13:21)
[2022-09-01] MEDS ORDERED: LIDOCAINE 1% INJ 10MG/ML (30 ML VIAL-PF) SQ ONE (13:08)
[2022-09-01] MEDS ORDERED: IV FLUID CONTINUATION 1,000 ML IV ONE (13:10)
--- NOTE | 2022-09-01 14:10 | IR ---
EXAMINATION TYPE: IR cvc insert central tunneled DATE OF EXAM: 09/01/2022 COMPARISON: NONE HISTORY: Fluoroscopy time. Fluoroscopy was provided to the referring clinician.
--- NOTE | 2022-09-01 14:22 | P.PN ---
Subjective Progress Note Date: 08/31/22 Principal diagnosis: Right second toe amputation site wound infection Patient is a 71-year-old male was recently admitted to this facility and the patient did have a right second toe diabetic foot infection in this patient was status post amputation of his right second toe on 06/29/2022 , patient presented to the hospital with worsening renal failure and the patient w as noticed to have some purulent drainage from his right second toe amputation site wound which is currently not healed, patient is status post right big toe amputation on 08/26/2022 and the patient did have a renal biopsy completed on 08/27/2022 On today's evaluation that is 08/31/2022, the patient remains to be afebrile, the patient is breathing comfortably on room air, the patient denies chest pain shortness of breath or cough , the patient denies nausea no vomiting no abdominal pain , pain to the right foot has decreased in intensity and drainage has decreased Objective - Vital Signs Vital signs: Vital Signs Temp 98.3 F 08/31/22 03:11 Pulse 83 08/31/22 12:00 Resp 16 08/31/22 12:00 BP 115/56 08/31/22 12:00 Pulse Ox 95 08/31/22 12:00 FiO2 21 08/24/22 09:32 Intake & Output 08/30/22 08/31/22 08/31/22 18:59 06:59 18:59 Output Total 1000 900 Balance -1000 -900 Output: Urine 1000 900 Other: Voiding Method Indwelling Catheter Indwelling Catheter Indwelling Catheter - Exam GENERAL DESCRIPTION: An elderly male lying in bed in no distress RESPIRATORY SYSTEM: Unlabored breathing , decreased breath sounds at bases HEART: S1 S2 regular rate and rhythm , ABDOMEN: Soft , no tenderness EXTREMITIES: Right second toe as well as right big toe amputation site is currently dressed no drainage on the dressing - Labs CBC & Chem 7: 08/31/22 09:32 09/01/22 07:37 Labs: Abnormal Lab Results - Last 24 Hours (Table) 08/30/22 08/30/22 08/31/22 Range/Units 16:20 20:16 06:06 WBC (3.8-10.6) k/uL RBC (4.30-5.90) m/uL Hgb (13.0-17.5) gm/dL Hct (39.0-53.0) % Plt Count (150-450) k/uL PT (9.0-12.0) sec INR (<1.2) Sodium (137-145) mmol/L Chloride (98-107) mmol/L BUN (9-20) mg/dL Creatinine (0.66-1.25) mg/dL Glucose (74-99) mg/dL POC Glucose (mg/dL) 144 H 182 H 125 H (70-110) mg/dL 08/31/22 08/31/22 08/31/22 Range/Units 09:32 09:32 09:32 WBC 3.6 L (3.8-10.6) k/uL RBC 2.31 L (4.30-5.90) m/uL Hgb 7.5 L (13.0-17.5) gm/dL Hct 21.6 L (39.0-53.0) % Plt Count 78 L (150-450) k/uL PT 16.7 H (9.0-12.0) sec INR 1.7 H (<1.2) Sodium 127 L (137-145) mmol/L Chloride 93 L (98-107) mmol/L BUN 55 H (9-20) mg/dL Creatinine 6.32 H (0.66-1.25) mg/dL Glucose 102 H (74-99) mg/dL POC Glucose (mg/dL) (70-110) mg/dL 08/31/22 Range/Units 11:54 WBC (3.8-10.6) k/uL RBC (4.30-5.90) m/uL Hgb (13.0-17.5) gm/dL Hct (39.0-53.0) % Plt Count (150-450) k/uL PT (9.0-12.0) sec INR (<1.2) Sodium (137-145) mmol/L Chloride (98-107) mmol/L BUN (9-20) mg/dL Creatinine (0.66-1.25) mg/dL Glucose (74-99) mg/dL POC Glucose (mg/dL) 128 H (70-110) mg/dL Assessment and Plan (1) Diabetic foot infection Current Visit: Yes Status: Acute Code(s): E11.628 - TYPE 2 DIABETES MELLITUS WITH OTHER SKIN COMPLICATIONS; L08.9 - LOCAL INFECTION OF THE SKIN AND SUBCUTANEOUS TISSUE, UNSP SNOMED Code(s): 446582096 Plan: 1patient with right second toe diabetic foot infection in this patient who is status post amputation of the right second toe culture that time was positive for MRSA patient did present to the hospital with acute renal failure patient did have purulent drainage to the right second toe amputation site and some surrounding cellulitis. 2local culture growing Proteus, group B strep and is also showing presumptive staph aureus which has been finalized his MSSA. 3local wound care with a dry Aquacel silver dressing change daily, patient noticed to have a more ischemic changes to the right big toe , and patient the patient is status post amputation of the right big toe on 08/26/2022 4patient right big toe amputation site wound cultures grew Proteus which is sensitive to cefepime/ceftriaxone patient previous culture positive for MSSA and strep 5-patient currently being treated with Rocephin and Flagyl and monitor clinical course closely Time with Patient: Less than 30
--- NOTE | 2022-09-01 14:40 | P.PN ---
Subjective Progress Note Date: 09/01/22 KRYSTAL on CKD . Right Big Toe Infection s/p Amputation Mr. Waters is a 71-year-old male with a past medical history of multiple chronic medical conditions including atrial fibrillation, diabetes mellitus, MRSA, depression admitted for acute on chronic kidney injury. He is having Graham's catheter for obstructive nephropathy and creatinine slowly trending down. Patient is also being treated for chronic lower right Big toe infection. 08/26/2022- patient is lying comfortably not appears to be in acute distress. Patient has complaints of right lower extremity pain. He denies having any fevers chills or rigors. No chest pain or palpitations. No cough or difficulty in breathing. On reviewing the patient's vital signs temperature of 98, heart rate 83, blood pressure 119/64 saturating at 97% on nasal cannula. Patient's labs reviewed white count of 4.8 hemoglobin is 7.6 platelets of 116 INR of 1.5. Sodium 134, potassium 3.4, chloride 99, bicarb 25, BUN 48, creatinine 4.90. 08/27/2022 -patient is comfortably lying in bed appears to be in no acute distress. He is drowsy as he just got back from getting the renal biopsy done. But was able to wake up on calling his name and responded appropriately. He denies having any fevers chills or rigors. No cough or difficulty breathing. He complains of pain in his right lower extremity where he had the amputation done. On reviewing the patient's vitals temperature of 98.7 heart 97, respiratory rate 14, blood pressure 106/55 saturating at 95% on room air. Patient's labs are reviewed INR of 1.4, sodium 133, potassium 4, chloride 97, bicarb 28, creatinine 5.02. 08/28/2022 -patient is seen and examined at bedside today. He is comfortably lying in bed appears to be no acute distress. Patient denies having any fevers chills or rigors. He does not have complaints of chest pain or palpitations. No abdominal pain nausea vomiting or diarrhea. Patient has pain in the right lower extremity. On reviewing the patient's vital signs temperature of 98.1, heart rate 87, respiratory rate 18, blood pressure 102/57 saturating at 96% on room air. On reviewing the patient's labs white count of 4.5 hemoglobin 7.2 platelets 81. Sodium 131, potassium 3.9, chloride 96, bicarb 25, BUN 50, creatinine 5.27 08/29/2022 patient is seen and examined at bedside. As the patient had urinary retention after discontinuing the Graham's catheter it has to be reinserted. He denies having any chest pain or palpitations. No cough or difficulty breathing. No fever chills or rigors. No abdominal pain nausea vomiting or diarrhea. On reviewing the patient's vital signs T-max of 98.30, heart rate of 90, respiratory rate 18, blood pressure 97/51 saturating at 96% on room air. On reviewing the patient's labs white count of 4 hemoglobin of 7.1 platelets of 88. Sodium 128 potassium 3.7 chloride 93, bicarb 25, BUN 51, creatinine 5.42. 08/30/2022 Patient is monitored on stepdown unit today. He is postoperative day #4 right foot big toe amputation secondary to gangrene and excision of infection callus on plantar aspect of right foot. He is being followed by vascular and will continue to follow up on discharge. Indwelling catheter has been reinserted at this time secondary to urinary retention. Urology and oncology following, he is status post biopsy of left renal lesion showing cast nephropathy. Patient will need bone marrow biopsy Nephrology is also following. His creatinine today is up to 5.89, BUN 53, sodium 129. INR 1.7 today. 08/31/2022 Patient is evaluated today resting in bed, no acute events overnight. Minimal activity and nursing reports poor oral intake. Postoperative day #5 right big toe amputation. Vascular following. Has indwelling catheter in place with good urine output. Pending bone marrow biopsy per oncology. Nephrology following. Labs today showing white count 3.6, hemoglobin 7.5, INR 1.7, sodium 127, BUN 55, creatinine 6.32. Glucose 120s. Mag 1.7 today. 09/01/2022 Patient is seen and evaluated and follow-up currently sleeping although arousable. Patient recently underwent right big toe amputation with vascular. Patient is awaiting a bone marrow biopsy with multiple medical consultations following. INR is 1.8 today, sodium is 126 with a potassium of 3.8, BUN is 57 with a creatinine of 6.51 and magnesium is 2.1. Nephrology is following and patient is continued on antibiotics in the form of ceftriaxone and Flagyl. Nephrology following with concerns for requiring renal replacement and this was discussed with patient who was agreeable to proceed with initiating hem odialysis. Vascular surgery Dr. Barton consulted for permacath placement. Patient is currently afebrile denies chest pain or shortness of breath, saturation is 97% on room air. Patient needs encouragement with oral intake and patient continues with significant weakness. Will likely be going to ECF once stabilized and discharged. Coumadin held today for vascular procedure. Review of Systems Constitutional: Denied any fatigue denied any fever. Cardio vascular: denied any chest pain, palpitations Gastrointestinal: denied any nausea, vomiting, diarrhea Pulmonary: Denied any shortness of breath cough Neurologic denied any new focal deficits All inpatient medications were reviewed and appropriate changes in these medications as dictated in the interval history and assessment and plan. Active Medications Hydrocodone Bitart/Acetaminophen (Hydrocodone/Apap 5-325mg 1 Each Tab) 1 each PO Q4HR PRN PRN Reason: Pain Last Admin: 09/01/22 05:44 Dose: 1 each Allopurinol (Allopurinol 300 Mg Tab) 300 mg PO DAILY [facility] Last Admin: 09/01/22 08:37 Dose: 300 mg Darbepoetin Ezra (Darbepoetin Ezra 25 Mcg/0.42 Ml Syringe) 25 mcg SQ Q7D [facility] Last Admin: 08/28/22 13:17 Dose: 25 mcg Dextrose/Water (Dextrose 50% Syringe 50 Ml) 25 ml IVP PER PROTOCOL PRN; Protoc ol PRN Reason: Hypoglycemia Dextrose/Water (Dextrose 50% Syringe 50 Ml) 50 ml IVP PER PROTOCOL PRN; Protocol PRN Reason: Hypoglycemia Famotidine (Famotidine 20 Mg Tab) 20 mg PO DAILY [facility] Last Admin: 09/01/22 08:37 Dose: 20 mg Ceftriaxone Sodium 2 gm/ (Sodium Chloride) 50 mls @ 100 mls/hr IVPB Q24HR N[facility]; Protocol Last Admin: 09/01/22 08:36 Dose: 100 mls/hr Insulin Aspart (Insulin Aspart (Novolog) 100 Unit/Ml Vial) 0 unit SQ ACHS NICO; Protocol Last Admin: 09/01/22 12:04 Dose: Not Given Metronidazole (Metronidazole 500 Mg Tab) 500 mg PO TID [facility]; Protocol Last Admin: 09/01/22 08:37 Dose: 500 mg Miscellaneous Information (Warfarin Per Pharmacy) 1 each MISCELLANE DIRECTED PRN; Protocol PRN Reason: Per Protocol Miscellaneous Information (Magnesium Replacement Protocol 1 Each Misc) 1 each MISCELLANE DAILY PRN; Protocol PRN Reason: Per Protocol Miscellaneous Information (Potassium Replacement Protocol 1 Each Misc) 1 each MISCELLANE DAILY PRN; Protocol PRN Reason: Per Protocol Naloxone HCl (Naloxone 0.4 Mg/Ml 1 Ml Vial) 0.2 mg IV Q2M PRN PRN Reason: Opioid Reversal Collagenase 250 Unit /Gm Ointment 30 Gm Tube 1 each TOPICAL DAILY NICO; Protocol Last Admin: 09/01/22 08:37 Dose: 1 each Tamsulosin HCl (Tamsulosin 0.4 Mg Cap.Er.24h) 0.4 mg PO PC-SUPPER NICO Last Admin: 08/31/22 16:48 Dose: 0.4 mg Warfarin Sodium (Warfarin 3 Mg Tab) 6 mg PO ONCE@1800 ONE Stop: 09/01/22 18:01 Last Admin: 09/01/22 12:44 Dose: Not Given PHYSICAL EXAMINATION: GENERAL: The patient is alert and oriented x3, not in any acute distress. Well developed, well nourished. HEENT: Pupils are round and equally reacting to light. EOMI. No scleral icterus. No conjunctival pallor. Normocephalic, atraumatic. No pharyngeal erythema. No thyromegaly. CARDIOVASCULAR: S1 and S2 present. No murmurs, rubs, or gallops. PULMONARY: Chest is clear to auscultation, no wheezing or crackles. ABDOMEN: Soft, nontender, nondistended, normoactive bowel sounds. No palpable organomegaly. Indwelling catheter in place, clear yellow drainage. MUSCULOSKELETAL: No joint swelling or deformity. EXTREMITIES: No cyanosis, clubbing, or pedal edema. NEUROLOGICAL: Gross neurological examination did not reveal any focal deficits. SKIN: No rashes. Dressing intact to right foot with kerlex, no shadowing noted on dressing. Deferred to vascular. 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 Vascular surgery consulted for permacath placement and will initiate hemodialysis Intake and output monitoring Indwelling catheter to remain in place, urology following Bone marrow biopsy and FNA possibly next week Oncology, urology and nephrology following closely Continues on IV rocephin and flagyl with oral antibiotics on discharge ID is following closely Dietary consultation glucerna added patient will poor oral intake PT/OT following Subacute rehab on discharge Due to multiple complex medical issues, prognosis is guarded The impression and plan of care has been dictated by Luba Briseno, Nurse Practitioner as directed. Dr. Carrillo MD I have performed a history and examination and MDM of this patient, discussed the same with the dictator, and agree with the dictator's assessment and plan as written ,documented as a scribe. Based on total visit time, I have performed more than 50% of the visit. Objective - Vital Signs Vital signs: Vital Signs Temp 97.9 F 08/31/22 20:20 Pulse 98 09/01/22 08:00 Resp 16 09/01/22 08:00 BP 117/56 09/01/22 08:00 Pulse Ox 97 09/01/22 08:00 FiO2 21 08/24/22 09:32 Intake & Output 08/31/22 09/01/22 09/01/22 18:59 06:59 18:59 Intake Total 120 500 200 Output Total 1000 1580 Balance -880 -1080 200 Weight 105.5 kg Intake: IV 20 Intake, IV Titration 400 Amount Sodium Chloride 0.9% 50 300 ml @ 0 mls/hr IV .STK-MED ONE with ceFAZolin 2,000 mg Rx#:[id number] cefTRIAXone 2 gm In 100 Sodium Chloride 0.9% 50 ml @ 100 mls/hr IVPB Q24HR [facility] Rx#:[id number] Oral 120 100 180 Output: Urine 1000 1580 Uretheral (Graham) 500 Other: Voiding Method Indwelling Catheter Indwelling Catheter Indwelling Catheter - Labs CBC & Chem 7: 08/31/22 09:32 09/01/22 07:37 Labs: Abnormal Lab Results - Last 24 Hours (Table) 08/31/22 08/31/22 09/01/22 Range/Units 16:29 20:08 06:01 PT (9.0-12.0) sec INR (<1.2) Sodium (137-145) mmol/L Chloride (98-107) mmol/L BUN (9-20) mg/dL Creatinine (0.66-1.25) mg/dL POC Glucose (mg/dL) 177 H 154 H 124 H (70-110) mg/dL Calcium (8.4-10.2) mg/dL 09/01/22 09/01/22 09/01/22 Range/Units 07:37 07:37 11:34 PT 17.8 H (9.0-12.0) sec INR 1.8 H (<1.2) Sodium 126 L (137-145) mmol/L Chloride 91 L (98-107) mmol/L BUN 57 H (9-20) mg/dL Creatinine 6.51 H (0.66-1.25) mg/dL POC Glucose (mg/dL) 183 H (70-110) mg/dL Calcium 8.3 L (8.4-10.2) mg/dL
--- NOTE | 2022-09-01 14:55 | XR ---
EXAMINATION TYPE: XR chest 1V DATE OF EXAM: 09/01/2022 COMPARISON: NONE HISTORY: Line placement TECHNIQUE: Single frontal view of the chest is obtained. FINDINGS: There is no focal air space opacity, pleural effusion, or pneumothorax seen. The cardiac silhouette size is within normal limits. The osseous structures are intact. There is a right-sided hemodialysis catheter with the tip overlying the SVC. Arthropathy of the shoulders. IMPRESSION: 1. Dialysis catheter overlying the SVC and no sizable pneumothorax.
--- NOTE | 2022-09-01 16:14 | P.GSCN ---
History of Present Illness History of present illness: 71-year-old gentleman patient has a history of acute chronic renal failure I was consulted for placement of urgent dialysis catheter. Medical history history of diabetes, peripheral vascular disease, Surgical history patient had a right second toe big toe amputation under local wound care Neck is supple no bruit appreciated Chest is clear good and both lungs Abdomen soft nontender Femorals are 1+ bilateral Plan is placement of dialysis catheter risk and complication discussed Past Medical History Past Medical History: Atrial Fibrillation, Diabetes Mellitus Additional Past Medical History / Comment(s): . History of Any Multi-Drug Resistant Organisms: MRSA Year Discovered:: 06/29/22 MDRO Source:: Toe Right Second Past Surgical History: Joint Replacement, Orthopedic Surgery Additional Past Surgical History / Comment(s): right foot/leg surgery and madalyn placement related to crushing injury. Past Anesthesia/Blood Transfusion Reactions: No Reported Reaction Past Psychological History: Depression Smoking Status: Former smoker Past Alcohol Use History: None Reported Past Drug Use History: None Reported Medications and Allergies Home Medications Medication Instructions Recorded Confirmed Type HYDROcodone/APAP 10-325MG [[place] 1 tab PO Q6H PRN 06/30/19 08/12/22 History 10-325] allopurinoL [Zyloprim] 300 mg PO DAILY 06/30/19 08/12/22 History amLODIPine BESYLATE [Norvasc] 5 mg PO DAILY 06/30/19 08/12/22 History Warfarin [Coumadin] 7.5 mg PO DAILY 06/26/22 08/12/22 History Collagenase [Santyl Ointment] 1 applic TOPICAL DAILY 08/12/22 08/12/22 History Allergies Allergy/AdvReac Type Severity Reaction Status Date / Time No Known Allergies Allergy Verified 08/26/22 14:03 Surgical - Exam Vital Signs Temp Pulse Resp BP Pulse Ox 97.7 F 100 20 123/72 98 08/12/22 17:04 08/12/22 17:04 08/12/22 17:04 08/12/22 17:04 08/12/22 17:04 Results - Labs 08/31/22 09:32 09/01/22 07:37 Abnormal Lab Results - Last 24 Hours (Table) 08/31/22 08/31/22 09/01/22 Range/Units 16:29 20:08 06:01 PT (9.0-12.0) sec INR (<1.2) Sodium (137-145) mmol/L Chloride (98-107) mmol/L BUN (9-20) mg/dL Creatinine (0.66-1.25) mg/dL POC Glucose (mg/dL) 177 H 154 H 124 H (70-110) mg/dL Calcium (8.4-10.2) mg/dL 09/01/22 09/01/22 09/01/22 Range/Units 07:37 07:37 11:34 PT 17.8 H (9.0-12.0) sec INR 1.8 H (<1.2) Sodium 126 L (137-145) mmol/L Chloride 91 L (98-107) mmol/L BUN 57 H (9-20) mg/dL Creatinine 6.51 H (0.66-1.25) mg/dL POC Glucose (mg/dL) 183 H (70-110) mg/dL Calcium 8.3 L (8.4-10.2) mg/dL Diabetes panel 09/01/22 Range/Units 07:37 Sodium 126 L (137-145) mmol/L Potassium 3.8 (3.5-5.1) mmol/L Chloride 91 L (98-107) mmol/L Carbon Dioxide 24 (22-30) mmol/L BUN 57 H (9-20) mg/dL Creatinine 6.51 H (0.66-1.25) mg/dL Glucose 98 (74-99) mg/dL Calcium 8.3 L (8.4-10.2) mg/dL Calcium panel 09/01/22 Range/Units 07:37 Calcium 8.3 L (8.4-10.2) mg/dL Pituitary panel 09/01/22 Range/Units 07:37 Sodium 126 L (137-145) mmol/L Potassium 3.8 (3.5-5.1) mmol/L Chloride 91 L (98-107) mmol/L Carbon Dioxide 24 (22-30) mmol/L BUN 57 H (9-20) mg/dL Creatinine 6.51 H (0.66-1.25) mg/dL Glucose 98 (74-99) mg/dL Calcium 8.3 L (8.4-10.2) mg/dL Adrenal panel 09/01/22 Range/Units 07:37 Sodium 126 L (137-145) mmol/L Potassium 3.8 (3.5-5.1) mmol/L Chloride 91 L (98-107) mmol/L Carbon Dioxide 24 (22-30) mmol/L BUN 57 H (9-20) mg/dL Creatinine 6.51 H (0.66-1.25) mg/dL Glucose 98 (74-99) mg/dL Calcium 8.3 L (8.4-10.2) mg/dL
--- NOTE | 2022-09-01 16:18 | P.PCN ---
Description of Procedure: Preoperative diagnoses is acute chronic failure Postoperative abdiel 1% lidocaine were infiltrated IV sedation and chest were prepped and draped applied sterile manner 1% lidocaine was infiltrated neck area ultrasound-guided micropuncture introduced right jugular vein micropuncture guidewire was passed and forefoot dilator advanced on self-care. After that tendon was created through the terminal be brought 2022 same dialysis catheter then we passed a regular guidewire which was parked at the inferior vena cava dilator advanced top the guidewire that sheath was advanced. The guidewire through the sheath the dialysis catheter were introduced sheath was removed tip of cath was vena cava atrial junction flush with heparin saline and Hep-Lock secured with 3-0 nylon dressing applied patient are to the procedure well plan is chest x-ray Patient brought to the [employer] of the neck and chest was prepped and draped across manner
[2022-09-01 16:39] LABS: Glucose,Whole Blood 131 mg/dL (70-110)
[2022-09-01] MEDS: TAMSULOSIN 0.4 MG CAP.ER.24H PO SCH (17:38)
[2022-09-01] MEDS ORDERED: WARFARIN 3 MG TAB PO ONE (18:00)
[2022-09-01 21:08] LABS: Glucose,Whole Blood 138 mg/dL (70-110)
[2022-09-02] MEDS: metroNIDAZOLE 500 MG TAB PO SCH ×3 (00:13→17:59)
[2022-09-02] MEDS: HYDROcodone/APAP 5-325MG 1 EACH TAB PO PRN ×5 (00:15→20:42)
[2022-09-02 06:56] LABS: Glucose,Whole Blood 103 mg/dL (70-110)
[2022-09-02] MEDS: INSULIN ASPART (NovoLOG) 100 UNIT/ML VIAL SQ SCH ×3 (07:08→17:47)
[2022-09-02 09:19] LABS: INR 1.74 (0.90-1.11); Prothrombin Time 19.3 sec (9.9-11.9)
[2022-09-02] MEDS: FAMOTIDINE 20 MG TAB PO SCH (09:29)
[2022-09-02] MEDS: allopurinoL 300 MG TAB PO SCH (09:30)
--- NOTE | 2022-09-02 10:36 | P.PN ---
Subjective Patient is seen for follow-up for acute kidney injury on top of chronic kidney disease. Renal function has been stable Status post kidney biopsy which shows evidence of cast nephropathy. Awaiting bone marrow biopsy. No complaints of nausea vomiting or abdominal pain. Patient is tolerating oral intake No complaints of chest pain or shortness of breath as well. Good urine output. Graham catheter was reinserted due to retention Serum creatinine has increased to 6.5 mg/dL . Diuretics on hold Discussed renal replacement therapy again with the patient and he is agreeable to start dialysis. Dialysis catheter was placed yesterday and we will start hemodialysis today 09/02/2022 Objective - Vital Signs Vital signs: Vital Signs Temp 98.4 F 09/02/22 08:00 Pulse 98 09/02/22 08:00 Resp 16 09/02/22 08:00 BP 104/57 09/02/22 08:00 Pulse Ox 93 L 09/02/22 08:00 FiO2 21 08/24/22 09:32 Intake & Output 09/01/22 09/02/22 09/02/22 18:59 06:59 18:59 Intake Total 300 Output Total 1000 Balance 300 -1000 Weight 105.5 kg Intake: IV 20 Intake, IV Titration 100 Amount cefTRIAXone 2 gm In 100 Sodium Chloride 0.9% 50 ml @ 100 mls/hr IVPB Q24HR [facility] Rx#:[id number] Oral 180 Output: Urine 1000 Other: Voiding Method Indwelling Catheter Indwelling Catheter Indwelling Catheter - Exam Patient is awake, comfortable, no acute distress Examination of the heart S1 and S2 Examination of the lungs bilateral breath sounds are heard Abdomen is soft nontender Examination of lower extremities shows no significant edema. Right foot is c urrently dressed INTERN exam grossly intact - Labs CBC & Chem 7: 08/31/22 09:32 09/01/22 07:37 Labs: Abnormal Lab Results - Last 24 Hours (Table) 09/01/22 09/01/22 09/01/22 Range/Units 11:34 16:37 20:54 PT (9.9-11.9) sec INR (0.90-1.11) POC Glucose (mg/dL) 183 H 131 H 138 H (70-110) mg/dL 09/02/22 Range/Units 05:27 PT 19.3 H (9.9-11.9) sec INR 1.74 H (0.90-1.11) POC Glucose (mg/dL) (70-110) mg/dL Assessment and Plan Assessment: 1. Acute kidney injury secondary to biopsy-proven cast nephropathy. Creatinine increased to 6.5 Nonoliguric. No hydronephrosis noted on kidney ultrasound. Patient is agreeable to start renal replacement therapy. Hemodialysis started on 09/02/2022 2. Chronic kidney disease stage IIIB with baseline creatinine near 1.6. 3. Volume overload. Improved with diuresis. 4. Hypokalemia secondary to diuresis and hypomagnesemia. Stable. 5. Hypomagnesemia secondary to diuresis. Better. 6. Left kidney lesion being followed by oncology and urology. 7. Urinary retention. Has Graham catheter. On Flomax. Urology following. 8. Anemia of chronic kidney disease. Iron replete. On Aranesp. 9. Hypervolemic hyponatremia. Slightly better. 10. 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 11. Biopsy-proven lambda light chain cast nephropathy. Minimal fibrosis on biopsy. Case discussed with oncology. Bone marrow biopsy pending. Plan: Hold Demadex Hemodialysis today and repeat in a.m.
[2022-09-02 12:00] LABS: Glucose,Whole Blood 141 mg/dL (70-110)
[2022-09-02] MEDS: COLLAGENASE 250 UNIT/GM OINTMENT 30 GM TUBE TOPICAL SCH (12:18)
--- NOTE | 2022-09-02 15:46 | P.PN ---
Subjective Progress Note Date: 09/02/22 KRYSTAL on CKD . Right Big Toe Infection s/p Amputation Mr. Waters is a 71-year-old male with a past medical history of multiple chronic medical conditions including atrial fibrillation, diabetes mellitus, MRSA, depression admitted for acute on chronic kidney injury. He is having Graham's catheter for obstructive nephropathy and creatinine slowly trending down. Patient is also being treated for chronic lower right Big toe infection. 08/26/2022- patient is lying comfortably not appears to be in acute distress. Patient has complaints of right lower extremity pain. He denies having any fevers chills or rigors. No chest pain or palpitations. No cough or difficulty in breathing. On reviewing the patient's vital signs temperature of 98, heart rate 83, blood pressure 119/64 saturating at 97% on nasal cannula. Patient's labs reviewed white count of 4.8 hemoglobin is 7.6 platelets of 116 INR of 1.5. Sodium 134, potassium 3.4, chloride 99, bicarb 25, BUN 48, creatinine 4.90. 08/27/2022 -patient is comfortably lying in bed appears to be in no acute distress. He is drowsy as he just got back from getting the renal biopsy done. But was able to wake up on calling his name and responded appropriately. He denies having any fevers chills or rigors. No cough or difficulty breathing. He complains of pain in his right lower extremity where he had the amputation done. On reviewing the patient's vitals temperature of 98.7 heart 97, respiratory rate 14, blood pressure 106/55 saturating at 95% on room air. Patient's labs are reviewed INR of 1.4, sodium 133, potassium 4, chloride 97, bicarb 28, creatinine 5.02. 08/28/2022 -patient is seen and examined at bedside today. He is comfortably lying in bed appears to be no acute distress. Patient denies having any fevers chills or rigors. He does not have complaints of chest pain or palpitations. No abdominal pain nausea vomiting or diarrhea. Patient has pain in the right lower extremity. On reviewing the patient's vital signs temperature of 98.1, heart rate 87, respiratory rate 18, blood pressure 102/57 saturating at 96% on room air. On reviewing the patient's labs white count of 4.5 hemoglobin 7.2 platelets 81. Sodium 131, potassium 3.9, chloride 96, bicarb 25, BUN 50, creatinine 5.27 08/29/2022 patient is seen and examined at bedside. As the patient had urinary retention after discontinuing the Graham's catheter it has to be reinserted. He denies having any chest pain or palpitations. No cough or difficulty breathing. No fever chills or rigors. No abdominal pain nausea vomiting or diarrhea. On reviewing the patient's vital signs T-max of 98.30, heart rate of 90, respiratory rate 18, blood pressure 97/51 saturating at 96% on room air. On reviewing the patient's labs white count of 4 hemoglobin of 7.1 platelets of 88. Sodium 128 potassium 3.7 chloride 93, bicarb 25, BUN 51, creatinine 5.42. 08/30/2022 Patient is monitored on stepdown unit today. He is postoperative day #4 right foot big toe amputation secondary to gangrene and excision of infection callus on plantar aspect of right foot. He is being followed by vascular and will continue to follow up on discharge. Indwelling catheter has been reinserted at this time secondary to urinary retention. Urology and oncology following, he is status post biopsy of left renal lesion showing cast nephropathy. Patient will need bone marrow biopsy Nephrology is also following. His creatinine today is up to 5.89, BUN 53, sodium 129. INR 1.7 today. 08/31/2022 Patient is evaluated today resting in bed, no acute events overnight. Minimal activity and nursing reports poor oral intake. Postoperative day #5 right big toe amputation. Vascular following. Has indwelling catheter in place with good urine output. Pending bone marrow biopsy per oncology. Nephrology following. Labs today showing white count 3.6, hemoglobin 7.5, INR 1.7, sodium 127, BUN 55, creatinine 6.32. Glucose 120s. Mag 1.7 today. 09/01/2022 Patient is seen and evaluated and follow-up currently sleeping although arousable. Patient recently underwent right big toe amputation with vascular. Patient is awaiting a bone marrow biopsy with multiple medical consultations following. INR is 1.8 today, sodium is 126 with a potassium of 3.8, BUN is 57 with a creatinine of 6.51 and magnesium is 2.1. Nephrology is following and patient is continued on antibiotics in the form of ceftriaxone and Flagyl. Nephrology following with concerns for requiring renal replacement and this was discussed with patient who was agreeable to proceed with initiating hem odialysis. Vascular surgery Dr. Barton consulted for permacath placement. Patient is currently afebrile denies chest pain or shortness of breath, saturation is 97% on room air. Patient needs encouragement with oral intake and patient continues with significant weakness. Will likely be going to ECF once stabilized and discharged. Coumadin held today for vascular procedure. 09/02/2022 Patient is seen and evaluated this morning was seen by Dr. Barton and underwent right chest wall permacath placement and is scheduled to start hemodialysis. Nephrology following closely and no repeat labs ordered for today. Will follow- up with some repeat labs and continue to monitor closely. Infectious disease is also following and patient is maintained on IV antibiotics in the form of ceftriaxone along with Flagyl and will continue. Diuretics in the form of Demadex is on hold today. Patient continues with indwelling Graham catheter and urology is following. Patient also being followed by oncology and bone marrow biopsy is pending. Prognosis remains guarded and is being initiated on hemodia lysis today. Patient is afebrile denies chest pain or shortness of breath. New Right permacath chest wall catheter dressing is dry and intact. We'll discuss with nephrology about resuming anticoagulation. Review of Systems Constitutional: Denied any fatigue denied any fever. Cardio vascular: denied any chest pain, palpitations Gastrointestinal: denied any nausea, vomiting, diarrhea Pulmonary: Denied any shortness of breath cough Neurologic reports generalized weakness Active Medications Hydrocodone Bitart/Acetaminophen (Hydrocodone/Apap 5-325mg 1 Each Tab) 1 each PO Q4HR PRN PRN Reason: Pain Last Admin: 09/02/22 14:50 Dose: 1 each Allopurinol (Allopurinol 300 Mg Tab) 300 mg PO DAILY [facility] Last Admin: 09/02/22 09:30 Dose: 300 mg Darbepoetin Ezra (Darbepoetin Ezra 25 Mcg/0.42 Ml Syringe) 25 mcg SQ Q7D NICO Last Admin: 08/28/22 13:17 Dose: 25 mcg Dextrose/Water (Dextrose 50% Syringe 50 Ml) 25 ml IVP PER PROTOCOL PRN; Protocol PRN Reason: Hypoglycemia Dextrose/Water (Dextrose 50% Syringe 50 Ml) 50 ml IVP PER PROTOCOL PRN; Protocol PRN Reason: Hypoglycemia Famotidine (Famotidine 20 Mg Tab) 20 mg PO DAILY [facility] Last Admin: 09/02/22 09:29 Dose: 20 mg Ceftriaxone Sodium 2 gm/ (Sodium Chloride) 50 mls @ 100 mls/hr IVPB Q24HR [facility]; Protocol Last Admin: 09/02/22 09:30 Dose: 100 mls/hr Insulin Aspart (Insulin Aspart (Novolog) 100 Unit/Ml Vial) 0 unit SQ ACHS [facility]; Protocol Last Admin: 09/02/22 14:11 Dose: Not Given Metronidazole (Metronidazole 500 Mg Tab) 500 mg PO TID [facility]; Protocol Last Admin: 09/02/22 09:30 Dose: 500 mg Miscellaneous Information (Warfarin Per Pharmacy) 1 each MISCELLANE DIRECTED PRN; Protocol PRN Reason: Per Protocol Miscellaneous Information (Magnesium Replacement Protocol 1 Each Misc) 1 each MISCELLANE DAILY PRN; Protocol PRN Reason: Per Protocol Miscellaneous Information (Potassium Replacement Protocol 1 Each Misc) 1 each MISCELLANE DAILY PRN; Protocol PRN Reason: Per Protocol Naloxone HCl (Naloxone 0.4 Mg/Ml 1 Ml Vial) 0.2 mg IV Q2M PRN PRN Reason: Opioid Reversal Collagenase 250 Unit /Gm Ointment 30 Gm Tube 1 each TOPICAL DAILY [facility]; Protocol Last Admin: 09/02/22 12:18 Dose: Not Given Tamsulosin HCl (Tamsulosin 0.4 Mg Cap.Er.24h) 0.4 mg PO PC-SUPPER [facility] Last Admin: 09/01/22 17:38 Dose: 0.4 mg PHYSICAL EXAMINATION: GENERAL: The patient is alert and oriented x3, not in any acute distress. Well developed, well nourished. HEENT: Pupils are round and equally reacting to light. EOMI. No scleral icterus. No conjunctival pallor. Normocephalic, atraumatic. No pharyngeal erythema. No thyromegaly. CARDIOVASCULAR: S1 and S2 muffled, right chest wall permacath dressing is dry and intact PULMONARY: Diminished breath sounds bilaterally ABDOMEN: Soft, nontender, nondistended, normoactive bowel sounds. No palpable organomegaly. Indwelling catheter in place, clear yellow drainage. MUSCULOSKELETAL: No joint swelling or deformity. EXTREMITIES: No cyanosis, clubbing, or pedal edema. NEUROLOGICAL: Gross neurological examination did not reveal any focal deficits. SKIN: No rashes. Dressing intact to right foot with kerlex, no shadowing noted on dressing. Deferred to vascular. 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 Barton vascular surgery. Plan is to initiate hemodialysis today. Recommend close Intake and output monitoring Indwelling catheter to remain in place, urology following Bone marrow biopsy and FNA possibly next week Oncology, urology and nephrology following closely Continues on IV rocephin and flagyl with oral antibiotics on discharge ID is following closely Dietary consultation glucerna added patient will poor oral intake PT/OT following Subacute rehab on discharge Due to multiple complex medical issues, prognosis is guarded The impression and plan of care has been dictated by Luba Briseno, Nurse Practitioner as directed. Dr. Carrillo MD I have performed a history and examination and MDM of this patient, discussed the same with the dictator, and agree with the dictator's assessment and plan as written ,documented as a scribe. Based on total visit time, I have performed more than 50% of the visit. Objective - Vital Signs Vital signs: Vital Signs Temp 97.8 F 09/02/22 15:23 Pulse 98 09/02/22 08:00 Resp 19 09/02/22 15:23 BP 125/64 09/02/22 15:23 Pulse Ox 93 L 09/02/22 08:00 FiO2 21 08/24/22 09:32 Intake & Output 09/01/22 09/02/22 09/02/22 18:59 06:59 18:59 Intake Total 300 300 Output Total 1000 630 Balance 300 -1000 -330 Weight 105.5 kg Intake: IV 20 Intake, IV Titration 100 Amount cefTRIAXone 2 gm In 100 Sodium Chloride 0.9% 50 ml @ 100 mls/hr IVPB Q24HR [facility] Rx#:[id number] Oral 180 Hemodialysis 300 Output: Urine 1000 Hemodialysis 630 Other: Voiding Method Indwelling Catheter Indwelling Catheter Indwelling Catheter - Labs CBC & Chem 7: 08/31/22 09:32 09/01/22 07:37 Labs: Abnormal Lab Results - Last 24 Hours (Table) 09/01/22 09/01/22 09/02/22 Range/Units 16:37 20:54 05:27 PT 19.3 H (9.9-11.9) sec INR 1.74 H (0.90-1.11) POC Glucose (mg/dL) 131 H 138 H (70-110) mg/dL 09/02/22 Range/Units 11:59 PT (9.9-11.9) sec INR (0.90-1.11) POC Glucose (mg/dL) 141 H (70-110) mg/dL
[2022-09-02 16:45] LABS: Glucose,Whole Blood 129 mg/dL (70-110)
--- NOTE | 2022-09-02 16:48 | PN ---
PROGRESS NOTE This gentleman had a right big toe and second toe ray amputation in the past. Today, we looked at the wound. The wound is granulating and clean. No discharge noted. We have been using Aquacel silver. The patient also had a dialysis done through right jugular approach, and he started tolerating dialysis well. Plan is to continue with local wound care. Dressing should be changed every 48 hours. MEME / LINDA: [id number] /
--- NOTE | 2022-09-02 16:56 | P.PN ---
Subjective Progress Note Date: 09/02/22 Principal diagnosis: KRYSTAL, MGUS workup Pt reports feeling frustrated and overwhelmed with his complex medical situation. He has no new physical complaints today, reporting low back pain, not new, thinks its form lying in bed. Objective - Vital Signs Vital signs: Vital Signs Temp 97.8 F 09/02/22 15:23 Pulse 98 09/02/22 15:18 Resp 19 09/02/22 15:23 BP 125/64 09/02/22 15:23 Pulse Ox 93 L 09/02/22 15:18 FiO2 21 08/24/22 09:32 Intake & Output 09/01/22 09/02/22 09/02/22 18:59 06:59 18:59 Intake Total 300 300 Output Total 1000 1430 Balance 300 -1000 -1130 Weight 105.5 kg Intake: IV 20 Intake, IV Titration 100 Amount cefTRIAXone 2 gm In 100 Sodium Chloride 0.9% 50 ml @ 100 mls/hr IVPB Q24HR [facility] Rx#:[id number] Oral 180 Hemodialysis 300 Output: Urine 1000 800 Hemodialysis 630 Other: Voiding Method Indwelling Catheter Indwelling Catheter Indwelling Catheter - Constitutional General appearance: Present: average body habitus, cooperative, no acute distress - EENT Eyes: Present: anicteric sclerae, EOMI ENT: Present: hearing grossly normal - Respiratory Details: resp even and unlabored Left chest wall dialysis catheter Respiratory: bilateral: CTA - Cardiovascular Rhythm: regular Heart sounds: normal: S1, S2 Abnormal Heart Sounds: Absent: systolic murmur, diastolic murmur, rub, S3 Gallop, S4 Gallop, click, other - Peripheral edema leg Peripheral Edema: right: 1+, left: Trace - Gastrointestinal General gastrointestinal: Present: normal bowel sounds, soft - Neurologic Neurologic: Present: CNII-XII intact - Musculoskeletal Musculoskeletal Comment(s): Right foot continues to be wrapped post amputation. There is serosanguineous drainage on the dressing at the ball of the foot - Psychiatric Psychiatric: Present: A&O x's 3, appropriate affect, intact judgment & insight - Labs CBC & Chem 7: 08/31/22 09:32 09/01/22 07:37 Labs: Abnormal Lab Results - Last 24 Hours (Table) 09/01/22 09/02/22 09/02/22 Range/Units 20:54 05:27 11:59 PT 19.3 H (9.9-11.9) sec INR 1.74 H (0.90-1.11) POC Glucose (mg/dL) 138 H 141 H (70-110) mg/dL Assessment and Plan (1) Light chain myeloma Current Visit: Yes Status: Acute Priority: High Code(s): C90.00 - MULTIPLE MYELOMA NOT HAVING ACHIEVED REMISSION SNOMED Code(s): 927296174 Plan: Light chain myeloma. -Conflicting results, urine is positive for a lambda light chain-Lambda light chain 1100, kappa light chain 1.81. Renal biopsy is positive for kappa light chain. Plan is for bone marrow biopsy and aspirate-was going to be done last week but there was no boot and shoe laborer to set up/process the slides. Will check with the lab to see if there will be trained staff available for procedure while the patient is inpatient. Also, have to plan for holding anticoagulation and anticipated discharge. If we are not able to coordinate all of these things inpt then we will have to plan for BM Bx and asp to be done outpatient. Will update the chart tomorrow after having a chance to discuss case with all involvevd - Normal bone survey. Serum M spike negative. -Transfuse for Hgb <7 Or if symptomatic. Transfuse for platelets less than 10,000 or if symptomatic. -CT or MRI, kidney protocol with contrast to workup left renal lesion, however, creatinine elevated at this time, started on dialysis. Will hold scan until kidney function improves.
[2022-09-02] MEDS: TAMSULOSIN 0.4 MG CAP.ER.24H PO SCH (17:59)
[2022-09-02 21:23] LABS: Glucose,Whole Blood 186 mg/dL (70-110)
[2022-09-03] MEDS: metroNIDAZOLE 500 MG TAB PO SCH ×4 (00:46→21:24)
[2022-09-03] MEDS: INSULIN ASPART (NovoLOG) 100 UNIT/ML VIAL SQ SCH ×5 (00:46→21:24)
[2022-09-03] MEDS: HYDROcodone/APAP 5-325MG 1 EACH TAB PO PRN ×4 (05:06→22:02)
[2022-09-03 05:56] LABS: Glucose,Whole Blood 128 mg/dL (70-110)
--- NOTE | 2022-09-03 10:06 | P.PN ---
Subjective Progress Note Date: 09/03/22 Pepe Waters, is a 71-year-old male patient who presented he ER with concerns of acute on kidney disease with worsening kidney status. Patient has a history of recent second toe amputation approximately 6 weeks ago. Additional medical history includes atrial fibrillation, diabetes mellitus, MRSA, depression and joint replacement. CT of abdomen and pelvis completed showing no evidence of obstructive uropathy there are bilateral nonobstructing renal calculi versus medullary calcifications present. And determinate left renal lesion, not nodule contour to liver correlate for cirrhosis, correlate lithiasis, cardiomegaly with bilateral trace pleural effusions correlate for volume overload with serum BNP. Creatinine elevated at 7.50 and bun 72. Hemoglobin is low at 7.2. At this time nephrology and urology service is consulted. Dr. Dia consulted for infectious disease chronic lower extremity wound. Iron studies ordered. Home meds resumed pharmacy to dose Coumadin for atrial fibrillation. Graham catheter remains in place. This time patient denies chest pain or shortness breath. Patient denies nausea vomiting or diarrhea. Patient denies any urinary burning or frequency. On 08/14/2022 patient was seen and examined on the medical floor he is alert and oriented 3 in no apparent distress he is complaining of pain in his right foot otherwise he denies any complaints there is no fever or chills no headache or dizziness no chest pain no shortness of breath no cough no nausea or vomiting no abdominal pain no diarrhea and no urinary symptoms. At this time patient is maintained on IV antibiotics, infectious disease are following, nephrology are following in regard to acute renal failure, today's INR was more than 10, patient received vitamin K 5 mg by mouth, his hemoglobin was down to 6.4 he is receiving 1 unit of red blood cell transfusion, will continue to follow closely. On 08/15/2022 patient is alert and oriented 3. INR today 1.8. Creatinine 6.7 and bun 65. Pharmacy to dose Coumadin. Patient remains on IV antibiotics per ID. Nephrology services are following. Patient still producing urine. Patient denies chest pain or shortness of breath. Patient denies nausea vomiting or diarrhea. Patient denies any urinary burning or frequency. On 08/16/2022 patient was seen and examined on the medical floor he is alert and oriented 3 in no apparent distress he is complaining of pain in his right foot otherwise he denies any complaints there is no fever or chills no headache or dizziness no chest pain no shortness of breath no cough no nausea or vomiting no abdominal pain no diarrhea and no urinary symptoms. Cr today 6.6 On 08/17/2022 patient is alert and oriented times patient denies any chest pain or shortness breath. Patient denies nausea vomiting or diarrhea. Patient denies any urinary burning or frequency. Awaiting lab work for today. Dr. Barton consulted and recommendations made for wound care to feet. Current vitals signs temp 98.4, heart rate 74, respiratory rate 18, blood pressure 1949 with a pulse ox 95% on room air On 08/18/2022 patient was seen and examined on the medical floor he is alert and oriented 3 in no apparent distress he is complaining of pain in his right foot otherwise he denies any complaints there is no fever or chills no headache or dizziness no chest pain no shortness of breath no cough no nausea or vomiting no abdominal pain no diarrhea and no urinary symptoms. At this time patient is maintained on IV antibiotics, infectious disease are following, nephrology are following in regard to acute renal failure, Dr West is recommending kidney biopsy, at this time will hold coumadin and cover with Lovenox until biopsy is done then will resume coumadin On 08/19/2022 patient was seen and examined on the medical floor he is alert and oriented 3 in no apparent distress he is complaining of pain in his right foot otherwise he denies any complaints there is no fever or chills no headache or dizziness no chest pain no shortness of breath no cough no nausea or vomiting no abdominal pain no diarrhea and no urinary symptoms. At this time patient is maintained on IV antibiotics, infectious disease are following, nephrology are following. Patient is off Coumadin in anticipation of kidney biopsy he was started yesterday on subcu Lovenox On 08/20/2022 patient is alert and oriented 3. Creatinine 5.23 bun 54. INR 2.0 Coumadin on hold for possible kidney biopsy patient maintained on Lovenox. Temp 98.4, heart rate 99, respiratory rate 18, blood pressure 129/66 4 with pulse ox 95% on room air. Infectious disease and nephrology services are following On 08/21/2022 patient is alert and oriented 3. Lab work for today currently pending. Per nephrology services kidney biopsy possible but may not be required if patient continues to improve with kidney function. Patient denies chest pain or shortness of breath. Patient denies nausea or vomiting. Patient remains on IV antibiotics vascular infectious disease service is following. On 08/22/2022 patient was seen and examined on the medical floor he is alert and oriented 3 in no apparent distress he is complaining of foot pain otherwise he denies any complaint there is no fever or chills no headache or dizziness no chest pain no shortness of breath no cough no nausea or vomiting no abdominal pain no diarrhea and no urinary symptoms. Currently he is off Coumadin in anticipation for kidney biopsy, he is maintained on subcu Lovenox We are awaiting further recommendation from nephrology and infectious disease, continue current management at this time will recheck labs in a.m.. Dr. Vizcaino group will be covering for me starting 08/23/2022 I am resuming care of patient on 09/03/2022 09/03/2022 patient is alert and oriented 3. Over the past week patient underwent left renal biopsy on 08/27/2022 which according to oncology report positive for H 18 with workup for myeloma bone marrow biopsy is scheduled for 09/04/2022. Patient also had ongoing acute kidney injury with creatinine trending up. Patient did receive hemodialysis access and started on hemodialysis on 09/02/2022. Patient also underwent right big toe amputation on 08/26/2022. Cultures of wound positive for Proteus which is sensitive to cefepime and positive for MSSA and strep. She currently remains on Rocephin and Flagyl. Infectious disease services are following. Multiple consults following eating nephrology, oncology and infectious disease services. At this time patient is resting comfortably in bed. Patient denies any chest pain or shortness of breath. Patient denies nausea vomiting or diarrhea. Patient denies any urinary burning or frequency Objective - Vital Signs Vital signs: Vital Signs Temp 98.5 F 09/03/22 07:30 Pulse 91 09/03/22 07:30 Resp 18 09/03/22 07:30 BP 106/64 09/03/22 07:30 Pulse Ox 99 09/03/22 07:30 FiO2 21 08/24/22 09:32 Intake & Output 09/02/22 09/03/22 09/03/22 18:59 06:59 18:59 Intake Total 300 Output Total 1430 700 Balance -1130 -700 Intake: Hemodialysis 300 Output: Urine 800 700 Hemodialysis 630 Other: Voiding Method Indwelling Catheter Indwelling Catheter # Bowel Movements 1 - Exam Head normocephalic Neck supple Lungs clear to auscultation bilaterally no wheezing or crackles Heart regular rate and rhythm S1-S2, no rub or gallop Abdomen is soft nontender nondistended positive bowel sounds no hepatosplenomegaly Extremities no edema Neuro alert and orientated to 3 - Labs CBC & Chem 7: 08/31/22 09:32 09/01/22 07:37 Labs: Abnormal Lab Results - Last 24 Hours (Table) 09/02/22 09/02/22 09/02/22 Range/Units 11:59 16:44 21:22 POC Glucose (mg/dL) 141 H 129 H 186 H (70-110) mg/dL 09/03/22 Range/Units 05:55 POC Glucose (mg/dL) 128 H (70-110) mg/dL Assessment and Plan Assessment: Acute on chronic kidney disease. Status post renal biopsy proven cast nephropathy. 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 Oncology and nephrology are following and plans for bone marrow biopsy with workup for myeloma Left kidney lesion being followed by oncology and urology History of diabetes mellitus History of atrial fibrillation maintained on Coumadin History of essential hypertension History of gout History of chronic back pain Anemia iron studies ordered Subtherapeutic INR. Corrected. Pharmacy to dose Coumadin Patient currently being followed by nephrology, oncology, vascular surgery, urology and infectious disease services Status post renal biopsy on 08/27/2022 Status post right big toe amputation on 08/26/2022 plans for bone marrow biopsy per oncology recommendations 09/04/2022 Patient remains on IV antibiotics Repeat labs ordered
[2022-09-03] MEDS: COLLAGENASE 250 UNIT/GM OINTMENT 30 GM TUBE TOPICAL SCH (10:52)
[2022-09-03 10:56] LABS: INR 1.73 (0.90-1.11); Prothrombin Time 19.1 sec (9.9-11.9)
[2022-09-03] MEDS: FAMOTIDINE 20 MG TAB PO SCH (10:57)
[2022-09-03] MEDS: allopurinoL 300 MG TAB PO SCH (10:57)
[2022-09-03 11:21] LABS: Glucose,Whole Blood 104 mg/dL (70-110)
--- NOTE | 2022-09-03 12:44 | P.PN ---
Subjective Patient is seen for follow-up for acute kidney injury on top of chronic kidney disease. Renal function has been stable Status post kidney biopsy which shows evidence of cast nephropathy. Awaiting bone marrow biopsy. No complaints of nausea vomiting or abdominal pain. Patient is tolerating oral intake No complaints of chest pain or shortness of breath as well. Good urine output. Graham catheter was reinserted due to retention Serum creatinine has increased to 6.5 mg/dL . Diuretics on hold Discussed renal replacement therapy again with the patient and he is agreeable to start dialysis. Dialysis catheter was placed and patient was started on hemodialysis on 09/02/2022 Seen on hemodialysis today. No complaints Objective - Vital Signs Vital signs: Vital Signs Temp 98.5 F 09/03/22 07:30 Pulse 91 09/03/22 07:30 Resp 18 09/03/22 07:30 BP 106/64 09/03/22 07:30 Pulse Ox 99 09/03/22 07:30 FiO2 21 08/24/22 09:32 Intake & Output 09/02/22 09/03/22 09/03/22 18:59 06:59 18:59 Intake Total 300 Output Total 1430 700 Balance -1130 -700 Intake: Hemodialysis 300 Output: Urine 800 700 Hemodialysis 630 Other: Voiding Method Indwelling Catheter Indwelling Catheter # Bowel Movements 1 - Exam Patient is awake, comfortable, no acute distress Examination of the heart S1 and S2 Examination of the lungs bilateral breath sounds are heard Abdomen is soft nontender Examination of lower extremities shows no significant edema. Right foot is currently dressed [employer]ACH[employer] exam grossly intact - Labs CBC & Chem 7: 08/31/22 09:32 09/01/22 07:37 Labs: Abnormal Lab Results - Last 24 Hours (Table) 09/02/22 09/02/22 09/03/22 Range/Units 16:44 21:22 05:55 PT (9.9-11.9) sec INR (0.90-1.11) POC Glucose (mg/dL) 129 H 186 H 128 H (70-110) mg/dL 09/03/22 Range/Units 06:20 PT 19.1 H (9.9-11.9) sec INR 1.73 H (0.90-1.11) POC Glucose (mg/dL) (70-110) mg/dL Assessment and Plan Assessment: 1. Acute kidney injury secondary to biopsy-proven cast nephropathy. Creatinine increased to 6.5 Nonoliguric. No hydronephrosis noted on kidney ultrasound. Patient is agreeable to start renal replacement therapy. Hemodialysis started on 09/02/2022 2. Chronic kidney disease stage IIIB with baseline creatinine near 1.6. 3. Volume overload. Improved with diuresis. 4. Hypokalemia secondary to diuresis and hypomagnesemia. Stable. 5. Hypomagnesemia secondary to diuresis. Better. 6. Left kidney lesion being followed by oncology and urology. 7. Urinary retention. Has Graham catheter. On Flomax. Urology following. 8. Anemia of chronic kidney disease. Iron replete. On Aranesp. 9. Hypervolemic hyponatremia. Slightly better. 10. 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 11. Biopsy-proven lambda light chain cast nephropathy. Minimal fibrosis on biopsy. Case discussed with oncology. Bone marrow biopsy pending. Plan: Repeat hemodialysis today Continue with Graham catheter as it was reinserted for retention during this admission.
--- NOTE | 2022-09-03 13:34 | P.PN ---
Subjective Progress Note Date: 09/01/22 Principal diagnosis: Right second toe amputation site wound infection Patient is a 71-year-old male was recently admitted to this facility and the patient did have a right second toe diabetic foot infection in this patient was status post amputation of his right second toe on 06/29/2022 , patient presented to the hospital with worsening renal failure and the patient w as noticed to have some purulent drainage from his right second toe amputation site wound which is currently not healed, patient is status post right big toe amputation on 08/26/2022 and the patient did have a renal biopsy completed on 08/27/2022, patient did have worsening of his kidney function and is being considered for dialysis with the dialysis catheter placement on 09/01/2022 On today's evaluation that is 09/01/2022, the patient continues to be afebrile, the patient is breathing comfortably on room air, the patient denies chest pain shortness of breath or cough , the patient denies nausea no vomiting no abdominal pain, denies pain or any drainage from the right foot and no diarrhea Objective - Vital Signs Vital signs: Vital Signs Temp 97.9 F 08/31/22 20:20 Pulse 98 09/01/22 08:00 Resp 16 09/01/22 08:00 BP 117/56 09/01/22 08:00 Pulse Ox 97 09/01/22 08:00 FiO2 21 08/24/22 09:32 Intake & Output 08/31/22 09/01/22 09/01/22 18:59 06:59 18:59 Intake Total 120 500 200 Output Total 1000 1580 Balance -880 -1080 200 Weight 105.5 kg Intake: IV 20 Intake, IV Titration 400 Amount Sodium Chloride 0.9% 50 300 ml @ 0 mls/hr IV .STK-MED ONE with ceFAZolin 2,000 mg Rx#:[id number] cefTRIAXone 2 gm In 100 Sodium Chloride 0.9% 50 ml @ 100 mls/hr IVPB Q24HR [facility] Rx#:[id number] Oral 120 100 180 Output: Urine 1000 1580 Uretheral (Graham) 500 Other: Voiding Method Indwelling Catheter Indwelling Catheter Indwelling Catheter - Exam GENERAL DESCRIPTION: An elderly male lying in bed in no distress RESPIRATORY SYSTEM: Unlabored breathing , decreased breath sounds at bases HEART: S1 S2 regular rate and rhythm , ABDOMEN: Soft , no tenderness EXTREMITIES: Right second toe as well as right big toe amputation site is currently dressed no drainage on the dressing - Labs CBC & Chem 7: 08/31/22 09:32 09/01/22 07:37 Labs: Abnormal Lab Results - Last 24 Hours (Table) 08/31/22 08/31/22 09/01/22 Range/Units 16:29 20:08 06:01 PT (9.0-12.0) sec INR (<1.2) Sodium (137-145) mmol/L Chloride (98-107) mmol/L BUN (9-20) mg/dL Creatinine (0.66-1.25) mg/dL POC Glucose (mg/dL) 177 H 154 H 124 H (70-110) mg/dL Calcium (8.4-10.2) mg/dL 09/01/22 09/01/22 09/01/22 Range/Units 07:37 07:37 11:34 PT 17.8 H (9.0-12.0) sec INR 1.8 H (<1.2) Sodium 126 L (137-145) mmol/L Chloride 91 L (98-107) mmol/L BUN 57 H (9-20) mg/dL Creatinine 6.51 H (0.66-1.25) mg/dL POC Glucose (mg/dL) 183 H (70-110) mg/dL Calcium 8.3 L (8.4-10.2) mg/dL Assessment and Plan (1) Diabetic foot infection Current Visit: Yes Status: Acute Code(s): E11.628 - TYPE 2 DIABETES MELLITUS WITH OTHER SKIN COMPLICATIONS; L08.9 - LOCAL INFECTION OF THE SKIN AND SUBCUTANE OUS TISSUE, UNSP SNOMED Code(s): 447618097 Plan: 1patient with right second toe diabetic foot infection in this patient who is status post amputation of the right second toe culture that time was positive for MRSA patient did present to the hospital with acute renal failure patient did have purulent drainage to the right second toe amputation site and some surrounding cellulitis. 2local culture growing Proteus, group B strep and is also showing presumptive staph aureus which has been finalized his MSSA. 3local wound care with a dry Aquacel silver dressing change daily, patient noticed to have a more ischemic changes to the right big toe , and patient the patient is status post amputation of the right big toe on 08/26/2022 4patient right big toe amputation site wound cultures grew Proteus which is sensitive to cefepime/ceftriaxone patient previous culture positive for MSSA and strep 5-patient to continue with Rocephin and Flagyl with a plan to finish therapy with oral antibiotics when stable from other transportation consultant Time with Patient: Less than 30
--- NOTE | 2022-09-03 13:35 | P.PN ---
Subjective Progress Note Date: 09/02/22 Principal diagnosis: Right second toe amputation site wound infection Patient is a 71-year-old male was recently admitted to this facility and the patient did have a right second toe diabetic foot infection in this patient was status post amputation of his right second toe on 06/29/2022 , patient presented to the hospital with worsening renal failure and the patient w as noticed to have some purulent drainage from his right second toe amputation site wound which is currently not healed, patient is status post right big toe amputation on 08/26/2022 and the patient did have a renal biopsy completed on 08/27/2022, patient did have worsening of his kidney function and is being considered for dialysis with the dialysis catheter placement on 09/01/2022 and the patient had been started on dialysis On today's evaluation that is 09/02/2022, the patient remains to be afebrile, the patient is breathing comfortably on room air, the patient denies chest pain shortness of breath or cough , the patient denies nausea no vomiting no abdominal pain or any diarrhea denies significant pain to the right foot Objective - Vital Signs Vital signs: Vital Signs Temp 98.4 F 09/02/22 08:00 Pulse 98 09/02/22 08:00 Resp 16 09/02/22 08:00 BP 104/57 09/02/22 08:00 Pulse Ox 93 L 09/02/22 08:00 FiO2 21 08/24/22 09:32 Intake & Output 09/01/22 09/02/22 09/02/22 18:59 06:59 18:59 Intake Total 300 Output Total 1000 Balance 300 -1000 Weight 105.5 kg Intake: IV 20 Intake, IV Titration 100 Amount cefTRIAXone 2 gm In 100 Sodium Chloride 0.9% 50 ml @ 100 mls/hr IVPB Q24HR [facility] Rx#:[id number] Oral 180 Output: Urine 1000 Other: Voiding Method Indwelling Catheter Indwelling Catheter Indwelling Catheter - Exam GENERAL DESCRIPTION: An elderly male lying in bed in no distress RESPIRATORY SYSTEM: Unlabored breathing , decreased breath sounds at bases HEART: S1 S2 regular rate and rhythm , ABDOMEN: Soft , no tenderness EXTREMITIES: Right second toe as well as right big toe amputation site is currently dressed no drainage on the dressing - Labs CBC & Chem 7: 08/31/22 09:32 09/01/22 07:37 Labs: Abnormal Lab Results - Last 24 Hours (Table) 09/01/22 09/01/22 09/01/22 Range/Units 11:34 16:37 20:54 PT (9.9-11.9) sec INR (0.90-1.11) POC Glucose (mg/dL) 183 H 131 H 138 H (70-110) mg/dL 09/02/22 Range/Units 05:27 PT 19.3 H (9.9-11.9) sec INR 1.74 H (0.90-1.11) POC Glucose (mg/dL) (70-110) mg/dL Assessment and Plan (1) Diabetic foot infection Current Visit: Yes Status: Acute Code(s): E11.628 - TYPE 2 DIABETES MELLITUS WITH OTHER SKIN COMPLICATIONS; L08.9 - LOCAL INFECTION OF THE SKIN AND SUBCUTANEOUS TISSUE, UNSP SNOMED Code(s): 377336745 Plan: 1patient with right second toe diabetic foot infection in this patient who is status post amputation of the right second toe culture that time was positive for MRSA patient did present to the hospital with acute renal failure patient did have purulent drainage to the right second toe amputation site and some surrounding cellulitis. 2local culture growing Proteus, group B strep and is also showing presumptive staph aureus which has been finalized his MSSA. 3local wound care with a dry Aquacel silver dressing change daily, patient noticed to have a more ischemic changes to the right big toe , and patient the patient is status post amputation of the right big toe on 08/26/2022 4patient right big toe amputation site wound cultures grew Proteus which is sensitive to cefepime/ceftriaxone patient previous culture positive for MSSA and strep 5-patient slowly clinical improvement as for his right foot infection is concerned and will continue with Rocephin and Flagyl Time with Patient: Less than 30
--- NOTE | 2022-09-03 13:37 | P.PN ---
Subjective Progress Note Date: 09/03/22 Principal diagnosis: Right second toe amputation site wound infection Patient is a 71-year-old male was recently admitted to this facility and the patient did have a right second toe diabetic foot infection in this patient was status post amputation of his right second toe on 06/29/2022 , patient presented to the hospital with worsening renal failure and the patient w as noticed to have some purulent drainage from his right second toe amputation site wound which is currently not healed, patient is status post right big toe amputation on 08/26/2022 and the patient did have a renal biopsy completed on 08/27/2022, patient did have worsening of his kidney function and is being considered for dialysis with the dialysis catheter placement on 09/01/2022 and the patient had been started on dialysis On today's evaluation that is 09/03/2022, the patient denies any fever or chills, the patient is breathing comfortably on room air, the patient denies chest pain shortness of breath or cough , the patient denies nausea no vomiting no abdominal pain or any diarrhea , no pain to the right foot/toe amputation site and no drainage observed Objective - Vital Signs Vital signs: Vital Signs Temp 98.5 F 09/03/22 07:30 Pulse 91 09/03/22 07:30 Resp 18 09/03/22 07:30 BP 106/64 09/03/22 07:30 Pulse Ox 99 09/03/22 07:30 FiO2 21 08/24/22 09:32 Intake & Output 09/02/22 09/03/22 09/03/22 18:59 06:59 18:59 Intake Total 300 Output Total 1430 700 Balance -1130 -700 Intake: Hemodialysis 300 Output: Urine 800 700 Hemodialysis 630 Other: Voiding Method Indwelling Catheter Indwelling Catheter Indwelling Catheter # Bowel Movements 1 - Exam GENERAL DESCRIPTION: An elderly male lying in bed in no distress RESPIRATORY SYSTEM: Unlabored breathing , decreased breath sounds at bases HEART: S1 S2 regular rate and rhythm , ABDOMEN: Soft , no tenderness EXTREMITIES: Right second toe as well as right big toe amputation site is currently dressed no drainage on the dressing - Labs CBC & Chem 7: 08/31/22 09:32 09/01/22 07:37 Labs: Abnormal Lab Results - Last 24 Hours (Table) 09/02/22 09/02/22 09/03/22 Range/Units 16:44 21:22 05:55 PT (9.9-11.9) sec INR (0.90-1.11) POC Glucose (mg/dL) 129 H 186 H 128 H (70-110) mg/dL 09/03/22 Range/Units 06:20 PT 19.1 H (9.9-11.9) sec INR 1.73 H (0.90-1.11) POC Glucose (mg/dL) (70-110) mg/dL Assessment and Plan (1) Diabetic foot infection Current Visit: Yes Status: Acute Code(s): E11.628 - TYPE 2 DIABETES MELLITUS WITH OTHER SKIN COMPLICATIONS; L08.9 - LOCAL INFECTION OF THE SKIN AND SUBCUTANEOUS TISSUE, UNSP SNOMED Code(s): 420135036 Plan: 1patient with right second toe diabetic foot infection in this patient who is status post amputation of the right second toe culture that time was positive for MRSA patient did present to the hospital with acute renal failure patient did have purulent drainage to the right second toe amputation site and some surr ounding cellulitis. 2local culture growing Proteus, group B strep and is also showing presumptive s taph aureus which has been finalized his MSSA. 3 patient noticed to have a more ischemic changes to the right big toe , and patient the patient is status post amputation of the right big toe on 08/26/2022 4patient right big toe amputation site wound cultures grew Proteus which is sensitive to cefepime/ceftriaxone patient previous culture positive for MSSA and strep 5-local wound care with Aquacel silver dressing changes every 48 hour 6-patient has shown some clinical improvement as for his right foot infection/wound is concerned and will continue with Rocephin and Flagyl while inpatient and transitioned to oral antibiotics on discharge Time with Patient: Less than 30
[2022-09-03 16:30] LABS: Basophils # (A) 0.02 X 10*3/uL (0.00-0.10); Basophils % (A) 0.4 %; Eosinophils # (A) 0.16 X 10*3/uL (0.04-0.35); Eosinophils % (A) 3.2 %; Lymphocytes # (A) 1.63 X 10*3/uL (0.90-5.00); Lymphocytes % (A) 32.9 %; Monocytes # (A) 0.51 X 10*3/uL (0.20-1.00); Monocytes % (A) 10.3 %; NRBC Per 100 WBC 0 /100 WBCS (0.0-0.0); Neutrophils # (A) 2.58 X 10*3/uL (1.80-7.70); Neutrophils % (A) 52.2 %
[2022-09-03 16:31] LABS: HGB 6.9 g/dL (13.0-17.0); MCH 31.5 pg (27.0-32.0); MCHC 32.9 g/dL (32.0-37.0); MCV 95.9 fL (80.0-97.0); Mean Platelet Volume 10.8 fL (9.5-12.2); Platelet Count 85 X 10*3/uL (140-440); RBC 2.19 X 10*6/uL (4.40-5.60); RBC Morphology NORMAL; RDW 15.1 % (11.5-14.5); WBC 4.95 X 10*3/uL (4.50-10.00)
[2022-09-03 16:56] LABS: Glucose,Whole Blood 133 mg/dL (70-110)
[2022-09-03] MEDS: TAMSULOSIN 0.4 MG CAP.ER.24H PO SCH (17:05)
[2022-09-03 17:39] LABS: African American GFR (CKD) 10.4 (60.0-200.0); Albumin 3.9 g/dL (3.8-4.9); Albumin/Globulin Ratio 1.93 (1.60-3.17); Anion Gap 13.6 mmol/L (10.00-18.00); BUN/Creat Ratio 7.15 Ratio (12.00-20.00); Blood Urea Nitrogen 41.4 mg/dL (9.0-27.0); Calcium 8.8 mg/dL (8.7-10.3); Carbon Dioxide 24.3 mmol/L (20.0-27.5); Potassium 4.1 mmol/L (3.5-5.5); Total Bilirubin 0.3 mg/dL (0.30-1.20); Total Protein 5.8 g/dL (6.2-8.2)
[2022-09-03 18:16] LABS: HCT 20.9 % (39.0-53.0); HGB 7.4 gm/dL (13.0-17.5); MCHC 35.5 g/dL (31.0-37.0); Mean Platelet Volume 8.3; RBC 2.25 m/uL (4.30-5.90); RDW 15.3 % (11.5-15.5); WBC 4.1 k/uL (3.8-10.6)
[2022-09-03 18:24] LABS: Platelet Count 80 k/uL (150-450)
[2022-09-03 21:07] LABS: Glucose,Whole Blood 320 mg/dL (70-110)
[2022-09-04 06:30] LABS: Glucose,Whole Blood 98 mg/dL (70-110)
[2022-09-04] MEDS: INSULIN ASPART (NovoLOG) 100 UNIT/ML VIAL SQ SCH ×4 (06:34→20:49)
[2022-09-04 07:04] LABS: INR 1.8 (<1.2); Prothrombin Time 17.8 sec (9.0-12.0)
[2022-09-04] MEDS ORDERED: MIDAZOLAM 2 MG/2 ML VIAL IV ONE (08:06)
[2022-09-04] MEDS ORDERED: IV FLUID CONTINUATION 1,000 ML IV ONE (08:10)
[2022-09-04] MEDS ORDERED: LIDOCAINE 2% INJ 20 MG/ML (2 ML VIAL) ONE (08:16)
[2022-09-04] MEDS ORDERED: PROPOFOL 10 MG/ML 20 ML VIAL IV ONE (08:16)
[2022-09-04] MEDS ORDERED: fentaNYL (PF) 50 MCG/ML 2 ML AMP ONE (08:16)
[2022-09-04] MEDS: COLLAGENASE 250 UNIT/GM OINTMENT 30 GM TUBE TOPICAL SCH (08:48)
[2022-09-04 09:41] LABS: Reticulocyte % 0.9 % (0.5-2.0)
--- NOTE | 2022-09-04 10:14 | P.PN ---
Subjective Progress Note Date: 09/04/22 Pepe Waters, is a 71-year-old male patient who presented he ER with concerns of acute on kidney disease with worsening kidney status. Patient has a history of recent second toe amputation approximately 6 weeks ago. Additional medical history includes atrial fibrillation, diabetes mellitus, MRSA, depression and joint replacement. CT of abdomen and pelvis completed showing no evidence of obstructive uropathy there are bilateral nonobstructing renal calculi versus medullary calcifications present. And determinate left renal lesion, not nodule contour to liver correlate for cirrhosis, correlate lithiasis, cardiomegaly with bilateral trace pleural effusions correlate for volume overload with serum BNP. Creatinine elevated at 7.50 and bun 72. Hemoglobin is low at 7.2. At this time nephrology and urology service is consulted. Dr. Dia consulted for infectious disease chronic lower extremity wound. Iron studies ordered. Home meds resumed pharmacy to dose Coumadin for atrial fibrillation. Graham catheter remains in place. This time patient denies chest pain or shortness breath. Patient denies nausea vomiting or diarrhea. Patient denies any urinary burning or frequency. On 08/14/2022 patient was seen and examined on the medical floor he is alert and oriented 3 in no apparent distress he is complaining of pain in his right foot otherwise he denies any complaints there is no fever or chills no headache or dizziness no chest pain no shortness of breath no cough no nausea or vomiting no abdominal pain no diarrhea and no urinary symptoms. At this time patient is maintained on IV antibiotics, infectious disease are following, nephrology are following in regard to acute renal failure, today's INR was more than 10, patient received vitamin K 5 mg by mouth, his hemoglobin was down to 6.4 he is receiving 1 unit of red blood cell transfusion, will continue to follow closely. On 08/15/2022 patient is alert and oriented 3. INR today 1.8. Creatinine 6.7 and bun 65. Pharmacy to dose Coumadin. Patient remains on IV antibiotics per ID. Nephrology services are following. Patient still producing urine. Patient denies chest pain or shortness of breath. Patient denies nausea vomiting or diarrhea. Patient denies any urinary burning or frequency. On 08/16/2022 patient was seen and examined on the medical floor he is alert and oriented 3 in no apparent distress he is complaining of pain in his right foot otherwise he denies any complaints there is no fever or chills no headache or dizziness no chest pain no shortness of breath no cough no nausea or vomiting no abdominal pain no diarrhea and no urinary symptoms. Cr today 6.6 On 08/17/2022 patient is alert and oriented times patient denies any chest pain or shortness breath. Patient denies nausea vomiting or diarrhea. Patient denies any urinary burning or frequency. Awaiting lab work for today. Dr. Barton consulted and recommendations made for wound care to feet. Current vitals signs temp 98.4, heart rate 74, respiratory rate 18, blood pressure 1949 with a pulse ox 95% on room air On 08/18/2022 patient was seen and examined on the medical floor he is alert and oriented 3 in no apparent distress he is complaining of pain in his right foot otherwise he denies any complaints there is no fever or chills no headache or dizziness no chest pain no shortness of breath no cough no nausea or vomiting no abdominal pain no diarrhea and no urinary symptoms. At this time patient is maintained on IV antibiotics, infectious disease are following, nephrology are following in regard to acute renal failure, Dr West is recommending kidney biopsy, at this time will hold coumadin and cover with Lovenox until biopsy is done then will resume coumadin On 08/19/2022 patient was seen and examined on the medical floor he is alert and oriented 3 in no apparent distress he is complaining of pain in his right foot otherwise he denies any complaints there is no fever or chills no headache or dizziness no chest pain no shortness of breath no cough no nausea or vomiting no abdominal pain no diarrhea and no urinary symptoms. At this time patient is maintained on IV antibiotics, infectious disease are following, nephrology are following. Patient is off Coumadin in anticipation of kidney biopsy he was started yesterday on subcu Lovenox On 08/20/2022 patient is alert and oriented 3. Creatinine 5.23 bun 54. INR 2.0 Coumadin on hold for possible kidney biopsy patient maintained on Lovenox. Temp 98.4, heart rate 99, respiratory rate 18, blood pressure 129/66 4 with pulse ox 95% on room air. Infectious disease and nephrology services are following On 08/21/2022 patient is alert and oriented 3. Lab work for today currently pending. Per nephrology services kidney biopsy possible but may not be required if patient continues to improve with kidney function. Patient denies chest pain or shortness of breath. Patient denies nausea or vomiting. Patient remains on IV antibiotics vascular infectious disease service is following. On 08/22/2022 patient was seen and examined on the medical floor he is alert and oriented 3 in no apparent distress he is complaining of foot pain otherwise he denies any complaint there is no fever or chills no headache or dizziness no chest pain no shortness of breath no cough no nausea or vomiting no abdominal pain no diarrhea and no urinary symptoms. Currently he is off Coumadin in anticipation for kidney biopsy, he is maintained on subcu Lovenox We are awaiting further recommendation from nephrology and infectious disease, continue current management at this time will recheck labs in a.m.. Dr. Vizcaino group will be covering for me starting 08/23/2022 I am resuming care of patient on 09/03/2022 09/03/2022 patient is alert and oriented 3. Over the past week patient underwent left renal biopsy on 08/27/2022 which according to oncology report positive for H 18 with workup for myeloma bone marrow biopsy is scheduled for 09/04/2022. Patient also had ongoing acute kidney injury with creatinine trending up. Patient did receive hemodialysis access and started on hemodialysis on 09/02/2022. Patient also underwent right big toe amputation on 08/26/2022. Cultures of wound positive for Proteus which is sensitive to cefepime and positive for MSSA and strep. She currently remains on Rocephin and Flagyl. Infectious disease services are following. Multiple consults following eating nephrology, oncology and infectious disease services. At this time patient is resting comfortably in bed. Patient denies any chest pain or shortness of breath. Patient denies nausea vomiting or diarrhea. Patient denies any urinary burning or frequency On 09/04/2022 patient is alert and oriented 3. Patient is status post bone marrow biopsy. Patient is currently resting comfortably in bed. Current vital signs temp 98.3, heart rate 75, respiratory rate 16, blood pressure 101/61 pulse ox 97% on room air. Awaiting further recommendations per oncology services discharge planning is in progress patient to receive hemodialysis today per nephrology services. Objective - Vital Signs Vital signs: Vital Signs Temp 98.3 F 09/04/22 09:18 Pulse 75 09/04/22 09:18 Resp 16 09/04/22 09:18 BP 101/61 09/04/22 09:18 Pulse Ox 97 09/04/22 09:18 FiO2 21 08/24/22 09:32 Intake & Output 09/03/22 09/04/22 09/04/22 18:59 06:59 18:59 Intake Total 400 600 Output Total 900 550 Balance -500 -550 600 Intake: IV 600 Hemodialysis 400 Output: Urine 550 Hemodialysis 900 Other: Voiding Method Indwelling Catheter Indwelling Catheter Indwelling Catheter # Bowel Movements 0 - Exam Head normocephalic Neck supple Lungs clear to auscultation bilaterally no wheezing or crackles Heart regular rate and rhythm S1-S2, no rub or gallop Abdomen is soft nontender nondistended positive bowel sounds no hepatosplenomegaly Extremities no edema Neuro alert and orientated to 3 - Labs CBC & Chem 7: 09/03/22 17:31 09/03/22 06:20 Labs: Abnormal Lab Results - Last 24 Hours (Table) 09/03/22 09/03/22 09/03/22 Range/Units 06:20 06:20 06:20 RBC 2.19 L (4.40-5.60) X 10*6/uL Hgb 6.9 L* (13.0-17.0) g/dL Hct 21.0 L (39.6-50.0) % RDW 15.1 H (11.5-14.5) % Plt Count 85 L (140-440) X 10*3/uL Plt Count Comment DECREASED A Immature Gran # 0.05 H (0.00-0.04) X 10*3/uL PT 19.1 H (9.9-11.9) sec INR 1.73 H (0.90-1.11) Sodium 132 L (135-145) mmol/L Chloride 94 L (96-109) mmol/L BUN 41.4 H (9.0-27.0) mg/dL Creatinine 5.8 H (0.6-1.5) mg/dL Est GFR (CKD-EPI)AfAm 10.4 L (60.0-200.0) Est GFR (CKD-EPI)NonAf 9.0 L (60.0-200.0) BUN/Creatinine Ratio 7.15 L (12.00-20.00) Ratio POC Glucose (mg/dL) (70-110) mg/dL Total Protein 5.8 L (6.2-8.2) g/dL Crossmatch 09/03/22 09/03/22 09/03/22 Range/Units 16:54 17:31 17:31 RBC 2.25 L (4.40-5.60) X 10*6/uL Hgb 7.4 L (13.0-17.0) g/dL Hct 20.9 L (39.6-50.0) % RDW (11.5-14.5) % Plt Count 80 L (140-440) X 10*3/uL Plt Count Comment Immature Gran # (0.00-0.04) X 10*3/uL PT (9.9-11.9) sec INR (0.90-1.11) Sodium (135-145) mmol/L Chloride (96-109) mmol/L BUN (9.0-27.0) mg/dL Creatinine (0.6-1.5) mg/dL Est GFR (CKD-EPI)AfAm (60.0-200.0) Est GFR (CKD-EPI)NonAf (60.0-200.0) BUN/Creatinine Ratio (12.00-20.00) Ratio POC Glucose (mg/dL) 133 H (70-110) mg/dL Total Protein (6.2-8.2) g/dL Crossmatch See Detail 09/03/22 09/04/22 Range/Units 21:05 06:18 RBC (4.40-5.60) X 10*6/uL Hgb (13.0-17.0) g/dL Hct (39.6-50.0) % RDW (11.5-14.5) % Plt Count (140-440) X 10*3/uL Plt Count Comment Immature Gran # (0.00-0.04) X 10*3/uL PT 17.8 H (9.9-11.9) sec INR 1.8 H (0.90-1.11) Sodium (135-145) mmol/L Chloride (96-109) mmol/L BUN (9.0-27.0) mg/dL Creatinine (0.6-1.5) mg/dL Est GFR (CKD-EPI)AfAm (60.0-200.0) Est GFR (CKD-EPI)NonAf (60.0-200.0) BUN/Creatinine Ratio (12.00-20.00) Ratio POC Glucose (mg/dL) 320 H (70-110) mg/dL Total Protein (6.2-8.2) g/dL Crossmatch Assessment and Plan Assessment: Acute on chronic kidney disease. Status post renal biopsy proven cast nephropathy. 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 Oncology and nephrology are following and plans for bone marrow biopsy with workup for myeloma Left kidney lesion being followed by oncology and urology History of diabetes mellitus History of atrial fibrillation maintained on Coumadin History of essential hypertension History of gout History of chronic back pain Anemia iron studies ordered Subtherapeutic INR. Corrected. Pharmacy to dose Coumadin Patient currently being followed by nephrology, oncology, vascular surgery, urology and infectious disease services Status post renal biopsy on 08/27/2022 Status post right big toe amputation on 08/26/2022 Status post bone marrow biopsy on 09/04/2022 Patient remains on IV antibiotics. Per infectious disease patient may be transitioned to oral antibiotics and discharge Repeat labs ordered
--- NOTE | 2022-09-04 10:31 | PCN ---
PROCEDURE NOTE PROCEDURE PERFORMED: Bone marrow biopsy with local and general sedation. DESCRIPTION OF PROCEDURE: Mr. Waters was placed in the left lateral decubitus position. Posterior superior iliac crest was palpated with appropriate biopsy site marked with the sterile marker. Site was then prepped with 3 swabs of Betadine and 3 swabs of alcohol. Sterile dressing was placed. 10 mL of 1% lidocaine was applied to the cortical surface of the bone. The bone marrow was then accessed with a 4-inch Jamshidi needle with 15 mL of aspirate sample obtained. The needle was then further advanced to obtain 0.5 to 1 cm core biopsy sample. These samples will be sent for flow cytometry, FISH, and next- generation sequencing. We will follow up on the above studies. He tolerated the procedure with approximately 1 mL blood loss. We will follow up on the above studies. He will return to the inpatient floor. MMMAGDY / LINDA: [id number] /
[2022-09-04 11:02] LABS: Glucose,Whole Blood 95 mg/dL (70-110)
[2022-09-04 11:24] LABS: African American GFR (CKD) 12.4 (60.0-200.0); Albumin 3.7 g/dL (3.8-4.9); Albumin/Globulin Ratio 1.76 (1.60-3.17); Anion Gap 11.6 mmol/L (10.00-18.00); BUN/Creat Ratio 5.18 Ratio (12.00-20.00); Blood Urea Nitrogen 25.9 mg/dL (9.0-27.0); Calcium 8.8 mg/dL (8.7-10.3); Carbon Dioxide 26.4 mmol/L (20.0-27.5); Globulin 2.1 g/dL (1.6-3.3); Non-African American GFR(CKD) 10.7 (60.0-200.0); Potassium 4.2 mmol/L (3.5-5.5); Total Bilirubin 0.3 mg/dL (0.30-1.20); Total Protein 5.8 g/dL (6.2-8.2)
[2022-09-04] MEDS: metroNIDAZOLE 500 MG TAB PO SCH ×3 (11:41→20:55)
[2022-09-04] MEDS: FAMOTIDINE 20 MG TAB PO SCH (11:41)
[2022-09-04] MEDS: allopurinoL 300 MG TAB PO SCH (11:42)
[2022-09-04] MEDS: HYDROcodone/APAP 5-325MG 1 EACH TAB PO PRN ×2 (11:44→18:00)
[2022-09-04 12:15] LABS: Basophils # (A) 0.02 X 10*3/uL (0.00-0.10); Basophils % (A) 0.4 %; Eosinophils # (A) 0.16 X 10*3/uL (0.04-0.35); HCT 19.3 % (39.6-50.0); HGB 6.4 g/dL (13.0-17.0); Immature Grans, Automated 1.7 %; Lymphocytes # (A) 1.54 X 10*3/uL (0.90-5.00); Lymphocytes % (A) 29.1 %; MCH 30.8 pg (27.0-32.0); MCHC 33.2 g/dL (32.0-37.0); MCV 92.8 fL (80.0-97.0); Mean Platelet Volume 10.2 fL (9.5-12.2); Monocytes # (A) 0.48 X 10*3/uL (0.20-1.00); Monocytes % (A) 9.1 %; NRBC Per 100 WBC 0 /100 WBCS (0.0-0.0); Neutrophils # (A) 3.01 X 10*3/uL (1.80-7.70); Neutrophils % (A) 56.7 %; Platelet Count 86 X 10*3/uL (140-440); RBC 2.08 X 10*6/uL (4.40-5.60); RDW 15.2 % (11.5-14.5)
[2022-09-04 13:18] LABS: HCT 21.5 % (39.0-53.0); HGB 7.3 gm/dL (13.0-17.5); Hypochromasia Slight; MCH 32.6 pg (25.0-35.0); MCV 95.9 fL (80.0-100.0); Mean Platelet Volume 8.3; RBC 2.24 m/uL (4.30-5.90); RDW 15.4 % (11.5-15.5); WBC 5.3 k/uL (3.8-10.6)
[2022-09-04 13:21] LABS: Platelet Count 89 k/uL (150-450)
--- NOTE | 2022-09-04 13:56 | P.PN ---
Subjective Progress Note Date: 09/04/22 Principal diagnosis: Right second toe amputation site wound infection Patient is a 71-year-old male was recently admitted to this facility and the patient did have a right second toe diabetic foot infection in this patient was status post amputation of his right second toe on 06/29/2022 , patient presented to the hospital with worsening renal failure and the patient w as noticed to have some purulent drainage from his right second toe amputation site wound which is currently not healed, patient is status post right big toe amputation on 08/26/2022 and the patient did have a renal biopsy completed on 08/27/2022, patient did have worsening of his kidney function and is being considered for dialysis with the dialysis catheter placement on 09/01/2022 and the patient had been started on dialysis On today's evaluation that is 09/04/2022, the patient continues to be afebrile, the patient is breathing comfortably on room air, the patient denies chest pain shortness of breath or cough , the patient denies nausea no vomiting no abdominal pain or any diarrhea , no new symptoms Objective - Vital Signs Vital signs: Vital Signs Temp 98.3 F 09/04/22 09:18 Pulse 75 09/04/22 09:18 Resp 16 09/04/22 09:18 BP 101/61 09/04/22 09:18 Pulse Ox 97 09/04/22 09:18 FiO2 21 08/24/22 09:32 Intake & Output 09/03/22 09/04/22 09/04/22 18:59 06:59 18:59 Intake Total 400 600 Output Total 900 550 Balance -500 -550 600 Intake: IV 600 Hemodialysis 400 Output: Urine 550 Hemodialysis 900 Other: Voiding Method Indwelling Catheter Indwelling Catheter Indwelling Catheter # Bowel Movements 0 - Exam GENERAL DESCRIPTION: An elderly male lying in bed in no distress RESPIRATORY SYSTEM: Unlabored breathing , decreased breath sounds at bases HEART: S1 S2 regular rate and rhythm , ABDOMEN: Soft , no tenderness EXTREMITIES: Right second toe as well as right big toe amputation site is currently dressed no drainage on the dressing - Labs CBC & Chem 7: 09/04/22 12:29 09/04/22 06:18 Labs: Abnormal Lab Results - Last 24 Hours (Table) 09/03/22 09/03/22 09/03/22 Range/Units 06:20 06:20 16:54 RBC 2.19 L (4.40-5.60) X 10*6/uL Hgb 6.9 L* (13.0-17.0) g/dL Hct 21.0 L (39.6-50.0) % RDW 15.1 H (11.5-14.5) % Plt Count 85 L (140-440) X 10*3/uL Plt Count Comment DECREASED A Immature Gran # 0.05 H (0.00-0.04) X 10*3/uL PT (9.0-12.0) sec INR (<1.2) Sodium 132 L (135-145) mmol/L Chloride 94 L (96-109) mmol/L BUN 41.4 H (9.0-27.0) mg/dL Creatinine 5.8 H (0.6-1.5) mg/dL Est GFR (CKD-EPI)AfAm 10.4 L (60.0-200.0) Est GFR (CKD-EPI)NonAf 9.0 L (60.0-200.0) BUN/Creatinine Ratio 7.15 L (12.00-20.00) Ratio POC Glucose (mg/dL) 133 H (70-110) mg/dL Total Protein 5.8 L (6.2-8.2) g/dL Albumin (3.8-4.9) g/dL Crossmatch 09/03/22 09/03/22 09/03/22 Range/Units 17:31 17:31 21:05 RBC 2.25 L (4.40-5.60) X 10*6/uL Hgb 7.4 L (13.0-17.0) g/dL Hct 20.9 L (39.6-50.0) % RDW (11.5-14.5) % Plt Count 80 L (140-440) X 10*3/uL Plt Count Comment Immature Gran # (0.00-0.04) X 10*3/uL PT (9.0-12.0) sec INR (<1.2) Sodium (135-145) mmol/L Chloride (96-109) mmol/L BUN (9.0-27.0) mg/dL Creatinine (0.6-1.5) mg/dL Est GFR (CKD-EPI)AfAm (60.0-200.0) Est GFR (CKD-EPI)NonAf (60.0-200.0) BUN/Creatinine Ratio (12.00-20.00) Ratio POC Glucose (mg/dL) 320 H (70-110) mg/dL Total Protein (6.2-8.2) g/dL Albumin (3.8-4.9) g/dL Crossmatch See Detail 09/04/22 09/04/22 09/04/22 Range/Units 06:18 06:18 06:18 RBC 2.08 L (4.40-5.60) X 10*6/uL Hgb 6.4 L* (13.0-17.0) g/dL Hct 19.3 L* (39.6-50.0) % RDW 15.2 H (11.5-14.5) % Plt Count 86 L (140-440) X 10*3/uL Plt Count Comment Immature Gran # 0.09 H (0.00-0.04) X 10*3/uL PT 17.8 H (9.0-12.0) sec INR 1.8 H (<1.2) Sodium (135-145) mmol/L Chloride (96-109) mmol/L BUN (9.0-27.0) mg/dL Creatinine 5.0 H (0.6-1.5) mg/dL Est GFR (CKD-EPI)AfAm 12.4 L (60.0-200.0) Est GFR (CKD-EPI)NonAf 10.7 L (60.0-200.0) BUN/Creatinine Ratio 5.18 L (12.00-20.00) Ratio POC Glucose (mg/dL) (70-110) mg/dL Total Protein 5.8 L (6.2-8.2) g/dL Albumin 3.7 L (3.8-4.9) g/dL Crossmatch Assessment and Plan (1) Diabetic foot infection Current Visit: Yes Status: Acute Code(s): E11.628 - TYPE 2 DIABETES MELLITUS WITH OTHER SKIN COMPLICATIONS; L08.9 - LOCAL INFECTION OF THE SKIN AND SUBCUTANEOUS TISSUE, UNSP SNOMED Code(s): 406309780 Plan: 1patient with right second toe diabetic foot infection in this patient who is status post amputation of the right second toe culture that time was positive for MRSA patient did present to the hospital with acute renal failure patient did have purulent drainage to the right second toe amputation site and some surrounding cellulitis. 2local culture growing Proteus, group B strep and is also showing presumptive staph aureus which has been finalized his MSSA. 3 patient noticed to have a more ischemic changes to the right big toe , and patient the patient is status post amputation of the right big toe on 08/26/2022 4patient right big toe amputation site wound cultures grew Proteus which is sensitive to cefepime/ceftriaxone patient previous culture positive for MSSA and strep 5-local wound care with Aquacel silver dressing changes every 48 hour 6-patient to continue with Rocephin and Flagyl for his right foot wound infection which seemed to be healing while inpatient and transitioned to oral antibiotics on discharge Time with Patient: Less than 30
--- NOTE | 2022-09-04 14:30 | P.PN ---
Subjective Patient is seen for follow-up for acute kidney injury on top of chronic kidney disease. Renal function has been stable Status post kidney biopsy which shows evidence of cast nephropathy. Graham catheter was reinserted due to urine retention. Her low Patient was started on hemodialysis on 09/02/2022 as renal function continued to worsen. Status post bone marrow biopsy today. Objective - Vital Signs Vital signs: Vital Signs Temp 97.9 F 09/04/22 13:56 Pulse 84 09/04/22 13:56 Resp 16 09/04/22 13:56 BP 98/57 09/04/22 13:56 Pulse Ox 97 09/04/22 09:18 FiO2 21 08/24/22 09:32 Intake & Output 09/03/22 09/04/22 09/04/22 18:59 06:59 18:59 Intake Total 400 600 Output Total 900 550 Balance -500 -550 600 Intake: IV 600 Hemodialysis 400 Output: Urine 550 Hemodialysis 900 Other: Voiding Method Indwelling Catheter Indwelling Catheter Indwelling Catheter # Bowel Movements 0 - Exam Patient is awake, comfortable, no acute distress Examination of the heart S1 and S2 Examination of the lungs bilateral breath sounds are heard Abdomen is soft nontender Examination of lower extremities shows no significant edema. Right foot is currently dressed [employer] exam grossly intact - Labs CBC & Chem 7: 09/04/22 12:29 09/04/22 06:18 Labs: Abnormal Lab Results - Last 24 Hours (Table) 09/03/22 09/03/22 09/03/22 Range/Units 06:20 06:20 16:54 RBC 2.19 L (4.40-5.60) X 10*6/uL Hgb 6.9 L* (13.0-17.0) g/dL Hct 21.0 L (39.6-50.0) % RDW 15.1 H (11.5-14.5) % Plt Count 85 L (140-440) X 10*3/uL Plt Count Comment DECREASED A Immature Gran # 0.05 H (0.00-0.04) X 10*3/uL PT (9.0-12.0) sec INR (<1.2) Sodium 132 L (135-145) mmol/L Chloride 94 L (96-109) mmol/L BUN 41.4 H (9.0-27.0) mg/dL Creatinine 5.8 H (0.6-1.5) mg/dL Est GFR (CKD-EPI)AfAm 10.4 L (60.0-200.0) Est GFR (CKD-EPI)NonAf 9.0 L (60.0-200.0) BUN/Creatinine Ratio 7.15 L (12.00-20.00) Ratio POC Glucose (mg/dL) 133 H (70-110) mg/dL Total Protein 5.8 L (6.2-8.2) g/dL Albumin (3.8-4.9) g/dL Crossmatch 09/03/22 09/03/22 09/03/22 Range/Units 17:31 17:31 21:05 RBC 2.25 L (4.40-5.60) X 10*6/uL Hgb 7.4 L (13.0-17.0) g/dL Hct 20.9 L (39.6-50.0) % RDW (11.5-14.5) % Plt Count 80 L (140-440) X 10*3/uL Plt Count Comment Immature Gran # (0.00-0.04) X 10*3/uL PT (9.0-12.0) sec INR (<1.2) Sodium (135-145) mmol/L Chloride (96-109) mmol/L BUN (9.0-27.0) mg/dL Creatinine (0.6-1.5) mg/dL Est GFR (CKD-EPI)AfAm (60.0-200.0) Est GFR (CKD-EPI)NonAf (60.0-200.0) BUN/Creatinine Ratio (12.00-20.00) Ratio POC Glucose (mg/dL) 320 H (70-110) mg/dL Total Protein (6.2-8.2) g/dL Albumin (3.8-4.9) g/dL Crossmatch See Detail 09/04/22 09/04/22 09/04/22 Range/Units 06:18 06:18 06:18 RBC 2.08 L (4.40-5.60) X 10*6/uL Hgb 6.4 L* (13.0-17.0) g/dL Hct 19.3 L* (39.6-50.0) % RDW 15.2 H (11.5-14.5) % Plt Count 86 L (140-440) X 10*3/uL Plt Count Comment Immature Gran # 0.09 H (0.00-0.04) X 10*3/uL PT 17.8 H (9.0-12.0) sec INR 1.8 H (<1.2) Sodium (135-145) mmol/L Chloride (96-109) mmol/L BUN (9.0-27.0) mg/dL Creatinine 5.0 H (0.6-1.5) mg/dL Est GFR (CKD-EPI)AfAm 12.4 L (60.0-200.0) Est GFR (CKD-EPI)NonAf 10.7 L (60.0-200.0) BUN/Creatinine Ratio 5.18 L (12.00-20.00) Ratio POC Glucose (mg/dL) (70-110) mg/dL Total Protein 5.8 L (6.2-8.2) g/dL Albumin 3.7 L (3.8-4.9) g/dL Crossmatch 09/04/22 Range/Units 12:29 RBC 2.24 L (4.40-5.60) X 10*6/uL Hgb 7.3 L (13.0-17.0) g/dL Hct 21.5 L (39.6-50.0) % RDW (11.5-14.5) % Plt Count 89 L (140-440) X 10*3/uL Plt Count Comment Immature Gran # (0.00-0.04) X 10*3/uL PT (9.0-12.0) sec INR (<1.2) Sodium (135-145) mmol/L Chloride (96-109) mmol/L BUN (9.0-27.0) mg/dL Creatinine (0.6-1.5) mg/dL Est GFR (CKD-EPI)AfAm (60.0-200.0) Est GFR (CKD-EPI)NonAf (60.0-200.0) BUN/Creatinine Ratio (12.00-20.00) Ratio POC Glucose (mg/dL) (70-110) mg/dL Total Protein (6.2-8.2) g/dL Albumin (3.8-4.9) g/dL Crossmatch Assessment and Plan Assessment: 1. Acute kidney injury secondary to biopsy-proven cast nephropathy. Creatinine increased to 6.5 Nonoliguric. No hydronephrosis noted on kidney ultrasound. Patient is agreeable to start renal replacement therapy. Hemodialysis started on 09/02/2022 2. Chronic kidney disease stage IIIB with baseline creatinine near 1.6. 3. Volume overload. Improved with diuresis. 4. Hypokalemia secondary to diuresis and hypomagnesemia. Stable. 5. Hypomagnesemia secondary to diuresis. Better. 6. Left kidney lesion being followed by oncology and urology. 7. Urinary retention. Has Graham catheter. On Flomax. Urology following. 8. Anemia of chronic kidney disease. Iron replete. On Aranesp. 9. Hypervolemic hyponatremia. Slightly better. 10. 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 11. Biopsy-proven lambda light chain cast nephropathy. Minimal fibrosis on biopsy. Case discussed with oncology. Bone marrow biopsy pending. Plan: Hemodialysis in a.m. Continue with Graham catheter as it was reinserted for retention during this admission.
[2022-09-04] MEDS: DARBEPOETIN ALFA 25 MCG/0.42 ML SYRINGE SQ SCH (16:12)
[2022-09-04 16:23] LABS: Glucose,Whole Blood 201 mg/dL (70-110)
[2022-09-04] MEDS: TAMSULOSIN 0.4 MG CAP.ER.24H PO SCH (17:57)
[2022-09-04 20:42] LABS: Glucose,Whole Blood 109 mg/dL (70-110)
[2022-09-05 06:19] LABS: Glucose,Whole Blood 99 mg/dL (70-110)
[2022-09-05] MEDS: INSULIN ASPART (NovoLOG) 100 UNIT/ML VIAL SQ SCH ×4 (06:30→20:53)
[2022-09-05] MEDS: FAMOTIDINE 20 MG TAB PO SCH (08:19)
[2022-09-05] MEDS: HYDROcodone/APAP 5-325MG 1 EACH TAB PO PRN ×3 (08:19→21:31)
[2022-09-05] MEDS: allopurinoL 300 MG TAB PO SCH (08:19)
[2022-09-05] MEDS: metroNIDAZOLE 500 MG TAB PO SCH ×3 (08:19→21:31)
[2022-09-05] MEDS: COLLAGENASE 250 UNIT/GM OINTMENT 30 GM TUBE TOPICAL SCH (08:20)
--- NOTE | 2022-09-05 09:39 | P.PN ---
Subjective Progress Note Date: 09/05/22 Pepe Waters, is a 71-year-old male patient who presented he ER with concerns of acute on kidney disease with worsening kidney status. Patient has a history of recent second toe amputation approximately 6 weeks ago. Additional medical history includes atrial fibrillation, diabetes mellitus, MRSA, depression and joint replacement. CT of abdomen and pelvis completed showing no evidence of obstructive uropathy there are bilateral nonobstructing renal calculi versus medullary calcifications present. And determinate left renal lesion, not nodule contour to liver correlate for cirrhosis, correlate lithiasis, cardiomegaly with bilateral trace pleural effusions correlate for volume overload with serum BNP. Creatinine elevated at 7.50 and bun 72. Hemoglobin is low at 7.2. At this time nephrology and urology service is consulted. Dr. Dia consulted for infectious disease chronic lower extremity wound. Iron studies ordered. Home meds resumed pharmacy to dose Coumadin for atrial fibrillation. Graham catheter remains in place. This time patient denies chest pain or shortness breath. Patient denies nausea vomiting or diarrhea. Patient denies any urinary burning or frequency. On 08/14/2022 patient was seen and examined on the medical floor he is alert and oriented 3 in no apparent distress he is complaining of pain in his right foot otherwise he denies any complaints there is no fever or chills no headache or dizziness no chest pain no shortness of breath no cough no nausea or vomiting no abdominal pain no diarrhea and no urinary symptoms. At this time patient is maintained on IV antibiotics, infectious disease are following, nephrology are following in regard to acute renal failure, today's INR was more than 10, patient received vitamin K 5 mg by mouth, his hemoglobin was down to 6.4 he is receiving 1 unit of red blood cell transfusion, will continue to follow closely. On 08/15/2022 patient is alert and oriented 3. INR today 1.8. Creatinine 6.7 and bun 65. Pharmacy to dose Coumadin. Patient remains on IV antibiotics per ID. Nephrology services are following. Patient still producing urine. Patient denies chest pain or shortness of breath. Patient denies nausea vomiting or diarrhea. Patient denies any urinary burning or frequency. On 08/16/2022 patient was seen and examined on the medical floor he is alert and oriented 3 in no apparent distress he is complaining of pain in his right foot otherwise he denies any complaints there is no fever or chills no headache or dizziness no chest pain no shortness of breath no cough no nausea or vomiting no abdominal pain no diarrhea and no urinary symptoms. Cr today 6.6 On 08/17/2022 patient is alert and oriented times patient denies any chest pain or shortness breath. Patient denies nausea vomiting or diarrhea. Patient denies any urinary burning or frequency. Awaiting lab work for today. Dr. Barton consulted and recommendations made for wound care to feet. Current vitals signs temp 98.4, heart rate 74, respiratory rate 18, blood pressure 1949 with a pulse ox 95% on room air On 08/18/2022 patient was seen and examined on the medical floor he is alert and oriented 3 in no apparent distress he is complaining of pain in his right foot otherwise he denies any complaints there is no fever or chills no headache or dizziness no chest pain no shortness of breath no cough no nausea or vomiting no abdominal pain no diarrhea and no urinary symptoms. At this time patient is maintained on IV antibiotics, infectious disease are following, nephrology are following in regard to acute renal failure, Dr West is recommending kidney biopsy, at this time will hold coumadin and cover with Lovenox until biopsy is done then will resume coumadin On 08/19/2022 patient was seen and examined on the medical floor he is alert and oriented 3 in no apparent distress he is complaining of pain in his right foot otherwise he denies any complaints there is no fever or chills no headache or dizziness no chest pain no shortness of breath no cough no nausea or vomiting no abdominal pain no diarrhea and no urinary symptoms. At this time patient is maintained on IV antibiotics, infectious disease are following, nephrology are following. Patient is off Coumadin in anticipation of kidney biopsy he was started yesterday on subcu Lovenox On 08/20/2022 patient is alert and oriented 3. Creatinine 5.23 bun 54. INR 2.0 Coumadin on hold for possible kidney biopsy patient maintained on Lovenox. Temp 98.4, heart rate 99, respiratory rate 18, blood pressure 129/66 4 with pulse ox 95% on room air. Infectious disease and nephrology services are following On 08/21/2022 patient is alert and oriented 3. Lab work for today currently pending. Per nephrology services kidney biopsy possible but may not be required if patient continues to improve with kidney function. Patient denies chest pain or shortness of breath. Patient denies nausea or vomiting. Patient remains on IV antibiotics vascular infectious disease service is following. On 08/22/2022 patient was seen and examined on the medical floor he is alert and oriented 3 in no apparent distress he is complaining of foot pain otherwise he denies any complaint there is no fever or chills no headache or dizziness no chest pain no shortness of breath no cough no nausea or vomiting no abdominal pain no diarrhea and no urinary symptoms. Currently he is off Coumadin in anticipation for kidney biopsy, he is maintained on subcu Lovenox We are awaiting further recommendation from nephrology and infectious disease, continue current management at this time will recheck labs in a.m.. Dr. Vizcaino group will be covering for me starting 08/23/2022 I am resuming care of patient on 09/03/2022 09/03/2022 patient is alert and oriented 3. Over the past week patient underwent left renal biopsy on 08/27/2022 which according to oncology report positive for H 18 with workup for myeloma bone marrow biopsy is scheduled for 09/04/2022. Patient also had ongoing acute kidney injury with creatinine trending up. Patient did receive hemodialysis access and started on hemodialysis on 09/02/2022. Patient also underwent right big toe amputation on 08/26/2022. Cultures of wound positive for Proteus which is sensitive to cefepime and positive for MSSA and strep. She currently remains on Rocephin and Flagyl. Infectious disease services are following. Multiple consults following eating nephrology, oncology and infectious disease services. At this time patient is resting comfortably in bed. Patient denies any chest pain or shortness of breath. Patient denies nausea vomiting or diarrhea. Patient denies any urinary burning or frequency On 09/04/2022 patient is alert and oriented 3. Patient is status post bone marrow biopsy. Patient is currently resting comfortably in bed. Current vital signs temp 98.3, heart rate 75, respiratory rate 16, blood pressure 101/61 pulse ox 97% on room air. Awaiting further recommendations per oncology services discharge planning is in progress patient to receive hemodialysis today per nephrology services. On 09/05/2022 patient is alert and oriented 3 resting comfortably in bed. Lab work currently pending. Vital signs temp 97.9, heart rate 80, respiratory rate 20, blood pressure 123/54 pulse ox of 98 percent. Patient underwent hemodialysis today awaiting further recommendations per oncology and hematology services. Objective - Vital Signs Vital signs: Vital Signs Temp 97.9 F 09/05/22 07:10 Pulse 80 09/05/22 07:10 Resp 20 09/05/22 07:10 BP 123/54 09/05/22 07:10 Pulse Ox 98 09/05/22 07:10 FiO2 21 08/24/22 09:32 Intake & Output 09/04/22 09/05/22 09/05/22 18:59 06:59 18:59 Intake Total 600 Output Total 0 0 Balance 600 0 Intake: IV 600 Output: Urine 0 0 Other: Voiding Method Indwelling Catheter Indwelling Catheter - Exam Head normocephalic Neck supple Lungs clear to auscultation bilaterally no wheezing or crackles Heart regular rate and rhythm S1-S2, no rub or gallop Abdomen is soft nontender nondistended positive bowel sounds no hepatosplenomegaly Extremities no edema Neuro alert and orientated to 3 - Labs CBC & Chem 7: 09/04/22 12:29 09/04/22 06:18 Labs: Abnormal Lab Results - Last 24 Hours (Table) 09/04/22 09/04/22 09/04/22 Range/Units 06:18 06:18 12:29 RBC 2.08 L 2.24 L (4.40-5.60) X 10*6/uL Hgb 6.4 L* 7.3 L (13.0-17.0) g/dL Hct 19.3 L* 21.5 L (39.6-50.0) % RDW 15.2 H (11.5-14.5) % Plt Count 86 L 89 L (140-440) X 10*3/uL Immature Gran # 0.09 H (0.00-0.04) X 10*3/uL Creatinine 5.0 H (0.6-1.5) mg/dL Est GFR (CKD-EPI)AfAm 12.4 L (60.0-200.0) Est GFR (CKD-EPI)NonAf 10.7 L (60.0-200.0) BUN/Creatinine Ratio 5.18 L (12.00-20.00) Ratio POC Glucose (mg/dL) (70-110) mg/dL Total Protein 5.8 L (6.2-8.2) g/dL Albumin 3.7 L (3.8-4.9) g/dL 09/04/22 Range/Units 16:21 RBC (4.40-5.60) X 10*6/uL Hgb (13.0-17.0) g/dL Hct (39.6-50.0) % RDW (11.5-14.5) % Plt Count (140-440) X 10*3/uL Immature Gran # (0.00-0.04) X 10*3/uL Creatinine (0.6-1.5) mg/dL Est GFR (CKD-EPI)AfAm (60.0-200.0) Est GFR (CKD-EPI)NonAf (60.0-200.0) BUN/Creatinine Ratio (12.00-20.00) Ratio POC Glucose (mg/dL) 201 H (70-110) mg/dL Total Protein (6.2-8.2) g/dL Albumin (3.8-4.9) g/dL Assessment and Plan Assessment: Acute on chronic kidney disease. Status post renal biopsy proven cast nephropa thy. 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 Oncology and nephrology are following and plans for bone marrow biopsy with workup for myeloma Left kidney lesion being followed by oncology and urology History of diabetes mellitus History of atrial fibrillation maintained on Coumadin History of essential hypertension History of gout History of chronic back pain Anemia iron studies ordered Subtherapeutic INR. Corrected. Pharmacy to dose Coumadin Patient currently being followed by nephrology, oncology, vascular surgery, urology and infectious disease services Status post renal biopsy on 08/27/2022 Status post right big toe amputation on 08/26/2022 Status post bone marrow biopsy on 09/04/2022 Patient remains on IV antibiotics. Per infectious disease patient may be transitioned to oral antibiotics and discharge Repeat labs ordered
[2022-09-05 11:06] LABS: HCT 20.1 % (39.0-53.0); MCH 31.2 pg (25.0-35.0); MCHC 32.4 g/dL (31.0-37.0); Mean Platelet Volume 9.5; RDW 15.9 % (11.5-15.5); WBC 3.6 k/uL (3.8-10.6)
[2022-09-05 11:08] LABS: ALT 13 U/L (4-49); AST 31 U/L (17-59); African American GFR (CKD) 9 (>60 ml/min/1.73 sqM); Albumin 3.3 g/dL (3.5-5.0); Albumin/Globulin Ratio 1.3; Alkaline Phosphatase 83 U/L (38-126); Anion Gap 7 mmol/L; Blood Urea Nitrogen 33 mg/dL (9-20); Calcium 8.4 mg/dL (8.4-10.2); Carbon Dioxide 27 mmol/L (22-30); Chloride 97 mmol/L (98-107); Globulin 2.5 g/dL; Glucose 85 mg/dL (74-99); Non-African American GFR(CKD) 8 (>60 ml/min/1.73 sqM); Potassium 4.4 mmol/L (3.5-5.1); Sodium 131 mmol/L (137-145); Total Bilirubin 0.5 mg/dL (0.2-1.3); Total Protein 5.8 g/dL (6.3-8.2)
[2022-09-05 11:10] LABS: INR 1.59 (0.90-1.11); Platelet Count 69 k/uL (150-450); Prothrombin Time 17.7 sec (9.9-11.9)
[2022-09-05 11:12] LABS: HGB 6.5 gm/dL (13.0-17.5)
[2022-09-05 11:42] LABS: Glucose,Whole Blood 96 mg/dL (70-110)
--- NOTE | 2022-09-05 14:39 | P.PN ---
Subjective Patient is seen for follow-up for acute kidney injury on top of chronic kidney disease. Renal function has been stable Status post kidney biopsy which shows evidence of cast nephropathy. Graham catheter was reinserted due to urine retention. Patient was started on hemodialysis on 09/02/2022 as renal function continued to worsen. Status post bone marrow biopsy 09/04/22. No complaints today. Objective - Vital Signs Vital signs: Vital Signs Temp 97.4 F L 09/05/22 13:00 Pulse 84 09/05/22 13:00 Resp 16 09/05/22 12:07 BP 114/59 09/05/22 13:00 Pulse Ox 98 09/05/22 07:10 FiO2 21 08/24/22 09:32 Intake & Output 09/04/22 09/05/22 09/05/22 18:59 06:59 18:59 Intake Total 600 310 Output Total 0 0 Balance 600 0 310 Weight 105.5 kg Intake: IV 600 Blood Product 310 Rc As-1 Unit 310 [id number] Output: Urine 0 0 Other: Voiding Method Indwelling Catheter Indwelling Catheter Indwelling Catheter - Exam Patient is awake, comfortable, no acute distress Examination of the heart S1 and S2 Examination of the lungs bilateral breath sounds are heard Abdomen is soft nontender Examination of lower extremities shows no significant edema. 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 - Labs CBC & Chem 7: 09/05/22 05:30 09/05/22 05:30 Labs: Abnormal Lab Results - Last 24 Hours (Table) 09/03/22 09/04/22 09/05/22 Range/Units 17:31 16:21 05:30 WBC (3.8-10.6) k/uL RBC (4.30-5.90) m/uL Hgb (13.0-17.5) gm/dL Hct (39.0-53.0) % RDW (11.5-15.5) % Plt Count (150-450) k/uL PT 17.7 H (9.9-11.9) sec INR 1.59 H (0.90-1.11) Sodium (137-145) mmol/L Chloride (98-107) mmol/L BUN (9-20) mg/dL Creatinine (0.66-1.25) mg/dL POC Glucose (mg/dL) 201 H (70-110) mg/dL Total Protein (6.3-8.2) g/dL Albumin (3.5-5.0) g/dL Crossmatch See Detail 09/05/22 09/05/22 Range/Units 05:30 05:30 WBC 3.6 L (3.8-10.6) k/uL RBC 2.10 L (4.30-5.90) m/uL Hgb 6.5 L* (13.0-17.5) gm/dL Hct 20.1 L (39.0-53.0) % RDW 15.9 H (11.5-15.5) % Plt Count 69 L (150-450) k/uL PT (9.9-11.9) sec INR (0.90-1.11) Sodium 131 L (137-145) mmol/L Chloride 97 L (98-107) mmol/L BUN 33 H (9-20) mg/dL Creatinine 6.50 H (0.66-1.25) mg/dL POC Glucose (mg/dL) (70-110) mg/dL Total Protein 5.8 L (6.3-8.2) g/dL Albumin 3.3 L (3.5-5.0) g/dL Crossmatch Assessment and Plan Assessment: 1. Acute kidney injury secondary to biopsy-proven cast nephropathy. Creatinine increased to 6.5 Nonoliguric. No hydronephrosis noted on kidney ultrasound. Patient is agreeable to start renal replacement therapy. Hemodialysis started on 09/02/2022 2. Chronic kidney disease stage IIIB with baseline creatinine near 1.6. 3. Volume overload. Improved with diuresis. 4. Hypokalemia secondary to diuresis and hypomagnesemia. Stable. 5. Hypomagnesemia secondary to diuresis. Better. 6. Left kidney lesion being followed by oncology and urology. 7. Urinary retention. Has Graham catheter. On Flomax. Urology following. 8. Anemia of chronic kidney disease. Iron replete. On Aranesp. 9. Hypervolemic hyponatremia. Slightly better. 10. 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 11. Biopsy-proven lambda light chain cast nephropathy. Minimal fibrosis on biopsy. Case discussed with oncology. Bone marrow biopsy result pending. Plan: Hemodialysis today. Continue with Graham catheter as it was reinserted for retention during this admission. Continue aranesp.
--- NOTE | 2022-09-05 15:22 | P.PN ---
Subjective Progress Note Date: 09/05/22 Principal diagnosis: KRYSTAL, MGUS workup Pt reports he is feeling well today. Pt was receiving dialysis at bedside. He has no new physical complaints today Objective - Vital Signs Vital signs: Vital Signs Temp 97.4 F L 09/05/22 13:00 Pulse 84 09/05/22 13:00 Resp 16 09/05/22 12:07 BP 114/59 09/05/22 13:00 Pulse Ox 98 09/05/22 07:10 FiO2 21 08/24/22 09:32 Intake & Output 09/04/22 09/05/22 09/05/22 18:59 06:59 18:59 Intake Total 600 310 Output Total 0 0 Balance 600 0 310 Weight 105.5 kg Intake: IV 600 Blood Product 310 Rc As-1 Unit 310 [id number] Output: Urine 0 0 Other: Voiding Method Indwelling Catheter Indwelling Catheter Indwelling Catheter - Constitutional General appearance: Present: average body habitus, cooperative, no acute distress - EENT Eyes: Present: anicteric sclerae, EOMI ENT: Present: hearing grossly normal - Respiratory Details: breathing is even and unlabored - Integumentary Integumentary: Present: pale - Neurologic Neurologic Comment(s): grossly Neurologic: Present: CNII-XII intact - Musculoskeletal Musculoskeletal: Present: strength equal bilaterally - Psychiatric Psychiatric: Present: A&O x's 3, appropriate affect, intact judgment & insight - Labs CBC & Chem 7: 09/05/22 05:30 09/05/22 05:30 Labs: Abnormal Lab Results - Last 24 Hours (Table) 09/03/22 09/04/22 09/05/22 Range/Units 17:31 16:21 05:30 WBC (3.8-10.6) k/uL RBC (4.30-5.90) m/uL Hgb (13.0-17.5) gm/dL Hct (39.0-53.0) % RDW (11.5-15.5) % Plt Count (150-450) k/uL PT 17.7 H (9.9-11.9) sec INR 1.59 H (0.90-1.11) Sodium (137-145) mmol/L Chloride (98-107) mmol/L BUN (9-20) mg/dL Creatinine (0.66-1.25) mg/dL POC Glucose (mg/dL) 201 H (70-110) mg/dL Total Protein (6.3-8.2) g/dL Albumin (3.5-5.0) g/dL Crossmatch See Detail 09/05/22 09/05/22 Range/Units 05:30 05:30 WBC 3.6 L (3.8-10.6) k/uL RBC 2.10 L (4.30-5.90) m/uL Hgb 6.5 L* (13.0-17.5) gm/dL Hct 20.1 L (39.0-53.0) % RDW 15.9 H (11.5-15.5) % Plt Count 69 L (150-450) k/uL PT (9.9-11.9) sec INR (0.90-1.11) Sodium 131 L (137-145) mmol/L Chloride 97 L (98-107) mmol/L BUN 33 H (9-20) mg/dL Creatinine 6.50 H (0.66-1.25) mg/dL POC Glucose (mg/dL) (70-110) mg/dL Total Protein 5.8 L (6.3-8.2) g/dL Albumin 3.3 L (3.5-5.0) g/dL Crossmatch Assessment and Plan (1) Light chain myeloma Current Visit: Yes Status: Acute Priority: High Code(s): C90.00 - MULTIPLE MYELOMA NOT HAVING ACHIEVED REMISSION SNOMED Code(s): 491482041 Plan: Light chain myeloma. -Conflicting results, urine is positive for a lambda light chain-Lambda light chain 1100, kappa light chain 1.81. Renal biopsy is positive for kappa light chain. -Bone marrow biopsy and aspirate done, results pending - Normal bone survey. Serum M spike negative. -Transfuse for Hgb <7 Or if symptomatic. Transfuse for platelets less than 10,000 or if symptomatic. -CT or MRI, kidney protocol with contrast to workup left renal lesion, however, creatinine elevated at this time, started on dialysis. Will hold scan until kidney function improves. -Patient will need labs drawn next week on 09/11/22, likely will be at [facility] at this point and will place orders in discharge instructions to have blood draw at his facility. Patient has follow-up with Dr. Pendleton in clinic in 2 weeks to discuss bone marrow biopsy results -Patient was updated on plan of care and is agreeable
[2022-09-05 16:49] LABS: Glucose,Whole Blood 172 mg/dL (70-110)
[2022-09-05] MEDS: TAMSULOSIN 0.4 MG CAP.ER.24H PO SCH (17:28)
[2022-09-05 17:32] LABS: Eosinophils # (M) 0.11 k/uL (0-0.7); Lymphocytes # (M) 1.12 k/uL (1.0-4.8); Monocytes # (M) 0.36 k/uL (0-1.0); Neutrophils # (M) 2.02 k/uL (1.3-7.7); Neutrophils % (M) 56 %; Nucleated Red Blood Cells 0 /100 WBC (0-0); Total Cells Counted 100
[2022-09-05] MEDS ORDERED: WARFARIN 3 MG TAB PO ONE (18:00)
[2022-09-05 20:12] LABS: Glucose,Whole Blood 112 mg/dL (70-110)
--- NOTE | 2022-09-05 21:41 | P.PN ---
Subjective Progress Note Date: 09/05/22 Principal diagnosis: Right second toe amputation site wound infection Patient is a 71-year-old male was recently admitted to this facility and the patient did have a right second toe diabetic foot infection in this patient was status post amputation of his right second toe on 06/29/2022 , patient presented to the hospital with worsening renal failure and the patient w as noticed to have some purulent drainage from his right second toe amputation site wound which is currently not healed, patient is status post right big toe amputation on 08/26/2022 and the patient did have a renal biopsy completed on 08/27/2022, patient did have worsening of his kidney function and is being considered for dialysis with the dialysis catheter placement on 09/01/2022 and the patient had been started on dialysis On today's evaluation that is 09/05/2022, the patient remains to be afebrile, the patient is breathing comfortably on room air, the patient denies chest pain shortness of breath , did have occasional dry cough , the patient denies nausea no vomiting no abdominal pain or any diarrhea , feeling better Objective - Vital Signs Vital signs: Vital Signs Temp 97.9 F 09/05/22 12:07 Pulse 87 09/05/22 12:07 Resp 16 09/05/22 12:07 BP 108/64 09/05/22 12:07 Pulse Ox 98 09/05/22 07:10 FiO2 21 08/24/22 09:32 Intake & Output 09/04/22 09/05/22 09/05/22 18:59 06:59 18:59 Intake Total 600 0 Output Total 0 0 Balance 600 0 0 Weight 105.5 kg Intake: IV 600 Blood Product 0 Unit 0 Output: Urine 0 0 Other: Voiding Method Indwelling Catheter Indwelling Catheter Indwelling Catheter - Exam GENERAL DESCRIPTION: An elderly male lying in bed in no distress RESPIRATORY SYSTEM: Unlabored breathing , decreased breath sounds at bases HEART: S1 S2 regular rate and rhythm , ABDOMEN: Soft , no tenderness EXTREMITIES: Right second toe as well as right big toe amputation site is currently dressed no drainage on the dressing - Labs CBC & Chem 7: 09/05/22 05:30 09/05/22 05:30 Labs: Abnormal Lab Results - Last 24 Hours (Table) 09/03/22 09/04/22 09/04/22 Range/Units 17:31 12:29 16:21 WBC (3.8-10.6) k/uL RBC 2.24 L (4.30-5.90) m/uL Hgb 7.3 L (13.0-17.5) gm/dL Hct 21.5 L (39.0-53.0) % RDW (11.5-15.5) % Plt Count 89 L (150-450) k/uL PT (9.9-11.9) sec INR (0.90-1.11) Sodium (137-145) mmol/L Chloride (98-107) mmol/L BUN (9-20) mg/dL Creatinine (0.66-1.25) mg/dL POC Glucose (mg/dL) 201 H (70-110) mg/dL Total Protein (6.3-8.2) g/dL Albumin (3.5-5.0) g/dL Crossmatch See Detail 09/05/22 09/05/22 09/05/22 Range/Units 05:30 05:30 05:30 WBC 3.6 L (3.8-10.6) k/uL RBC 2.10 L (4.30-5.90) m/uL Hgb 6.5 L* (13.0-17.5) gm/dL Hct 20.1 L (39.0-53.0) % RDW 15.9 H (11.5-15.5) % Plt Count 69 L (150-450) k/uL PT 17.7 H (9.9-11.9) sec INR 1.59 H (0.90-1.11) Sodium 131 L (137-145) mmol/L Chloride 97 L (98-107) mmol/L BUN 33 H (9-20) mg/dL Creatinine 6.50 H (0.66-1.25) mg/dL POC Glucose (mg/dL) (70-110) mg/dL Total Protein 5.8 L (6.3-8.2) g/dL Albumin 3.3 L (3.5-5.0) g/dL Crossmatch Assessment and Plan (1) Diabetic foot infection Current Visit: Yes Status: Acute Code(s): E11.628 - TYPE 2 DIABETES MELLITUS WITH OTHER SKIN COMPLICATIONS; L08.9 - LOCAL INFECTION OF THE SKIN AND S UBCUTANEOUS TISSUE, UNSP SNOMED Code(s): 010519379 Plan: 1patient with right second toe diabetic foot infection in this patient who is status post amputation of the right second toe culture that time was positive for MRSA patient did present to the hospital with acute renal failure patient did have purulent drainage to the right second toe amputation site and some surrounding cellulitis. 2local culture growing Proteus, group B strep and is also showing presumptive staph aureus which has been finalized his MSSA. 3 patient noticed to have a more ischemic changes to the right big toe , and patient the patient is status post amputation of the right big toe on 08/26/2022 4patient right big toe amputation site wound cultures grew Proteus which is sensitive to cefepime/ceftriaxone patient previous culture positive for MSSA and strep 5-local wound care with Aquacel silver dressing changes every 48 hour 6-patient still in clinic improving as well as a right diabetic foot ulcer is concerned and will continue with Rocephin and Flagyl while inpatient and transitioned to oral antibiotics on discharge Time with Patient: Less than 30
[2022-09-06] MEDS: HYDROcodone/APAP 5-325MG 1 EACH TAB PO PRN ×3 (01:24→14:28)
[2022-09-06 06:00] LABS: Glucose,Whole Blood 110 mg/dL (70-110)
[2022-09-06] MEDS: INSULIN ASPART (NovoLOG) 100 UNIT/ML VIAL SQ SCH ×4 (06:30→21:49)
[2022-09-06] MEDS: allopurinoL 300 MG TAB PO SCH (08:04)
[2022-09-06] MEDS: metroNIDAZOLE 500 MG TAB PO SCH ×3 (08:04→21:49)
[2022-09-06] MEDS: FAMOTIDINE 20 MG TAB PO SCH (08:04)
--- NOTE | 2022-09-06 11:16 | P.PN ---
Subjective Patient is seen in follow-up for acute kidney injury on chronic kidney disease. Started on hemodialysis 09/02/2021. Has Graham catheter for urinary retention. Denies chest pain or shortness of breath. On room air. Hemodynamic stable. Vital signs are stable. General: Awake. No acute distress. HEENT: Head exam is unremarkable. LUNGS: Breath sounds decreased. HEART: Rate and Rhythm are regular. ABDOMEN: Soft, no distention. EXTREMITITES: Trace edema. Objective - Vital Signs Vital signs: Vital Signs Temp 97.9 F 09/06/22 11:00 Pulse 84 09/06/22 07:38 Resp 17 09/06/22 07:38 BP 133/65 09/06/22 07:38 Pulse Ox 97 09/06/22 02:09 FiO2 21 08/24/22 09:32 Intake & Output 09/05/22 09/06/22 09/06/22 18:59 06:59 18:59 Intake Total 1710 300 Output Total 1700 Balance 10 300 Weight 105.5 kg Intake: Intake, IV Titration 50 Amount cefTRIAXone 2 gm In 50 Sodium Chloride 0.9% 50 ml @ 100 mls/hr IVPB Q24HR [facility] Rx#:[id number] Oral 750 300 Blood Product 310 Rc As-1 Unit 310 [id number] Hemodialysis 600 Output: Urine 400 Hemodialysis 1300 Other: Voiding Method Indwelling Catheter Indwelling Catheter Indwelling Catheter - Labs CBC & Chem 7: 09/05/22 05:30 09/05/22 05:30 Labs: Abnormal Lab Results - Last 24 Hours (Table) 09/03/22 09/05/22 09/05/22 Range/Units 17:31 05:30 16:44 WBC 3.6 L (3.8-10.6) k/uL RBC 2.10 L (4.30-5.90) m/uL Hgb 6.5 L* (13.0-17.5) gm/dL Hct 20.1 L (39.0-53.0) % RDW 15.9 H (11.5-15.5) % Plt Count 69 L (150-450) k/uL POC Glucose (mg/dL) 172 H (70-110) mg/dL Crossmatch See Detail 09/05/22 Range/Units 20:11 WBC (3.8-10.6) k/uL RBC (4.30-5.90) m/uL Hgb (13.0-17.5) gm/dL Hct (39.0-53.0) % RDW (11.5-15.5) % Plt Count (150-450) k/uL POC Glucose (mg/dL) 112 H (70-110) mg/dL Crossmatch Assessment and Plan Plan: Assessment: 1. Acute kidney injury secondary to biopsy-proven cast nephropathy. Started on hemodialysis on 09/02/2022. No hydronephrosis noted on kidney ultrasound. 2. Chronic kidney disease stage IIIB with baseline creatinine near 1.6. 3. Volume overload. Improved with ultrafiltration. 4. Hypokalemia secondary to diuresis and hypomagnesemia. Stable. 5. Hypomagnesemia secondary to diuresis. Magnesium 2.1 dated 09/01/2022. 6. Left kidney lesion being followed by oncology and urology. 7. Urinary retention. Has Graham catheter. On Flomax. Urology following. 8. Anemia of chronic kidney disease. Iron replete. On Aranesp. Received b lood transfusion this admission. 9. Hypervolemic hyponatremia. 10. 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 11. Biopsy-proven lambda light chain cast nephropathy. Minimal fibrosis on biopsy. Oncology following. Plan: Hemodialysis Thursday. Avoid nephrotoxins. Maintain 1500 mL fluid restriction. Encourage oral intake. Check phosphorus level.
[2022-09-06] MEDS: COLLAGENASE 250 UNIT/GM OINTMENT 30 GM TUBE TOPICAL SCH (11:20)
[2022-09-06 11:53] LABS: Glucose,Whole Blood 111 mg/dL (70-110)
[2022-09-06 12:28] LABS: INR 1.63 (0.90-1.11); Prothrombin Time 18.1 sec (9.9-11.9)
--- NOTE | 2022-09-06 14:52 | P.PN ---
Subjective Progress Note Date: 09/06/22 Principal diagnosis: Right second toe amputation site wound infection Patient is a 71-year-old male was recently admitted to this facility and the patient did have a right second toe diabetic foot infection in this patient was status post amputation of his right second toe on 06/29/2022 , patient presented to the hospital with worsening renal failure and the patient w as noticed to have some purulent drainage from his right second toe amputation site wound which is currently not healed, patient is status post right big toe amputation on 08/26/2022 and the patient did have a renal biopsy completed on 08/27/2022, patient did have worsening of his kidney function and is being considered for dialysis with the dialysis catheter placement on 09/01/2022 and the patient had been started on dialysis On today's evaluation that is 09/06/2022, the patient continues to be afebrile, the patient is breathing comfortably on room air, the patient denies chest pain shortness of breath , the patient did have occasional dry cough , the patient denies nausea no vomiting no abdominal pain or any diarrhea , and denies pain to the right foot wound area Objective - Vital Signs Vital signs: Vital Signs Temp 97.9 F 09/06/22 14:00 Pulse 83 09/06/22 14:00 Resp 20 09/06/22 14:00 BP 130/70 09/06/22 14:00 Pulse Ox 96 09/06/22 14:00 FiO2 21 08/24/22 09:32 Intake & Output 09/05/22 09/06/22 09/06/22 18:59 06:59 18:59 Intake Total 1710 300 Output Total 1700 Balance 10 300 Weight 105.5 kg Intake: Intake, IV Titration 50 Amount cefTRIAXone 2 gm In 50 Sodium Chloride 0.9% 50 ml @ 100 mls/hr IVPB Q24HR [facility] Rx#:[id number] Oral 750 300 Blood Product 310 Rc As-1 Unit 310 [id number] Hemodialysis 600 Output: Urine 400 Hemodialysis 1300 Other: Voiding Method Indwelling Catheter Indwelling Catheter Indwelling Catheter - Exam GENERAL DESCRIPTION: An elderly male lying in bed in no distress RESPIRATORY SYSTEM: Unlabored breathing , decreased breath sounds at bases HEART: S1 S2 regular rate and rhythm , ABDOMEN: Soft , no tenderness EXTREMITIES: Right second toe amputation site wound is almost healed however the patient did have slight necrotic changes around his right big toe amputation site wound - Labs CBC & Chem 7: 09/05/22 05:30 09/05/22 05:30 Labs: Abnormal Lab Results - Last 24 Hours (Table) 09/05/22 09/05/22 09/06/22 Range/Units 16:44 20:11 06:43 PT 18.1 H (9.9-11.9) sec INR 1.63 H (0.90-1.11) POC Glucose (mg/dL) 172 H 112 H (70-110) mg/dL 09/06/22 Range/Units 11:50 PT (9.9-11.9) sec INR (0.90-1.11) POC Glucose (mg/dL) 111 H (70-110) mg/dL Assessment and Plan (1) Diabetic foot infection Current Visit: Yes Status: Acute Code(s): E11.628 - TYPE 2 DIABETES MELLITUS WITH OTHER SKIN COMPLICATIONS; L08.9 - LOCAL INFECTION OF THE SKIN AND SUBCUTANEOUS TISSUE, UNSP SNOMED Code(s): 606426143 Plan: 1patient with right second toe diabetic foot infection in this patient who is status post amputation of the right second toe culture that time was positive for MRSA patient did present to the hospital with acute renal failure patient did have purulent drainage to the right second toe amputation site and some glover rrounding cellulitis. 2local culture growing Proteus, group B strep and is also showing presumptive staph aureus which has been finalized his MSSA. 3 patient noticed to have a more ischemic changes to the right big toe , and patient the patient is status post amputation of the right big toe on 08/26/2022 4patient right big toe amputation site wound cultures grew Proteus which is sensitive to cefepime/ceftriaxone patient previous culture positive for MSSA and strep 5-local wound care with Aquacel silver dressing changes every 48 hour 6-patient right second toe amputation site wound is almost healed however did have more necrotic changes to the right big toe amputation site wound and will be reevaluated by vascular surgeon continue with Magalie and monitor clinical course closely Time with Patient: Less than 30
--- NOTE | 2022-09-06 15:04 | P.PN ---
Subjective Progress Note Date: 09/06/22 Pepe Waters, is a 71-year-old male patient who presented he ER with concerns of acute on kidney disease with worsening kidney status. Patient has a history of recent second toe amputation approximately 6 weeks ago. Additional medical history includes atrial fibrillation, diabetes mellitus, MRSA, depression and joint replacement. CT of abdomen and pelvis completed showing no evidence of obstructive uropathy there are bilateral nonobstructing renal calculi versus medullary calcifications present. And determinate left renal lesion, not nodule contour to liver correlate for cirrhosis, correlate lithiasis, cardiomegaly with bilateral trace pleural effusions correlate for volume overload with serum BNP. Creatinine elevated at 7.50 and bun 72. Hemoglobin is low at 7.2. At this time nephrology and urology service is consulted. Dr. Dia consulted for infectious disease chronic lower extremity wound. Iron studies ordered. Home meds resumed pharmacy to dose Coumadin for atrial fibrillation. Graham catheter remains in place. This time patient denies chest pain or shortness breath. Patient denies nausea vomiting or diarrhea. Patient denies any urinary burning or frequency. On 08/14/2022 patient was seen and examined on the medical floor he is alert and oriented 3 in no apparent distress he is complaining of pain in his right foot otherwise he denies any complaints there is no fever or chills no headache or dizziness no chest pain no shortness of breath no cough no nausea or vomiting no abdominal pain no diarrhea and no urinary symptoms. At this time patient is maintained on IV antibiotics, infectious disease are following, nephrology are following in regard to acute renal failure, today's INR was more than 10, patient received vitamin K 5 mg by mouth, his hemoglobin was down to 6.4 he is receiving 1 unit of red blood cell transfusion, will continue to follow closely. On 08/15/2022 patient is alert and oriented 3. INR today 1.8. Creatinine 6.7 and bun 65. Pharmacy to dose Coumadin. Patient remains on IV antibiotics per ID. Nephrology services are following. Patient still producing urine. Patient denies chest pain or shortness of breath. Patient denies nausea vomiting or diarrhea. Patient denies any urinary burning or frequency. On 08/16/2022 patient was seen and examined on the medical floor he is alert and oriented 3 in no apparent distress he is complaining of pain in his right foot otherwise he denies any complaints there is no fever or chills no headache or dizziness no chest pain no shortness of breath no cough no nausea or vomiting no abdominal pain no diarrhea and no urinary symptoms. Cr today 6.6 On 08/17/2022 patient is alert and oriented times patient denies any chest pain or shortness breath. Patient denies nausea vomiting or diarrhea. Patient denies any urinary burning or frequency. Awaiting lab work for today. Dr. Barton consulted and recommendations made for wound care to feet. Current vitals signs temp 98.4, heart rate 74, respiratory rate 18, blood pressure 1949 with a pulse ox 95% on room air On 08/18/2022 patient was seen and examined on the medical floor he is alert and oriented 3 in no apparent distress he is complaining of pain in his right foot otherwise he denies any complaints there is no fever or chills no headache or dizziness no chest pain no shortness of breath no cough no nausea or vomiting no abdominal pain no diarrhea and no urinary symptoms. At this time patient is maintained on IV antibiotics, infectious disease are following, nephrology are following in regard to acute renal failure, Dr West is recommending kidney biopsy, at this time will hold coumadin and cover with Lovenox until biopsy is done then will resume coumadin On 08/19/2022 patient was seen and examined on the medical floor he is alert and oriented 3 in no apparent distress he is complaining of pain in his right foot otherwise he denies any complaints there is no fever or chills no headache or dizziness no chest pain no shortness of breath no cough no nausea or vomiting no abdominal pain no diarrhea and no urinary symptoms. At this time patient is maintained on IV antibiotics, infectious disease are following, nephrology are following. Patient is off Coumadin in anticipation of kidney biopsy he was started yesterday on subcu Lovenox On 08/20/2022 patient is alert and oriented 3. Creatinine 5.23 bun 54. INR 2.0 Coumadin on hold for possible kidney biopsy patient maintained on Lovenox. Temp 98.4, heart rate 99, respiratory rate 18, blood pressure 129/66 4 with pulse ox 95% on room air. Infectious disease and nephrology services are following On 08/21/2022 patient is alert and oriented 3. Lab work for today currently pending. Per nephrology services kidney biopsy possible but may not be required if patient continues to improve with kidney function. Patient denies chest pain or shortness of breath. Patient denies nausea or vomiting. Patient remains on IV antibiotics vascular infectious disease service is following. On 08/22/2022 patient was seen and examined on the medical floor he is alert and oriented 3 in no apparent distress he is complaining of foot pain otherwise he denies any complaint there is no fever or chills no headache or dizziness no chest pain no shortness of breath no cough no nausea or vomiting no abdominal pain no diarrhea and no urinary symptoms. Currently he is off Coumadin in anticipation for kidney biopsy, he is maintained on subcu Lovenox We are awaiting further recommendation from nephrology and infectious disease, continue current management at this time will recheck labs in a.m.. Dr. Viczaino group will be covering for me starting 08/23/2022 I am resuming care of patient on 09/03/2022 09/03/2022 patient is alert and oriented 3. Over the past week patient underwent left renal biopsy on 08/27/2022 which according to oncology report positive for H 18 with workup for myeloma bone marrow biopsy is scheduled for 09/04/2022. Patient also had ongoing acute kidney injury with creatinine trending up. Patient did receive hemodialysis access and started on hemodialysis on 09/02/2022. Patient also underwent right big toe amputation on 08/26/2022. Cultures of wound positive for Proteus which is sensitive to cefepime and positive for MSSA and strep. She currently remains on Rocephin and Flagyl. Infectious disease services are following. Multiple consults following eating nephrology, oncology and infectious disease services. At this time patient is resting comfortably in bed. Patient denies any chest pain or shortness of breath. Patient denies nausea vomiting or diarrhea. Patient denies any urinary burning or frequency On 09/04/2022 patient is alert and oriented 3. Patient is status post bone marrow biopsy. Patient is currently resting comfortably in bed. Current vital signs temp 98.3, heart rate 75, respiratory rate 16, blood pressure 101/61 pulse ox 97% on room air. Awaiting further recommendations per oncology services discharge planning is in progress patient to receive hemodialysis today per nephrology services. On 09/05/2022 patient is alert and oriented 3 resting comfortably in bed. Lab work currently pending. Vital signs temp 97.9, heart rate 80, respiratory rate 20, blood pressure 123/54 pulse ox of 98 percent. Patient underwent hemodialysis today awaiting further recommendations per oncology and hematology services. On 09/06/2022 patient was seen and examined on the medical floor he is alert and oriented 3 in no apparent distress he is complaining of generalized weakness otherwise he denies any complaints, there is no fever or chills no headache or dizziness no chest pain no shortness of breath no cough no nausea or vomiting no abdominal pain no diarrhea and no urinary symptoms. Patient is maintained on hemodialysis, he received 1 unit of red blood cell transfusion yesterday, CBC is still pending, continue with current management will follow in a.m. plan is to discharge patient to [facility] for rehab on Thursday. Objective - Vital Signs Vital signs: Vital Signs Temp 97.9 F 09/06/22 14:00 Pulse 83 09/06/22 14:00 Resp 20 09/06/22 14:00 BP 130/70 09/06/22 14:00 Pulse Ox 96 09/06/22 14:00 FiO2 21 08/24/22 09:32 Intake & Output 09/05/22 09/06/22 09/06/22 18:59 06:59 18:59 Intake Total 1710 300 Output Total 1700 Balance 10 300 Weight 105.5 kg Intake: Intake, IV Titration 50 Amount cefTRIAXone 2 gm In 50 Sodium Chloride 0.9% 50 ml @ 100 mls/hr IVPB Q24HR [facility] Rx#:[id number] Oral 750 300 Blood Product 310 Rc As-1 Unit 310 [id number] Hemodialysis 600 Output: Urine 400 Hemodialysis 1300 Other: Voiding Method Indwelling Catheter Indwelling Catheter Indwelling Catheter - Exam Head normocephalic Neck supple Lungs clear to auscultation bilaterally no wheezing or crackles Heart regular rate and rhythm S1-S2, no rub or gallop Abdomen is soft nontender nondistended positive bowel sounds no hepatosplenomegaly Extremities no edema Neuro alert and orientated to 3 - Labs CBC & Chem 7: 09/05/22 05:30 09/05/22 05:30 Labs: Abnormal Lab Results - Last 24 Hours (Table) 09/05/22 09/05/22 09/06/22 Range/Units 16:44 20:11 06:43 PT 18.1 H (9.9-11.9) sec INR 1.63 H (0.90-1.11) POC Glucose (mg/dL) 172 H 112 H (70-110) mg/dL 09/06/22 Range/Units 11:50 PT (9.9-11.9) sec INR (0.90-1.11) POC Glucose (mg/dL) 111 H (70-110) mg/dL Assessment and Plan Assessment: Acute on chronic kidney disease. Status post renal biopsy proven cast nephropathy. 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 Oncology and nephrology are following and plans for bone marrow biopsy with workup for myeloma Left kidney lesion being followed by oncology and urology History of diabetes mellitus History of atrial fibrillation maintained on Coumadin History of essential hypertension History of gout History of chronic back pain Anemia iron studies ordered Subtherapeutic INR. Corrected. Pharmacy to dose Coumadin Patient currently being followed by nephrology, oncology, vascular surgery, urology and infectious disease services Status post renal biopsy on 08/27/2022 Status post right big toe amputation on 08/26/2022 Status post bone marrow biopsy on 09/04/2022 Patient remains on IV antibiotics. Per infectious disease patient may be trans itioned to oral antibiotics and discharge Repeat labs ordered
[2022-09-06 16:46] LABS: Glucose,Whole Blood 156 mg/dL (70-110)
[2022-09-06] MEDS ORDERED: WARFARIN 3 MG TAB PO ONE (18:00)
[2022-09-06] MEDS: TAMSULOSIN 0.4 MG CAP.ER.24H PO SCH (18:13)
[2022-09-06] MEDS: HYDROcodone/APAP 10-325MG 1 EACH TAB PO PRN (19:24)
[2022-09-06 20:50] LABS: Glucose,Whole Blood 152 mg/dL (70-110)
[2022-09-07 05:51] LABS: INR 1.9 (<1.2); Prothrombin Time 18.5 sec (9.0-12.0)
[2022-09-07 06:14] LABS: Glucose,Whole Blood 95 mg/dL (70-110)
[2022-09-07] MEDS: INSULIN ASPART (NovoLOG) 100 UNIT/ML VIAL SQ SCH ×4 (06:18→21:12)
[2022-09-07] MEDS: COLLAGENASE 250 UNIT/GM OINTMENT 30 GM TUBE TOPICAL SCH (09:00)
[2022-09-07] MEDS: FAMOTIDINE 20 MG TAB PO SCH (09:05)
[2022-09-07] MEDS: metroNIDAZOLE 500 MG TAB PO SCH ×3 (09:05→23:10)
[2022-09-07] MEDS: allopurinoL 300 MG TAB PO SCH (09:05)
[2022-09-07] MEDS: HYDROcodone/APAP 10-325MG 1 EACH TAB PO PRN ×3 (09:09→23:10)
--- NOTE | 2022-09-07 10:06 | P.PN ---
Subjective Progress Note Date: 09/07/22 Pepe Waters, is a 71-year-old male patient who presented he ER with concerns of acute on kidney disease with worsening kidney status. Patient has a history of recent second toe amputation approximately 6 weeks ago. Additional medical history includes atrial fibrillation, diabetes mellitus, MRSA, depression and joint replacement. CT of abdomen and pelvis completed showing no evidence of obstructive uropathy there are bilateral nonobstructing renal calculi versus medullary calcifications present. And determinate left renal lesion, not nodule contour to liver correlate for cirrhosis, correlate lithiasis, cardiomegaly with bilateral trace pleural effusions correlate for volume overload with serum BNP. Creatinine elevated at 7.50 and bun 72. Hemoglobin is low at 7.2. At this time nephrology and urology service is consulted. Dr. Dia consulted for infectious disease chronic lower extremity wound. Iron studies ordered. Home meds resumed pharmacy to dose Coumadin for atrial fibrillation. Graham catheter remains in place. This time patient denies chest pain or shortness breath. Patient denies nausea vomiting or diarrhea. Patient denies any urinary burning or frequency. On 08/14/2022 patient was seen and examined on the medical floor he is alert and oriented 3 in no apparent distress he is complaining of pain in his right foot otherwise he denies any complaints there is no fever or chills no headache or dizziness no chest pain no shortness of breath no cough no nausea or vomiting no abdominal pain no diarrhea and no urinary symptoms. At this time patient is maintained on IV antibiotics, infectious disease are following, nephrology are following in regard to acute renal failure, today's INR was more than 10, patient received vitamin K 5 mg by mouth, his hemoglobin was down to 6.4 he is receiving 1 unit of red blood cell transfusion, will continue to follow closely. On 08/15/2022 patient is alert and oriented 3. INR today 1.8. Creatinine 6.7 and bun 65. Pharmacy to dose Coumadin. Patient remains on IV antibiotics per ID. Nephrology services are following. Patient still producing urine. Patient denies chest pain or shortness of breath. Patient denies nausea vomiting or diarrhea. Patient denies any urinary burning or frequency. On 08/16/2022 patient was seen and examined on the medical floor he is alert and oriented 3 in no apparent distress he is complaining of pain in his right foot otherwise he denies any complaints there is no fever or chills no headache or dizziness no chest pain no shortness of breath no cough no nausea or vomiting no abdominal pain no diarrhea and no urinary symptoms. Cr today 6.6 On 08/17/2022 patient is alert and oriented times patient denies any chest pain or shortness breath. Patient denies nausea vomiting or diarrhea. Patient denies any urinary burning or frequency. Awaiting lab work for today. Dr. Barton consulted and recommendations made for wound care to feet. Current vitals signs temp 98.4, heart rate 74, respiratory rate 18, blood pressure 1949 with a pulse ox 95% on room air On 08/18/2022 patient was seen and examined on the medical floor he is alert and oriented 3 in no apparent distress he is complaining of pain in his right foot otherwise he denies any complaints there is no fever or chills no headache or dizziness no chest pain no shortness of breath no cough no nausea or vomiting no abdominal pain no diarrhea and no urinary symptoms. At this time patient is maintained on IV antibiotics, infectious disease are following, nephrology are following in regard to acute renal failure, Dr West is recommending kidney biopsy, at this time will hold coumadin and cover with Lovenox until biopsy is done then will resume coumadin On 08/19/2022 patient was seen and examined on the medical floor he is alert and oriented 3 in no apparent distress he is complaining of pain in his right foot otherwise he denies any complaints there is no fever or chills no headache or dizziness no chest pain no shortness of breath no cough no nausea or vomiting no abdominal pain no diarrhea and no urinary symptoms. At this time patient is maintained on IV antibiotics, infectious disease are following, nephrology are following. Patient is off Coumadin in anticipation of kidney biopsy he was started yesterday on subcu Lovenox On 08/20/2022 patient is alert and oriented 3. Creatinine 5.23 bun 54. INR 2.0 Coumadin on hold for possible kidney biopsy patient maintained on Lovenox. Temp 98.4, heart rate 99, respiratory rate 18, blood pressure 129/66 4 with pulse ox 95% on room air. Infectious disease and nephrology services are following On 08/21/2022 patient is alert and oriented 3. Lab work for today currently pending. Per nephrology services kidney biopsy possible but may not be required if patient continues to improve with kidney function. Patient denies chest pain or shortness of breath. Patient denies nausea or vomiting. Patient remains on IV antibiotics vascular infectious disease service is following. On 08/22/2022 patient was seen and examined on the medical floor he is alert and oriented 3 in no apparent distress he is complaining of foot pain otherwise he denies any complaint there is no fever or chills no headache or dizziness no chest pain no shortness of breath no cough no nausea or vomiting no abdominal pain no diarrhea and no urinary symptoms. Currently he is off Coumadin in anticipation for kidney biopsy, he is maintained on subcu Lovenox We are awaiting further recommendation from nephrology and infectious disease, continue current management at this time will recheck labs in a.m.. Dr. Vizcaino group will be covering for me starting 08/23/2022 I am resuming care of patient on 09/03/2022 09/03/2022 patient is alert and oriented 3. Over the past week patient underwent left renal biopsy on 08/27/2022 which according to oncology report positive for H 18 with workup for myeloma bone marrow biopsy is scheduled for 09/04/2022. Patient also had ongoing acute kidney injury with creatinine trending up. Patient did receive hemodialysis access and started on hemodialysis on 09/02/2022. Patient also underwent right big toe amputation on 08/26/2022. Cultures of wound positive for Proteus which is sensitive to cefepime and positive for MSSA and strep. She currently remains on Rocephin and Flagyl. Infectious disease services are following. Multiple consults following eating nephrology, oncology and infectious disease services. At this time patient is resting comfortably in bed. Patient denies any chest pain or shortness of breath. Patient denies nausea vomiting or diarrhea. Patient denies any urinary burning or frequency On 09/04/2022 patient is alert and oriented 3. Patient is status post bone marrow biopsy. Patient is currently resting comfortably in bed. Current vital signs temp 98.3, heart rate 75, respiratory rate 16, blood pressure 101/61 pulse ox 97% on room air. Awaiting further recommendations per oncology services discharge planning is in progress patient to receive hemodialysis today per nephrology services. On 09/05/2022 patient is alert and oriented 3 resting comfortably in bed. Lab work currently pending. Vital signs temp 97.9, heart rate 80, respiratory rate 20, blood pressure 123/54 pulse ox of 98 percent. Patient underwent hemodialysis today awaiting further recommendations per oncology and hematology services. On 09/06/2022 patient was seen and examined on the medical floor he is alert and oriented 3 in no apparent distress he is complaining of generalized weakness otherwise he denies any complaints, there is no fever or chills no headache or dizziness no chest pain no shortness of breath no cough no nausea or vomiting no abdominal pain no diarrhea and no urinary symptoms. Patient is maintained on hemodialysis, he received 1 unit of red blood cell transfusion yesterday, CBC is still pending, continue with current management will follow in a.m. plan is to discharge patient to [facility] for rehab on Thursday. On 09/07/2022 patient is alert and oriented 3 currently resting comfortably in bed. Discharge planning in place. Current vital signs temp 98.3, heart rate 96, respiratory rate 17, blood pressure 141/61 with a pulse ox of 96% on room air. Current lab work pending. Patient was restarted on Coumadin current INR 1.9. Pharmacy to dose Coumadin has been ordered. Patient has been transitioned to oral Flagyl per ID. Plans for hemodialysis tomorrow 09/08/2022. At this time patient denies chest pain or shortness of breath. Patient denies nausea vomiting or diarrhea. Patient denies any burning or frequency Objective - Vital Signs Vital signs: Vital Signs Temp 98.3 F 09/07/22 07:35 Pulse 96 09/07/22 07:35 Resp 17 09/07/22 07:35 BP 141/61 09/07/22 07:35 Pulse Ox 95 09/07/22 08:25 FiO2 21 08/24/22 09:32 Intake & Output 09/06/22 09/07/22 09/07/22 18:59 06:59 18:59 Intake Total 300 300 Output Total 100 Balance 200 300 Intake: Oral 300 300 Output: Urine 100 Uretheral (Graham) 100 Other: Voiding Method Indwelling Catheter Indwelling Catheter - Exam Head normocephalic Neck supple Lungs clear to auscultation bilaterally no wheezing or crackles Heart regular rate and rhythm S1-S2, no rub or gallop Abdomen is soft nontender nondistended positive bowel sounds no hepatosplenomegaly Extremities no edema Neuro alert and orientated to 3 - Labs CBC & Chem 7: 09/05/22 05:30 09/05/22 05:30 Labs: Abnormal Lab Results - Last 24 Hours (Table) 09/06/22 09/06/22 09/06/22 Range/Units 06:43 11:50 16:44 PT 18.1 H (9.9-11.9) sec INR 1.63 H (0.90-1.11) POC Glucose (mg/dL) 111 H 156 H (70-110) mg/dL 09/06/22 09/07/22 Range/Units 20:48 05:27 PT 18.5 H (9.9-11.9) sec INR 1.9 H (0.90-1.11) POC Glucose (mg/dL) 152 H (70-110) mg/dL
[2022-09-07 10:41] LABS: African American GFR (CKD) 9.3 (60.0-200.0); Albumin 3.5 g/dL (3.8-4.9); Albumin/Globulin Ratio 1.72 (1.60-3.17); Anion Gap 12.8 mmol/L (10.00-18.00); BUN/Creat Ratio 3.07 Ratio (12.00-20.00); Blood Urea Nitrogen 19.5 mg/dL (9.0-27.0); Calcium 8.5 mg/dL (8.7-10.3); Carbon Dioxide 22.6 mmol/L (20.0-27.5); Magnesium 1.9 mg/dL (1.5-2.4); Potassium 4.3 mmol/L (3.5-5.5); Total Bilirubin 0.3 mg/dL (0.30-1.20); Total Protein 5.5 g/dL (6.2-8.2)
--- NOTE | 2022-09-07 11:10 | P.PN ---
Subjective Patient is seen in follow-up for acute kidney injury on chronic kidney disease. Started on hemodialysis 09/02/2021. Has Graham catheter for urinary retention. Urine output has been low. Denies chest pain or shortness of breath. On room air. Hemodynamic stable. Vital signs are stable. General: Awake. No acute distress. HEENT: Head exam is unremarkable. LUNGS: Breath sounds decreased. HEART: Rate and Rhythm are regular. ABDOMEN: Soft, no distention. EXTREMITITES: Trace edema. Objective - Vital Signs Vital signs: Vital Signs Temp 98.3 F 09/07/22 07:35 Pulse 96 09/07/22 07:35 Resp 17 09/07/22 07:35 BP 141/61 09/07/22 07:35 Pulse Ox 95 09/07/22 08:25 FiO2 21 08/24/22 09:32 Intake & Output 09/06/22 09/07/22 09/07/22 18:59 06:59 18:59 Intake Total 300 300 Output Total 100 Balance 200 300 Intake: Oral 300 300 Output: Urine 100 Uretheral (Graham) 100 Other: Voiding Method Indwelling Catheter Indwelling Catheter - Labs CBC & Chem 7: 09/05/22 05:30 09/07/22 05:27 Labs: Abnormal Lab Results - Last 24 Hours (Table) 09/06/22 09/06/22 09/06/22 Range/Units 06:43 11:50 16:44 PT 18.1 H (9.9-11.9) sec INR 1.63 H (0.90-1.11) Sodium (135-145) mmol/L Creatinine (0.6-1.5) mg/dL Est GFR (CKD-EPI)AfAm (60.0-200.0) Est GFR (CKD-EPI)NonAf (60.0-200.0) BUN/Creatinine Ratio (12.00-20.00) Ratio POC Glucose (mg/dL) 111 H 156 H (70-110) mg/dL Calcium (8.7-10.3) mg/dL ALT (10-49) U/L Total Protein (6.2-8.2) g/dL Albumin (3.8-4.9) g/dL 09/06/22 09/07/22 09/07/22 Range/Units 20:48 05:27 05:27 PT 18.5 H (9.9-11.9) sec INR 1.9 H (0.90-1.11) Sodium 132 L (135-145) mmol/L Creatinine 6.4 H (0.6-1.5) mg/dL Est GFR (CKD-EPI)AfAm 9.3 L (60.0-200.0) Est GFR (CKD-EPI)NonAf 8.0 L (60.0-200.0) BUN/Creatinine Ratio 3.07 L (12.00-20.00) Ratio POC Glucose (mg/dL) 152 H (70-110) mg/dL Calcium 8.5 L (8.7-10.3) mg/dL ALT 8 L (10-49) U/L Total Protein 5.5 L (6.2-8.2) g/dL Albumin 3.5 L (3.8-4.9) g/dL Assessment and Plan Plan: Assessment: 1. Acute kidney injury secondary to biopsy-proven cast nephropathy. Started on hemodialysis on 09/02/2022. No hydronephrosis noted on kidney ultrasound. 2. Chronic kidney disease stage IIIB with baseline creatinine near 1.6. 3. Volume overload. Improved with ultrafiltration. 4. Hypokalemia secondary to diuresis and hypomagnesemia. Stable. 5. Hypomagnesemia secondary to diuresis. Magnesium 1.9 today. 6. Left kidney lesion being followed by oncology and urology. 7. Urinary retention. Has Graham catheter. On Flomax. Urology following. 8. Anemia of chronic kidney disease. Iron replete. On Aranesp. Received blood transfusion this admission. 9. Hypervolemic hyponatremia. 10. 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 11. Biopsy-proven lambda light chain cast nephropathy. Minimal fibrosis on biopsy. Oncology following. Plan: Hemodialysis Thursday. Avoid nephrotoxins. Maintain 1500 mL fluid restriction. Encourage oral intake. Phosphorus level 3.7 dated 09/06/2022. Resume torsemide. Outpatient dialysis to be set up by case management. Monitor for renal recovery outpatient.
[2022-09-07 11:20] LABS: Basophils # (A) 0.01 X 10*3/uL (0.00-0.10); Basophils % (A) 0.2 %; Eosinophils % (A) 4.2 %; HGB 6.9 g/dL (13.0-17.0); Immature Grans, Automated 0.6 %; Lymphocytes # (A) 1.72 X 10*3/uL (0.90-5.00); Lymphocytes % (A) 35.9 %; MCH 30.1 pg (27.0-32.0); MCHC 31.4 g/dL (32.0-37.0); MCV 96.1 fL (80.0-97.0); Mean Platelet Volume 10.4 fL (9.5-12.2); Monocytes # (A) 0.34 X 10*3/uL (0.20-1.00); Monocytes % (A) 7.1 %; NRBC Per 100 WBC 0.4 /100 WBCS (0.0-0.0); Neutrophils # (A) 2.49 X 10*3/uL (1.80-7.70); Platelet Count 77 X 10*3/uL (140-440); RBC 2.29 X 10*6/uL (4.40-5.60); RDW 15.9 % (11.5-14.5); WBC 4.79 X 10*3/uL (4.50-10.00)
[2022-09-07 11:21] LABS: Immature Platelet Fraction 4.1 % (1.1-6.1)
[2022-09-07 11:37] LABS: Glucose,Whole Blood 112 mg/dL (70-110)
[2022-09-07 11:59] LABS: HCT 21.3 % (39.0-53.0); HGB 7.2 gm/dL (13.0-17.5); MCH 32.2 pg (25.0-35.0); MCHC 34.1 g/dL (31.0-37.0); MCV 94.6 fL (80.0-100.0); Mean Platelet Volume 9.2; RBC 2.25 m/uL (4.30-5.90); RDW 15.8 % (11.5-15.5); WBC 4.7 k/uL (3.8-10.6)
[2022-09-07 12:01] LABS: Platelet Count 67 k/uL (150-450)
[2022-09-07] MEDS: TORSEMIDE 20 MG TAB PO SCH (13:03)
[2022-09-07 16:49] LABS: Glucose,Whole Blood 128 mg/dL (70-110)
[2022-09-07] MEDS: TAMSULOSIN 0.4 MG CAP.ER.24H PO SCH (17:26)
[2022-09-07] MEDS ORDERED: WARFARIN 5 MG TAB PO ONE (18:00)
[2022-09-07 20:32] LABS: Glucose,Whole Blood 131 mg/dL (70-110)
[2022-09-08 05:42] LABS: INR 2.1 (<1.2); Prothrombin Time 20.9 sec (9.0-12.0)
[2022-09-08 06:03] LABS: Glucose,Whole Blood 92 mg/dL (70-110)
[2022-09-08] MEDS: INSULIN ASPART (NovoLOG) 100 UNIT/ML VIAL SQ SCH ×2 (06:07→12:44)
--- NOTE | 2022-09-08 07:52 | P.PN ---
Subjective Progress Note Date: 09/07/22 Principal diagnosis: Right second toe amputation site wound infection Patient is a 71-year-old male was recently admitted to this facility and the patient did have a right second toe diabetic foot infection in this patient was status post amputation of his right second toe on 06/29/2022 , patient presented to the hospital with worsening renal failure and the patient w as noticed to have some purulent drainage from his right second toe amputation site wound which is currently not healed, patient is status post right big toe amputation on 08/26/2022 and the patient did have a renal biopsy completed on 08/27/2022, patient did have worsening of his kidney function and is being considered for dialysis with the dialysis catheter placement on 09/01/2022 and the patient had been started on dialysis On today's evaluation that is 09/07/2022, the patient remains to be afebrile, the patient is breathing comfortably on room air, the patient denies chest pain shortness of breath and no significant cough , the patient denies nausea no vomiting no abdominal pain or any diarrhea , the patient denies pain to the right foot wound area Objective - Vital Signs Vital signs: Vital Signs Temp 97.6 F 09/07/22 14:00 Pulse 88 09/07/22 14:00 Resp 18 09/07/22 14:00 BP 110/62 09/07/22 14:00 Pulse Ox 97 09/07/22 14:00 FiO2 21 08/24/22 09:32 Intake & Output 09/06/22 09/07/22 09/07/22 18:59 06:59 18:59 Intake Total 300 300 Output Total 100 Balance 200 300 Intake: Oral 300 300 Output: Urine 100 Uretheral (Graham) 100 Other: Voiding Method Indwelling Catheter Indwelling Catheter # Bowel Movements 1 - Exam GENERAL DESCRIPTION: An elderly male lying in bed in no distress RESPIRATORY SYSTEM: Unlabored breathing , decreased breath sounds at bases HEART: S1 S2 regular rate and rhythm , ABDOMEN: Soft , no tenderness EXTREMITIES: Right big and second toe amputation site is currently dressed no drainage on the dressing - Labs CBC & Chem 7: 09/07/22 11:46 09/07/22 05:27 Labs: Abnormal Lab Results - Last 24 Hours (Table) 09/06/22 09/07/22 09/07/22 Range/Units 20:48 05:27 05:27 RBC 2.29 L (4.40-5.60) X 10*6/uL Hgb 6.9 L* (13.0-17.0) g/dL Hct 22.0 L (39.6-50.0) % MCHC 31.4 L (32.0-37.0) g/dL RDW 15.9 H (11.5-14.5) % Plt Count 77 L (140-440) X 10*3/uL Absolute Nucleated RBC 0.02 H (0.00-0.00) X 10*3/uL NRBC/100 WBC Diff 0.4 H (0.0-0.0) /100 WBCS PT 18.5 H (9.0-12.0) sec INR 1.9 H (<1.2) Sodium (135-145) mmol/L Creatinine (0.6-1.5) mg/dL Est GFR (CKD-EPI)AfAm (60.0-200.0) Est GFR (CKD-EPI)NonAf (60.0-200.0) BUN/Creatinine Ratio (12.00-20.00) Ratio POC Glucose (mg/dL) 152 H (70-110) mg/dL Calcium (8.7-10.3) mg/dL ALT (10-49) U/L Total Protein (6.2-8.2) g/dL Albumin (3.8-4.9) g/dL 09/07/22 09/07/22 09/07/22 Range/Units 05:27 11:35 11:46 RBC 2.25 L (4.40-5.60) X 10*6/uL Hgb 7.2 L (13.0-17.0) g/dL Hct 21.3 L (39.6-50.0) % MCHC (32.0-37.0) g/dL RDW 15.8 H (11.5-14.5) % Plt Count 67 L (140-440) X 10*3/uL Absolute Nucleated RBC (0.00-0.00) X 10*3/uL NRBC/100 WBC Diff (0.0-0.0) /100 WBCS PT (9.0-12.0) sec INR (<1.2) Sodium 132 L (135-145) mmol/L Creatinine 6.4 H (0.6-1.5) mg/dL Est GFR (CKD-EPI)AfAm 9.3 L (60.0-200.0) Est GFR (CKD-EPI)NonAf 8.0 L (60.0-200.0) BUN/Creatinine Ratio 3.07 L (12.00-20.00) Ratio POC Glucose (mg/dL) 112 H (70-110) mg/dL Calcium 8.5 L (8.7-10.3) mg/dL ALT 8 L (10-49) U/L Total Protein 5.5 L (6.2-8.2) g/dL Albumin 3.5 L (3.8-4.9) g/dL 09/07/22 Range/Units 16:40 RBC (4.40-5.60) X 10*6/uL Hgb (13.0-17.0) g/dL Hct (39.6-50.0) % MCHC (32.0-37.0) g/dL RDW (11.5-14.5) % Plt Count (140-440) X 10*3/uL Absolute Nucleated RBC (0.00-0.00) X 10*3/uL NRBC/100 WBC Diff (0.0-0.0) /100 WBCS PT (9.0-12.0) sec INR (<1.2) Sodium (135-145) mmol/L Creatinine (0.6-1.5) mg/dL Est GFR (CKD-EPI)AfAm (60.0-200.0) Est GFR (CKD-EPI)NonAf (60.0-200.0) BUN/Creatinine Ratio (12.00-20.00) Ratio POC Glucose (mg/dL) 128 H (70-110) mg/dL Calcium (8.7-10.3) mg/dL ALT (10-49) U/L Total Protein (6.2-8.2) g/dL Albumin (3.8-4.9) g/dL Assessment and Plan (1) Diabetic foot infection Current Visit: Yes Status: Acute Code(s): E11.628 - TYPE 2 DIABETES MELLITUS WITH OTHER SKIN COMPLICATIONS; L08.9 - LOCAL INFECTION OF THE SKIN AND SUBCUTANEOUS TISSUE, UNSP SNOMED Code(s): 678762182 Plan: 1patient with right second toe diabetic foot infection in this patient who is status post amputation of the right second toe culture that time was positive for MRSA patient did present to the hospital with acute renal failure patient did have purulent drainage to the right second toe amputation site and some surrounding cellulitis. 2local culture growing Proteus, group B strep and is also showing presumptive staph aureus which has been finalized his MSSA. 3 patient noticed to have a more ischemic changes to the right big toe , and patient the patient is status post amputation of the right big toe on 08/26/2022 4patient right big toe amputation site wound cultures grew Proteus which is sensitive to cefepime/ceftriaxone patient previous culture positive for MSSA and strep 5-local wound care with Aquacel silver dressing changes every 48 hour 6-patient right second toe amputation site wound is almost healed however did have more necrotic changes to the right big toe amputation site wound, vascular surgery contacted for reevaluation , in the meantime patient to continue with Rocephin and Flagyl and monitor clinical course closely Time with Patient: Less than 30
[2022-09-08 09:04] LABS: Albumin 3.5 g/dL (3.8-4.9); Albumin/Globulin Ratio 1.67 (1.60-3.17); Anion Gap 7.2 mmol/L (10.00-18.00); BUN/Creat Ratio 3.14 Ratio (12.00-20.00); Blood Urea Nitrogen 25.1 mg/dL (9.0-27.0); Calcium 8.7 mg/dL (8.7-10.3); Carbon Dioxide 27.8 mmol/L (20.0-27.5); Globulin 2.1 g/dL (1.6-3.3); Non-African American GFR(CKD) 6.1 (60.0-200.0); Potassium 4.8 mmol/L (3.5-5.5); Total Bilirubin 0.3 mg/dL (0.30-1.20); Total Protein 5.6 g/dL (6.2-8.2)
[2022-09-08 09:53] LABS: Basophils # (A) 0.03 X 10*3/uL (0.00-0.10); Basophils % (A) 0.6 %; Eosinophils # (A) 0.26 X 10*3/uL (0.04-0.35); Eosinophils % (A) 4.9 %; HGB 6.7 g/dL (13.0-17.0); Immature Grans, Automated 0.9 %; Lymphocytes # (A) 1.93 X 10*3/uL (0.90-5.00); Lymphocytes % (A) 36.1 %; MCH 31.3 pg (27.0-32.0); MCHC 31.9 g/dL (32.0-37.0); MCV 98.1 fL (80.0-97.0); Mean Platelet Volume 10.3 fL (9.5-12.2); Monocytes # (A) 0.39 X 10*3/uL (0.20-1.00); Monocytes % (A) 7.3 %; NRBC Per 100 WBC 0 /100 WBCS (0.0-0.0); Neutrophils # (A) 2.68 X 10*3/uL (1.80-7.70); Neutrophils % (A) 50.2 %; Platelet Count 76 X 10*3/uL (140-440); RBC 2.14 X 10*6/uL (4.40-5.60); RDW 15.9 % (11.5-14.5); WBC 5.34 X 10*3/uL (4.50-10.00)
[2022-09-08 09:54] LABS: Immature Platelet Fraction 4.4 % (1.1-6.1)
--- NOTE | 2022-09-08 11:14 | P.PN ---
Subjective Patient is seen in follow-up for acute kidney injury on chronic kidney disease. Started on hemodialysis 09/02/2021. Has Graham catheter for urinary retention. Urine output has been low. Denies chest pain or shortness of breath. On room air. Hemodynamic stable. Vital signs are stable. General: Awake. No acute distress. HEENT: Head exam is unremarkable. LUNGS: Breath sounds decreased. HEART: Rate and Rhythm are regular. ABDOMEN: Soft, no distention. EXTREMITITES: Trace edema. Objective - Vital Signs Vital signs: Vital Signs Temp 98.6 F 09/08/22 07:10 Pulse 87 09/08/22 07:10 Resp 18 09/08/22 07:10 BP 118/68 09/08/22 07:10 Pulse Ox 94 L 09/08/22 07:10 FiO2 21 08/24/22 09:32 Intake & Output 09/07/22 09/08/22 09/08/22 18:59 06:59 18:59 Other: # Bowel Movements 2 - Labs CBC & Chem 7: 09/08/22 04:37 09/08/22 04:37 Labs: Abnormal Lab Results - Last 24 Hours (Table) 09/07/22 09/07/22 09/07/22 Range/Units 05:27 11:35 11:46 RBC 2.29 L 2.25 L (4.40-5.60) X 10*6/uL Hgb 6.9 L* 7.2 L (13.0-17.0) g/dL Hct 22.0 L 21.3 L (39.6-50.0) % MCV (80.0-97.0) fL MCHC 31.4 L (32.0-37.0) g/dL RDW 15.9 H 15.8 H (11.5-14.5) % Plt Count 77 L 67 L (140-440) X 10*3/uL Plt Count Comment Absolute Nucleated RBC 0.02 H (0.00-0.00) X 10*3/uL Immature Gran # (0.00-0.04) X 10*3/uL NRBC/100 WBC Diff 0.4 H (0.0-0.0) /100 WBCS PT (9.0-12.0) sec INR (<1.2) Sodium (135-145) mmol/L Carbon Dioxide (20.0-27.5) mmol/L Anion Gap (10.00-18.00) mmol/L Creatinine (0.6-1.5) mg/dL Est GFR (CKD-EPI)AfAm (60.0-200.0) Est GFR (CKD-EPI)NonAf (60.0-200.0) BUN/Creatinine Ratio (12.00-20.00) Ratio POC Glucose (mg/dL) 112 H (70-110) mg/dL Total Protein (6.2-8.2) g/dL Albumin (3.8-4.9) g/dL 09/07/22 09/07/22 09/08/22 Range/Units 16:40 20:30 04:37 RBC (4.40-5.60) X 10*6/uL Hgb (13.0-17.0) g/dL Hct (39.6-50.0) % MCV (80.0-97.0) fL MCHC (32.0-37.0) g/dL RDW (11.5-14.5) % Plt Count (140-440) X 10*3/uL Plt Count Comment Absolute Nucleated RBC (0.00-0.00) X 10*3/uL Immature Gran # (0.00-0.04) X 10*3/uL NRBC/100 WBC Diff (0.0-0.0) /100 WBCS PT 20.9 H (9.0-12.0) sec INR 2.1 H (<1.2) Sodium (135-145) mmol/L Carbon Dioxide (20.0-27.5) mmol/L Anion Gap (10.00-18.00) mmol/L Creatinine (0.6-1.5) mg/dL Est GFR (CKD-EPI)AfAm (60.0-200.0) Est GFR (CKD-EPI)NonAf (60.0-200.0) BUN/Creatinine Ratio (12.00-20.00) Ratio POC Glucose (mg/dL) 128 H 131 H (70-110) mg/dL Total Protein (6.2-8.2) g/dL Albumin (3.8-4.9) g/dL 09/08/22 09/08/22 Range/Units 04:37 04:37 RBC 2.14 L (4.40-5.60) X 10*6/uL Hgb 6.7 L* (13.0-17.0) g/dL Hct 21.0 L (39.6-50.0) % MCV 98.1 H (80.0-97.0) fL MCHC 31.9 L (32.0-37.0) g/dL RDW 15.9 H (11.5-14.5) % Plt Count 76 L (140-440) X 10*3/uL Plt Count Comment DECREASED A Absolute Nucleated RBC (0.00-0.00) X 10*3/uL Immature Gran # 0.05 H (0.00-0.04) X 10*3/uL NRBC/100 WBC Diff (0.0-0.0) /100 WBCS PT (9.0-12.0) sec INR (<1.2) Sodium 131 L (135-145) mmol/L Carbon Dioxide 27.8 H (20.0-27.5) mmol/L Anion Gap 7.20 L (10.00-18.00) mmol/L Creatinine 8.0 H* (0.6-1.5) mg/dL Est GFR (CKD-EPI)AfAm 7.0 L (60.0-200.0) Est GFR (CKD-EPI)NonAf 6.1 L (60.0-200.0) BUN/Creatinine Ratio 3.14 L (12.00-20.00) Ratio POC Glucose (mg/dL) (70-110) mg/dL Total Protein 5.6 L (6.2-8.2) g/dL Albumin 3.5 L (3.8-4.9) g/dL Assessment and Plan Plan: Assessment: 1. Acute kidney injury secondary to biopsy-proven cast nephropathy. Started on hemodialysis on 09/02/2022. No hydronephrosis noted on kidney ultrasound. 2. Chronic kidney disease stage IIIB with baseline creatinine near 1.6. 3. Volume overload. Improved with ultrafiltration. 4. Hypokalemia secondary to diuresis and hypomagnesemia. Stable. 5. Hypomagnesemia secondary to diuresis. Magnesium 1.9 today. 6. Left kidney lesion being followed by oncology and urology. 7. Urinary retention. Has Graham catheter. On Flomax. Urology following. 8. Anemia of chronic kidney disease. Iron replete. On Aranesp. Received blood transfusion this admission. 9. Hypervolemic hyponatremia. 10. 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 11. Biopsy-proven lambda light chain cast nephropathy. Minimal fibrosis on biopsy. Oncology following. Plan: Currently seen while undergoing hemodialysis. He is maintained on Thursday schedule outpatient. Avoid nephrotoxins. Maintain 1500 mL fluid restriction. Encourage oral intake. Phosphorus level 3.7 dated 09/06/2022. Maintain torsemide. Monitor for renal recovery outpatient.
[2022-09-08] MEDS: COLLAGENASE 250 UNIT/GM OINTMENT 30 GM TUBE TOPICAL SCH (11:36)
[2022-09-08] MEDS: FAMOTIDINE 20 MG TAB PO SCH (11:45)
[2022-09-08] MEDS: metroNIDAZOLE 500 MG TAB PO SCH (11:45)
[2022-09-08] MEDS: TORSEMIDE 20 MG TAB PO SCH (11:45)
[2022-09-08] MEDS: allopurinoL 300 MG TAB PO SCH (11:45)
[2022-09-08] MEDS: HYDROcodone/APAP 10-325MG 1 EACH TAB PO PRN (11:48)
[2022-09-08 11:51] LABS: Glucose,Whole Blood 136 mg/dL (70-110)
[2022-09-08] MEDS ORDERED: DESMOPRESSIN ACETATE 32 MCG in SODIUM CHLORIDE 0.9% 50 ML IVPB ONE (12:00)
--- NOTE | 2022-09-08 13:00 | P.PN ---
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 Dialysis today. S/P BM Bx last . Objective - Vital Signs Vital signs: Vital Signs Temp 97.7 F 09/08/22 12:42 Pulse 82 09/08/22 12:42 Resp 19 09/08/22 12:42 BP 135/65 09/08/22 12:42 Pulse Ox 94 L 09/08/22 07:10 FiO2 21 08/24/22 09:32 Intake & Output 09/07/22 09/08/22 09/08/22 18:59 06:59 18:59 Intake Total 300 Output Total 1500 Balance -1200 Intake: Hemodialysis 300 Output: Hemodialysis 1500 Other: Voiding Method Indwelling Catheter # Bowel Movements 2 - Constitutional General appearance: Present: average body habitus, cooperative, no acute distress - EENT Eyes: Present: anicteric sclerae, edentulous ENT: Present: hearing grossly normal - Respiratory Respiratory: bilateral: CTA - Cardiovascular Heart sounds: normal: S1, S2 - Integumentary Integumentary: Present: pale - Neurologic Neurologic: Present: CNII-XII intact - Musculoskeletal Musculoskeletal: Present: generalized weakness - Psychiatric Psychiatric: Present: A&O x's 3, appropriate affect, intact judgment & insight - Labs CBC & Chem 7: 09/08/22 04:37 09/08/22 04:37 Labs: Abnormal Lab Results - Last 24 Hours (Table) 09/07/22 09/07/22 09/08/22 Range/Units 16:40 20:30 04:37 RBC (4.40-5.60) X 10*6/uL Hgb (13.0-17.0) g/dL Hct (39.6-50.0) % MCV (80.0-97.0) fL MCHC (32.0-37.0) g/dL RDW (11.5-14.5) % Plt Count (140-440) X 10*3/uL Plt Count Comment Immature Gran # (0.00-0.04) X 10*3/uL PT 20.9 H (9.0-12.0) sec INR 2.1 H (<1.2) Sodium (135-145) mmol/L Carbon Dioxide (20.0-27.5) mmol/L Anion Gap (10.00-18.00) mmol/L Creatinine (0.6-1.5) mg/dL Est GFR (CKD-EPI)AfAm (60.0-200.0) Est GFR (CKD-EPI)NonAf (60.0-200.0) BUN/Creatinine Ratio (12.00-20.00) Ratio POC Glucose (mg/dL) 128 H 131 H (70-110) mg/dL Total Protein (6.2-8.2) g/dL Albumin (3.8-4.9) g/dL Crossmatch 09/08/22 09/08/22 09/08/22 Range/Units 04:37 04:37 10:23 RBC 2.14 L (4.40-5.60) X 10*6/uL Hgb 6.7 L* (13.0-17.0) g/dL Hct 21.0 L (39.6-50.0) % MCV 98.1 H (80.0-97.0) fL MCHC 31.9 L (32.0-37.0) g/dL RDW 15.9 H (11.5-14.5) % Plt Count 76 L (140-440) X 10*3/uL Plt Count Comment DECREASED A Immature Gran # 0.05 H (0.00-0.04) X 10*3/uL PT (9.0-12.0) sec INR (<1.2) Sodium 131 L (135-145) mmol/L Carbon Dioxide 27.8 H (20.0-27.5) mmol/L Anion Gap 7.20 L (10.00-18.00) mmol/L Creatinine 8.0 H* (0.6-1.5) mg/dL Est GFR (CKD-EPI)AfAm 7.0 L (60.0-200.0) Est GFR (CKD-EPI)NonAf 6.1 L (60.0-200.0) BUN/Creatinine Ratio 3.14 L (12.00-20.00) Ratio POC Glucose (mg/dL) (70-110) mg/dL Total Protein 5.6 L (6.2-8.2) g/dL Albumin 3.5 L (3.8-4.9) g/dL Crossmatch See Detail 09/08/22 Range/Units 11:43 RBC (4.40-5.60) X 10*6/uL Hgb (13.0-17.0) g/dL Hct (39.6-50.0) % MCV (80.0-97.0) fL MCHC (32.0-37.0) g/dL RDW (11.5-14.5) % Plt Count (140-440) X 10*3/uL Plt Count Comment Immature Gran # (0.00-0.04) X 10*3/uL PT (9.0-12.0) sec INR (<1.2) Sodium (135-145) mmol/L Carbon Dioxide (20.0-27.5) mmol/L Anion Gap (10.00-18.00) mmol/L Creatinine (0.6-1.5) mg/dL Est GFR (CKD-EPI)AfAm (60.0-200.0) Est GFR (CKD-EPI)NonAf (60.0-200.0) BUN/Creatinine Ratio (12.00-20.00) Ratio POC Glucose (mg/dL) 136 H (70-110) mg/dL Total Protein (6.2-8.2) g/dL Albumin (3.8-4.9) g/dL Crossmatch Assessment and Plan (1) Light chain myeloma Current Visit: Yes Status: Acute Priority: High Code(s): C90.00 - MULTIPLE MYELOMA NOT HAVING ACHIEVED REMISSION SNOMED Code(s): 586756053 Plan: Light chain myeloma. -Conflicting results, urine is positive for a lambda light chain-Lambda light chain 1100, kappa light chain 1.81. Renal biopsy is positive for kappa light chain. -Bone marrow biopsy and aspirate done, results pending. Pt ok for DC to rehab facility. -Orders for CBC to be drawn at facility later this week, fax results to our office, in the discharge plan. F/U appt for bone marrow results in discharge plan as well - Normal bone survey. Serum M spike negative. -Transfuse for Hgb <7 Or if symptomatic. 1 unit ordered for today. Transfuse for platelets less than 10,000 or if symptomatic. -CT or MRI, kidney protocol with contrast to workup left renal lesion, however, creatinine elevated at this time, started on dialysis. Will hold scan until kidney function improves. -Patient was updated on plan of care and is agreeable -INR 2.1 today. He cont on coumadin as prescribed. Close monitoring recommended
--- NOTE | 2022-09-08 13:25 | P.PN ---
Progress Note - Text 71-year-old gentleman patient had a right foot big toe and second toe ray amputation in the past second toe wound is healing there is some devitalized tissue of the big toe we changed the dressing and debridement of tissue removed excess silver was placed which should be changed every 48 hours patient also has a right IJ catheter for dialysis patient going to go to the [facility] patient will be seen in my office on Thursday
[2022-09-08 14:55] VITALS: RESP 16
[2022-09-08 15:06] VITALS: TEMP 97.7
[2022-09-08 16:28] VITALS: BP 112/71; PULSE 92
--- NOTE | 2022-09-08 16:46 | P.DS ---
Providers Date of admission: 08/12/22 23:10 Expected date of discharge: 09/08/22 Attending physician: Mati Gomez Consults: 08/12/22 22:16 Consult Physician Routine Consulting Provider: Rama West Consult Reason/Comments: acute on chronic kidney injury Do you want consulting provider notified?: Yes 08/13/22 11:53 Consult Physician Routine Consulting Provider: Jameel Plascencia Consult Reason/Comments: lesion on kidney Do you want consulting provider notified?: Yes 08/13/22 11:54 Consult Physician Routine Consulting Provider: Emily Lawler Consult Reason/Comments: established patient Do you want consulting provider notified?: Yes 08/16/22 11:09 Consult Physician Routine Consulting Provider: Haroldo Barton Consult Reason/Comments: Right big toe discoloration Do you want consulting provider notified?: Yes 08/24/22 16:10 Consult Physician Routine Consulting Provider: Jasmeet Pendleton Consult Reason/Comments: monoclonal gammopathy Do you want consulting provider notified?: Yes 09/01/22 11:00 Consult Physician Stat Consulting Provider: Haroldo Barton Consult Reason/Comments: perma cath placement Do you want consulting provider notified?: Yes Primary care physician: Mati Gomez [facility] Course: Diagnosis on discharge: Acute on chronic kidney disease. Status post renal biopsy proven cast nephropathy. 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 Oncology and nephrology are following and plans for bone marrow biopsy with workup for myeloma Left kidney lesion being followed by oncology and urology History of diabetes mellitus History of atrial fibrillation maintained on Coumadin History of essential hypertension History of gout History of chronic back pain Anemia iron studies ordered Subtherapeutic INR. Corrected. Pharmacy to dose Coumadin Hospital course: Pepe Waters, is a 71-year-old male patient who presented he ER with concerns of acute on kidney disease with worsening kidney status. Patient has a history of recent second toe amputation approximately 6 weeks ago. Additional medical history includes atrial fibrillation, diabetes mellitus, MRSA, depression and joint replacement. CT of abdomen and pelvis completed showing no evidence of obstructive uropathy there are bilateral nonobstructing renal calculi versus medullary calcifications present. And determinate left renal lesion, not nodule contour to liver correlate for cirrhosis, correlate lithiasis, cardiomegaly with bilateral trace pleural effusions correlate for volume overload with serum BNP. Creatinine elevated at 7.50 and bun 72. Hemoglobin is low at 7.2. At this time nephrology and urology service is consulted. Dr. Dia consulted for infectious disease chronic lower extremity wound. Iron studies ordered. Home meds resumed pharmacy to dose Coumadin for atrial fibrillation. Graham catheter remains in place. This time patient denies chest pain or shortness breath. Patient denies nausea vomiting or diarrhea. Patient denies any urinary burning or frequency. On 08/14/2022 patient was seen and examined on the medical floor he is alert and oriented 3 in no apparent distress he is complaining of pain in his right foot otherwise he denies any complaints there is no fever or chills no headache or dizziness no chest pain no shortness of breath no cough no nausea or vomiting no abdominal pain no diarrhea and no urinary symptoms. At this time patient is maintained on IV antibiotics, infectious disease are following, nephrology are following in regard to acute renal failure, today's INR was more than 10, patient received vitamin K 5 mg by mouth, his hemoglobin was down to 6.4 he is receiving 1 unit of red blood cell transfusion, will continue to follow closely. On 08/15/2022 patient is alert and oriented 3. INR today 1.8. Creatinine 6.7 and bun 65. Pharmacy to dose Coumadin. Patient remains on IV antibiotics per ID. Nephrology services are following. Patient still producing urine. Patient denies chest pain or shortness of breath. Patient denies nausea vomiting or diarrhea. Patient denies any urinary burning or frequency. On 08/16/2022 patient was seen and examined on the medical floor he is alert and oriented 3 in no apparent distress he is complaining of pain in his right foot otherwise he denies any complaints there is no fever or chills no headache or dizziness no chest pain no shortness of breath no cough no nausea or vomiting no abdominal pain no diarrhea and no urinary symptoms. Cr today 6.6 On 08/17/2022 patient is alert and oriented times patient denies any chest pain or shortness breath. Patient denies nausea vomiting or diarrhea. Patient denies any urinary burning or frequency. Awaiting lab work for today. Dr. Barton consulted and recommendations made for wound care to feet. Current vitals signs temp 98.4, heart rate 74, respiratory rate 18, blood pressure 1949 with a pulse ox 95% on room air On 08/18/2022 patient was seen and examined on the medical floor he is alert and oriented 3 in no apparent distress he is complaining of pain in his right foot otherwise he denies any complaints there is no fever or chills no headache or dizziness no chest pain no shortness of breath no cough no nausea or vomiting no abdominal pain no diarrhea and no urinary symptoms. At this time patient is maintained on IV antibiotics, infectious disease are following, nephrology are following in regard to acute renal failure, Dr West is recommending kidney biopsy, at this time will hold coumadin and cover with Lovenox until biopsy is done then will resume coumadin On 08/19/2022 patient was seen and examined on the medical floor he is alert and oriented 3 in no apparent distress he is complaining of pain in his right foot otherwise he denies any complaints there is no fever or chills no headache or dizziness no chest pain no shortness of breath no cough no nausea or vomiting no abdominal pain no diarrhea and no urinary symptoms. At this time patient is maintained on IV antibiotics, infectious disease are following, nephrology are following. Patient is off Coumadin in anticipation of kidney biopsy he was started yesterday on subcu Lovenox On 08/20/2022 patient is alert and oriented 3. Creatinine 5.23 bun 54. INR 2.0 Coumadin on hold for possible kidney biopsy patient maintained on Lovenox. Temp 98.4, heart rate 99, respiratory rate 18, blood pressure 129/66 4 with pulse ox 95% on room air. Infectious disease and nephrology services are following On 08/21/2022 patient is alert and oriented 3. Lab work for today currently pending. Per nephrology services kidney biopsy possible but may not be required if patient continues to improve with kidney function. Patient denies chest pain or shortness of breath. Patient denies nausea or vomiting. Patient remains on IV antibiotics vascular infectious disease service is following. On 08/22/2022 patient was seen and examined on the medical floor he is alert and oriented 3 in no apparent distress he is complaining of foot pain otherwise he denies any complaint there is no fever or chills no headache or dizziness no chest pain no shortness of breath no cough no nausea or vomiting no abdominal pain no diarrhea and no urinary symptoms. Currently he is off Coumadin in anticipation for kidney biopsy, he is maintained on subcu Lovenox We are awaiting further recommendation from nephrology and infectious disease, continue current management at this time will recheck labs in a.m.. Dr. Vizcaino group will be covering for me starting 08/23/2022 I am resuming care of patient on 09/03/2022 09/03/2022 patient is alert and oriented 3. Over the past week patient underwent left renal biopsy on 08/27/2022 which according to oncology report positive for H 18 with workup for myeloma bone marrow biopsy is scheduled for 09/04/2022. Patient also had ongoing acute kidney injury with creatinine trending up. Patient did receive hemodialysis access and started on hemodialysis on 09/02/2022. Patient also underwent right big toe amputation on 08/26/2022. Cultures of wound positive for Proteus which is sensitive to cefepime and positive for MSSA and strep. She currently remains on Rocephin and Flagyl. Infectious disease services are following. Multiple consults following eating nephrology, oncology and infectious disease services. At this time patient is resting comfortably in bed. Patient denies any chest pain or shortness of breath. Patient denies nausea vomiting or diarrhea. Patient denies any urinary burning or frequency On 09/04/2022 patient is alert and oriented 3. Patient is status post bone marrow biopsy. Patient is currently resting comfortably in bed. Current vital signs temp 98.3, heart rate 75, respiratory rate 16, blood pressure 101/61 pulse ox 97% on room air. Awaiting further recommendations per oncology services discharge planning is in progress patient to receive hemodialysis today per nephrology services. On 09/05/2022 patient is alert and oriented 3 resting comfortably in bed. Lab work currently pending. Vital signs temp 97.9, heart rate 80, respiratory rate 20, blood pressure 123/54 pulse ox of 98 percent. Patient underwent hemodialysis today awaiting further recommendations per oncology and hematology services. On 09/06/2022 patient was seen and examined on the medical floor he is alert and oriented 3 in no apparent distress he is complaining of generalized weakness otherwise he denies any complaints, there is no fever or chills no headache or dizziness no chest pain no shortness of breath no cough no nausea or vomiting no abdominal pain no diarrhea and no urinary symptoms. Patient is maintained on hemodialysis, he received 1 unit of red blood cell transfusion yesterday, CBC is still pending, continue with current management will follow in a.m. plan is to discharge patient to [facility] for rehab on Thursday. Patient Condition at Discharge: Fair Plan - Discharge Summary Discharge Rx Participant: No New Discharge Prescriptions: New cefUROXime axetiL [Cefuroxime] 500 mg PO BID 15 Days #30 tab Famotidine [Pepcid] 20 mg PO DAILY tab Warfarin [Coumadin] 5 mg PO ONCE tab Torsemide [Demadex] 40 mg PO DAILY tab metroNIDAZOLE [Flagyl] 500 mg PO TID tab Tamsulosin [Flomax] 0.4 mg PO PC-SUPPER cap Continue amLODIPine BESYLATE [Norvasc] 5 mg PO DAILY HYDROcodone/APAP 10-325MG [[place] 10-325] 1 tab PO Q6H PRN PRN Reason: Pain allopurinoL [Zyloprim] 300 mg PO DAILY Collagenase [Santyl Ointment] 1 applic TOPICAL DAILY Discontinued Warfarin [Coumadin] 7.5 mg PO DAILY Discharge Medication List HYDROcodone/APAP 10-325MG [[place] 10-325] 1 tab PO Q6H PRN 06/30/19 [History] allopurinoL [Zyloprim] 300 mg PO DAILY 06/30/19 [History] amLODIPine BESYLATE [Norvasc] 5 mg PO DAILY 06/30/19 [History] Collagenase [Santyl Ointment] 1 applic TOPICAL DAILY 08/12/22 [History] Famotidine [Pepcid] 20 mg PO DAILY tab 09/08/22 [Rx] Tamsulosin [Flomax] 0.4 mg PO PC-SUPPER cap 09/08/22 [Rx] Torsemide [Demadex] 40 mg PO DAILY tab 09/08/22 [Rx] Warfarin [Coumadin] 5 mg PO ONCE tab 09/08/22 [Rx] cefUROXime axetiL [Cefuroxime] 500 mg PO BID 15 Days #30 tab 09/08/22 [Rx] metroNIDAZOLE [Flagyl] 500 mg PO TID tab 09/08/22 [Rx] Follow up Appointment(s)/Referral(s): Jasmeet Pendleton MD [STAFF PHYSICIAN] - 09/18/22 2:00 pm (this appt is at the [employer] office located behind [facility]) [facility], [NON-STAFF] - As Needed Jameel Plascencia MD [STAFF PHYSICIAN] - 4 Weeks Mati Gomez MD [Primary Care Provider] - 1-2 days Haroldo Barton MD [STAFF PHYSICIAN] - 09/10/22 (need appointment scheduled please.) Ambulatory/Diagnostic Orders: Miscellaneous Lab Order [LAB.AMB] Time Frame: 1 Week, Location: None Selected Activity/Diet/Wound Care/Special Instructions: Monitor bladder scans every shift for 2 days. Dressing change to R foot toe amputation sites: opticell silver gauze, pack down into open area, moisten that gauze, 4x4's, kerlix wrap, due every 48hours. (Done 09/08/22)
[2022-09-08] MEDS ORDERED: WARFARIN 5 MG TAB PO ONE (18:00)
--- NOTE | 2022-09-08 20:34 | P.PN ---
Subjective Progress Note Date: 09/08/22 Principal diagnosis: Right second toe amputation site wound infection Patient is a 71-year-old male was recently admitted to this facility and the patient did have a right second toe diabetic foot infection in this patient was status post amputation of his right second toe on 06/29/2022 , patient presented to the hospital with worsening renal failure and the patient w as noticed to have some purulent drainage from his right second toe amputation site wound which is currently not healed, patient is status post right big toe amputation on 08/26/2022 and the patient did have a renal biopsy completed on 08/27/2022, patient did have worsening of his kidney function and is being considered for dialysis with the dialysis catheter placement on 09/01/2022 and the patient had been started on dialysis On today's evaluation that is 09/08/2022, the patient continues to be afebrile, the patient is breathing comfortably on room air, the patient denies chest pain shortness of breath, the patient denies cough or sputum production , the patient denies nausea no vomiting no abdominal pain or any diarrhea , the patient denies pain to the right foot wound area Objective - Vital Signs Vital signs: Vital Signs Temp 98.6 F 09/08/22 07:10 Pulse 87 09/08/22 07:10 Resp 18 09/08/22 07:10 BP 118/68 09/08/22 07:10 Pulse Ox 94 L 09/08/22 07:10 FiO2 21 08/24/22 09:32 Intake & Output 09/07/22 09/08/22 09/08/22 18:59 06:59 18:59 Other: # Bowel Movements 2 - Exam GENERAL DESCRIPTION: An elderly male lying in bed in no distress RESPIRATORY SYSTEM: Unlabored breathing , decreased breath sounds at bases HEART: S1 S2 regular rate and rhythm , ABDOMEN: Soft , no tenderness EXTREMITIES: Right big and second toe amputation site is currently dressed no drainage on the dressing - Labs CBC & Chem 7: 09/08/22 04:37 09/08/22 04:37 Labs: Abnormal Lab Results - Last 24 Hours (Table) 09/07/22 09/07/22 09/08/22 Range/Units 16:40 20:30 04:37 RBC (4.40-5.60) X 10*6/uL Hgb (13.0-17.0) g/dL Hct (39.6-50.0) % MCV (80.0-97.0) fL MCHC (32.0-37.0) g/dL RDW (11.5-14.5) % Plt Count (140-440) X 10*3/uL Plt Count Comment Immature Gran # (0.00-0.04) X 10*3/uL PT 20.9 H (9.0-12.0) sec INR 2.1 H (<1.2) Sodium (135-145) mmol/L Carbon Dioxide (20.0-27.5) mmol/L Anion Gap (10.00-18.00) mmol/L Creatinine (0.6-1.5) mg/dL Est GFR (CKD-EPI)AfAm (60.0-200.0) Est GFR (CKD-EPI)NonAf (60.0-200.0) BUN/Creatinine Ratio (12.00-20.00) Ratio POC Glucose (mg/dL) 128 H 131 H (70-110) mg/dL Total Protein (6.2-8.2) g/dL Albumin (3.8-4.9) g/dL Crossmatch 09/08/22 09/08/22 09/08/22 Range/Units 04:37 04:37 10:23 RBC 2.14 L (4.40-5.60) X 10*6/uL Hgb 6.7 L* (13.0-17.0) g/dL Hct 21.0 L (39.6-50.0) % MCV 98.1 H (80.0-97.0) fL MCHC 31.9 L (32.0-37.0) g/dL RDW 15.9 H (11.5-14.5) % Plt Count 76 L (140-440) X 10*3/uL Plt Count Comment DECREASED A Immature Gran # 0.05 H (0.00-0.04) X 10*3/uL PT (9.0-12.0) sec INR (<1.2) Sodium 131 L (135-145) mmol/L Carbon Dioxide 27.8 H (20.0-27.5) mmol/L Anion Gap 7.20 L (10.00-18.00) mmol/L Creatinine 8.0 H* (0.6-1.5) mg/dL Est GFR (CKD-EPI)AfAm 7.0 L (60.0-200.0) Est GFR (CKD-EPI)NonAf 6.1 L (60.0-200.0) BUN/Creatinine Ratio 3.14 L (12.00-20.00) Ratio POC Glucose (mg/dL) (70-110) mg/dL Total Protein 5.6 L (6.2-8.2) g/dL Albumin 3.5 L (3.8-4.9) g/dL Crossmatch See Detail 09/08/22 Range/Units 11:43 RBC (4.40-5.60) X 10*6/uL Hgb (13.0-17.0) g/dL Hct (39.6-50.0) % MCV (80.0-97.0) fL MCHC (32.0-37.0) g/dL RDW (11.5-14.5) % Plt Count (140-440) X 10*3/uL Plt Count Comment Immature Gran # (0.00-0.04) X 10*3/uL PT (9.0-12.0) sec INR (<1.2) Sodium (135-145) mmol/L Carbon Dioxide (20.0-27.5) mmol/L Anion Gap (10.00-18.00) mmol/L Creatinine (0.6-1.5) mg/dL Est GFR (CKD-EPI)AfAm (60.0-200.0) Est GFR (CKD-EPI)NonAf (60.0-200.0) BUN/Creatinine Ratio (12.00-20.00) Ratio POC Glucose (mg/dL) 136 H (70-110) mg/dL Total Protein (6.2-8.2) g/dL Albumin (3.8-4.9) g/dL Crossmatch Assessment and Plan (1) Diabetic foot infection Status: Acute Code(s): E11.628 - TYPE 2 DIABETES MELLITUS WITH OTHER SKIN COMPLICATIONS; L08.9 - LOCAL INFECTION OF THE SKIN AND SUBCUTANEOUS TISSUE, UNSP SNOMED Code(s): 426922236 Plan: 1patient with right second toe diabetic foot infection in this patient who is status post amputation of the right second toe culture that time was positive for MRSA patient did present to the hospital with acute renal failure patient did have purulent drainage to the right second toe amputation site and some surrounding cellulitis. 2local culture growing Proteus, group B strep and is also showing presumptive staph aureus which has been finalized his MSSA. 3 patient noticed to have a more ischemic changes to the right big toe , and patient the patient is status post amputation of the right big toe on 08/26/2022 4patient right big toe amputation site wound cultures grew Proteus which is sensitive to cefepime/ceftriaxone patient previous culture positive for MSSA and strep 5-local wound care with Aquacel silver dressing changes every 48 hour 6-patient right second toe amputation site wound is almost healed however did have more necrotic changes to the right big toe amputation site wound, vascular surgery contacted for reevaluation over to be seen the patient this afternoon , patient has received more than 3 weeks of IV antibiotic therapy and will be transitioned oral Ceftin and Flagyl 2 weeks on discharge and close outpatient follow-up Time with Patient: Less than 30
== END 2022-09-08 17:23 | DRG 982 ==
LOC: EC 15:43 → 4SSUR 23:10 → 3SCARD 08-13 17:43 → 4SSUR 09-01 18:49
PROVIDERS: ADMIT Internal Medicine; ATTEND Internal Medicine
PROC: 30233N1 Transfusion of Nonautologous Red Blood Cells into Peripheral Vein, Percutaneous Approach (ICD-10-PCS; 2022-08-14)
PROC: 0Y6M0Z4 Detachment at Right Foot, Complete 1st Ray, Open Approach (ICD-10-PCS; principal; 2022-08-26 07:30)
PROC: 0TB13ZX Excision of Left Kidney, Percutaneous Approach, Diagnostic (ICD-10-PCS; 2022-08-27)
PROC: 02HV33Z Insertion of Infusion Device into Superior Vena Cava, Percutaneous Approach (ICD-10-PCS; 2022-09-01)
PROC: 5A1D70Z Performance of Urinary Filtration, Intermittent, Less than 6 Hours Per Day (ICD-10-PCS; 2022-09-02)
PROC: 07DR3ZX Extraction of Iliac Bone Marrow, Percutaneous Approach, Diagnostic (ICD-10-PCS; 2022-09-04)
PROC: 079T3ZX Drainage of Bone Marrow, Percutaneous Approach, Diagnostic (ICD-10-PCS; 2022-09-04)
DX: N17.0 Acute kidney failure with tubular necrosis (principal); C90.00 Multiple myeloma not having achieved remission; E11.52 Type 2 diabetes mellitus with diabetic peripheral angiopathy with gangrene; E87.1 Hypo-osmolality and hyponatremia; E87.4 Mixed disorder of acid-base balance; I48.20 Chronic atrial fibrillation, unspecified; N13.8 Other obstructive and reflux uropathy; T87.43 Infection of amputation stump, right lower extremity; L03.115 Cellulitis of right lower limb; D63.1 Anemia in chronic kidney disease; E11.628 Type 2 diabetes mellitus with other skin complications; E11.22 Type 2 diabetes mellitus with diabetic chronic kidney disease; E11.621 Type 2 diabetes mellitus with foot ulcer; L97.519 Non-pressure chronic ulcer of other part of right foot with unspecified severity; N18.32 Chronic kidney disease, stage 3b; Z99.2 Dependence on renal dialysis; Z20.822 Contact with and (suspected) exposure to COVID-19; B96.4 Proteus (mirabilis) (morganii) as the cause of diseases classified elsewhere; B95.1 Streptococcus, group B, as the cause of diseases classified elsewhere; B95.61 Methicillin susceptible Staphylococcus aureus infection as the cause of diseases classified elsewhere; D41.02 Neoplasm of uncertain behavior of left kidney; I10 Essential (primary) hypertension; N05.8 Unspecified nephritic syndrome with other morphologic changes; R33.9 Retention of urine, unspecified; E83.42 Hypomagnesemia; E87.6 Hypokalemia; E87.70 Fluid overload, unspecified; N28.89 Other specified disorders of kidney and ureter; T50.2X5A Adverse effect of carbonic-anhydrase inhibitors, benzothiadiazides and other diuretics, initial encounter; R79.1 Abnormal coagulation profile; M10.9 Gout, unspecified; G89.29 Other chronic pain; M54.50 Low back pain, unspecified; Z79.01 Long term (current) use of anticoagulants; Z79.899 Other long term (current) drug therapy; Z87.891 Personal history of nicotine dependence; Z86.14 Personal history of Methicillin resistant Staphylococcus aureus infection; Z71.3 Dietary counseling and surveillance
CPT/HCPCS: 36415; 36558; 38222; 50200; 71045; 74176; 76770; 76937; 76942; 77001; 77075; 80048; 80053; 80061; 81001; 81050; 82306; 82570; 82728; 83036; 83516; 83540; 83550; 83605; 83735; 83883; 84100; 84156; 84443; 84550; 85025; 85027; 85045; 85610; 85652; 86038; 86140; 86160; 86225; 86255; 86334; 86335; 86706; 86803; 86850; 86900; 86901; 86920; 87040; 87070; 87077; 87186; 87205; 87340; 87635; 88305; 90935; 94760; 96365; 99284